=== PATIENT | male | born 1955 | race Caucasian/White ===

== ENCOUNTER 2016-09-11 16:37 | Inpatient (IN) | payer MEDICARE, OTHER ==
[2016-09-11] MEDS ORDERED: IPRATROPIUM-ALBUTEROL 3 ML NEB INHALATION STA ×2 (17:50→20:49)
[2016-09-11] MEDS ORDERED: RX INFO: IV CONTRAST WAS GIVEN 1 EACH MISC MISCELLANE PRN (17:51)
[2016-09-11] MEDS ORDERED: ASPIRIN 81 MG CHEW PO STA (17:52)
[2016-09-11] MEDS ORDERED: NITROGLYCERIN OINT 1 INCH/GM PACKET TOPICAL STA (17:53)
[2016-09-11 18:26] LABS: Basophils # (A) 0.1 k/uL (0-0.2); Basophils % (A) 1 %; CHCM 33.3; Eosinophils # (A) 0.2 k/uL (0-0.7); Eosinophils % (A) 2 %; HCT 45.1 % (39.0-53.0); HDW 2.23; HGB 15.2 gm/dL (13.0-17.5); Luc # (Auto) 0.27; Luc % (Auto) 3; Lymphocytes # (A) 2.9 k/uL (1.0-4.8); Lymphocytes % (A) 33 %; MCH 31.4 pg (25.0-35.0); MCHC 33.7 g/dL (31.0-37.0); MCV 93.3 fL (80.0-100.0); Mean Platelet Volume 7.6; Monocytes # (A) 0.6 k/uL (0-1.0); Monocytes % (A) 7 %; Neutrophils # (A) 4.7 k/uL (1.3-7.7); Neutrophils % (A) 54 %; RBC 4.84 m/uL (4.30-5.90); RDW 13.2 % (11.5-15.5); WBC 8.6 k/uL (3.8-10.6); WBC (Perox) 8.32
[2016-09-11 18:38] LABS: INR 1.1 (<1.1); Partial Thromboplastin Time 25.9 sec (22.0-30.0); Prothrombin Time 10.9 sec (9.0-12.0)
[2016-09-11 18:39] LABS: ALT 92 U/L (21-72); AST 79 U/L (17-59); Alkaline Phosphatase 113 U/L (38-126); Anion Gap 14 mmol/L; Blood Urea Nitrogen 13 mg/dL (9-20); Calcium 9.9 mg/dL (8.4-10.2); Carbon Dioxide 24 mmol/L (22-30); Chloride 101 mmol/L (98-107); Glucose 139 mg/dL (74-99); Non-African American GFR(MDRD) >60 (>60 ml/min/1.73 sqM); Potassium 4.3 mmol/L (3.5-5.1); Sodium 139 mmol/L (137-145); Total Bilirubin 0.5 mg/dL (0.2-1.3); Total Protein 8.3 g/dL (6.3-8.2)
[2016-09-11 18:48] LABS: Creatine Kinase 128 U/L (55-170)
[2016-09-11 18:59] LABS: Creatine Kinase MB 1.4 ng/mL (0.0-2.4); Troponin I <0.012 ng/mL (0.000-0.034)
--- NOTE | 2016-09-11 19:36 | CT ---
EXAMINATION TYPE: CT angio chest DATE OF EXAM: 09/11/2016 7:22 PM COMPARISON: NONE HISTORY: Diffuse chest pain x [address] DLP: 563.20 mGycm Automated exposure control for dose reduction was used. CONTRAST: CTA scan of the thorax is performed with IV Contrast, patient injected with 83 mL of Omnipaque 350, p ulmonary embolism protocol. . FINDINGS: There are 3-D post processed images. The lungs are clear of consolidation. There is subpleural mild interstitial density in the posterior lung pruitt. There is no sign of a pulmonary mass. There is no evidence of aortic aneurysm or dissection. There is coronary artery calcification. I see no filling defects in the pulmonary arteries. There is no mediastinal adenopathy. There are no hilar masses. There is no pericardial effusion. There is evidence for fatty infiltration of the liver. Bony thorax appears intact. IMPRESSION: NO EVIDENCE OF PULMONARY EMBOLISM. ATHEROSCLEROTIC VASCULAR DISEASE. PULMONARY FIBROTIC CHANGES.
--- NOTE | 2016-09-11 20:55 | ED ---
SOB HPI - General Chief Complaint: Shortness of Breath Stated Complaint: Poss Blood Clot in Lung Time Seen by Provider: 09/11/16 16:57 Source: patient Mode of arrival: ambulatory Limitations: no limitations - History of Present Illness Initial Comments: This 61-year-old white male presents with a complaint of some shortness of breath. He states that he's had this for approximately 10 days and it is progressively worsening. It is worse with any exertion. He has had a cough without production. He denies any actual fever. He also has had some chest pain which is described as a pressure type sensation like someone is sitting on his chest. [facility] and they noticed that he may have pneumonia and they were also worried about a blood clot. He denies any leg pain or swelling or history of DVT or PE. He does have a strong history of tobacco use but stopped in the . He does have a history of asthma and utilizes HFA's. He states that his last stress test was approximately 3 years ago. He has never had a heart catheterization. No other complaints or modifying factors. - Related Data Home Medications Medication Instructions Recorded Confirmed Aspirin EC [Ecotrin Low Dose] 81 mg PO HS 09/11/16 09/11/16 Ibuprofen [Motrin] 800 mg PO Q8H PRN 09/11/16 09/11/16 Insulin NPH Hum/Reg Insulin Hm 90 unit SQ QA 09/11/16 09/11/16 [NovoLIN 70-30 100 UNIT/ML VIAL] Insulin NPH Hum/Reg Insulin Hm 95 unit SQ HS 09/11/16 09/11/16 [NovoLIN 70-30 100 UNIT/ML VIAL] Lisinopril [Zestril] 10 mg PO DAILY 09/11/16 09/11/16 Niacin [Niacin ER] 1,000 mg PO HS 09/11/16 09/11/16 Omeprazole [PriLOSEC] 20 mg PO DAILY 09/11/16 09/11/16 Tamsulosin HCl [Flomax] 0.4 mg PO DAILY PRN 09/11/16 09/11/16 amLODIPine [Norvasc] 10 mg PO DAILY 09/11/16 09/11/16 metFORMIN HCL 1,000 mg PO BID 09/11/16 09/11/16 Allergies Allergy/AdvReac Type Severity Reaction Status Date / Time hydrocodone [From [place]] AdvReac Hallucinati Verified 09/11/16 18:14 ons/Nausea& vomiting Review of Systems ROS Statement: Those systems with pertinent positive or pertinent negative responses have been documented in the HPI. ROS Other: All systems not noted in ROS Statement are negative. Past Medical History Past Medical History: Asthma, Diabetes Mellitus, Hypertension, Myocardial Infarction ([place]) Additional Past Medical History / Comment(s): hypercholestremia, swine flu History of Any Multi-Drug Resistant Organisms: None Reported Past Surgical History: Tonsillectomy Additional Past Surgical History / Comment(s): knee, hernia repair. Past Psychological History: No Psychological Hx Reported Smoking Status: Former smoker Past Alcohol Use History: None Reported Past Drug Use History: None Reported General Exam - General Exam Comments Initial Comments: GENERAL: The patient is well nourished and well hydrated. VITAL SIGNS: Heart rate, blood pressure, respiratory rate reviewed as recorded in nurse's notes. EYES: Pupils are round and reactive. Extraocular movements are intact. No conjunctival / lid redness or swelling. ENT: No external evidence of injury, swelling, or ecchymosis. Airway is patent. Throat is clear. NECK: Nontender. No swelling or evidence of injury. No subcutaneous emphysema. Trachea is midline. No thyroid mass. HEART: Regular rate and rhythm. Good peripheral pulses. LUNGS/CHEST: There is some mild wheezing noted bilaterally. No ecchymosis, subcutaneous emphysema, or tenderness. ABDOMEN: Abdomen soft without tenderness. No palpable masses or organomegaly. No peritoneal signs. No abdominal wall swelling or ecchymosis. EXTREMITIES: No extremity tenderness. Normal muscle tone and function. No thoracolumbar tenderness. NEUROLOGIC: Sensation is grossly intact. Cranial nerve exam reveals face is symmetrical, tongue is midline, speech is clear. SKIN: No abrasions or ecchymosis is noted. No induration or masses noted. PSYCHIATRIC: Alert and oriented. Appropriate behavior and judgment. Limitations: no limitations Course Vital Signs 09/11/16 09/11/16 09/11/16 17:12 17:43 18:25 Temperature 97.0 F L 97.7 F Pulse Rate 109 H 102 H Respiratory 23 Rate Blood Pressure 145/90 O2 Sat by Pulse 97 Oximetry 09/11/16 09/11/16 18:43 19:23 Temperature Pulse Rate 110 H 106 H Respiratory 20 Rate Blood Pressure 122/69 O2 Sat by Pulse 94 L Oximetry Medical Decision Making - Medical Decision Making The patient was seen and examined. All diagnostics were reviewed. The EKG shows a sinus tachycardia at a rate of 103. There is no acute ST-T wave changes noted. The ND interval is 168, QRS duration is 90, and QTc interval is 42. The patient had a laboratory analysis done which is overall fairly unremarkable. The computed tomography scan of the thorax did not show any evidence of pulmonary embolism or infiltrates. It did show some pulmonary fibrosis as well as arterial sclerosis. The laboratory showed mild elevation of the LFTs and the patient states that he has had this before due to a fatty liver. Overall it is felt as though patient has an exacerbation of his COPD. He also potentially could have acute coronary syndrome/unstable angina. Is felt as though he benefit from admission and further treatment. He does receive aspirin as well as Nitropaste and multiple DuoNeb breathing treatments and steroids. He is agreeable to this plan. Case is discussed with Dr. Ayala who is agreeable to admission with pulmonology and cardiology to consult. - Lab Data Result diagrams: 09/11/16 17:38 09/11/16 17:38 Lab Results 09/11/16 09/11/16 09/11/16 Range/Units 17:38 17:38 17:38 WBC 8.6 (3.8-10.6) k/uL RBC 4.84 (4.30-5.90) m/uL Hgb 15.2 (13.0-17.5) gm/dL Hct 45.1 (39.0-53.0) % MCV 93.3 (80.0-100.0) fL MCH 31.4 (25.0-35.0) pg MCHC 33.7 (31.0-37.0) g/dL RDW 13.2 (11.5-15.5) % Plt Count 204 (150-450) k/uL Neutrophils % 54 % Lymphocytes % 33 % Monocytes % 7 % Eosinophils % 2 % Basophils % 1 % Neutrophils # 4.7 (1.3-7.7) k/uL Lymphocytes # 2.9 (1.0-4.8) k/uL Monocytes # 0.6 (0-1.0) k/uL Eosinophils # 0.2 (0-0.7) k/uL Basophils # 0.1 (0-0.2) k/uL PT (9.0-12.0) sec INR (<1.1) APTT (22.0-30.0) sec D-Dimer (<0.60) mg/L FEU Sodium 139 (137-145) mmol/L Potassium 4.3 (3.5-5.1) mmol/L Chloride 101 (98-107) mmol/L Carbon Dioxide 24 (22-30) mmol/L Anion Gap 14 mmol/L BUN 13 (9-20) mg/dL Creatinine 0.77 (0.66-1.25) mg/dL Est GFR (MDRD) Af Amer >60 (>60 ml/min/1.73 sqM) Est GFR (MDRD) Non-Af >60 (>60 ml/min/1.73 sqM) Glucose 139 H (74-99) mg/dL Calcium 9.9 (8.4-10.2) mg/dL Total Bilirubin 0.5 (0.2-1.3) mg/dL AST 79 H (17-59) U/L ALT 92 H (21-72) U/L Alkaline Phosphatase 113 (38-126) U/L Total Creatine Kinase 128 (55-170) U/L CK-MB (CK-2) 1.4 (0.0-2.4) ng/mL CK-MB (CK-2) Rel Index 1.1 Troponin I <0.012 (0.000-0.034) ng/mL NT-Pro-B Natriuret Pep pg/mL Total Protein 8.3 H (6.3-8.2) g/dL Albumin 4.4 (3.5-5.0) g/dL 09/11/16 09/11/16 Range/Units 17:38 17:38 WBC (3.8-10.6) k/uL RBC (4.30-5.90) m/uL Hgb (13.0-17.5) gm/dL Hct (39.0-53.0) % MCV (80.0-100.0) fL MCH (25.0-35.0) pg MCHC (31.0-37.0) g/dL RDW (11.5-15.5) % Plt Count (150-450) k/uL Neutrophils % % Lymphocytes % % Monocytes % % Eosinophils % % Basophils % % Neutrophils # (1.3-7.7) k/uL Lymphocytes # (1.0-4.8) k/uL Monocytes # (0-1.0) k/uL Eosinophils # (0-0.7) k/uL Basophils # (0-0.2) k/uL PT 10.9 (9.0-12.0) sec INR 1.1 (<1.1) APTT 25.9 (22.0-30.0) sec D-Dimer 0.23 (<0.60) mg/L FEU Sodium (137-145) mmol/L Potassium (3.5-5.1) mmol/L Chloride (98-107) mmol/L Carbon Dioxide (22-30) mmol/L Anion Gap mmol/L BUN (9-20) mg/dL Creatinine (0.66-1.25) mg/dL Est GFR (MDRD) Af Amer (>60 ml/min/1.73 sqM) Est GFR (MDRD) Non-Af (>60 ml/min/1.73 sqM) Glucose (74-99) mg/dL Calcium (8.4-10.2) mg/dL Total Bilirubin (0.2-1.3) mg/dL AST (17-59) U/L ALT (21-72) U/L Alkaline Phosphatase (38-126) U/L Total Creatine Kinase (55-170) U/L CK-MB (CK-2) (0.0-2.4) ng/mL CK-MB (CK-2) Rel Index Troponin I (0.000-0.034) ng/mL NT-Pro-B Natriuret Pep 18 pg/mL Total Protein (6.3-8.2) g/dL Albumin (3.5-5.0) g/dL Disposition Clinical Impression: Dyspnea, Chest pain, Unstable angina, Pulmonary fibrosis, COPD exacerbation, Transaminitis, Sinus tachycardia, Hypertension Disposition: HOME SELF-CARE Condition: Fair Time of Disposition: 20:55 Decision Date: 09/11/16 Decision Time: 20:55
[2016-09-11] MEDS ORDERED: methylPREDNISolone SOD SUCCI 125 MG/2 ML VIAL IV STA (20:56)
[2016-09-11] MEDS ORDERED: NITROGLYCERIN SL TABS 0.4 MG TAB SUBLINGUAL PRN (20:59)
[2016-09-11] MEDS ORDERED: HEPARIN SODIUM,PORCINE 5,000 UNIT/ML 1 ML VIAL IV ONE (20:59)
[2016-09-11] MEDS ORDERED: HEPARIN SODIUM,PORCINE 5,000 UNIT/ML 1 ML VIAL IV PRN (20:59)
[2016-09-11] MEDS ORDERED: HEPARIN SODIUM,PORCINE/D5W PMX 25,000 UNIT in DEXTROSE/WATER 1 500ML.BAG IV SCH (21:00)
[2016-09-11] MEDS ORDERED: IBUPROFEN 800 MG TAB PO PRN (21:01)
[2016-09-11] MEDS ORDERED: TAMSULOSIN 0.4 MG CAP.ER.24H PO PRN (21:01)
--- NOTE | 2016-09-11 22:29 | XR ---
EXAMINATION TYPE: XR chest 1V portable DATE OF EXAM: 09/11/2016 10:17 PM COMPARISON: NONE HISTORY: Chest pain TECHNIQUE: Single frontal view of the chest is obtained. FINDINGS: There is no heart failure nor confluent pneumonic infiltrate. There are chest leads. Costo phrenic angles are clear. IMPRESSION: No active cardiopulmonary disease.
[2016-09-11 22:32] LABS: Glucose,Whole Blood 186 mg/dL (75-99)
[2016-09-11 22:34] VITALS: BMI 41.6
[2016-09-11] MEDS ORDERED: ALPRAZolam 0.25 MG TAB PO PRN (23:14)
[2016-09-11] MEDS ORDERED: TEMAZEPAM 15 MG CAP PO PRN (23:14)
[2016-09-12] MEDS: NITROGLYCERIN OINT 1 INCH/GM PACKET TOPICAL SCH ×5 (00:07→22:59)
[2016-09-12 00:27] LABS: Hemoglobin A1C 7.8 % (4.2-6.1)
[2016-09-12 01:15] LABS: Creatine Kinase 113 U/L (55-170)
[2016-09-12 01:30] LABS: Creatine Kinase MB 0.9 ng/mL (0.0-2.4); Troponin I <0.012 ng/mL (0.000-0.034)
[2016-09-12 03:03] LABS: Appearance,Urine Clear (Clear); Bilirubin,Urine Negative (Negative); Glucose,Urine (UA) 4+ (Negative); Ketones,Urine 1+ (Negative); Leukocyte Esterase,Urine Negative (Negative); Nitrite,Urine Negative (Negative); PH, Urine 5.5 (5.0-8.0); Protein,Urine Trace (Negative); UA Billing (MACRO vs. MICRO) CHEM; Urobilinogen,Urine <2.0 mg/dL (<2.0)
[2016-09-12 03:47] LABS: Specific Gravity,Urine >1.050 (1.001-1.035)
[2016-09-12 06:30] LABS: Glucose,Whole Blood 347 mg/dL (75-99)
[2016-09-12] MEDS: INSULIN LISPRO (humaLOG) 300 UNIT/3 ML VIAL SQ SCH ×5 (06:36→21:15)
[2016-09-12 06:37] LABS: Basophils % (A) 0 %; CH 30.5; CHCM 31.9; Eosinophils % (A) 0 %; HCT 44.4 % (39.0-53.0); HDW 2.19; HGB 14.1 gm/dL (13.0-17.5); Luc # (Auto) 0.05; Luc % (Auto) 1; Lymphocytes # (A) 0.9 k/uL (1.0-4.8); Lymphocytes % (A) 16 %; MCH 30.3 pg (25.0-35.0); MCHC 31.7 g/dL (31.0-37.0); MCV 95.7 fL (80.0-100.0); Mean Platelet Volume 7.6; Monocytes # (A) 0.1 k/uL (0-1.0); Monocytes % (A) 1 %; Neutrophils # (A) 4.9 k/uL (1.3-7.7); Neutrophils % (A) 82 %; RBC 4.64 m/uL (4.30-5.90); RDW 13.2 % (11.5-15.5); WBC (Perox) 5.99
[2016-09-12] MEDS: PANTOPRAZOLE 40 MG TABLET PO SCH (06:37)
[2016-09-12 06:42] LABS: ALT 91 U/L (21-72); AST 78 U/L (17-59); Alkaline Phosphatase 95 U/L (38-126); Anion Gap 12 mmol/L; Blood Urea Nitrogen 17 mg/dL (9-20); Calcium 9.7 mg/dL (8.4-10.2); Carbon Dioxide 26 mmol/L (22-30); Chloride 99 mmol/L (98-107); Cholesterol 189 mg/dL (<200); Glucose 320 mg/dL (74-99); HDL Cholesterol 56 mg/dL (40-60); Non-African American GFR(MDRD) >60 (>60 ml/min/1.73 sqM); Potassium 4.6 mmol/L (3.5-5.1); Sodium 137 mmol/L (137-145); Total Bilirubin 0.6 mg/dL (0.2-1.3); Total Protein 7.6 g/dL (6.3-8.2); Triglycerides 80 mg/dL (<150)
[2016-09-12 06:50] LABS: Creatine Kinase 116 U/L (55-170)
[2016-09-12 07:03] LABS: Creatine Kinase MB 0.9 ng/mL (0.0-2.4); Troponin I <0.012 ng/mL (0.000-0.034)
[2016-09-12] MEDS ORDERED: metFORMIN 500 MG TAB PO SCH (07:30)
[2016-09-12] MEDS: methylPREDNISolone SOD SUCCI 125 MG/2 ML VIAL IV SCH ×2 (08:16→11:31)
[2016-09-12] MEDS: ASPIRIN 325 MG TAB PO SCH (08:16)
[2016-09-12] MEDS: LISINOPRIL 10 MG TAB PO SCH (08:17)
[2016-09-12] MEDS: amLODIPine 10 MG TAB PO SCH (08:17)
[2016-09-12] MEDS: BUDESONIDE 0.5 MG/2 ML NEBU INHALATION SCH ×2 (08:53→20:54)
[2016-09-12] MEDS: IPRATROPIUM-ALBUTEROL 3 ML NEB INHALATION PRN (08:53)
[2016-09-12] MEDS ORDERED: ATORVASTATIN 80 MG TAB PO STA (10:20)
[2016-09-12] MEDS ORDERED: NITROGLYCERIN SL TABS 0.4 MG TAB SUBLINGUAL PRN (10:20)
[2016-09-12] MEDS ORDERED: ALPRAZolam 0.25 MG TAB PO PRN (10:20)
[2016-09-12] MEDS ORDERED: SODIUM CHLORIDE 0.9% 1,000 ML in EMPTY BAG 1 BAG IV ONE (10:20)
[2016-09-12] MEDS ORDERED: ASPIRIN 325 MG TAB PO STA (10:20)
[2016-09-12] MEDS ORDERED: ALPRAZolam 0.5 MG TAB PO PRN (10:20)
--- NOTE | 2016-09-12 10:27 | ECHOF ---
Referral Reason:cp and sob MEASUREMENTS -------- HEIGHT: 152.4 cm WEIGHT: 130.6 kg BP: 140/60 RVIDd: 2.9 cm (< 3.3) IVSd: 1.3 cm (0.6 - 1.1) LVIDd: 5.0 cm (3.9 - 5.3) LVPWd: 1.5 cm (0.6 - 1.1) IVSs: 1.5 cm LVIDs: 4.4 cm LVPWs: 1.3 cm Ao Diam: 2.9 cm (2.0 - 3.7) AV Cusp: 1.7 cm (1.5 - 2.6) LA Diam: 4.2 cm (2.7 - 3.8) MV EXCURSION: 24.599 mm (> 18.000) MV EF SLOPE: 129 mm/s (70 - 150) EPSS: 0.5 cm MV E Conner: 0.56 m/s MV DecT: 283 ms MV A Conner: 0.91 m/s MV E/A Ratio: 0.61 RAP: 5.00 mmHg RVSP: 15.61 mmHg FINDINGS -------- Sinus rhythm. Morbid Obesity This was a techncally difficult study with suboptimal views, , Definity utilized for enhancement of images. The left ventricular size is normal. There is mild concentric left ventricular hypertrophy. Overall left ventricular systolic function is normal with, an EF between 55 - 60 %. The right ventricle is normal in size. The left atrial size is normal. The right atrial size is normal. 1.5MG OF DEFINITY UTLIZED: 2 OR MORE WALL SEGMENTS NOT VISUALIZED. There is mild aortic valve sclerosis. There is no evidence of aortic regurgitation. Mild mitral annular calcification present. Mild mitral regurgitation is present. Mild tricuspid regurgitation present. There is no evidence of pulmonary hypertension. The right ventricular systolic pressure, as measured by Doppler, is 15.61mmHg. The pulmonic valve was not well visualized. There is no pulmonic regurgitation present. The aortic root size is normal. There is no pericardial effusion. CONCLUSIONS -------- 1. Morbid Obesity 2. Mild tricuspid regurgitation present. 3. There is no evidence of pulmonary hypertension. 4. There is no pulmonic regurgitation present. 5. This was a techncally difficult study with suboptimal views, , Definity utilized for enhancement of images. 6. There is mild concentric left ventricular hypertrophy. 7. Overall left ventricular systolic function is normal with, an EF between 55 - 60 %. 8. The left atrial size is normal. 9. 1.5MG OF DEFINITY UTLIZED: 2 OR MORE WALL SEGMENTS NOT VISUALIZED. 10. There is mild aortic valve sclerosis. 11. Mild mitral annular calcification present. 12. Mild mitral regurgitation is present. HAND BASEBALL SEWER: Chary Stevenson RDCS
--- NOTE | 2016-09-12 10:47 | CONS ---
DATE OF CONSULTATION: CHIEF COMPLAINT: Chest pain. Jae is a 61-year-old gentleman with history of [id number]-[id number] diabetes, hypertension, dyslipidemia, and strong family history of premature coronary artery disease who presents to hospital complaining of chest discomfort. This has been going on over the last several weeks. He describes it as a precordial chest pressure, moderate intensity, usually comes on with exertion, no clear-cut radiation, relieved with rest. Patient also complains of exertional shortness of breath, mild to moderate intensity, progressively getting worse. He comes in, is admitted with a diagnosis of unstable angina and at the time of my evaluation this morning, he is pain free, hemodynamically stable and in no apparent distress. His cardiac enzymes have been negative. LDL cholesterol is 117. He had a CT scan of the chest on his initial presentation, that was negative for pulmonary embolism. Past medical history is significant for hypertension, diabetes, dyslipidemia. Current medications include metformin 1000 mg b.i.d., Norvasc 10 mg daily, Flomax, Prilosec, Niacin, Zestril, insulin, Motrin and aspirin. ALLERGIES: Allergic to HYDROCODONE. FAMILY HISTORY: Significant for premature coronary artery disease. SOCIAL HISTORY: Negative for current smoking, EtOH abuse or drug abuse. REVIEW OF SYSTEMS: HEENT is unremarkable. CARDIAC: As described above. RESPIRATORY: As described above. GI: Negative. GENITOURINARY: Negative. MUSCULOSKELETAL: Significant for arthritis. PSYCHOSOCIAL: Negative. HEMATOLOGICAL: Negative. DERMATOLOGY: Negative. CONSTITUTIONAL: Negative. The rest of the system review is not relevant. On exam, comfortable at rest. Vital signs are stable. There is no jugular venous distention. Carotid upstroke is normal. There is no bruit. Chest exam reveals good air entry bilaterally. Heart exam reveals first and second heart sounds. No gallop. No murmur, no rub. Abdomen is soft, nontender. Exam of extremities did not reveal edema. Peripheral pulses are felt. Labs show that the creatinine is normal at 0.89. Cardiac enzymes are negative. Hemoglobin is normal at 14, platelet count is 183. ASSESSMENT: 1. Unstable angina. 2. Hypertension. 3. Dyspareunia. 4. Non-insulin dependent diabetes. 5. Morbid obesity. PLAN: Patient's symptomatology is suggestive of unstable angina. Given his multiple coronary risk factors, I advised the patient to undergo cardiac catheterization. He had been explained of risks, benefits, and alternatives, understood and accepted. I reviewed his EKGs, cardiac enzymes, CT scan.
[2016-09-12] MEDS: INSULIN NPH/REG INSULIN 70/30 300 UNIT/3 ML VIAL SQ SCH (11:15)
[2016-09-12 11:45] LABS: Glucose,Whole Blood 282 mg/dL (75-99)
[2016-09-12] MEDS ORDERED: fentaNYL (PF) 50 MCG/ML 2 ML AMP ONE (13:12)
[2016-09-12] MEDS ORDERED: MIDAZOLAM 2 MG/2 ML VIAL ONE (13:12)
[2016-09-12] MEDS: fentaNYL (PF) 50 MCG/ML 2 ML AMP IV ONE ×2 (13:15→13:52)
[2016-09-12] MEDS: MIDAZOLAM 2 MG/2 ML VIAL IV ONE ×2 (13:15→13:53)
--- NOTE | 2016-09-12 13:20 | P.CNPUL ---
History of Present Illness Consult date: 09/12/16 Requesting physician: Anna Ayala Reason for consult: dyspnea, chest pain Chief complaint: Chest pain History of present illness: This is a 61-year-old white male with history of onv-kucgicj-ypbqhnnjl diabetes , hypertension, dyslipidemia, strong family history of premature coronary artery disease, patient has been complaining of chest discomfort and pressure over the left chest for the last several weeks. The pressure has been precordial in location, moderate in intensity, and seems to be at times to be related to exertion. Denies any radiation of the pain. Denies any diaphoresis. But he does describe some shortness of breath along with the chest discomfort. Upon admission CT of the chest was negative for pulmonary embolism. I was asked to see the patient on consultation. I felt that the symptoms are mostly cardiac in nature, and I will recommend full cardiac evaluation. Patient denies any headache no blurred vision no dizziness. No nausea no vomiting no abdominal pain no melena no hematemesis no dysuria and no frequency no urgency. Review of Systems 14 point review of systems were obtained, please refer to pertinent positives and negatives in HPI. Past Medical History Past Medical History: Asthma, Diabetes Mellitus, Hyperlipidemia, Hypertension Additional Past Medical History / Comment(s): hypercholestremia, swine flu History of Any Multi-Drug Resistant Organisms: None Reported Past Surgical History: Tonsillectomy Additional Past Surgical History / Comment(s): repaired cartilage in left knee, hernia repair. Past Anesthesia/Blood Transfusion Reactions: No Reported Reaction Past Psychological History: No Psychological Hx Reported Smoking Status: Former smoker Past Alcohol Use History: None Reported Past Drug Use History: None Reported - Past Family History Father Family Medical History: Myocardial Infarction ([place]) Additional Family Medical History / Comment(s): at age 52 from a heart attack Mother Family Medical History: Myocardial Infarction ([place]) Additional Family Medical History / Comment(s): at age 52 from a heart attack Sister(s) Family Medical History: Myocardial Infarction ([place]) Medications and Allergies Home Medications Medication Instructions Recorded Confirmed Type Aspirin EC [Ecotrin Low Dose] 81 mg PO HS 09/11/16 09/11/16 History Ibuprofen [Motrin] 800 mg PO Q8H PRN 09/11/16 09/11/16 History Insulin NPH Hum/Reg Insulin Hm 90 unit SQ QAM 09/11/16 09/11/16 History [NovoLIN 70-30 100 UNIT/ML VIAL] Insulin NPH Hum/Reg Insulin Hm 95 unit SQ HS 09/11/16 09/11/16 History [NovoLIN 70-30 100 UNIT/ML VIAL] Lisinopril [Zestril] 10 mg PO DAILY 09/11/16 09/11/16 History Niacin [Niacin ER] 1,000 mg PO HS 09/11/16 09/11/16 History Omeprazole [PriLOSEC] 20 mg PO DAILY 09/11/16 09/11/16 History Tamsulosin HCl [Flomax] 0.4 mg PO DAILY PRN 09/11/16 09/11/16 History amLODIPine [Norvasc] 10 mg PO DAILY 09/11/16 09/11/16 History metFORMIN HCL 1,000 mg PO BID 09/11/16 09/11/16 History Allergies Allergy/AdvReac Type Severity Reaction Status Date / Time hydrocodone [From [place]] AdvReac Hallucinati Verified 09/11/16 18:14 ons/Nausea& vomiting Physical Exam Vitals: Vital Signs Temp Pulse Pulse Resp BP BP Pulse Ox 09/12/16 11:58 97.2 F L 114 H 18 136/74 95 09/12/16 09:05 110 H 09/12/16 08:53 107 H 09/12/16 08:00 96.9 F L 97 16 122/68 95 09/12/16 04:00 98.2 F 79 16 107/62 95 09/12/16 00:00 98.6 F 90 16 97/51 93 L 09/11/16 22:15 98.7 F 102 H 16 121/75 94 L 09/11/16 21:48 110 H 20 105/66 98 Intake and Output 09/11/16 09/12/16 09/12/16 22:59 06:59 14:59 Intake Total 200 400.328 Balance 200 400.328 Intake: Intake, IV Titration 150.328 Amount Heparin Sodium,Porcine/ 150.328 D5w Pmx 25,000 unit In Dextrose/Water 1 500ml. bag @ 7.6 UNITS/KG/HR 19. 78 mls/hr IV .Q24H [facility] Rx #:[id number] Oral 200 250 Other: Voiding Method Toilet Toilet Toilet # Voids 1 Weight 131.6 kg 130.8 kg Physical Exam: Revealed a 61-year-old white male in no distress HEENT:[Neck is supple.] [No neck masses.] [No thyromegaly.] [No JVD.] Chest: [Clear throughout, no crackles, no rhonchi, no wheezes.] Cardiac Exam: [Normal S1 and S2, no S3 gallop, no murmur.] Abdomen: [Soft, nontender, no megaly, no rebound, no guarding, normal bowel sounds.] Extremities: [No clubbing, no edema, no cyanosis.] Neurological Exam: [No focal neurologic deficit.] Results - Laboratory Findings CBC and BMP: 09/12/16 05:27 09/12/16 05:27 PT/INR, D-dimer PT 10.9 sec (9.0-12.0) 09/11/16 17:38 INR 1.1 (<1.1) 09/11/16 17:38 D-Dimer 0.23 mg/L FEU (<0.60) 09/11/16 17:38 Abnormal lab findings: Abnormal Labs 09/11/16 09/12/16 09/12/16 22:30 02:35 03:14 Lymphocytes # APTT 31.3 H Glucose POC Glucose (mg/dL) 186 H AST ALT LDL Cholesterol, Calc Ur Specific [place] >1.050 H Urine Protein Trace H Urine Glucose (UA) 4+ H Urine Ketones 1+ H 09/12/16 09/12/16 09/12/16 05:27 05:27 06:29 Lymphocytes # 0.9 L APTT Glucose 320 H POC Glucose (mg/dL) 347 H AST 78 H ALT 91 H LDL Cholesterol, Calc 117 H Ur Specific [place] Urine Protein Urine Glucose (UA) Urine Ketones 09/12/16 09/12/16 10:58 11:43 Lymphocytes # APTT 41.4 H Glucose POC Glucose (mg/dL) 282 H AST ALT LDL Cholesterol, Calc Ur Specific [place] Urine Protein Urine Glucose (UA) Urine Ketones - Diagnostic Findings CT scan - chest: image reviewed (No evidence of pulmonary embolism, subpleural minimal interstitial changes noted in the posterior lung pruitt not felt to be clinically significant.) Assessment and Plan Plan: Impression: 1 unstable angina, patient will need full cardiac evaluation and possibly cardiac catheterization. 2 history of hypertension 3 strong family history of premature coronary artery disease 4 morbid obesity 5 known insulin-dependent diabetes 6 minimal subpleural fibrotic changes noted on CT of the chest not felt to be clinically significant at this point. However could be monitored on outpatient basis. Clearly not related to his symptoms of chest pain. Recommendation: Will defer further workup to the makeup editor on the case, and we'll see the patient on when necessary basis. Time with Patient: Greater than 30
[2016-09-12] MEDS ORDERED: LIDOCAINE 2% INJ 20 MG/ML SQ ONE (13:47)
--- NOTE | 2016-09-12 14:07 | HP ---
DATE OF ADMISSION: CHIEF COMPLAINT: shortness of breath and cough and chest pain. HISTORY OF PRESENT ILLNESS: This 61-year-old gentleman with a past medical history of multiple medical problems including asthma, history of diabetes, hypertension, hyperlipidemia, hypercholesterolemia, history of swine flu, [facility] [place] was previously in [place]. Currently the patient is having cough for several days. The patient also complaining of chest pain, which was felt in the anterior part of the chest. Patient also had shortness of breath which is increasing with activity and the patient [facility] and subsequently patient was referred to [facility] for further evaluation and treatment. The patient had multiple evaluations. The CBC was normal. AST, ALT was mildly elevated. The patient also had chest CTA, which showed no evidence of any pulmonary embolism, atherosclerotic cardiovascular disease suspected, pulmonary fibrotic changes also noted. Patient admitted for further evaluation and treatment. There is no history of fever, rigors, chills. No history of headache, loss of consciousness or seizures. PAST MEDICAL HISTORY: History of asthma, diabetes, hypertension, hyperlipidemia, hypercholesterolemia, swine flu. Medications prior to admission include: 1. Metformin 1000 mg p.o. b.i.d. 2. Norvasc 10 mg daily. 3. Flomax 0.01 daily p.r.n. 4. Prilosec 20 mg daily. 5. Niacin ER 1000 mg q.6. 6. Zestril 10 mg daily. 7. Novolin 70/30, 95 units subcu q.h.s. and 90 units subcu q.a.m. 8. Motrin 800 mg q.8 p.r.n. 9. Ecotrin 81 mg p.o. daily. ALLERGIES ARE HYDROCODONE. FAMILY HISTORY: History of myocardial infarction in the family at the age of 52. SOCIAL HISTORY: Previous history of smoking. No history of alcohol intake. REVIEW OF SYSTEMS: ENT: No diminished hearing. No diminished vision. CARDIOVASCULAR: No angina or palpitations. RESPIRATORY: As mentioned earlier. GI: No nausea. : No dysuria. NERVOUS SYSTEM: No numbness, weakness. ALLERGY/IMMUNOLOGY: As mentioned earlier. MUSCULOSKELETAL: As mentioned earlier. HEMATOLOGY: No history of anemia. ENDOCRINE: As mentioned earlier. CONSTITUTIONAL: As mentioned earlier. DERMATOLOGY: Negative. RHEUMATOLOGY: Negative. PSYCHIATRY: As mentioned earlier. PHYSICAL EXAMINATION: Alert and oriented x3. Pulse 102, blood pressure 121/75, respirations 16, temperature 98.2, pulse ox 94% on room air. HEENT: Conjunctivae normal. Oral mucosa moist. NECK: No jugular venous distention. No carotid bruit. No lymph node enlargement. CARDIOVASCULAR: S1 and S2, muffled. No S3, no S4. RESPIRATORY: Breath sounds diminished at the bases. A few scattered rhonchi, no crackles. ABDOMEN: Soft, nontender, obese. No mass palpable. LEGS: Minimal edema. NERVOUS SYSTEM: Higher function as mentioned. Moves all four limbs. No focal motor deficits. LYMPHATIC: No lymphadenopathy in the neck, axillae or groin. SKIN: No ulcer, rash or bleeding. Labs: NT-proBNP is only 18. CBC within normal limits. Sodium 139. AST, ALT 79, 92. ASSESSMENT: 1. Chest pain for further evaluation, possible unstable angina. 2. Shortness of breath, possibly acute asthma exacerbation. 3. Increased AST, ALT, possibly hepatitis. 4. Diabetes mellitus type 2. 5. History of asthma. 6. Hypertension. 7. Hyperlipidemia. 8. History of hypercholesterolemia. 9. History of swine flu. 10. Remote history of nicotine dependence. 11. Obesity with body mass index of 41.6. 12. FULL CODE. RECOMMENDATIONS AND DISCUSSION: In this 61-year-old gentleman who presented with multiple complex medical issues, will monitor the patient closely. Continue the current medications and symptomatic treatment. Resume the home medications. Monitor blood sugars closely. Rule out myocardial infarction. Cardiology consultation. Also recommend Dr. Che for evaluation of shortness of breath. Otherwise possible stress test and further evaluation. The prognosis is guarded because of multiple complex medical issues. I would also recommend influenza swab also. Otherwise, blood cultures also has been sought. A set of troponins also have been requested. Serum lipase will be recommended. Chest x-ray did not show any acute abnormality at this time. Further recommendations to follow. Copy of dictation forwarded to Dr. Villarreal who is the primary physician in the [facility]. Will serially monitor the LFTs as well and recommend close follow-up in the outpatient setting.
[2016-09-12] MEDS ORDERED: RX INFO: IV CONTRAST WAS GIVEN 1 EACH MISC MISCELLANE PRN (14:25)
--- NOTE | 2016-09-12 14:44 | CC ---
DATE OF SERVICE: INDICATION: Unstable angina. PROCEDURE NOTE: After obtaining informed consent, left heart catheterization and coronary angiogram are performed via the right femoral artery using standard Navin catheters. Patient tolerated the procedure well without any immediate complications. Femoral manual hemostasis was obtained as patient was complaining of groin discomfort initially but at the end of the procedure he was fine. FINDINGS: 1. HEMODYNAMICS: Left ventricular end-diastolic pressure is 16 to 18 mm. There is no significant gradient across the aortic valve. 2. LEFT VENTRICULOGRAM: Left ventriculogram is not performed. 3. ANGIOGRAPHIC DATA: LEFT MAIN CORONARY ARTERY: Left main coronary artery appears calcified but is free of significant stenosis. It divides into left anterior descending coronary artery and circumflex coronary artery. LAD shows mild to moderate atherosclerotic plaque in its midportion. Circumflex coronary artery shows mild atherosclerotic changes. RIGHT CORONARY ARTERY: Right coronary artery and its branches are free of significant stenosis. CONCLUSION: 1. Mild to moderate nonobstructive coronary artery disease involving the left anterior descending coronary artery. 2. In the very distal part, there is a moderate plaque within the circumflex coronary artery. PLAN: Patient will be treated with optimal medical therapy at this time, will consider an outpatient stress test down the road and if there is ischemia, consider angioplasty at that time.
[2016-09-12] MEDS: SODIUM CHLORIDE 0.9% 1,000 ML IV SCH (15:10)
--- NOTE | 2016-09-12 16:26 | P.PN ---
Subjective Date of service 09/12/2016. Progress note being dictated for Dr. Ayala. Interval history: This is 61-year-old gentleman admitted with chest pain, possible unstable angina, shortness of breath, and multiple other medical issues in a patient with strong family history of CAD. Breathing improving, states increased shortness of breath accompanied by chest pain. Currently no chest pain. Evaluated by pulmonary with recommendations noted. NPO. Echo suboptimal study, reporting EF 55-60%, 2 or more wall segments not visualized Evaluated by cardiology and patient is scheduled for a cardiac catheterization this afternoon. Hypoglycemic, on IV steroids, blood sugars currently in the 200s. Objective - Vital Signs Vital signs: Vital Signs Temp 97.2 F L 09/12/16 12:00 Pulse 114 H 09/12/16 11:58 Resp 18 09/12/16 12:00 BP 136/74 09/12/16 12:00 Pulse Ox 95 09/12/16 12:00 Intake & Output 09/11/16 09/12/16 09/12/16 18:59 06:59 18:59 Intake Total 600.328 Balance 600.328 Weight 130.8 kg Intake: Intake, IV Titration 150.328 Amount Heparin Sodium,Porcine/ 150.328 D5w Pmx 25,000 unit In Dextrose/Water 1 500ml. bag @ 7.6 UNITS/KG/HR 19. 78 mls/hr IV .Q24H [facility] Rx #:[id number] Oral 450 Other: Voiding Method Toilet Toilet # Voids 1 - Exam PHYSICAL EXAM: VITAL SIGNS: [As above] GENERAL: [Sitting up in bed, no acute distress] HEENT: [Pupils equal conjunctiva normal.] NECK: [Supple, no JVD] RESPIRATORY EFFORT:[Normal] LUNGS: [Lungs clear, no wheezes rhonchi or crackles] CARDIOVASCULAR[regular S1 and S2, no murmur rub or gallop, no edema] GI: [Abdomen soft, nontender, positive bowel sounds.] PSYCH: [Alert and oriented -3, mood and affect normal.] NEURO: No focal deficits, moves all 4 extremities, strength and sensation intact. - Labs CBC & Chem 7: 09/12/16 05:27 09/12/16 05:27 Labs: Abnormal Lab Results - Last 24 Hours (Table) 09/11/16 09/12/16 09/12/16 Range/Units 22:30 02:35 03:14 Lymphocytes # (1.0-4.8) k/uL APTT 31.3 H (22.0-30.0) sec Glucose (74-99) mg/dL POC Glucose (mg/dL) 186 H (75-99) mg/dL AST (17-59) U/L ALT (21-72) U/L LDL Cholesterol, Calc (0-99) mg/dL Ur Specific [place] >1.050 H (1.001-1.035) Urine Protein Trace H (Negative) Urine Glucose (UA) 4+ H (Negative) Urine Ketones 1+ H (Negative) 09/12/16 09/12/16 09/12/16 Range/Units 05:27 05:27 06:29 Lymphocytes # 0.9 L (1.0-4.8) k/uL APTT (22.0-30.0) sec Glucose 320 H (74-99) mg/dL POC Glucose (mg/dL) 347 H (75-99) mg/dL AST 78 H (17-59) U/L ALT 91 H (21-72) U/L LDL Cholesterol, Calc 117 H (0-99) mg/dL Ur Specific [place] (1.001-1.035) Urine Protein (Negative) Urine Glucose (UA) (Negative) Urine Ketones (Negative) 09/12/16 09/12/16 Range/Units 10:58 11:43 Lymphocytes # (1.0-4.8) k/uL APTT 41.4 H (22.0-30.0) sec Glucose (74-99) mg/dL POC Glucose (mg/dL) 282 H (75-99) mg/dL AST (17-59) U/L ALT (21-72) U/L LDL Cholesterol, Calc (0-99) mg/dL Ur Specific [place] (1.001-1.035) Urine Protein (Negative) Urine Glucose (UA) (Negative) Urine Ketones (Negative) Assessment and Plan Plan: 1. [Chest pain for further evaluation, suspect unstable angina, cardiac catheterization pending]. 2. [Shortness of breath, minimal subpleural fibrotic changes per CT, no acute asthma exacerbation per pulmonary in a patient with chronic intermittent asthma] . 3. [Hypertension]. 4. [Morbid obesity, BMI 41.4]. 5. [Mildly elevated AST, ALT, possibly hepatitis]. 6. [Diabetes mellitus type 2]. 7. [Hyperlipidemia]. 8. History of hypercholesterolemia 9. History of swine flu 10. Remote history of nicotine dependence. Plan: Continue on current medication regime ,monitoring and symptomatic treatment. IV steroids discontinued, converted to oral steroids. Sliding scale adjusted with pre-meal insulin added to med regime. Post-monitoring of Accu-Cheks. Awaiting cardiac catheterization. Follow closely with cardiology. Further recommendations to follow. The impression and plan of care has been dictated as directed. : I performed a H&P examination of this patient and discussed the same with the dictator. I agree with the dictator's note. Any additional findings/opinions/ etc. will be noted.
[2016-09-12] MEDS ORDERED: predniSONE 20 MG TAB PO SCH (16:30)
[2016-09-12 16:43] LABS: Glucose,Whole Blood 311 mg/dL (75-99)
[2016-09-12] MEDS ORDERED: INSULIN LISPRO (humaLOG) 300 UNIT/3 ML VIAL SQ SCH (17:30)
[2016-09-12 20:43] LABS: Glucose,Whole Blood 375 mg/dL (75-99)
[2016-09-12] MEDS ORDERED: INSULIN NPH/REG INSULIN 70/30 300 UNIT/3 ML VIAL SQ SCH (21:00)
[2016-09-12] MEDS ORDERED: NIACIN TR 500 MG CAPSULE.ER PO SCH (21:00)
[2016-09-13 02:24] LABS: Glucose,Whole Blood 228 mg/dL (75-99)
--- NOTE | 2016-09-13 06:06 | PN ---
DATE OF SERVICE: 09/12/2016 This 61-year-old gentleman who was admitted with chest pain and shortness of breath, had a cardiac cath . Seen and evaluated the patient along with the nurse practitioner. Please refer to nurse practitioner notes and impression documented for further information. Prognosis guarded. Further recommendations to follow. MTDD
[2016-09-13] MEDS: NITROGLYCERIN OINT 1 INCH/GM PACKET TOPICAL SCH (06:20)
[2016-09-13] MEDS: SODIUM CHLORIDE 0.9% 1,000 ML IV SCH (06:21)
[2016-09-13 06:22] LABS: Basophils % (A) 0 %; CH 30.7; CHCM 32.4; Eosinophils % (A) 0 %; HCT 43.2 % (39.0-53.0); HDW 2.09; HGB 13.9 gm/dL (13.0-17.5); Luc # (Auto) 0.21; Luc % (Auto) 2; Lymphocytes # (A) 1.1 k/uL (1.0-4.8); Lymphocytes % (A) 10 %; MCH 30.5 pg (25.0-35.0); MCHC 32.1 g/dL (31.0-37.0); Mean Platelet Volume 7.4; Monocytes # (A) 0.9 k/uL (0-1.0); Monocytes % (A) 7 %; Neutrophils # (A) 9.3 k/uL (1.3-7.7); Neutrophils % (A) 81 %; RBC 4.55 m/uL (4.30-5.90); RDW 13.3 % (11.5-15.5); WBC 11.5 k/uL (3.8-10.6); WBC (Perox) 11.83
[2016-09-13 06:28] LABS: Glucose,Whole Blood 205 mg/dL (75-99)
[2016-09-13 06:30] LABS: ALT 67 U/L (21-72); AST 47 U/L (17-59); Alkaline Phosphatase 64 U/L (38-126); Anion Gap 12 mmol/L; Blood Urea Nitrogen 20 mg/dL (9-20); Calcium 9.6 mg/dL (8.4-10.2); Carbon Dioxide 24 mmol/L (22-30); Chloride 104 mmol/L (98-107); Glucose 218 mg/dL (74-99); Non-African American GFR(MDRD) >60 (>60 ml/min/1.73 sqM); Potassium 4.9 mmol/L (3.5-5.1); Sodium 140 mmol/L (137-145); Total Bilirubin 0.7 mg/dL (0.2-1.3); Total Protein 7.5 g/dL (6.3-8.2)
[2016-09-13] MEDS: PANTOPRAZOLE 40 MG TABLET PO SCH (06:49)
[2016-09-13] MEDS: INSULIN LISPRO (humaLOG) 300 UNIT/3 ML VIAL SQ SCH ×4 (07:37→12:19)
--- NOTE | 2016-09-13 08:36 | PN ---
This is a 61-year-old gentleman who presented to hospital with unstable angina, ruled out for myocardial infarction and had cardiac catheterization that revealed mild to moderate nonobstructive CAD and had been advised medical therapy. Since yesterday, the patient had been doing well and is free of symptoms. He denies chest pain, difficulty in breathing, palpitations, dizziness, or syncope. On exam, comfortable at rest. Afebrile. Vital signs are stable. There is no jugular venous distention. Chest exam reveals good air entry bilaterally. Heart exam reveals first and second heart sounds. No gallop. Exam of the extremities did not reveal any edema. Groin is free of bleeding, bruit, hematoma. Foot pulses are intact. Labs show a potassium of 4.9. Hemoglobin is 13.9. Creatinine is normal. Patient will be discharged home on aspirin, sublingual nitroglycerin, Zestril, Norvasc that he is currently on. ASSESSMENT: Coronary artery disease for medical therapy. PLAN: Patient will be followed up in my office in 3 weeks' time and further adjustments of therapies will be made at that time. Patient is not on a statin at this time because of elevated liver enzymes.
[2016-09-13] MEDS: IPRATROPIUM-ALBUTEROL 3 ML NEB INHALATION PRN (08:57)
[2016-09-13] MEDS: BUDESONIDE 0.5 MG/2 ML NEBU INHALATION SCH (08:57)
[2016-09-13] MEDS ORDERED: predniSONE 20 MG TAB PO SCH (09:00)
[2016-09-13] MEDS ORDERED: ISOSORBIDE MONONITRATE ER 30 MG TAB.ER.24H PO SCH (09:00)
[2016-09-13] MEDS: LISINOPRIL 10 MG TAB PO SCH (09:16)
[2016-09-13] MEDS: ASPIRIN 325 MG TAB PO SCH (09:16)
[2016-09-13] MEDS: amLODIPine 10 MG TAB PO SCH (09:16)
[2016-09-13] MEDS: INSULIN NPH/REG INSULIN 70/30 300 UNIT/3 ML VIAL SQ SCH (09:17)
[2016-09-13 10:35] VITALS: RESP 18
[2016-09-13 11:41] LABS: Glucose,Whole Blood 224 mg/dL (75-99)
[2016-09-13 14:40] VITALS: BP 128/74; PULSE 103; TEMP 97.7
--- NOTE | 2016-09-14 18:57 | DS ---
DATE OF ADMISSION: 09/11/2016 DATE OF DISCHARGE: 09/13/2016 FINAL DIAGNOSES: 1. Chest pain, possibly unstable angina. Cardiac catheterization showing mild to moderate coronary artery disease, on medical treatment. 2. Shortness of breath for further evaluation. Minimal fibrotic changes on CT. History of chronic intermittent asthma. 3. Hypertension. 4. Morbid obesity, body mass index 41.4. 5. Mildly elevated AST, ALT, possibly acute hepatitis. 6. Diabetes mellitus type 2. 7. Hyperlipidemia. 8. History of hypercholesterolemia. 9. History of swine flu. 10. Remote history nicotine dependence. 11. FULL CODE. DISCHARGE DISPOSITION: The patient will be discharged in a stable condition with guarded prognosis. Discharge cleared by cardiology. HISTORY OF PRESENT ILLNESS: This 61-year-old gentleman with a past medical history of multiple medical problems, admitted with chest pain and shortness of present. The patient had a cardiac catheterization showing mild to moderate coronary artery disease. The shortness of breath was evaluated by Dr. Che. Recommend outpatient followup. The patient has symptomatically improved significantly. On exam, alert, oriented x3. Vitals are stable. Cardiovascular, S1 and S2 muffled. Abdomen soft. No distention. Sugars are mildly elevated. DISCHARGE DIET: Cardiac. FOLLOWUP: 1. Follow up with [place] [facility], Laci Villarreal in 2 to 3 days. 2. Followup with Dr. Krishnan as advised. 3. Followup with Dr. Che as advised. MEDICATIONS: 1. Ecotrin 81 mg p.o. at bedtime. 2. Symbicort 4.5 two puffs b.i.d. 3. Motrin 800 mg every 8 p.r.n. 4. Insulin NPH 90 units subcu a.m. and 95 units at bedtime. 5. Imdur ER 30 mg p.o. daily. 6. Zestril 10 mg p.o. daily. 7.niacin 1000 mg p.o. at bedtime. 8. Nitrostat 0.4 sublingual p.r.n. 9. Prilosec 20 mg p.o. daily. 10. Flomax 0.4 daily. 11. Norvasc 10 mg daily. 12. Metformin 1000 mg p.o. b.i.d. Once again, the patient will be discharged in stable condition with guarded prognosis. MTDD
== END 2016-09-13 16:08 | disposition home or self-care (01) | DRG 287 ==
LOC: EC 16:37 → 6SEL 20:55
PROVIDERS: ADMIT Hospitalist; ATTEND Hospitalist
PROC: B2111ZZ Fluoroscopy of Multiple Coronary Arteries using Low Osmolar Contrast (ICD-10-PCS; 2016-09-12)
PROC: B2151ZZ Fluoroscopy of Left Heart using Low Osmolar Contrast (ICD-10-PCS; 2016-09-12)
PROC: 4A023N7 Measurement of Cardiac Sampling and Pressure, Left Heart, Percutaneous Approach (ICD-10-PCS; principal; 2016-09-12 12:57)
DX: I25.110 Atherosclerotic heart disease of native coronary artery with unstable angina pectoris (principal); J44.1 Chronic obstructive pulmonary disease with (acute) exacerbation; B17.9 Acute viral hepatitis, unspecified; J84.10 Pulmonary fibrosis, unspecified; K76.0 Fatty (change of) liver, not elsewhere classified; I10 Essential (primary) hypertension; E66.01 Morbid (severe) obesity due to excess calories; E78.00 Pure hypercholesterolemia, unspecified; E78.5 Hyperlipidemia, unspecified; I25.2 Old myocardial infarction; J45.20 Mild intermittent asthma, uncomplicated; E11.9 Type 2 diabetes mellitus without complications; Z68.41 Body mass index [BMI] 40.0-44.9, adult; Z79.4 Long term (current) use of insulin; Z79.82 Long term (current) use of aspirin; Z79.899 Other long term (current) drug therapy; Z87.891 Personal history of nicotine dependence; Z88.5 Allergy status to narcotic agent; Z82.49 Family history of ischemic heart disease and other diseases of the circulatory system
CPT/HCPCS: 36415; 71010; 71275; 80053; 80061; 81003; 82550; 82553; 83036; 83690; 83880; 84484; 85025; 85379; 85610; 85730; 87040; 87502; 93005; 93306; 93458; 94640; 94760; 96374; 96375; 99285

== ENCOUNTER 2017-09-25 14:27 | Emergency (ER) | payer MEDICARE, OTHER ==
[2017-09-25] MEDS ORDERED: SODIUM CHLORIDE 0.9% 1,000 ML IV STA (14:52)
[2017-09-25 15:22] LABS: Basophils # (A) 0.1 k/uL (0-0.2); Basophils % (A) 1 %; Eosinophils # (A) 0.2 k/uL (0-0.7); Eosinophils % (A) 2 %; HCT 44.8 % (39.0-53.0); HGB 15.1 gm/dL (13.0-17.5); Lymphocytes # (A) 2.6 k/uL (1.0-4.8); Lymphocytes % (A) 35 %; MCH 30.3 pg (25.0-35.0); MCHC 33.7 g/dL (31.0-37.0); Mean Platelet Volume 7.5; Monocytes # (A) 0.5 k/uL (0-1.0); Monocytes % (A) 7 %; Neutrophils # (A) 4.1 k/uL (1.3-7.7); Neutrophils % (A) 54 %; Platelet Count 181 k/uL (150-450); RBC 4.99 m/uL (4.30-5.90); RDW 12.9 % (11.5-15.5); WBC 7.6 k/uL (3.8-10.6)
[2017-09-25 15:23] LABS: Appearance,Urine Clear (Clear); Bilirubin,Urine Negative (Negative); Blood,Urine Negative (Negative); Color,Urine Light Yellow; Glucose,Urine (UA) 3+ (Negative); Ketones,Urine Negative (Negative); Leukocyte Esterase,Urine Negative (Negative); MCV 89.8 fL (80.0-100.0); Nitrite,Urine Negative (Negative); Protein,Urine Negative (Negative); Specific Gravity,Urine 1.007 (1.001-1.035); Urobilinogen,Urine <2.0 mg/dL (<2.0)
[2017-09-25 15:27] LABS: ALT 82 U/L (21-72); AST 75 U/L (17-59); Albumin 4.3 g/dL (3.5-5.0); Alkaline Phosphatase 103 U/L (38-126); Anion Gap 17 mmol/L; Blood Urea Nitrogen 11 mg/dL (9-20); Calcium 10.2 mg/dL (8.4-10.2); Carbon Dioxide 24 mmol/L (22-30); Chloride 100 mmol/L (98-107); Glucose 200 mg/dL (74-99); Potassium 4.3 mmol/L (3.5-5.1); Sodium 141 mmol/L (137-145); Total Bilirubin 0.3 mg/dL (0.2-1.3); Total Protein 7.7 g/dL (6.3-8.2)
[2017-09-25 15:29] LABS: INR 1.1 (<1.2); Partial Thromboplastin Time 26.9 sec (22.0-30.0); Prothrombin Time 10.7 sec (9.0-12.0)
[2017-09-25 15:39] LABS: Creatine Kinase 139 U/L (55-170)
--- NOTE | 2017-09-25 15:41 | CT ---
EXAMINATION TYPE: CT brain wo con DATE OF EXAM: 09/25/2017 COMPARISON: 11/08/2012 INDICATION: Patient complains of vertigo. DLP: 855.6 mGycm, Automated exposure control for dose reduction was used. CONTRAST: None CT of the brain is performed utilizing 3 mm thick sections through the posterior fossa and 3 mm thick sections through the remaining calvarium. Study is performed within 24 hours of arrival to the hosp [facility]. No abnormal hyperdensity is present to suggest an acute intracranial hemorrhage. No mass lesion is evident. No acute infarcts are evident. Ventricles and sulci are mildly prominent for the patient age. Paranasal sinuses and mastoid air cells within the [id number] are clear. IMPRESSIONS: 1. Age-related atrophy.
--- NOTE | 2017-09-25 15:43 | XR ---
EXAMINATION TYPE: XR chest 2V DATE OF EXAM: 09/25/2017 COMPARISON: 09/11/2016 INDICATION: Weakness COPD TECHNIQUE: Frontal and lateral views of the chest are obtained. FINDINGS: The heart size is normal. The pulmonary vasculature is normal. The lungs are clear. There is mild hyperinflation. IMPRESSION: 1. No acute pulmonary process.
[2017-09-25 15:52] LABS: Creatine Kinase MB 1.4 ng/mL (0.0-2.4); Troponin I <0.012 ng/mL (0.000-0.034)
[2017-09-25 16:33] VITALS: RESP 18
--- NOTE | 2017-09-25 18:03 | ED ---
General Adult HPI - General Chief complaint: Weakness Stated complaint: DIZZINESS, SENT BY [facility] R/O CVA Time Seen by Provider: 09/25/17 14:49 Source: patient Mode of arrival: ambulatory Limitations: no limitations - History of Present Illness Initial comments: 62 years old gentleman complaining about dizziness for last couple days, he felt dizzy when he changed position and then he felt dizzy when he moved his head he went to see his primary care physician he said they noticed some confusion as well and now they're worried about Him having a stroke they sent him to [facility] to rule out stroke. He denies any headache no blurred vision no chest pain or shortness of breath no abdominal pain no frequency urgency dysuria no symptoms of TIA or CVA - Related Data Home Medications Medication Instructions Recorded Confirmed Ibuprofen [Motrin] 800 mg PO Q8H PRN 09/11/16 09/25/17 Lisinopril [Zestril] 10 mg PO DAILY 09/11/16 09/25/17 Omeprazole [PriLOSEC] 20 mg PO DAILY 09/11/16 09/25/17 Tamsulosin HCl [Flomax] 0.4 mg PO DAILY 09/11/16 09/25/17 amLODIPine [Norvasc] 10 mg PO DAILY 09/11/16 09/25/17 metFORMIN HCL 1,000 mg PO BID 09/11/16 09/25/17 Budesonide/Formoterol Fumarate 2 puff INHALATION RT-BID 07/17/17 09/25/17 [Symbicort 80-4.5 Mcg Inhaler] Cholecalciferol [Vitamin D3] 1,000 unit PO DAILY 07/17/17 09/25/17 Insulin Aspart [Novolog Flexpen] 20 unit SQ TID-W/MEALS 07/17/17 09/25/17 Insulin Glargine,Hum.rec.anlog 95 unit SQ DAILY 07/17/17 09/25/17 [Lantus Solostar] Metoprolol Tartrate [Lopressor] 12.5 mg PO BID 07/17/17 09/25/17 Montelukast [Singulair] 10 mg PO DAILY 07/17/17 09/25/17 Polyvinyl Alcohol 1.4%Soln Oph 1 drop BOTH EYES QID 07/17/17 09/25/17 Pravastatin Sodium [Pravachol] 40 mg PO HS 07/17/17 09/25/17 Sodium Chloride 0.65% Nasal [Deep 1 spray NASAL BID 09/25/17 09/25/17 Sea (Saline)] Previous Rx's Medication Instructions Recorded Amoxicillin 500 mg PO Q8H #30 capsule 09/25/17 Allergies Allergy/AdvReac Type Severity Reaction Status Date / Time hydrocodone [From [place]] AdvReac Hallucinati Verified 09/25/17 15:53 ons/Nausea& vomiting Review of Systems ROS Statement: Those systems with pertinent positive or pertinent negative responses have been documented in the HPI. ROS Other: All systems not noted in ROS Statement are negative. Past Medical History Past Medical History: Asthma, Coronary Artery Disease (CAD), COPD, Diabetes Mellitus, Hyperlipidemia, Hypertension Additional Past Medical History / Comment(s): hypercholestremia, "swine flu in past" , kidney stones, rheumatic fever as child. ,asbestos exposure in past, front upper bridge. History of Any Multi-Drug Resistant Organisms: None Reported Past Surgical History: Heart Catheterization, Tonsillectomy Additional Past Surgical History / Comment(s): repaired cartilage in left knee, hernia repair. kidney stones removed sefveral times Past Anesthesia/Blood Transfusion Reactions: No Reported Reaction Additional Past Anesthesia/Blood Transfusion Reaction / Comment(s): sea sick in past Past Psychological History: No Psychological Hx Reported Smoking Status: Former smoker Past Alcohol Use History: None Reported Past Drug Use History: None Reported - Past Family History Father Family Medical History: Myocardial Infarction ([place]) Additional Family Medical History / Comment(s): at age 52 from a heart attack Mother Family Medical History: Myocardial Infarction ([place]) Additional Family Medical History / Comment(s): at age 52 from a heart attack Sister(s) Family Medical History: Myocardial Infarction ([place]) General Exam - General Exam Comments Initial Comments: General: The patient is awake and alert, in no distress, and does not appear acutely ill. GCS is 15 Skin: Skin is warm and dry and no rashes or lesions are noted. Eye: Pupils are equal, round and reactive to light, extra-ocular movements are intact; there is normal conjunctiva bilaterally. Ears, nose, mouth and throat: There are moist mucous membranes and no oral lesions. Noticed a mild effusion on the right side behind the tympanic membrane Neck: The neck is supple, there is no tenderness or JVD. Cardiovascular: There is a regular rate and rhythm. No murmur, rub or gallop is appreciated. Respiratory: To auscultation bilateral, no wheezing no rhonchi no distress respiratory bragg noticed Gastrointestinal: Soft, non-distended, non-tender abdomen without masses or organomegaly noted. There is no rebound or guarding present. Bowel sounds are unremarkable. Back: There is no tenderness to palpation in the midline. There is no obvious deformity. Musculoskeletal: Normal ROM, no tenderness, There is no pedal edema. There is no calf tenderness or swelling. No cords were appreciated. Neurological: CN II-XII intact, Cranial nerves III through XII are intact. There are no obvious motor or sensory deficits. Coordination appears grossly intact. Speech is normal. Psychiatric: Cooperative, appropriate mood & affect, normal judgment. Limitations: no limitations Course Vital Signs 09/25/17 09/25/17 09/25/17 14:30 15:41 16:32 Temperature 98 F Pulse Rate 91 95 Pulse Rate [ 88 Sitting] Pulse Rate [ 100 Standing] Pulse Rate [ 89 Supine] Respiratory 20 18 Rate Blood Pressure 190/91 132/79 Blood Pressure 128/71 [Sitting] Blood Pressure 123/66 [Standing] Blood Pressure 128/70 [Supine] O2 Sat by Pulse 97 98 Oximetry On reassessment noticed head CT is normal urinalysis compress metabolic panel, troponin, EKG, INR, CBC are unremarkable the orthostatics orthostatics are unremarkable, noticed some effusion behind the tympanic membrane on one side he be gone home on now amoxicillin 500 mg 3 times a day for next 5 days and Claritin EKG Findings - EKG Comments: EKG Findings:: EKG is a normal sinus rhythm ventricular rate is 93 NC interval is 162 QRS duration is 80 QT/QTc is 352/437 review of this EKG does not reveal any reveal any ST elevation or ST depression noticed some T-wave flattening in lead 3 Medical Decision Making - Lab Data Result diagrams: 09/25/17 15:07 09/25/17 15: Lab Results 09/25/17 09/25/17 09/25/17 Range/Units 15:07 15:07 15:07 WBC 7.6 (3.8-10.6) k/uL RBC 4.99 (4.30-5.90) m/uL Hgb 15.1 (13.0-17.5) gm/dL Hct 44.8 (39.0-53.0) % MCV 89.8 D (80.0-100.0) fL MCH 30.3 (25.0-35.0) pg MCHC 33.7 (31.0-37.0) g/dL RDW 12.9 (11.5-15.5) % Plt Count 181 (150-450) k/uL Neutrophils % 54 % Lymphocytes % 35 % Monocytes % 7 % Eosinophils % 2 % Basophils % 1 % Neutrophils # 4.1 (1.3-7.7) k/uL Lymphocytes # 2.6 (1.0-4.8) k/uL Monocytes # 0.5 (0-1.0) k/uL Eosinophils # 0.2 (0-0.7) k/uL Basophils # 0.1 (0-0.2) k/uL PT (9.0-12.0) sec INR (<1.2) APTT (22.0-30.0) sec Sodium 141 (137-145) mmol/L Potassium 4.3 (3.5-5.1) mmol/L Chloride 100 (98-107) mmol/L Carbon Dioxide 24 (22-30) mmol/L Anion Gap 17 mmol/L BUN 11 (9-20) mg/dL Creatinine 0.70 (0.66-1.25) mg/dL Est GFR (CKD-EPI)AfAm >90 (>60 ml/min/1.73 sqM) Est GFR (CKD-EPI)NonAf >90 (>60 ml/min/1.73 sqM) Glucose 200 H (74-99) mg/dL Calcium 10.2 (8.4-10.2) mg/dL Total Bilirubin 0.3 (0.2-1.3) mg/dL AST 75 H (17-59) U/L ALT 82 H (21-72) U/L Alkaline Phosphatase 103 (38-126) U/L Total Creatine Kinase 139 (55-170) U/L CK-MB (CK-2) 1.4 (0.0-2.4) ng/mL CK-MB (CK-2) Rel Index 1.0 Troponin I <0.012 (0.000-0.034) ng/mL Total Protein 7.7 (6.3-8.2) g/dL Albumin 4.3 (3.5-5.0) g/dL Urine Color Urine Appearance (Clear) Urine pH (5.0-8.0) Ur Specific [place] (1.001-1.035) Urine Protein (Negative) Urine Glucose (UA) (Negative) Urine Ketones (Negative) Urine Blood (Negative) Urine Nitrite (Negative) Urine Bilirubin (Negative) Urine Urobilinogen (<2.0) mg/dL Ur Leukocyte Esterase (Negative) 09/25/17 09/25/17 Range/Units 15:07 15:07 WBC (3.8-10.6) k/uL RBC (4.30-5.90) m/uL Hgb (13.0-17.5) gm/dL Hct (39.0-53.0) % MCV (80.0-100.0) fL MCH (25.0-35.0) pg MCHC (31.0-37.0) g/dL RDW (11.5-15.5) % Plt Count (150-450) k/uL Neutrophils % % Lymphocytes % % Monocytes % % Eosinophils % % Basophils % % Neutrophils # (1.3-7.7) k/uL Lymphocytes # (1.0-4.8) k/uL Monocytes # (0-1.0) k/uL Eosinophils # (0-0.7) k/uL Basophils # (0-0.2) k/uL PT 10.7 (9.0-12.0) sec INR 1.1 (<1.2) APTT 26.9 (22.0-30.0) sec Sodium (137-145) mmol/L Potassium (3.5-5.1) mmol/L Chloride (98-107) mmol/L Carbon Dioxide (22-30) mmol/L Anion Gap mmol/L BUN (9-20) mg/dL Creatinine (0.66-1.25) mg/dL Est GFR (CKD-EPI)AfAm (>60 ml/min/1.73 sqM) Est GFR (CKD-EPI)NonAf (>60 ml/min/1.73 sqM) Glucose (74-99) mg/dL Calcium (8.4-10.2) mg/dL Total Bilirubin (0.2-1.3) mg/dL AST (17-59) U/L ALT (21-72) U/L Alkaline Phosphatase (38-126) U/L Total Creatine Kinase (55-170) U/L CK-MB (CK-2) (0.0-2.4) ng/mL CK-MB (CK-2) Rel Index Troponin I (0.000-0.034) ng/mL Total Protein (6.3-8.2) g/dL Albumin (3.5-5.0) g/dL Urine Color Light Yellow Urine Appearance Clear (Clear) Urine pH 7.0 (5.0-8.0) Ur Specific [place] 1.007 (1.001-1.035) Urine Protein Negative (Negative) Urine Glucose (UA) 3+ H (Negative) Urine Ketones Negative (Negative) Urine Blood Negative (Negative) Urine Nitrite Negative (Negative) Urine Bilirubin Negative (Negative) Urine Urobilinogen <2.0 (<2.0) mg/dL Ur Leukocyte Esterase Negative (Negative) Disposition Clinical Impression: Dizziness, Otitis media, Hypertension Disposition: ADMITTED IP TO THIS HOSP Condition: Good Instructions: Dizziness (ED) Prescriptions: Amoxicillin 500 mg PO Q8H #30 capsule Referrals: [facility],Clinic [Primary Care Provider] - 1-2 days
[2017-09-25 18:23] VITALS: BP 143/80; PULSE 90; TEMP 97.8
== END 2017-09-25 18:22 | disposition other institution (70) ==
LOC: EC 14:27
DX: H66.91 Otitis media, unspecified, right ear (principal); R42 Dizziness and giddiness; I10 Essential (primary) hypertension; J44.9 Chronic obstructive pulmonary disease, unspecified; I25.10 Atherosclerotic heart disease of native coronary artery without angina pectoris; E78.5 Hyperlipidemia, unspecified; Z87.891 Personal history of nicotine dependence; E78.00 Pure hypercholesterolemia, unspecified; Z79.4 Long term (current) use of insulin; Z79.51 Long term (current) use of inhaled steroids; Z79.899 Other long term (current) drug therapy; Z88.5 Allergy status to narcotic agent
CPT/HCPCS: 36415; 70450; 71046; 80053; 81003; 82550; 82553; 84484; 85025; 85610; 85730; 93005; 96360; 96361; 99285

== ENCOUNTER 2018-01-31 09:33 | Inpatient (IN) | payer OTHER, MEDICARE ==
[2018-01-31] MEDS ORDERED: MORPHINE SULFATE 2 MG/ML SYRINGE IVP STA (09:54)
[2018-01-31] MEDS ORDERED: ONDANSETRON 4 MG/2 ML VIAL IVP STA (09:54)
[2018-01-31] MEDS ORDERED: SODIUM CHLORIDE 0.9% 1,000 ML IV STA ×2 (09:54)
[2018-01-31] MEDS ORDERED: KETOROLAC 30 MG/ML 1 ML VIAL IVP STA (09:54)
--- NOTE | 2018-01-31 10:01 | ED ---
Abdominal Pain HPI - General Chief Complaint: Abdominal Pain Stated Complaint: PAIN ON RT SIDE - [facility] Time Seen by Provider: 01/31/18 09:43 Source: patient, RN notes reviewed, old records reviewed Mode of arrival: ambulatory Limitations: no limitations - History of Present Illness Initial Comments: This is a 62-year-old male with chief complaint of 4 weeks of right-sided abdominal pain. Patient reports that he had cholecystectomy earlier this year. Patient states that his pain is still similar to his gallbladder attacks. Patient reports he's been quite nauseated and has had multiple days with dry heaving. Patient has had no fevers or chills. He reports that his liver enzymes have been elevated for the past few weeks, they've been checked by the [place]. He reports his urine has been somewhat dark. Denies any recent chest pain, shortness of breath. Denies any other symptoms. - Related Data Home Medications Medication Instructions Recorded Confirmed Ibuprofen [Motrin] 800 mg PO Q8H PRN 09/11/16 01/31/18 Lisinopril [Zestril] 10 mg PO DAILY 09/11/16 01/31/18 Tamsulosin HCl [Flomax] 0.4 mg PO DAILY 09/11/16 01/31/18 amLODIPine [Norvasc] 10 mg PO DAILY 09/11/16 01/31/18 metFORMIN HCL 1,000 mg PO BID 09/11/16 01/31/18 Budesonide/Formoterol Fumarate 2 puff INHALATION RT-BID 07/17/17 01/31/18 [Symbicort 80-4.5 Mcg Inhaler] Cholecalciferol [Vitamin D3] 2,000 unit PO DAILY 07/17/17 01/31/18 Insulin Aspart [Novolog Flexpen] 20 unit SQ TID-W/MEALS 07/17/17 01/31/18 Insulin Glargine,Hum.rec.anlog 95 unit SQ DAILY 07/17/17 01/31/18 [Lantus Solostar] Metoprolol Tartrate [Lopressor] 12.5 mg PO BID 07/17/17 01/31/18 Montelukast [Singulair] 10 mg PO DAILY 07/17/17 01/31/18 Polyvinyl Alcohol 1.4%Soln Oph 1 drop BOTH EYES QID 07/17/17 01/31/18 Pravastatin Sodium [Pravachol] 40 mg PO HS 07/17/17 01/31/18 Sodium Chloride 0.65% Nasal [Deep 1 spray NASAL BID 09/25/17 01/31/18 Sea (Saline)] Meclizine [Antivert] 25 mg PO TID 01/31/18 01/31/18 Omeprazole [PriLOSEC] 40 mg PO DAILY 01/31/18 01/31/18 Allergies Allergy/AdvReac Type Severity Reaction Status Date / Time hydrocodone [From [place]] AdvReac Hallucinati Verified 01/31/18 09:39 ons/Nausea& vomiting Review of Systems ROS Statement: Those systems with pertinent positive or pertinent negative responses have been documented in the HPI. ROS Other: All systems not noted in ROS Statement are negative. Past Medical History Past Medical History: Asthma, Coronary Artery Disease (CAD), COPD, Diabetes Mellitus, Hyperlipidemia, Hypertension Additional Past Medical History / Comment(s): hypercholestremia, "swine flu in past" , kidney stones, rheumatic fever as child. ,asbestos exposure in past, front upper bridge. History of Any Multi-Drug Resistant Organisms: None Reported Past Surgical History: Heart Catheterization, Tonsillectomy Additional Past Surgical History / Comment(s): repaired cartilage in left knee, hernia repair. kidney stones removed sefveral times Past Anesthesia/Blood Transfusion Reactions: No Reported Reaction Additional Past Anesthesia/Blood Transfusion Reaction / Comment(s): sea sick in past Past Psychological History: No Psychological Hx Reported Smoking Status: Former smoker Past Alcohol Use History: None Reported Past Drug Use History: None Reported - Past Family History Father Family Medical History: Myocardial Infarction ([place]) Additional Family Medical History / Comment(s): at age 52 from a heart attack Mother Family Medical History: Myocardial Infarction ([place]) Additional Family Medical History / Comment(s): at age 52 from a heart attack Sister(s) Family Medical History: Myocardial Infarction ([place]) General Exam - General Exam Comments Initial Comments: Is a 62-year-old male. Alert and oriented. No significant distress. Limitations: no limitations General appearance: alert, in no apparent distress Head exam: Present: atraumatic, normocephalic, normal inspection Eye exam: Present: normal appearance, PERRL, EOMI. Absent: scleral icterus, conjunctival injection, periorbital swelling ENT exam: Present: normal exam, mucous membranes moist Neck exam: Present: normal inspection. Absent: tenderness, meningismus, lymphadenopathy Respiratory exam: Present: normal lung sounds bilaterally Cardiovascular Exam: Present: regular rate, normal rhythm, normal heart sounds. Absent: systolic murmur, diastolic murmur, rubs, gallop, clicks GI/Abdominal exam: Present: soft, tenderness (Right-sided abdominal tenderness.) , normal bowel sounds. Absent: distended, guarding, rebound, rigid Extremities exam: Present: normal inspection, full ROM, normal capillary refill. Absent: tenderness, pedal edema, joint swelling, calf tenderness Back exam: Present: normal inspection Neurological exam: Present: alert, oriented X3, CN II-XII intact Psychiatric exam: Present: normal affect, normal mood Skin exam: Present: warm, dry, intact, normal color. Absent: rash Course Vital Signs 01/31/18 09:34 Temperature 98.1 F Pulse Rate 83 Respiratory 18 Rate Blood Pressure 153/82 O2 Sat by Pulse 94 L Oximetry Medical Decision Making - Medical Decision Making 62-year-old male presents emergency department for weeks of right-sided abdominal pain. Elevated liver enzymes. Patient presents the pain was more severe in the draining is more severe today so sent in for further outpatient IV clinic. Lab work at this time shows elevated liver enzymes. Also elevated ligament 2.3. Traumatic increased from his last lab values here in the ER. Patient was blood cell count is within normal limits. CT abdomen and pelvis was completed. There is evidence of ductal dilation within the common bile duct. Recommended ERCP. Patient admitted at this time started on Rocephin and Flagyl. Started the Patient on IV fluids. Remaining nothing by mouth. Patient 's surgeon for cholecystectomy with Dr. Mckee. We will admit the Patient to Dr. Ayala with consult to Dr. Jimenez. - Lab Data Result diagrams: 01/31/18 10:28 01/31/18 10:28 Lab Results 01/31/18 01/31/18 01/31/18 Range/Units 10:28 10:28 10:28 WBC 6.4 (3.8-10.6) k/uL RBC 4.72 (4.30-5.90) m/uL Hgb 14.7 (13.0-17.5) gm/dL Hct 44.8 (39.0-53.0) % MCV 94.8 (80.0-100.0) fL MCH 31.2 (25.0-35.0) pg MCHC 32.9 (31.0-37.0) g/dL RDW 13.2 (11.5-15.5) % Plt Count 200 (150-450) k/uL Neutrophils % 62 % Lymphocytes % 28 % Monocytes % 6 % Eosinophils % 1 % Basophils % 1 % Neutrophils # 4.0 (1.3-7.7) k/uL Lymphocytes # 1.8 (1.0-4.8) k/uL Monocytes # 0.4 (0-1.0) k/uL Eosinophils # 0.1 (0-0.7) k/uL Basophils # 0.0 (0-0.2) k/uL PT 11.2 (9.0-12.0) sec INR 1.2 H (<1.2) APTT 25.9 (22.0-30.0) sec Sodium 139 (137-145) mmol/L Potassium 4.4 (3.5-5.1) mmol/L Chloride 103 (98-107) mmol/L Carbon Dioxide 23 (22-30) mmol/L Anion Gap 13 mmol/L BUN 10 (9-20) mg/dL Creatinine 0.69 (0.66-1.25) mg/dL Est GFR (CKD-EPI)AfAm >90 (>60 ml/min/1.73 sqM) Est GFR (CKD-EPI)NonAf >90 (>60 ml/min/1.73 sqM) Glucose 124 H (74-99) mg/dL Calcium 9.6 (8.4-10.2) mg/dL Total Bilirubin 2.3 H (0.2-1.3) mg/dL AST 167 H (17-59) U/L ALT 167 H (21-72) U/L Alkaline Phosphatase 247 H (38-126) U/L Total Protein 7.6 (6.3-8.2) g/dL Albumin 4.2 (3.5-5.0) g/dL Amylase 38 (30-110) U/L Lipase 112 (23-300) U/L Urine Color Urine Appearance (Clear) Urine pH (5.0-8.0) Ur Specific [place] (1.001-1.035) Urine Protein (Negative) Urine Glucose (UA) (Negative) Urine Ketones (Negative) Urine Blood (Negative) Urine Nitrite (Negative) Urine Bilirubin (Negative) Urine Urobilinogen (<2.0) mg/dL Ur Leukocyte Esterase (Negative) 01/31/18 Range/Units 10:28 WBC (3.8-10.6) k/uL RBC (4.30-5.90) m/uL Hgb (13.0-17.5) gm/dL Hct (39.0-53.0) % MCV (80.0-100.0) fL MCH (25.0-35.0) pg MCHC (31.0-37.0) g/dL RDW (11.5-15.5) % Plt Count (150-450) k/uL Neutrophils % % Lymphocytes % % Monocytes % % Eosinophils % % Basophils % % Neutrophils # (1.3-7.7) k/uL Lymphocytes # (1.0-4.8) k/uL Monocytes # (0-1.0) k/uL Eosinophils # (0-0.7) k/uL Basophils # (0-0.2) k/uL PT (9.0-12.0) sec INR (<1.2) APTT (22.0-30.0) sec Sodium (137-145) mmol/L Potassium (3.5-5.1) mmol/L Chloride (98-107) mmol/L Carbon Dioxide (22-30) mmol/L Anion Gap mmol/L BUN (9-20) mg/dL Creatinine (0.66-1.25) mg/dL Est GFR (CKD-EPI)AfAm (>60 ml/min/1.73 sqM) Est GFR (CKD-EPI)NonAf (>60 ml/min/1.73 sqM) Glucose (74-99) mg/dL Calcium (8.4-10.2) mg/dL Total Bilirubin (0.2-1.3) mg/dL AST (17-59) U/L ALT (21-72) U/L Alkaline Phosphatase (38-126) U/L Total Protein (6.3-8.2) g/dL Albumin (3.5-5.0) g/dL Amylase (30-110) U/L Lipase (23-300) U/L Urine Color Yellow Urine Appearance Clear (Clear) Urine pH 6.0 (5.0-8.0) Ur Specific [place] 1.014 (1.001-1.035) Urine Protein Trace H (Negative) Urine Glucose (UA) Negative (Negative) Urine Ketones Negative (Negative) Urine Blood Negative (Negative) Urine Nitrite Negative (Negative) Urine Bilirubin 1+ H (Negative) Urine Urobilinogen 6.0 (<2.0) mg/dL Ur Leukocyte Esterase Negative (Negative) - Radiology Data Radiology results: report reviewed Intrahepatic and extrahepatic biliary ductal dilation with filling defect abrupt cutoff of common bile duct near the ampulla of Vater raising suspicion for. Biliary neoplasm. This could be confirmed with MRCP for evaluation for intraductal mass versus obstructing ductal degrees. There is bilateral nonobstructing renal colliculi. Disposition Clinical Impression: Common bile duct obstruction Disposition: ADMITTED IP TO THIS [facility] Condition: Stable Is patient prescribed a controlled substance at d/c from ED?: No Referrals: [facility],Clinic [Primary Care Provider] - 1-2 days Time of Disposition: 12:59
[2018-01-31 10:54] LABS: Basophils % (A) 1 %; Eosinophils # (A) 0.1 k/uL (0-0.7); Eosinophils % (A) 1 %; HCT 44.8 % (39.0-53.0); HGB 14.7 gm/dL (13.0-17.5); Lymphocytes # (A) 1.8 k/uL (1.0-4.8); Lymphocytes % (A) 28 %; MCH 31.2 pg (25.0-35.0); MCHC 32.9 g/dL (31.0-37.0); MCV 94.8 fL (80.0-100.0); Mean Platelet Volume 8.4; Monocytes # (A) 0.4 k/uL (0-1.0); Monocytes % (A) 6 %; Neutrophils % (A) 62 %; Platelet Count 200 k/uL (150-450); RBC 4.72 m/uL (4.30-5.90); RDW 13.2 % (11.5-15.5); WBC 6.4 k/uL (3.8-10.6)
[2018-01-31 10:55] LABS: Appearance,Urine Clear (Clear); Bilirubin,Urine 1+ (Negative); Blood,Urine Negative (Negative); Color,Urine Yellow; Glucose,Urine (UA) Negative (Negative); Ketones,Urine Negative (Negative); Leukocyte Esterase,Urine Negative (Negative); Nitrite,Urine Negative (Negative); Protein,Urine Trace (Negative); Specific Gravity,Urine 1.014 (1.001-1.035)
[2018-01-31 10:56] LABS: ALT 167 U/L (21-72); AST 167 U/L (17-59); Albumin 4.2 g/dL (3.5-5.0); Alkaline Phosphatase 247 U/L (38-126); Amylase 38 U/L (30-110); Anion Gap 13 mmol/L; Blood Urea Nitrogen 10 mg/dL (9-20); Calcium 9.6 mg/dL (8.4-10.2); Carbon Dioxide 23 mmol/L (22-30); Chloride 103 mmol/L (98-107); Glucose 124 mg/dL (74-99); Lipase 112 U/L (23-300); Potassium 4.4 mmol/L (3.5-5.1); Sodium 139 mmol/L (137-145); Total Bilirubin 2.3 mg/dL (0.2-1.3); Total Protein 7.6 g/dL (6.3-8.2)
[2018-01-31 11:03] LABS: INR 1.2 (<1.2); Partial Thromboplastin Time 25.9 sec (22.0-30.0); Prothrombin Time 11.2 sec (9.0-12.0)
--- NOTE | 2018-01-31 12:12 | CT ---
EXAMINATION TYPE: CT abdomen pelvis w con DATE OF EXAM: 01/31/2018 COMPARISON: None HISTORY: Right sided pain, sent by [facility] CT DLP: 2212.90 mGycm Automated exposure control for dose reduction was used. TECHNIQUE: Helical acquisition of images was performed from the lung bases through the pelvis. CONTRAST: Performed without Oral Contrast and with IV Contrast, patient injected with 100 ml mL of Isovue 300. FINDINGS: LUNG BASES: Bibasilar subsegmental atelectasis and subpleural reticulation are seen. LIVER/GB: No significant abnormality is appreciated. BILIARY TREE: There is extrahepatic biliary ductal dilatation with ductal dilatation of the common bi le duct up to 1.4 cm. Additionally on coronal series 8 image 48 there is abrupt cut off of the common bile duct appreciated. This is also seen on coronal series 3 image 41 with high density in the regio n of the distal common bile duct near the ampulla of Vater. Debris or mass are seen more proximally o n axial images 38 and 39 within the common bile duct lumen. There is also dilation of the cystic duct remnant and mild intrahepatic biliary ductal dilatation throughout the liver. PANCREAS: No significant abnormality is seen. SPLEEN: No significant abnormality is seen. ADRENALS: No significant abnormality is seen. KIDNEYS: Too small to accurately characterize left renal lesion is seen on series 3 image 26 as well as nonobstructing 3 mm midpole calculus on the left and nonobstructing 5 mm right upper pole calculus . FREE AIR: No free air is visualized. ADENOPATHY: No greater than 1 cm short axis lymph node is seen within the abdomen or pelvis. REPRODUCTIVE ORGANS: No significant abnormality is seen URINARY BLADDER: No significant abnormality is seen. OSSEOUS STRUCTURES: Mild multilevel degenerative changes of the spine are noted. BOWEL: There are numerous sigmoid diverticula without pericolonic fat stranding as well as other sca ttered colonic diverticula. No large or small bowel dilatation. OTHER: Moderate calcific atheromatous changes are seen of the abdominal aorta and its branches. IMPRESSION: 1. INTRAHEPATIC AND EXTRA HEPATIC BILIARY DUCTAL DILATATION WITH FILLING DEFECT AND ABRUPT CUT OFF OF THE COMMON BILE DUCT NEAR THE AMPULLA OF VATER RAISING SUSPICION FOR A PERIAMPULLARY NEOPLASM. THIS COULD BE CONFIRMED WITH ENHANCED MRCP TO EVALUATE FOR ENHANCEMENT OF A AN INTRADUCTAL MASS VERSUS OBS TRUCTING DUCTAL DEBRIS. 2. BILATERAL NONOBSTRUCTING RENAL CALCULI.
[2018-01-31] MEDS ORDERED: cefTRIAXone IN SWFI 1,000 MG/10 ML SYRINGE IVP STA (12:42)
[2018-01-31] MEDS ORDERED: metroNIDAZOLE-NS PMX 500 MG in SALINE 1 100ML.BAG IVPB STA (12:42)
[2018-01-31] MEDS ORDERED: ONDANSETRON 4 MG/2 ML VIAL IVP PRN (13:00)
[2018-01-31] MEDS ORDERED: MORPHINE SULFATE 4 MG/ML SYRINGE IV PRN (13:00)
[2018-01-31] MEDS ORDERED: KETOROLAC 30 MG/ML 1 ML VIAL IVP PRN (13:00)
[2018-01-31] MEDS ORDERED: NALOXONE 0.4 MG/ML 1 ML VIAL IV PRN (13:00)
[2018-01-31] MEDS: MORPHINE SULFATE 4 MG/ML SYRINGE IVP PRN ×3 (13:28→21:11)
[2018-01-31] MEDS ORDERED: TEMAZEPAM 15 MG CAP PO PRN (14:15)
[2018-01-31] MEDS ORDERED: ALPRAZolam 0.25 MG TAB PO PRN (14:15)
--- NOTE | 2018-01-31 15:23 | HP ---
HISTORY AND PHYSICAL CHIEF COMPLAINT: Abdominal pain. HISTORY OF PRESENT ILLNESS: This is a 62-year-old gentleman with a past medical history of multiple medical problems of asthma, CAD, COPD, diabetes mellitus, hypertension, hyperlipidemia, hypercholesterolemia being followed by [facility] and Dr. Villarreal in the outpatient setting. The patient admitted in June to [facility] with cholecystitis and cholelithiasis. Patient underwent laparoscopic cholecystectomy by Dr. Jimenez. Subsequently, patient had some issues with one of the incisions near the periumbilical area which had some discharges and pain but improved significantly. Currently for the last several weeks, patient is not feeling well, patient lost some weight, diminished appetite. Patient also complaining of discomfort and pain around the right upper quadrant. Patient came to [facility]. Patient had x-ray and hepatic biliary dilatation and the patient admitted for further evaluation and treatment. The blood clot of the common bile duct near the ampulla was also noted which is suspicious for periampullary neoplasm per CAT scan report. Gastroenterology consultation has been sought for the patient for further evaluation and treatment. There is no history of fever, rigors. No history of headache, loss of consciousness, seizures. PAST MEDICAL HISTORY: History of asthma, CAD, COPD, diabetes, hypertension, hyperlipidemia, hypercholesteremia. MEDICATIONS: Prior to admission include home medications are: 1. Pravastatin 40 mg q.h.s. 2. Flomax 0.4 daily. 3. Polyvinyl alcohol 1 drop both eyes q.i.d. 4. Metformin 1000 mg b.i.d. 5. Prilosec 40 mg p.o. daily. 6. Singulair 10 mg p.o. daily. 7. Lopressor 12.5 mg b.i.d. 8. Antivert 25 mg p.o. t.i.d. 9. Zestril 10 mg p.o. daily. 10.NovoLog 10 units subcu t.i.d. with meals. 11.Lantus 95 units subcu daily. 12.Motrin 800 mg q.8 p.r.n. 13.Norvasc 10 mg p.o. daily. 14.Vitamin D3 two thousand daily. 15.Symbicort 80 - 4.5 two puffs b.i.d. ALLERGIES: HYDROCODONE. FAMILY HISTORY: History of myocardial infarction in the family. SOCIAL HISTORY: Previous history of smoking. No alcohol intake. REVIEW OF SYSTEMS: ENT: No diminished hearing or vision. CARDIOVASCULAR: No angina or palpitation. RESPIRATORY: As mentioned earlier. GI: As mentioned earlier. : No dysuria. NERVOUS SYSTEM: No numbness or weakness. ALLERGY/IMMUNOLOGY: No asthma or hayfever. MUSCULOSKELETAL: As mentioned earlier. HEMATOLOGY: No history of anemia. ENDOCRINE: As mentioned earlier. CONSTITUTIONAL: As mentioned earlier. DERMATOLOGY: Negative: RHEUMATOLOGY: Negative. PSYCHIATRY: As mentioned earlier. PHYSICAL EXAM: Patient is alert, oriented x3. The pulse is 74, blood pressure 114/59, respiration 18, temperature 97.7, pulse ox 94% on room air. HEENT: Conjunctivae normal, oral mucosa moist. Neck is no jugular venous distention. CARDIOVASCULAR: S1, S2, muffled. RESPIRATORY: Breath sounds diminished at the bases, a few scattered rhonchi. No crackles. ABDOMEN: Soft, diffuse distention. Diffuse tenderness in the right upper quadrant. No guarding. No mass palpable. LEGS: No edema, no swelling. NERVOUS SYSTEM: Higher functions as mentioned earlier. Moves all 4 limbs. No lymph node enlargement. SKIN: No ulcer, rash, bleeding. LABS: WBC of 6.7, hemoglobin 14.7, glucose 124. Bilirubin is 2.3, AST is 167, ALT 1 6 , alkaline phosphatase 247. ASSESSMENT: 1. Right upper quadrant abdominal pain with possible obstructive jaundice. 2. Intra and extrahepatic biliary obstruction, rule out gallstones or a periampullary neoplasm. 3. History of laparoscopic cholecystectomy. 4. History of coronary artery disease. 5. History of chronic obstructive pulmonary disease. 6. Diabetes mellitus type 2. 7. Hypertension. 8. Hyperlipidemia. 9. Hypercholesteremia. 10.History of cardiac catheterization. RECOMMENDATION AND DISCUSSION: In this 62-year-old gentleman who presented with multiple complex medical issues , will monitor the patient closely, continue with the current management and symptomatic treatment. Otherwise, at this time I recommend surgical consultation, Dr. Jimenez is already doctor of the ER physician. I would also recommend gastroenterology consultation for possible ERCP. I would also recommend symptomatic treatment and a prothrombin DVT prophylaxis. Guarded prognosis. Further recommendations to follow. A copy of this will be forwarded to Dr. Villarreal who is the primary care physician. MMODL / IJN: [id number] / [facility]
[2018-01-31] MEDS: MECLIZINE 25 MG TAB PO SCH ×2 (17:29→21:11)
[2018-01-31] MEDS: SODIUM CHLORIDE 0.9% 1,000 ML IV SCH (17:38)
[2018-01-31] MEDS: ARTIFICIAL TEARS-HYPROMELLOSE DROPS 15 ML BTL BOTH EYES SCH ×2 (17:38→21:11)
[2018-01-31] MEDS: SYMBICORT 80-4.5 MCG INHALER INHALATION SCH (19:40)
[2018-01-31] MEDS: PANTOPRAZOLE 40 MG/10 ML VIAL IV SCH (21:10)
[2018-01-31] MEDS: HEPARIN SODIUM,PORCINE 5,000 UNIT/ML 1 ML VIAL SQ SCH (21:10)
[2018-01-31] MEDS: SODIUM CHLORIDE 0.65% NASAL SPRAY 44 ML BTL NASAL SCH (21:11)
[2018-01-31 21:24] LABS: Glucose,Whole Blood 174 mg/dL (75-99)
[2018-02-01] MEDS: METOPROLOL TARTRATE 12.5 MG TAB PO SCH ×3 (01:04→20:19)
[2018-02-01] MEDS: MORPHINE SULFATE 4 MG/ML SYRINGE IVP PRN (01:08)
[2018-02-01] MEDS: SODIUM CHLORIDE 0.9% 1,000 ML IV SCH ×4 (01:09→23:01)
[2018-02-01] MEDS ORDERED: ACETAMINOPHEN TAB 325 MG TAB PO PRN (01:44)
[2018-02-01] MEDS: MEROPENEM 2 GM in SODIUM CHLORIDE 0.9% 100 ML IVPB SCH ×2 (02:36→17:42)
[2018-02-01 03:15] LABS: Basophils % (A) 0 %; Eosinophils # (A) 0.1 k/uL (0-0.7); Eosinophils % (A) 1 %; HGB 13.1 gm/dL (13.0-17.5); Lymphocytes % (A) 16 %; MCH 30.8 pg (25.0-35.0); MCV 96.1 fL (80.0-100.0); Mean Platelet Volume 7.7; Monocytes # (A) 0.5 k/uL (0-1.0); Monocytes % (A) 8 %; Neutrophils # (A) 4.5 k/uL (1.3-7.7); Neutrophils % (A) 73 %; Platelet Count 172 k/uL (150-450); RBC 4.27 m/uL (4.30-5.90); RDW 13.2 % (11.5-15.5); WBC 6.2 k/uL (3.8-10.6)
[2018-02-01 03:24] LABS: ALT 179 U/L (21-72); AST 185 U/L (17-59); Albumin 3.7 g/dL (3.5-5.0); Alkaline Phosphatase 237 U/L (38-126); Anion Gap 11 mmol/L; Blood Urea Nitrogen 8 mg/dL (9-20); Carbon Dioxide 22 mmol/L (22-30); Chloride 103 mmol/L (98-107); Glucose 171 mg/dL (74-99); Potassium 4.2 mmol/L (3.5-5.1); Sodium 136 mmol/L (137-145); Total Bilirubin 3.7 mg/dL (0.2-1.3); Total Protein 7.1 g/dL (6.3-8.2)
[2018-02-01 07:13] LABS: Glucose,Whole Blood 171 mg/dL (75-99)
[2018-02-01] MEDS: SYMBICORT 80-4.5 MCG INHALER INHALATION SCH ×2 (07:36→20:50)
[2018-02-01] MEDS ORDERED: PANTOPRAZOLE 40 MG/10 ML VIAL IV SCH (09:00)
[2018-02-01 10:05] VITALS: BMI 39.7
--- NOTE | 2018-02-01 11:08 | P.CONS ---
History of Present Illness - Reason for Consult Consult date: 02/01/18 Abdominal pain obstructive jaundice Requesting physician: Anna Ayala - History of Present Illness 62-year-old male admitted with severe right upper quadrant abdominal pain for the last 3-4 days with elevated liver enzymes new onset of jaundice and dark colored urine. Patient has not felt well over the last month some intermittent GI upset without emesis bleeding fever or chills. History of laparoscopic cholecystectomy June 2017 pathology report of cholelithiasis. Upon review of medical records patient's transaminases were mildly elevated in September on admission bilirubin 2.3. AST 167. ALT 167. AP 247. He spiked a temperature 102 last night. This morning LFTs have worsened total bilirubin 3.7. AST 185. ALT 179. AP to 37. Lipase 112. INR 1.2. White count 6.2. Hemoglobin 13.1. Platelet 172. CT abdomen and pelvis reported extra hepatic biliary duct dilation common bile duct up to 1.4 cm. High density seen in the region of the distal common bile duct near the ampulla debris or mass within the differential also dilation of the cystic duct remnant and mild intrahepatic biliary duct dilation throughout the liver. Pancreas no significant abnormality. No history of known liver disorders. No history of alcoholism. No history of hepatitis. Review of Systems Constitutional: Denies fever, chills, sweats, weight gain, or loss. HEENT: Negative for migraines, blurred vision or loss, earaches, drainage, tinnitus, oral mucosal lesions, dysphagia, or odynophagia. Cardiac: Negative for chest pain, arrhythmias, or palpitation. Respiratory: Negative for shortness of breath, hemoptysis, cough, or sputum production. Gastrointestinal: See HPI for pertinent findings. Genitourinary: Negative for hematuria, urgency, frequency, polyuria, dysuria, or penile discharge. Musculoskeletal: Negative for muscle aches, swelling, arthritis, and arthralgias. Neurologic: Negative for stroke or TIA. Endocrine: Negative for thyroid problems. Skin: Negative for rash or itching. Psychiatric: Negative history for depression and anxiety Past Medical History Past Medical History: Asthma, Coronary Artery Disease (CAD), Chest Pain / Angina , COPD, Diabetes Mellitus, Hyperlipidemia, Hypertension Additional Past Medical History / Comment(s): IDDM type II, hypercholesterolemia , kidney stones, rheumatic fever as a child, past asbestos exposure, vertigo. History of Any Multi-Drug Resistant Organisms: None Reported Past Surgical History: Cholecystectomy, Heart Catheterization, Orthopedic Surgery, Tonsillectomy Additional Past Surgical History / Comment(s): Cardiac cath treated medically, L knee arthroscopy, abdominal hernia repair, multiple kidney surgeries, colonoscopy. Past Anesthesia/Blood Transfusion Reactions: No Reported Reaction Additional Past Anesthesia/Blood Transfusion Reaction / Comm: sea sick in past Smoking Status: Former smoker - Past Family History Father Family Medical History: Myocardial Infarction ([place]) Additional Family Medical History / Comment(s): at age 52 from a heart attack Mother Family Medical History: Myocardial Infarction ([place]) Additional Family Medical History / Comment(s): at age 52 from a heart attack Sister(s) Family Medical History: Myocardial Infarction ([place]) Medications and Allergies Home Medications Medication Instructions Recorded Confirmed Type Ibuprofen [Motrin] 800 mg PO Q8H PRN 09/11/16 01/31/18 History Lisinopril [Zestril] 10 mg PO DAILY 09/11/16 01/31/18 History Tamsulosin HCl [Flomax] 0.4 mg PO DAILY 09/11/16 01/31/18 History amLODIPine [Norvasc] 10 mg PO DAILY 09/11/16 01/31/18 History metFORMIN HCL 1,000 mg PO BID 09/11/16 01/31/18 History Budesonide/Formoterol Fumarate 2 puff INHALATION RT-BID 07/17/17 01/31/18 History [Symbicort 80-4.5 Mcg Inhaler] Cholecalciferol [Vitamin D3] 2,000 unit PO DAILY 07/17/17 01/31/18 History Insulin Aspart [Novolog Flexpen] 20 unit SQ TID-W/MEALS 07/17/17 01/31/18 History Insulin Glargine,Hum.rec.anlog 95 unit SQ DAILY 07/17/17 01/31/18 History [Lantus Solostar] Metoprolol Tartrate [Lopressor] 12.5 mg PO BID 07/17/17 01/31/18 History Montelukast [Singulair] 10 mg PO DAILY 07/17/17 01/31/18 History Polyvinyl Alcohol 1.4%Soln Oph 1 drop BOTH EYES QID 07/17/17 01/31/18 History Pravastatin Sodium [Pravachol] 40 mg PO HS 07/17/17 01/31/18 History Sodium Chloride 0.65% Nasal [Deep 1 spray NASAL BID 09/25/17 01/31/18 History Sea (Saline)] Meclizine [Antivert] 25 mg PO TID 01/31/18 01/31/18 History Omeprazole [PriLOSEC] 40 mg PO DAILY 01/31/18 01/31/18 History Allergies Allergy/AdvReac Type Severity Reaction Status Date / Time hydrocodone [From Spray] AdvReac Hallucinati Verified 01/31/18 09:39 ons/Nausea& vomiting Physical Exam Vitals: Vital Signs Temp Pulse Pulse Resp BP BP Pulse Ox 02/01/18 09:17 97.7 F 68 16 167/78 99 02/01/18 09:13 107 H 18 02/01/18 04:47 99.6 F 107 H 18 103/67 94 L 02/01/18 03:00 100 F H 02/01/18 01:02 102.0 F H 103 H 17 108/67 94 L 01/31/18 19:48 97.4 F L 76 18 106/64 96 01/31/18 14:42 97.5 F L 61 16 125/78 97 01/31/18 14:05 97 F L 95 16 134/68 95 01/31/18 13:51 97.7 F 01/31/18 13:44 74 18 114/59 94 L 01/31/18 13:19 76 18 213/78 96 Intake and Output 01/31/18 02/01/18 02/01/18 22:59 06:59 14:59 Intake Total 480 1160 Balance 480 1160 Intake: Intake, IV Titration 480 1160 Amount Meropenem 2 gm In Sodium 200 Chloride 0.9% 100 ml @ 200 mls/hr IVPB Q12H [facility] Rx#:[id number] Sodium Chloride 0.9% 1, 480 960 000 ml @ 120 mls/hr IV . Q8H20M [facility] Rx#:[id number] Other: Voiding Method Toilet # Voids 1 2 Weight 125.645 kg General appearance: The patient is alert, oriented, in no acute distress. Jaundice. HET: Head is normocephalic and atraumatic. Pupils are equal and reactive. Sclerae icterus. Oropharynx is clear without lesions. Neck: Supple without lymphadenopathy. Trachea midline. Heart: S1 S2. Regular rate and rhythm. Lungs: No crackles or wheezes are heard. Abdomen: Soft, moderate right upper quadrant tenderness, nondistended with bowel sounds. No peritoneal signs. No palpable organomegaly or masses. Extremities: Normal skin color and turgor. No cyanosis, rash, ulceration, clubbing, or edema. Radial and pedal pulses are 2/4 bilaterally. Neurological: No focal deficits. Strength and sensation are grossly intact. Results CBC & Chem 7: 02/01/18 02:39 02/01/18 02:39 Labs: Abnormal Lab Results - Last 24 Hours (Table) 01/31/18 01/31/18 02/01/18 Range/Units 10:28 21:20 02:39 RBC 4.27 L (4.30-5.90) m/uL INR 1.2 H (<1.2) Sodium (137-145) mmol/L BUN (9-20) mg/dL Glucose (74-99) mg/dL POC Glucose (mg/dL) 174 H (75-99) mg/dL Total Bilirubin (0.2-1.3) mg/dL AST (17-59) U/L ALT (21-72) U/L Alkaline Phosphatase (38-126) U/L 02/01/18 02/01/18 Range/Units 02:39 07:10 RBC (4.30-5.90) m/uL INR (<1.2) Sodium 136 L (137-145) mmol/L BUN 8 L (9-20) mg/dL Glucose 171 H (74-99) mg/dL POC Glucose (mg/dL) 171 H (75-99) mg/dL Total Bilirubin 3.7 H (0.2-1.3) mg/dL AST 185 H (17-59) U/L ALT 179 H (21-72) U/L Alkaline Phosphatase 237 H (38-126) U/L Microbiology - Last 24 Hours (Table) 01/31/18 17:38 Urine Culture - Preliminary Urine,Voided CT scan - abdomen: report reviewed (Dr. Boo) Assessment and Plan (1) Obstructive jaundice Narrative/Plan: Suspect choledocholithiasis possible neoplasm. Underlying ascending cholangitis cannot be excluded. Current Visit: Yes Status: Acute Code(s): K83.8 - OTHER SPECIFIED DISEASES OF BILIARY TRACT SNOMED Code(s): 50456746 (2) Fever Current Visit: Yes Status: Acute Code(s): R50.9 - FEVER, UNSPECIFIED SNOMED Code(s): 472546217 (3) Morbid obesity with BMI of 40.0-44.9, adult Current Visit: Yes Status: Acute Code(s): E66.01 - MORBID (SEVERE) OBESITY DUE TO EXCESS CALORIES; Z68.41 - BODY MASS INDEX (BMI) 40.0-44.9, ADULT SNOMED Code(s): 339065200 (4) History of cholelithiasis Current Visit: Yes Status: Acute Code(s): Z87.19 - PERSONAL HISTORY OF OTHER DISEASES OF THE DIGESTIVE SYSTEM SNOMED Code(s): 149829723 (5) History of laparoscopic cholecystectomy Current Visit: Yes Status: Acute Code(s): Z90.49 - ACQUIRED ABSENCE OF OTHER SPECIFIED PARTS OF DIGESTIVE TRACT SNOMED Code(s): 610064383 Plan: 1. Continue with IV antibiotics. Nothing by mouth. ERCP. Hepatitis screen. CMP CBC in a.m. The concrete batcher has discussed the risks, benefits and alternative therapies for the above-mentioned procedure and for both sedation/analgesia as well as necessary blood product administration, if indicated, as they pertain to this patient. The patient has indicated understanding and acceptance of the risks and procedures discussed. Thank you for this kind referral and the opportunity to participate in the care of your patient. This consultation was discussed with Dr. Boo. The impression and plan of care have been directed as dictated.
[2018-02-01] MEDS: INSULIN DETEMIR 100 UNIT/ML 10 ML VIAL SQ SCH (11:20)
--- NOTE | 2018-02-01 12:30 | CONS ---
CONSULTATION DATE OF SERVICE: 02/01/2018. HISTORY: Mr. Doherty is a 62-year-old gentleman who was admitted with right upper quadrant pain. The patient has a possible biliary duct obstruction and cholangitis. Patient has a past history of atypical angina and had a cardiac cath which revealed mild coronary artery disease. The patient otherwise has been feeling well without any symptoms of angina. The patient has a history of diabetes. PAST MEDICAL HISTORY: Includes type 2 diabetes, hyperlipidemia, history of kidney stones, prior cardiac catheterization, cholecystectomy, orthopedic surgery and tonsillectomy. HOME MEDICATIONS: 1. Ibuprofen. 2. Lisinopril 10 mg daily. 3. Norvasc 10 mg daily. 4. Insulin. 5. Pravachol 40 mg daily. 6. Antivert. 7. Prilosec. PHYSICAL EXAMINATION: At present reveals a 62-year-old obesely gentleman. The patient had a temperature of 102.3 during the night. The patient is afebrile at present. Blood pressure is 128/84 mmHg. Head, ENT and neck examination is negative. Neck is supple. There is no increase in jugular venous pressure. Both the carotid pulses are felt. There is no bruit. Chest is symmetrical. Heart, the PMI is not felt. First and second heart sounds are normal. There is no evidence of any murmur. Lungs are clinically clear to auscultation and percussion. Abdomen is soft. Extremities, peripheral pulses 2+. EKG is not available in the chart. FINAL IMPRESSION: This patient is primarily admitted with right upper quadrant pain. The patient has symptoms suggestive of biliary duct obstruction and ascending cholangitis. The patient is supposed to undergo ERCP today. The patient has a history of mild coronary artery disease. Patient is stable cardiac-bragg. We will obtain echocardiogram and EKG. MMODL / IJN: [id number] /
[2018-02-01] MEDS ORDERED: INDOMETHACIN 50MG SUPPOSITORY RECTAL ONE (13:00)
[2018-02-01 13:39] LABS: Hemoglobin A1C 7.8 % (4.0-6.0)
[2018-02-01] MEDS ORDERED: IV FLUID CONTINUATION 1,000 ML IV ONE (14:31)
--- NOTE | 2018-02-01 14:42 | CONS ---
CONSULTATION ADDENDUM: This patient's EKG was in the chart which shows evidence of atrial fibrillation. The strips at present shows atrial fibrillation with a controlled rate. The patient has no prior history of atrial fibrillation. The patient did get the Lopressor 12.5 mg. If during the procedure the patient has any rapid rate he can be treated with IV Lopressor. We will resume the patient's beta january after the surgery and then we will discuss about the anticoagulation depending upon the findings on the ERCP. FACUNDO / KAYLAN: [id number] /
[2018-02-01] MEDS: ARTIFICIAL TEARS-HYPROMELLOSE DROPS 15 ML BTL BOTH EYES SCH ×4 (15:44→20:21)
[2018-02-01] MEDS: amLODIPine 10 MG TAB PO SCH (15:44)
[2018-02-01] MEDS: HEPARIN SODIUM,PORCINE 5,000 UNIT/ML 1 ML VIAL SQ SCH ×2 (15:45→20:17)
[2018-02-01] MEDS: PANTOPRAZOLE 40 MG/10 ML VIAL IV SCH ×2 (15:45→20:19)
[2018-02-01] MEDS: LISINOPRIL 10 MG TAB PO SCH (15:45)
[2018-02-01] MEDS: MECLIZINE 25 MG TAB PO SCH ×3 (15:45→20:22)
[2018-02-01] MEDS: TAMSULOSIN 0.4 MG CAP.ER.24H PO SCH (15:46)
[2018-02-01] MEDS: SODIUM CHLORIDE 0.65% NASAL SPRAY 44 ML BTL NASAL SCH ×2 (15:46→20:21)
--- NOTE | 2018-02-01 15:58 | P.GSCN ---
History of Present Illness Consult date: 02/01/18 Reason for Consult: Elevated liver function tests History of present illness: This is a 62-year-old male who's to myself. Patient underwent laparoscopic cholecystectomy in June 2017. Patient states that over the last month he is felt not well. He's had some complaints of mild epigastric pain. Patient was admitted through the emergency room history his evidence of choledocholithiasis. GI service has been consult for possible ERCP. His CAT scan shows evidence of dilated intra-and extrahepatic biliary ducts. Past Medical History Past Medical History: Asthma, Coronary Artery Disease (CAD), Chest Pain / Angina , COPD, Diabetes Mellitus, Hyperlipidemia, Hypertension Additional Past Medical History / Comment(s): IDDM type II, hypercholesterolemia , kidney stones, rheumatic fever as a child, past asbestos exposure, vertigo. History of Any Multi-Drug Resistant Organisms: None Reported Past Surgical History: Cholecystectomy, Heart Catheterization, Orthopedic Surgery, Tonsillectomy Additional Past Surgical History / Comment(s): Cardiac cath treated medically, L knee arthroscopy, abdominal hernia repair, multiple kidney surgeries, colonoscopy. Past Anesthesia/Blood Transfusion Reactions: No Reported Reaction Additional Past Anesthesia/Blood Transfusion Reaction / Comm: sea sick in past Smoking Status: Former smoker - Past Family History Father Family Medical History: Myocardial Infarction ([place]) Additional Family Medical History / Comment(s): at age 52 from a heart attack Mother Family Medical History: [place]ocardial Infarction ([place]) Additional Family Medical History / Comment(s): at age 52 from a heart attack Sister(s) Family Medical History: Myocardial Infarction ([place]) Medications and Allergies Home Medications Medication Instructions Recorded Confirmed Type Ibuprofen [Motrin] 800 mg PO Q8H PRN 09/11/16 01/31/18 History Lisinopril [Zestril] 10 mg PO DAILY 09/11/16 01/31/18 History Tamsulosin HCl [Flomax] 0.4 mg PO DAILY 09/11/16 01/31/18 History amLODIPine [Norvasc] 10 mg PO DAILY 09/11/16 01/31/18 History metFORMIN HCL 1,000 mg PO BID 09/11/16 01/31/18 History Budesonide/Formoterol Fumarate 2 puff INHALATION RT-BID 07/17/17 01/31/18 History [Symbicort 80-4.5 Mcg Inhaler] Cholecalciferol [Vitamin D3] 2,000 unit PO DAILY 07/17/17 01/31/18 History Insulin Aspart [Novolog Flexpen] 20 unit SQ TID-W/MEALS 07/17/17 01/31/18 History Insulin Glargine,Hum.rec.anlog 95 unit SQ DAILY 07/17/17 01/31/18 History [Lantus Solostar] Metoprolol Tartrate [Lopressor] 12.5 mg PO BID 07/17/17 01/31/18 History Montelukast [Singulair] 10 mg PO DAILY 07/17/17 01/31/18 History Polyvinyl Alcohol 1.4%Soln Oph 1 drop BOTH EYES QID 07/17/17 01/31/18 History Pravastatin Sodium [Pravachol] 40 mg PO HS 07/17/17 01/31/18 History Sodium Chloride 0.65% Nasal [Deep 1 spray NASAL BID 09/25/17 01/31/18 History Sea (Saline)] Meclizine [Antivert] 25 mg PO TID 01/31/18 01/31/18 History Omeprazole [PriLOSEC] 40 mg PO DAILY 01/31/18 01/31/18 History Allergies Allergy/AdvReac Type Severity Reaction Status Date / Time hydrocodone [From [place]] AdvReac Hallucinati Verified 01/31/18 09:39 ons/Nausea& vomiting Surgical - Exam Vital Signs Temp Pulse Resp BP Pulse Ox 98.1 F 83 18 153/82 94 L 01/31/18 09:34 01/31/18 09:34 01/31/18 09:34 01/31/18 09:34 01/31/18 09:34 - General well developed, no distress - Eyes icteric - ENT normal pinna - Neck no masses - Respiratory normal expansion - Cardiovascular Rhythm: regular - Abdomen Mild epigastric tenderness Abdomen: soft Results - Labs 02/01/18 02:39 02/01/18 02:39 Abnormal Lab Results - Last 24 Hours (Table) 01/31/18 02/01/18 02/01/18 Range/Units 21:20 02:39 02:39 RBC 4.27 L (4.30-5.90) m/uL Sodium 136 L (137-145) mmol/L BUN 8 L (9-20) mg/dL Glucose 171 H (74-99) mg/dL POC Glucose (mg/dL) 174 H (75-99) mg/dL Hemoglobin A1c (4.0-6.0) % Total Bilirubin 3.7 H (0.2-1.3) mg/dL AST 185 H (17-59) U/L ALT 179 H (21-72) U/L Alkaline Phosphatase 237 H (38-126) U/L 02/01/18 02/01/18 Range/Units 02:39 07:10 RBC (4.30-5.90) m/uL Sodium (137-145) mmol/L BUN (9-20) mg/dL Glucose (74-99) mg/dL POC Glucose (mg/dL) 171 H (75-99) mg/dL Hemoglobin A1c 7.8 H (4.0-6.0) % Total Bilirubin (0.2-1.3) mg/dL AST (17-59) U/L ALT (21-72) U/L Alkaline Phosphatase (38-126) U/L Microbiology - Last 24 Hours (Table) 01/31/18 13:37 Blood Culture - Preliminary Blood No Growth after 24 hours 01/31/18 17:38 Urine Culture - Preliminary Urine,Voided Diabetes panel 02/01/18 02/01/18 Range/Units 02:39 02:39 Sodium 136 L (137-145) mmol/L Potassium 4.2 (3.5-5.1) mmol/L Chloride 103 (98-107) mmol/L Carbon Dioxide 22 (22-30) mmol/L BUN 8 L (9-20) mg/dL Creatinine 0.70 (0.66-1.25) mg/dL Glucose 171 H (74-99) mg/dL Hemoglobin A1c 7.8 H (4.0-6.0) % Calcium 9.0 (8.4-10.2) mg/dL AST 185 H (17-59) U/L ALT 179 H (21-72) U/L Alkaline Phosphatase 237 H (38-126) U/L Total Protein 7.1 (6.3-8.2) g/dL Albumin 3.7 (3.5-5.0) g/dL Calcium panel 02/01/18 Range/Units 02:39 Calcium 9.0 (8.4-10.2) mg/dL Albumin 3.7 (3.5-5.0) g/dL Pituitary panel 02/01/18 Range/Units 02:39 Sodium 136 L (137-145) mmol/L Potassium 4.2 (3.5-5.1) mmol/L Chloride 103 (98-107) mmol/L Carbon Dioxide 22 (22-30) mmol/L BUN 8 L (9-20) mg/dL Creatinine 0.70 (0.66-1.25) mg/dL Glucose 171 H (74-99) mg/dL Calcium 9.0 (8.4-10.2) mg/dL Adrenal panel 02/01/18 Range/Units 02:39 Sodium 136 L (137-145) mmol/L Potassium 4.2 (3.5-5.1) mmol/L Chloride 103 (98-107) mmol/L Carbon Dioxide 22 (22-30) mmol/L BUN 8 L (9-20) mg/dL Creatinine 0.70 (0.66-1.25) mg/dL Glucose 171 H (74-99) mg/dL Calcium 9.0 (8.4-10.2) mg/dL Total Bilirubin 3.7 H (0.2-1.3) mg/dL AST 185 H (17-59) U/L ALT 179 H (21-72) U/L Alkaline Phosphatase 237 H (38-126) U/L Total Protein 7.1 (6.3-8.2) g/dL Albumin 3.7 (3.5-5.0) g/dL Assessment and Plan Assessment: Choledocholithiasis from retained bile duct stone. Patient will undergo ERCP by Dr. Koch.
[2018-02-01] MEDS ORDERED: PROPOFOL 10 MG/ML 20 ML VIAL IV ONE (16:31)
[2018-02-01] MEDS ORDERED: fentaNYL (PF) 50 MCG/ML 2 ML AMP ONE (16:31)
[2018-02-01] MEDS ORDERED: LIDOCAINE 1% INJ 10MG/ML (20 ML MDV) ONE (16:31)
[2018-02-01] MEDS ORDERED: KETAMINE 10 MG/ML 20 ML VIAL ONE (16:31)
[2018-02-01] MEDS ORDERED: IOPAMIDOL-300 50ML BTL INJ ONE ×2 (16:34→17:17)
--- NOTE | 2018-02-01 16:34 | P.PN ---
Subjective Progress Note Date: 02/01/18 Progress note being dictated for Dr. Ayala. Interval history: This a 62-year-old gentleman admitted with right upper quadrant abdominal pain, possible obstructive jaundice, intra-and extrahepatic biliary obstruction, ruling out retained common bile duct stones in a patient with history of laparoscopic cholecystectomy and multiple other medical issues.NPO. Mildly worsened LFTs, T bili up to 3.7. INR 1.2. T-max 102, normal WBC.maintained on IV antibiotics of Merrem. Evaluated by GI and patient is scheduled for ERCP today. Development atrial fibrillation with controlled ventricular rate during the evening, currently telemetry reporting sinus rhythm. Denies chest pain, palpitations or increased shortness of breath. Surgery consult in place with recommendations pending. Review of systems: CONSTITUTIONAL: Denies fever, chills. No weight loss, no weight gain. HEENT: No recent visual problems or hearing problems. Denied any sore throat. CARDIOVASCULAR: No chest pain, orthopnea, PND, no palpitations, no syncope. PULMONARY: No shortness of breath, no cough, no hemoptysis. GASTROINTESTINAL: No diarrhea, no nausea, positive vomiting, RUQ abdominal pain. Normoactive bowel sounds. NEUROLOGICAL: No headaches, no weakness, no numbness. HEMATOLOGICAL: Denies any bleeding or petechiae. GENITOURINARY: Denies any burning micturition, frequency, or urgency. MUSCULOSKELETAL/RHEUMATOLOGICAL: Denies any joint pain, swelling, or any muscle pain. ENDOCRINE: Denies any polyuria or polydipsia. PSYCHIATRIC: No anxiety, no depression The rest of the 14 point review of systems is negative Active Medications Acetaminophen (Tylenol Tab) 650 mg PO Q6HR PRN PRN Reason: Fever and/ or Pain Last Admin: 02/01/18 02:36 Dose: 650 mg Alprazolam (Xanax) 0.25 mg PO TID PRN PRN Reason: Anxiety Amlodipine Besylate (Norvasc) 10 mg PO DAILY [facility] Last Admin: 02/01/18 15:44 Dose: Not Given Artificial Tears (Artificial Tear Drops) 1 drops BOTH EYES QID [facility] Last Admin: 02/01/18 15:50 Dose: Not Given Budesonide/Formoterol Fumarate (Symbicort 80-4.5 Mcg Inhaler) 2 puff INHALATION RT-BID [facility] Last Admin: 02/01/18 07:36 Dose: 2 puff Heparin Sodium (Porcine) (Heparin) 5,000 unit SQ Q12HR [facility] Last Admin: 02/01/18 15:45 Dose: Not Given Sodium Chloride (Saline 0.9%) 1,000 mls @ 120 mls/hr IV .Q8H20M [facility] Last Admin: 02/01/18 15:49 Dose: Not Given Meropenem 2 gm/ Sodium (Chloride) 100 mls @ 200 mls/hr IVPB Q12H [facility]; Protocol Last Admin: 02/01/18 02:36 Dose: 200 mls/hr Insulin Detemir (Levemir) 95 unit SQ DAILY [facility] Last Admin: 02/01/18 11:20 Dose: 47 unit Lisinopril (Zestril) 10 mg PO DAILY [facility] Last Admin: 02/01/18 15:45 Dose: Not Given Meclizine HCl (Antivert) 25 mg PO TID [facility] Last Admin: 02/01/18 15:46 Dose: Not Given Metoprolol Tartrate (Lopressor) 12.5 mg PO BID [facility] Last Admin: 02/01/18 05:33 Dose: 12.5 mg Morphine Sulfate (Morphine Sulfate (Inj)) 4 mg IVP Q4HR PRN PRN Reason: Moderate Pain Last Admin: 02/01/18 01:08 Dose: 4 mg Naloxone HCl (Narcan) 0.2 mg IV Q2M PRN PRN Reason: Opioid Reversal Ondansetron HCl (Zofran) 4 mg IVP Q8HR PRN PRN Reason: Nausea And Vomiting Pantoprazole Sodium (Protonix) 40 mg IV BID [facility] Last Admin: 02/01/18 15:45 Dose: Not Given Sodium Chloride (Deep Sea) 1 spray NASAL BID [facility] Last Admin: 02/01/18 15:46 Dose: Not Given Tamsulosin HCl (Flomax) 0.4 mg PO DAILY [facility] Last Admin: 02/01/18 15:46 Dose: Not Given Temazepam (Restoril) 15 mg PO HS PRN PRN Reason: Insomnia Objective - Vital Signs Vital signs: Vital Signs Temp 97.7 F 02/01/18 09:17 Pulse 68 02/01/18 09:17 Resp 16 02/01/18 09:17 BP 167/78 02/01/18 09:17 Pulse Ox 99 02/01/18 09:17 Intake & Output 01/31/18 02/01/18 02/01/18 18:59 06:59 18:59 Intake Total 0.9 1640 Balance 0.9 1640 Weight 125.645 kg 125.645 kg Intake: Amount of Fluid Infused ( 0.9 ml) Intake, IV Titration 1640 Amount Meropenem 2 gm In Sodium 200 Chloride 0.9% 100 ml @ 200 mls/hr IVPB Q12H [facility] Rx#:[id number] Sodium Chloride 0.9% 1, 1440 000 ml @ 120 mls/hr IV . Q8H20M [facility] Rx#:[id number] Other: Voiding Method Toilet Toilet # Voids 1 2 - Exam PHYSICAL EXAM: VITAL SIGNS: As above GENERAL: Lying in bed, no acute distress, jaundiced HEENT: Pupils equal, sclerae icterus, head normocephalic, atraumatic. Oral mucosa dry. NECK: No JVD. No thyroid enlargement. No LNs CARDIOVASCULAR: S1, S2 muffled. No murmur RESPIRATION: Breath sounds diminished in the bases. Occasional scattered rhonchi ABDOMEN: Soft, nondistended with right upper quadrant tenderness, no guarding. no masses palpable. Bowel sounds heard. LEGS: No edema. no swelling PSYCHIATRY: Alert and oriented -3, mood and affect normal. NERVOUS SYSTEM: Cranial N 2-12 grossly normal. Moves all 4 limbs. Diffuse weakness No focal deficits. Skin: no ulcer no rash Lymphatic system. No LN neck axilla or groin. - Labs CBC & Chem 7: 02/01/18 02:39 02/01/18 02:39 Labs: Abnormal Lab Results - Last 24 Hours (Table) 01/31/18 02/01/18 02/01/18 Range/Units 21:20 02:39 02:39 RBC 4.27 L (4.30-5.90) m/uL Sodium 136 L (137-145) mmol/L BUN 8 L (9-20) mg/dL Glucose 171 H (74-99) mg/dL POC Glucose (mg/dL) 174 H (75-99) mg/dL Total Bilirubin 3.7 H (0.2-1.3) mg/dL AST 185 H (17-59) U/L ALT 179 H (21-72) U/L Alkaline Phosphatase 237 H (38-126) U/L 02/01/18 Range/Units 07:10 RBC (4.30-5.90) m/uL Sodium (137-145) mmol/L BUN (9-20) mg/dL Glucose (74-99) mg/dL POC Glucose (mg/dL) 171 H (75-99) mg/dL Total Bilirubin (0.2-1.3) mg/dL AST (17-59) U/L ALT (21-72) U/L Alkaline Phosphatase (38-126) U/L Microbiology - Last 24 Hours (Table) 01/31/18 17:38 Urine Culture - Preliminary Urine,Voided Assessment and Plan Assessment: 1. Right upper quadrant abdominal pain of possible obstructive jaundice 2. Intra-and extrahepatic biliary obstruction, rule out gallstones or a periampullary neoplasm 3. History of laparoscopic cholecystectomy 4. CAD 5. Diabetes mellitus type 2 6. Hypercholesterolemia 7. Morbid obesity, BMI 39.7 Plan: Continue current medication regime , IV antibiotics, PPI, monitoring and symptomatic treatment.NPO, awaiting ERCP. Surgical consult in place with recommendations pending. GI and DVT prophylaxis in place. Further recommendations to follow. Prognosis guarded given multiple complex medical issues. The impression and plan of care has been dictated as directed. : I performed a history and examination of this patient, discussed the same with the dictator. I agree with the dictator's note ,documented as a scribe. Any additional findings or plans will be noted.
[2018-02-01 17:17] LABS: Hepatitis A Antibody IgM Non-Reactive (Non-Reactive); Hepatitis B Core IgM Non-Reactive (Non-Reactive)
--- NOTE | 2018-02-01 17:43 | P.PCN ---
Date of Procedure: 02/01/18 Procedure(s) Performed: Procedure: Endoscopic retrograde cholangiography and sphincterotomy and extraction of distal common bile duct stone and debris using 8 and 11 mm balloon catheters. Preoperative diagnosis: Suspected common bile duct stone. Postoperative diagnosis: 1. Filling defect in the distal common bile duct consistent with impacted common bile duct stone, S/P sphincterotomy and extraction of stone/stone fragments and debris using the 11 and 8 mm balloon catheter. Preparation and sedation: Was provided by anesthesia. Clinical history: The patient is a 62-year-old male who was admitted with severe right upper quadrant abdominal pain for the last 3-4 days with elevated liver enzymes new onset of jaundice and dark colored urine. Patient has not felt well over the last month some intermittent GI upset without emesis, bleeding, fever or chills. Has history of laparoscopic cholecystectomy in June 2017 for cholelithiasis. On admission bilirubin 2.3. AST 167. ALT 167. AP 247. He spiked a temperature 102 last night. This morning LFTs have worsened total bilirubin 3.7. AST 185. ALT 179. AP to 37. Lipase 112. INR 1.2. White count 6.2. Hemoglobin 13.1. Platelet 172. CT abdomen and pelvis showed extra hepatic biliary duct dilation, common bile duct up to 1.4 cm. High density seen in the region of the distal common bile duct near the ampulla debris or mass within the differential also dilation of the cystic duct remnant and mild intrahepatic biliary duct dilation throughout the liver. Pancreas no significant abnormality. Other details are summarized in the history and physical and dictated consultations and progress notes. This evaluation is to assess for common bile duct stone. Procedure: With the patient in the prone position and after informed consent and adequate sedation, I passed the Olympus video duodenoscope down the esophagus into the stomach then passed it through the pylorus into the duodenum and brought the papilla into view. The papilla appeared expanded/protruded and prominent with debris and pus like material exiting through its orifice. Initial cannulation and injection with dye resulted in opacification of the biliary tree. There appeared to be a filling defect in the distal common bile duct with proximal dilation. The defect was consistent with a large impacted stone. I proceeded to exchange the catheter for a sphincterotome over a guidewire. Adequate sphincterotomy was then performed. Following that I used the 11 mm balloon catheter to extract the common bile duct stone. Stone fragments and debris was coming out the sphincterotomy area. During the process of extraction the 11 mm balloon burst and I exchanged it with an 8 mm balloon that was withdrawn fully inflated. I used the balloon to sweep the common bile duct multiple times and each time it was coming out fully inflated across the sphincterotomy site. I then used the balloon catheter to perform a cholangiogram and no other filling defects were noted. The patient tolerated the procedure well. Plan: The patient and the family where reassured. Will allow clear liquid diet and monitor his course closely. Further plans based on his course and lab results.
[2018-02-01 21:04] LABS: Glucose,Whole Blood 185 mg/dL (75-99)
[2018-02-02] MEDS: MEROPENEM 2 GM in SODIUM CHLORIDE 0.9% 100 ML IVPB SCH ×2 (02:03→15:53)
[2018-02-02 05:50] LABS: Basophils % (A) 0 %; Eosinophils # (A) 0.1 k/uL (0-0.7); Eosinophils % (A) 2 %; HCT 41.2 % (39.0-53.0); HGB 13.1 gm/dL (13.0-17.5); Lymphocytes # (A) 1.6 k/uL (1.0-4.8); Lymphocytes % (A) 28 %; MCH 30.6 pg (25.0-35.0); MCHC 31.9 g/dL (31.0-37.0); MCV 95.8 fL (80.0-100.0); Mean Platelet Volume 7.4; Monocytes # (A) 0.4 k/uL (0-1.0); Monocytes % (A) 7 %; Neutrophils # (A) 3.5 k/uL (1.3-7.7); Neutrophils % (A) 61 %; Platelet Count 184 k/uL (150-450); RDW 13.4 % (11.5-15.5); WBC 5.7 k/uL (3.8-10.6)
[2018-02-02] MEDS: SODIUM CHLORIDE 0.9% 1,000 ML IV SCH ×3 (05:54→23:05)
[2018-02-02 05:55] LABS: Glucose,Whole Blood 151 mg/dL (75-99)
[2018-02-02 05:56] LABS: ALT 181 U/L (21-72); AST 153 U/L (17-59); Albumin 3.4 g/dL (3.5-5.0); Alkaline Phosphatase 229 U/L (38-126); Anion Gap 8 mmol/L; Blood Urea Nitrogen 6 mg/dL (9-20); Calcium 8.8 mg/dL (8.4-10.2); Carbon Dioxide 23 mmol/L (22-30); Chloride 107 mmol/L (98-107); Glucose 167 mg/dL (74-99); Potassium 3.9 mmol/L (3.5-5.1); Sodium 138 mmol/L (137-145); Total Protein 6.6 g/dL (6.3-8.2)
[2018-02-02] MEDS: SYMBICORT 80-4.5 MCG INHALER INHALATION SCH ×2 (07:55→19:47)
[2018-02-02] MEDS: METOPROLOL TARTRATE 12.5 MG TAB PO SCH (07:56)
[2018-02-02] MEDS: MECLIZINE 25 MG TAB PO SCH ×3 (07:56→20:26)
[2018-02-02] MEDS: LISINOPRIL 10 MG TAB PO SCH (07:57)
[2018-02-02] MEDS: TAMSULOSIN 0.4 MG CAP.ER.24H PO SCH (07:57)
[2018-02-02] MEDS: HEPARIN SODIUM,PORCINE 5,000 UNIT/ML 1 ML VIAL SQ SCH ×2 (07:57→20:22)
[2018-02-02] MEDS: ARTIFICIAL TEARS-HYPROMELLOSE DROPS 15 ML BTL BOTH EYES SCH ×4 (07:57→20:25)
[2018-02-02] MEDS: PANTOPRAZOLE 40 MG/10 ML VIAL IV SCH ×2 (07:57→20:24)
[2018-02-02] MEDS: amLODIPine 10 MG TAB PO SCH (07:57)
[2018-02-02] MEDS: SODIUM CHLORIDE 0.65% NASAL SPRAY 44 ML BTL NASAL SCH ×2 (07:58→20:26)
--- NOTE | 2018-02-02 08:35 | ECHOF ---
Referral Reason:chest pain MEASUREMENTS -------- HEIGHT: 182.9 cm WEIGHT: 125.6 kg BP: RVIDd: 2.5 cm (< 3.3) IVSd: 1.0 cm (0.6 - 1.1) LVIDd: 4.4 cm (3.9 - 5.3) LVPWd: 1.3 cm (0.6 - 1.1) IVSs: 1.7 cm LVIDs: 2.8 cm LVPWs: 2.1 cm Ao Diam: 3.4 cm (2.0 - 3.7) AV Cusp: 1.5 cm (1.5 - 2.6) LA Diam: 3.8 cm (2.7 - 3.8) MV EXCURSION: 19.371 mm (> 18.000) MV EF SLOPE: 163 mm/s (70 - 150) EPSS: 0.5 cm MV E Conner: 0.72 m/s MV DecT: 298 ms MV A Conner: 0.32 m/s MV E/A Ratio: 2.23 RAP: 5.00 mmHg RVSP: 7.97 mmHg FINDINGS -------- Atrial fibrillation. This was a technically difficult study with suboptimal views. Overall left ventricular systolic function is low-normal with, an EF between 50 - 55 %. The right ventricle is normal in size. The left atrium is normal in size. The right atrium is normal in size. Lumason used The aortic valve was not well visualized. The mitral valve was not well visualized. The tricuspid valve was not well visualized. Trace tricuspid regurgitation present. The right red tricular systolic pressure, as measured by Doppler, is 7.97mmHg. The pulmonic valve was not well visualized. CONCLUSIONS -------- 1. Atrial fibrillation. 2. This was a technically difficult study with suboptimal views. 3. Overall left ventricular systolic function is low-normal with, an EF between 50 - 55 %. 4. The right ventricle is normal in size. 5. The left atrium is normal in size. 6. The right atrium is normal in size. 7. Lumason used 8. The aortic valve was not well visualized. 9. The mitral valve was not well visualized. 10. The tricuspid valve was not well visualized. 11. Trace tricuspid regurgitation present. 12. The right ventricular systolic pressure, as measured by Doppler, is 7.97mmHg. 13. The pulmonic valve was not well visualized. ORNAMENTAL PAINTER: Sarah Marie RDCS
--- NOTE | 2018-02-02 08:49 | P.PN ---
Progress Note - Text Progress Note Date: 02/02/18 The patient is resting comfortably in his bed. He underwent ERCP yesterday. He is found have an impacted stone in the distal common bile duct. Patient currently feels well. He denies any significant pain. On exam his vital signs stable. His evidence soft. Status post successful ERCP with stone extraction. Patient will be discharged home per medicine. We will sign off.
[2018-02-02] MEDS: INSULIN DETEMIR 100 UNIT/ML 10 ML VIAL SQ SCH (08:53)
[2018-02-02 12:01] LABS: Glucose,Whole Blood 165 mg/dL (75-99)
[2018-02-02 17:12] LABS: Glucose,Whole Blood 181 mg/dL (75-99)
--- NOTE | 2018-02-02 18:25 | PN ---
PROGRESS NOTE DATE OF SERVICE: 02/02/2018. INTERVAL HISTORY: This 62-year-old gentleman who was admitted with right upper quadrant abdominal pain also had an extrahepatic biliary obstruction. Dr. Boo performed ERCP as well as a sphincterotomy and extraction of the stone and stone fragment and debris. The patient is on broad-spectrum IV antibiotics. The patient also had atrial fibrillation. Also multiple consultants, including Surgery, are following the patient closely. PAST MEDICAL HISTORY: Reviewed. REVIEW OF SYSTEMS: CARDIOVASCULAR: As mentioned earlier. RESPIRATORY: As mentioned earlier. GI: No nausea. : No dysuria. CURRENT MEDICATIONS: Reviewed, include: 1. Tylenol 650 every 6 hours. 2. Xanax 0.5 t.i.d. 3. Norvasc 10 mg. 5. Symbicort 80/4.5 two puffs daily. 6. Heparin 5 subcu b.i.d. 7. Levemir 95 units daily. 8. Zestril 10 mg daily. 9. Antivert 25 mg t.i.d. 10.Rocephin 2 g IV b.i.d. 11.Narcan. 12.Zofran. 13.Protonix. 14.Restoril. 15.Flomax. PHYSICAL EXAM: Patient is alert, oriented x3. Pulse 87, pressure 130/78, respirations 16, temperature 97.8, pulse ox 97% on room air. HEENT: Conjunctivae normal. NECK: No jugular venous distention. No carotid bruits. No lymph node enlargement. CARDIOVASCULAR: S1, S2 muffled. RESPIRATORY: Breath sounds diminished in the bases. A few scattered rhonchi. No crackles. ABDOMEN: Soft. Might be minimal discomfort. No guarding. No rigidity. No mass palpable. LEGS: No edema. NERVOUS SYSTEM: No focal deficits. LABS: CBC within normal limits and glucose 167. Bilirubin is 12. Albumin is 4. AST is 153, ALT is 181, alkaline phosphatase 229. ASSESSMENT: 1. Right upper quadrant abdominal pain with possible obstructive jaundice, status post endoscopic retrograde cholangiopancreatography, sphincterotomy as well as extraction of the stone and stone fragments using a balloon catheter. 2. Extrahepatic biliary obstruction. Rule out periampullary neoplasm. 3. History of laparoscopic cholecystectomy. 4. Coronary artery disease. 5. Fever with possible cholangitis. 6. Diabetes mellitus. 7. Hypercholesterolemia. 8. Morbid obesity. 9. Atrial fibrillation with a fast ventricular rate. RECOMMENDATIONS AND DISCUSSION: I recommend to continue current medical management and symptomatic treatment. Continue with antibiotics. Continue the beta blockers: Follow closely with Gastroenterology and Cardiology. Surgery input appreciated. Prognosis guarded because of multiple complex medical issues. Further recommendations to follow. MMYULISSAL / IJN: [id number] / MTDD
--- NOTE | 2018-02-02 19:27 | FL ---
Fluoroscopy INDICATION: Pain FINDINGS: Fluoroscopy time: 4 minutes 29 seconds. Images obtained: 1. There is limited visualization of the duct. Irregularity or filling should be considered. This is unc ertain if this is lack of distention from contrast. IMPRESSIONS: 1. Documentation of fluoroscopy.
[2018-02-02 20:24] LABS: Glucose,Whole Blood 172 mg/dL (75-99)
[2018-02-02] MEDS: METOPROLOL TARTRATE 25 MG TAB PO SCH (20:27)
[2018-02-03] MEDS: MEROPENEM 2 GM in SODIUM CHLORIDE 0.9% 100 ML IVPB SCH ×2 (01:46→14:28)
--- NOTE | 2018-02-03 03:31 | PN ---
PROGRESS NOTE This patient was admitted with acute cholangitis. Patient underwent ERCP. The patient's EKG yesterday was found to be in atrial fibrillation. Patient converted to normal sinus rhythm. He is doing well. Blood pressure is 122/72 mmHg. Heart S1 and S2 normal. Lungs are clear to auscultation and percussion. We will increase the dose of Lopressor to 25 mg b.i.d. and if it is okay with Gastroenterology service, we will start the patient on anticoagulation. Exact duration of the patient's atrial fibrillation is unknown. The patient's liver enzymes still remains abnormal. MMODL / IJN: [id number] /
[2018-02-03] MEDS: SODIUM CHLORIDE 0.9% 1,000 ML IV SCH ×2 (06:03→17:23)
[2018-02-03 06:19] LABS: Glucose,Whole Blood 152 mg/dL (75-99)
[2018-02-03] MEDS: METOPROLOL TARTRATE 25 MG TAB PO SCH ×2 (06:41→21:23)
[2018-02-03 06:47] LABS: Basophils % (A) 1 %; Eosinophils # (A) 0.2 k/uL (0-0.7); Eosinophils % (A) 3 %; HCT 40.8 % (39.0-53.0); HGB 13.1 gm/dL (13.0-17.5); Lymphocytes # (A) 1.7 k/uL (1.0-4.8); Lymphocytes % (A) 32 %; MCH 30.9 pg (25.0-35.0); MCHC 32.2 g/dL (31.0-37.0); Mean Platelet Volume 7.4; Monocytes # (A) 0.4 k/uL (0-1.0); Monocytes % (A) 7 %; Neutrophils # (A) 3.1 k/uL (1.3-7.7); Neutrophils % (A) 56 %; Platelet Count 181 k/uL (150-450); RBC 4.25 m/uL (4.30-5.90); RDW 13.5 % (11.5-15.5); WBC 5.5 k/uL (3.8-10.6)
[2018-02-03 06:59] LABS: ALT 151 U/L (21-72); AST 106 U/L (17-59); Albumin 3.4 g/dL (3.5-5.0); Alkaline Phosphatase 245 U/L (38-126); Anion Gap 9 mmol/L; Blood Urea Nitrogen 7 mg/dL (9-20); Calcium 8.7 mg/dL (8.4-10.2); Carbon Dioxide 22 mmol/L (22-30); Chloride 105 mmol/L (98-107); Glucose 161 mg/dL (74-99); Sodium 136 mmol/L (137-145); Total Bilirubin 1.5 mg/dL (0.2-1.3); Total Protein 6.7 g/dL (6.3-8.2)
[2018-02-03] MEDS: LISINOPRIL 10 MG TAB PO SCH (08:17)
[2018-02-03] MEDS: TAMSULOSIN 0.4 MG CAP.ER.24H PO SCH (08:17)
[2018-02-03] MEDS: MECLIZINE 25 MG TAB PO SCH ×3 (08:17→21:21)
[2018-02-03] MEDS: SODIUM CHLORIDE 0.65% NASAL SPRAY 44 ML BTL NASAL SCH ×2 (08:18→21:24)
[2018-02-03] MEDS: PANTOPRAZOLE 40 MG/10 ML VIAL IV SCH ×2 (08:18→21:23)
[2018-02-03] MEDS: ARTIFICIAL TEARS-HYPROMELLOSE DROPS 15 ML BTL BOTH EYES SCH ×4 (08:18→21:24)
[2018-02-03] MEDS: amLODIPine 10 MG TAB PO SCH (08:18)
[2018-02-03] MEDS: HEPARIN SODIUM,PORCINE 5,000 UNIT/ML 1 ML VIAL SQ SCH ×2 (08:18→21:13)
[2018-02-03] MEDS: INSULIN DETEMIR 100 UNIT/ML 10 ML VIAL SQ SCH (08:22)
[2018-02-03] MEDS: SYMBICORT 80-4.5 MCG INHALER INHALATION SCH ×2 (08:43→19:55)
--- NOTE | 2018-02-03 10:11 | P.PN ---
Progress Note - Text Progress Note Date: 02/03/18 The patient is resting comfortably in his bed. His overall appearance has improved. On exam is lesser stable. His abdomen soft. Liver flush test improved. Patiently discharged home today per medicine. He'll follow-up when necessary.
[2018-02-03 12:03] LABS: Glucose,Whole Blood 154 mg/dL (75-99)
[2018-02-03] MEDS ORDERED: PROPAFENONE 150 MG TAB PO STA (12:24)
[2018-02-03] MEDS: APIXABAN 5 MG TAB PO SCH ×2 (12:44→21:23)
[2018-02-03 14:54] VITALS: RESP 16
[2018-02-03 17:11] LABS: Glucose,Whole Blood 129 mg/dL (75-99)
--- NOTE | 2018-02-03 18:05 | PN ---
PROGRESS NOTE DATE OF SERVICE: 02/03/2018 This 62-year-old gentleman admitted with obstructive jaundice, had ERCP and sphincterotomy and stone extraction by Dr. Boo. The patient also had atrial fibrillation. Anticoagulants are being started by Cardiology. Patient is on Eliquis 5 mg p.o. b.i.d. No chest pain. No palpitations. No fever. EXAM: Alert and oriented x3. Pulse 100, blood pressure 130/77, respirations 16, temperature 97.7, pulse ox 98% on room air. HEENT: Conjunctivae normal. NECK: No jugular venous distention. CARDIOVASCULAR: S1, S2 muffled. RESPIRATORY: Breath sounds diminished in the bases. No rhonchi, no crackles. ABDOMEN: Soft, nontender. LEGS: No edema. NERVOUS SYSTEM: No focal deficits. LABS: CBC within normal. Sodium 136, glucose 152, total bilirubin is 1.5, AST is 106, ALT is 151, alk phos 245. ASSESSMENT: 1. Right upper quadrant abdominal pain with possible obstructive jaundice, status post ERCP, sphincterotomy as well as extraction of the stone and stone fragment using the balloon catheter. 2. Hepatic biliary obstruction, rule out periumbilical neoplasm. 3. History of laparoscopic cholecystectomy. 4. Paroxysmal atrial fibrillation on Eliquis, newly started. 5. Coronary artery disease. 6. Fever with possible cholangitis. 7. Diabetes mellitus type 2. 8. Hypokalemia. 9. Morbid obesity. 10.Atrial fibrillation with fast ventricular rate. RECOMMENDATIONS AND DISCUSSION: I recommend to continue current management and symptomatic treatment. Continue with antibiotics and the rest of the medications. Continue with Eliquis. Increase ambulation. Closely follow with multiple consultants. Further recommendations to follow. MMODL / IJN: [id number] /
[2018-02-03 21:09] LABS: Glucose,Whole Blood 141 mg/dL (75-99)
[2018-02-04] MEDS: SODIUM CHLORIDE 0.9% 1,000 ML IV SCH (02:02)
[2018-02-04] MEDS: MEROPENEM 2 GM in SODIUM CHLORIDE 0.9% 100 ML IVPB SCH (02:09)
--- NOTE | 2018-02-04 04:11 | PN ---
PROGRESS NOTE This patient is admitted with acute cholangitis, underwent ERCP. He is feeling well. Patient is afebrile. The patient went back into atrial fibrillation earlier this morning. Patient remains asymptomatic. Blood pressure is 120/71 mmHg. First and second heart sounds are normal. Lungs are clear to auscultation and percussion. The patient will be given a dose of Rythmol to convert into a normal sinus rhythm, continue beta january, and we will start the patient on Eliquis 5 mg b.i.d. MMODL / IJN: [id number] /
[2018-02-04 06:09] LABS: Glucose,Whole Blood 177 mg/dL (75-99)
[2018-02-04 07:04] LABS: Basophils % (A) 0 %; Eosinophils # (A) 0.2 k/uL (0-0.7); Eosinophils % (A) 3 %; HCT 40.6 % (39.0-53.0); HGB 13.3 gm/dL (13.0-17.5); Lymphocytes % (A) 42 %; MCHC 32.8 g/dL (31.0-37.0); MCV 94.5 fL (80.0-100.0); Mean Platelet Volume 7.5; Monocytes # (A) 0.4 k/uL (0-1.0); Monocytes % (A) 8 %; Neutrophils # (A) 2.1 k/uL (1.3-7.7); Neutrophils % (A) 44 %; Platelet Count 212 k/uL (150-450); RDW 13.2 % (11.5-15.5); WBC 4.8 k/uL (3.8-10.6)
[2018-02-04 07:21] LABS: ALT 116 U/L (21-72); AST 67 U/L (17-59); Albumin 3.5 g/dL (3.5-5.0); Alkaline Phosphatase 205 U/L (38-126); Anion Gap 8 mmol/L; Blood Urea Nitrogen 12 mg/dL (9-20); Calcium 8.9 mg/dL (8.4-10.2); Carbon Dioxide 24 mmol/L (22-30); Chloride 104 mmol/L (98-107); Glucose 174 mg/dL (74-99); Potassium 4.3 mmol/L (3.5-5.1); Sodium 136 mmol/L (137-145); Total Protein 6.7 g/dL (6.3-8.2)
[2018-02-04] MEDS: APIXABAN 5 MG TAB PO SCH (07:44)
[2018-02-04] MEDS: amLODIPine 10 MG TAB PO SCH (07:44)
[2018-02-04] MEDS: PANTOPRAZOLE 40 MG/10 ML VIAL IV SCH (07:45)
[2018-02-04] MEDS: METOPROLOL TARTRATE 25 MG TAB PO SCH (07:45)
[2018-02-04] MEDS: PROPAFENONE 150 MG TAB PO SCH ×2 (07:45→12:23)
[2018-02-04] MEDS: HEPARIN SODIUM,PORCINE 5,000 UNIT/ML 1 ML VIAL SQ SCH (07:45)
[2018-02-04] MEDS: TAMSULOSIN 0.4 MG CAP.ER.24H PO SCH (07:46)
[2018-02-04] MEDS: SYMBICORT 80-4.5 MCG INHALER INHALATION SCH (08:21)
[2018-02-04] MEDS: ARTIFICIAL TEARS-HYPROMELLOSE DROPS 15 ML BTL BOTH EYES SCH (08:26)
[2018-02-04] MEDS: SODIUM CHLORIDE 0.65% NASAL SPRAY 44 ML BTL NASAL SCH (08:26)
[2018-02-04] MEDS: INSULIN DETEMIR 100 UNIT/ML 10 ML VIAL SQ SCH (08:26)
[2018-02-04 09:50] VITALS: TEMP 98.9
[2018-02-04 11:49] LABS: Glucose,Whole Blood 187 mg/dL (75-99)
[2018-02-04] MEDS: MECLIZINE 25 MG TAB PO SCH (12:22)
[2018-02-04] MEDS: LISINOPRIL 10 MG TAB PO SCH (12:23)
--- NOTE | 2018-02-04 13:06 | P.PN ---
Subjective Progress Note Date: 02/04/18 This is a 62-year-old gentleman who presented with acute cholangitis and underwent an ERCP. He went back into atrial fibrillation yesterday, we did give him a dose of Rythmol stat yesterday and started him on a 3 times a day dose. He converted to normal sinus rhythm, and remains in normal sinus rhythm this morning. Overall he feels well, hemodynamically he is stable. Objective - Vital Signs Vital signs: Vital Signs Temp 98.9 F 02/04/18 08:00 Pulse 86 02/04/18 08:00 Resp 16 02/04/18 08:00 BP 121/73 02/04/18 08:00 Pulse Ox 97 02/04/18 08:00 Intake & Output 02/03/18 02/04/18 02/04/18 18:59 06:59 18:59 Intake Total 236 Balance 236 Weight 123.1 kg Intake: Oral 236 Other: Voiding Method Toilet Toilet # Voids 4 2 # Bowel Movements 1 - Exam PHYSICAL EXAMINATION: GENERAL: 62-year-old gentleman in no acute distress at the time of my examination. HEENT: Head is atraumatic, normocephalic. Pupils equal, round. Sclera anicteric. Conjunctiva are clear. Mucous membranes of the mouth are moist. Neck is supple. There is no elevated jugular venous pressure.] bruit is heard. HEART EXAMINATION: Heart S1, S2 normal. No murmur or gallop heard. CHEST EXAMINATION: Lungs are clear to auscultation and precussion. No chest wall tenderness is noted on palpation or with deep breathing. ABDOMEN: Soft, nontender. Bowel sounds are heard. No organomegaly noted. EXTREMITIES: 2+ peripheral pulses with no evidence of peripheral edema and no calf tenderness noted. NEUROLOGIC patient is awake, alert and oriented ?-3. . - Labs CBC & Chem 7: 02/04/18 06:11 02/04/18 06:11 Labs: Abnormal Lab Results - Last 24 Hours (Table) 02/03/18 02/03/18 02/04/18 Range/Units 17:03 21:05 06:07 Sodium (137-145) mmol/L Glucose (74-99) mg/dL POC Glucose (mg/dL) 129 H 141 H 177 H (75-99) mg/dL AST (17-59) U/L ALT (21-72) U/L Alkaline Phosphatase (38-126) U/L 02/04/18 02/04/18 Range/Units 06:11 11:43 Sodium 136 L (137-145) mmol/L Glucose 174 H (74-99) mg/dL POC Glucose (mg/dL) 187 H (75-99) mg/dL AST 67 H (17-59) U/L ALT 116 H (21-72) U/L Alkaline Phosphatase 205 H (38-126) U/L Microbiology - Last 24 Hours (Table) 02/01/18 02:39 Blood Culture - Preliminary Blood No Growth after 72 hours 02/01/18 02:21 Blood Culture - Preliminary Blood No Growth after 72 hours 01/31/18 13:37 Blood Culture - Preliminary Blood No Growth after 72 hours Assessment and Plan Plan: Assessment and plan\ #1 acute cholangitis status post ERCP #2 paroxysmal atrial fibrillation Plan Patient may be able to be discharged home today from cardiology's perspective, we will continue Eliquis 5 mg one tablet by mouth twice a day, Rythmol 150 mg by mouth 3 times a day and beta january, metoprolol 25 mg twice a day, lisinopril 10 mg daily. Follow-up appointment will be made in the office post discharge. DNP note has been reviewed, I agree with a documented findings and plan of care. Patient was seen and examined.
[2018-02-04 14:25] VITALS: BP 122/75; PULSE 108
--- NOTE | 2018-02-04 19:33 | DS ---
DISCHARGE SUMMARY DATE OF SERVICE: 02/04/2018 FINAL DIAGNOSES: 1. Right upper quadrant abdominal pain with possible obstructive jaundice, status post ERCP, sphincterotomy as well as extraction of stone and stone fragment using the balloon catheter. 2. Extrahepatic biliary obstruction; rule out periumbilical neoplasm. 3. History of laparoscopic cholecystectomy. 4. Paroxysmal atrial fibrillation, started on Eliquis newly. 5. Coronary artery disease. 6. Fever with possible cholangitis, present on admission. 7. Diabetes mellitus, type 2. 8. Hypokalemia. 9. Morbid obesity. 10.Atrial fibrillation with fast ventricular rate. DISCHARGE DISPOSITION: The patient will be discharged in stable condition with guarded prognosis. Total time taken 35 minutes. HISTORY OF PRESENT ILLNESS: This 62-year-old gentleman with a past medical history of multiple medical problems was admitted with right upper quadrant abdominal pain with possible obstructive jaundice. The patient was treated symptomatically. Dr. Boo performed sphincterotomy as well as extraction of stone and stone fragment using a balloon catheter. The LFTs improved significantly. The patient was also running a fever. Patient was treated with antibiotics. Patient also had an episode of paroxysmal atrial fibrillation, treated with medication Eliquis. Cardiology saw the patient. On exam, vitals are stable. CARDIOVASCULAR SYSTEM: S1, S2 normal. ABDOMEN: Soft. NERVOUS SYSTEM: No focal deficit. DISCHARGE ADVICE AND MEDICATIONS: 1. Diet is cardiac. 2. Activity limited until followup. 3. Follow up with Dr. Villarreal in 2-3 days. 4. Follow up with Dr. Boo as recommended. 5. Follow up with Cardiology as recommended. 6. Norvasc 10 mg daily. 7. Symbicort 2 puffs b.i.d. 8. Vitamin D3 2000 daily. 9. NovoLog 20 units subcutaneously t.i.d. 10.Insulin Lantus 95 units subcutaneously daily. 11.Zestril 10 mg p.o. daily. 12.Antivert 25 mg t.i.d. 13.Metformin 1000 mg p.o. b.i.d. 14.Singular 10 mg p.o. daily. 15.Prilosec 40 mg p.o. daily. 16.Polyvinyl alcohol 1 drop both eyes. 17.Pravachol 40 mg at bedtime. 18.Nasal drops p.r.n. 19.Flomax 0.4 daily. 20.Augmentin 875 mg 1 p.o. b.i.d. for 5 days. 21.Eliquis 5 mg p.o. b.i.d. 22.Lopressor 25 mg p.o. b.i.d. 23.Rythmol 150 mg p.o. t.i.d. Once again, the patient will be discharged in stable condition with guarded prognosis. MMODL / IJN: [id number] /
== END 2018-02-04 14:09 | disposition home or self-care (01) | DRG 445 ==
LOC: EC 09:33 → 3SUR 12:55 → 6SEL 02-01 07:53
PROVIDERS: ADMIT Hospitalist; ATTEND Hospitalist
PROC: 0FC98ZZ Extirpation of Matter from Common Bile Duct, Via Natural or Artificial Opening Endoscopic (ICD-10-PCS; principal; 2018-02-01 08:25)
DX: K80.31 Calculus of bile duct with cholangitis, unspecified, with obstruction (principal); E11.9 Type 2 diabetes mellitus without complications; E66.01 Morbid (severe) obesity due to excess calories; E78.00 Pure hypercholesterolemia, unspecified; E78.5 Hyperlipidemia, unspecified; E87.6 Hypokalemia; I10 Essential (primary) hypertension; I25.10 Atherosclerotic heart disease of native coronary artery without angina pectoris; I48.0 Paroxysmal atrial fibrillation; J44.9 Chronic obstructive pulmonary disease, unspecified; Z68.39 Body mass index [BMI] 39.0-39.9, adult; Z77.090 Contact with and (suspected) exposure to asbestos; Z79.4 Long term (current) use of insulin; Z79.899 Other long term (current) drug therapy; Z79.51 Long term (current) use of inhaled steroids; Z88.5 Allergy status to narcotic agent; Z90.49 Acquired absence of other specified parts of digestive tract; Z87.891 Personal history of nicotine dependence; Z87.442 Personal history of urinary calculi; Z82.49 Family history of ischemic heart disease and other diseases of the circulatory system
CPT/HCPCS: 36415; 43262; 43277; 74177; 74330; 80053; 80074; 81003; 82150; 83036; 83690; 85025; 85610; 85730; 87040; 87086; 93005; 93306; 94640; 96361; 96374; 96375; 96376; 99285

== ENCOUNTER 2018-08-27 22:29 | Inpatient (IN) | payer OTHER, MEDICARE ==
[2018-08-27] MEDS ORDERED: HYDROmorphone 0.5 MG/0.5 ML SYRINGE IVP STA (22:50)
[2018-08-27] MEDS ORDERED: SODIUM CHLORIDE 0.9% 500 ML 500 ML IV STA (22:50)
[2018-08-27] MEDS ORDERED: KETOROLAC 30 MG/ML 1 ML VIAL IVP STA (22:51)
--- NOTE | 2018-08-27 22:52 | ED ---
General Adult HPI - General Source: patient, RN notes reviewed Mode of arrival: wheelchair Limitations: no limitations <Sundar Carrillo - Last Filed: 08/28/18 00:10> <Hanny Alicia - Last Filed: 08/28/18 01:59> <Femi Pierson - Last Filed: 08/29/18 07:59> - General Chief complaint: Abdominal Pain Stated complaint: upper abd pain Time Seen by Provider: 08/27/18 22:40 - History of Present Illness Initial comments: 63-year-old male with a past medical history of coronary artery disease, chest pain, COPD, hyperlipidemia, hypertension, kidney stones presents to the emergency department for chief complaint of right upper quadrant abdominal pain. Patient states this has been ongoing for 3 days but worsened today. He states he is somewhat nauseous as well but denies vomiting. Patient does have a histor y of cholecystectomy that was done about a year ago. Patient did have a stone in the common bile duct about 8 months ago that had to be removed. He states this pain is exactly similar to the pain he felt at that time. He states the sharp stabbing pain. He states it is constant. He states he also had erythema of the face less than this happened which is occurring again today. He denies any lower abdominal pain. Patient has no other complaints at this time including shortness of breath, chest pain, nausea or vomiting, headache, or visual changes. (Sundar Carrillo) - Related Data Home Medications Medication Instructions Recorded Confirmed Lisinopril [Zestril] 10 mg PO DAILY 09/11/16 08/27/18 amLODIPine [Norvasc] 10 mg PO DAILY 09/11/16 08/27/18 metFORMIN HCL 1,000 mg PO BID 09/11/16 08/27/18 Budesonide/Formoterol Fumarate 2 puff INHALATION RT-BID 07/17/17 08/27/18 [Symbicort 80-4.5 Mcg Inhaler] Cholecalciferol [Vitamin D3] 2,000 unit PO DAILY 07/17/17 08/27/18 Insulin Aspart [NovoLOG Flexpen] 20 unit SQ AC-TID 07/17/17 08/27/18 Insulin Glargine,Hum.rec.anlog 95 unit SQ DAILY 07/17/17 08/27/18 [Lantus Solostar] Montelukast [Singulair] 10 mg PO DAILY 07/17/17 08/27/18 Meclizine [Antivert] 25 mg PO TID 01/31/18 08/27/18 Omeprazole [PriLOSEC] 40 mg PO DAILY 01/31/18 08/27/18 Albuterol Inhaler [Ventolin Hfa 2 puff INHALATION RT-QID 08/27/18 08/27/18 Inhaler] Albuterol Nebulized [Ventolin 2.5 mg INHALATION RT-TID 08/27/18 08/27/18 Nebulized] Aspirin EC [Ecotrin Low Dose] 81 mg PO DAILY 08/27/18 08/27/18 Ipratropium/Albuterol Sulfate 1 puff INHALATION RT-TID 08/27/18 08/27/18 [Combivent Respimat Inhaler] Pravastatin Sodium [Pravachol] 40 mg PO HS 08/27/18 08/27/18 Previous Rx's Medication Instructions Recorded Apixaban [Eliquis] 5 mg PO BID #60 tab 02/04/18 Metoprolol Tartrate [Lopressor] 25 mg PO BID #60 tab 02/04/18 Propafenone [Rythmol] 150 mg PO TID #90 tab 02/04/18 Allergies Allergy/AdvReac Type Severity Reaction Status Date / Time hydrocodone [From [place]] AdvReac Hallucinati Verified 08/27/18 22:49 ons/Nausea& vomiting Review of Systems ROS Other: All systems not noted in ROS Statement are negative. <Sundar Carrillo P - Last Filed: 08/28/18 00:10> ROS Other: All systems not noted in ROS Statement are negative. <Hanny Alicia - Last Filed: 08/28/18 01:59> ROS Other: All systems not noted in ROS Statement are negative. <Femi Pierson - Last Filed: 08/29/18 07:59> ROS Statement: Those systems with pertinent positive or pertinent negative responses have been documented in the HPI. Past Medical History Past Medical History: Asthma, Coronary Artery Disease (CAD), Chest Pain / Angina, COPD, Diabetes Mellitus, Hyperlipidemia, Hypertension Additional Past Medical History / Comment(s): IDDM type II, kidney stones, rheumatic fever as a child, past asbestos exposure, vertigo. History of Any Multi-Drug Resistant Organisms: None Reported Past Surgical History: Cholecystectomy, Heart Catheterization, Orthopedic Surgery, Tonsillectomy Additional Past Surgical History / Comment(s): Cardiac cath treated medically, L knee arthroscopy, abdominal hernia repair, multiple kidney surgeries, colonoscopy. Past Anesthesia/Blood Transfusion Reactions: No Reported Reaction Additional Past Anesthesia/Blood Transfusion Reaction / Comment(s): sea sick in past Past Psychological History: No Psychological Hx Reported Smoking Status: Former smoker Past Alcohol Use History: None Reported Past Drug Use History: None Reported - Past Family History Father Family Medical History: Myocardial Infarction ([place]) Additional Family Medical History / Comment(s): at age 52 from a heart attack Mother Family Medical History: Myocardial Infarction ([place]) Additional Family Medical History / Comment(s): at age 52 from a heart attack Sister(s) Family Medical History: Myocardial Infarction ([place]) <Sundar Carrillo P - Last Filed: 08/28/18 00:10> General Exam Limitations: no limitations General appearance: alert, in no apparent distress Head exam: Present: atraumatic, normocephalic, normal inspection Eye exam: Present: normal appearance, PERRL, EOMI. Absent: scleral icterus, conjunctival injection, periorbital swelling ENT exam: Present: normal exam, mucous membranes moist Neck exam: Present: normal inspection, full ROM. Absent: tenderness, meningismus, lymphadenopathy Respiratory exam: Present: normal lung sounds bilaterally. Absent: respiratory distress, wheezes, rales, rhonchi, stridor Cardiovascular Exam: Present: regular rate, normal rhythm, normal heart sounds. Absent: systolic murmur, diastolic murmur, rubs, gallop, clicks GI/Abdominal exam: Present: soft, tenderness (Some minimal generalized tenderness however this is initially currently worse in the right upper quadrant where he patient does have guarding), normal bowel sounds. Absent: distended, guarding, rebound, rigid Neurological exam: Present: alert, oriented X3, CN II-XII intact Psychiatric exam: Present: normal affect, normal mood <Sundar Carrillo P - Last Filed: 08/28/18 00:10> Course Vital Signs 08/27/18 08/28/18 08/28/18 22:33 00:03 02:08 Temperature 97.6 F Pulse Rate 73 83 96 Respiratory 18 16 18 Rate Blood Pressure 151/66 112/67 126/73 O2 Sat by Pulse 96 96 97 Oximetry EKG Findings - EKG Comments: EKG Findings:: Normal sinus rhythm, ventricular rate 80, MD interval 190, QRS 90, QTc 472 <Sundar Carrillo - Last Filed: 08/28/18 00:10> Medical Decision Making - Lab Data Result diagrams: 08/27/18 23:00 08/27/18 23:00 <Sundar Carrillo - Last Filed: 08/28/18 00:10> - Lab Data Result diagrams: 08/27/18 23:00 08/27/18 23:00 - Radiology Data Radiology results: report reviewed, image reviewed <Hanny Alicia - Last Filed: 08/28/18 01:59> - Lab Data Result diagrams: 08/27/18 23:00 08/27/18 23:00 <Femi Pierson - Last Filed: 08/29/18 07:59> - Medical Decision Making 63-year-old male presents to the emergency department for a chief complaint of right upper quadrant abdominal pain. Patient states this has been ongoing for 3 days but has worsened today. Patient admits to nausea as well. Patient states this pain is exactly similar to when he had a stone in his common bile duct. On exam patient does appear to be in pain. He has some minimal generalized abdominal tenderness however this is much worse in the right upper quadrant whe re patient does exhibit voluntary guarding. CBC is unremarkable however CMP does show mild transaminitis with a bilirubin of 1.5. Patient was given Dilaudid which did help with his pain. US CURRENTLY PENDING, CARE WAS HANDED OUT TO [facility] AT 1215 (Sundar Carrillo) Took over care of patient from [facility]. Did review labs, ultrasound, and computed tomography scan. Computed tomography scan was concerning for a 3 mm stone in the common bile duct with some ductal dilation. Given this finding with increase in liver enzymes is concerned for common bile duct obstruction. Patient will be admitted to the hospital for gastroenterology consult and prob able ERCP. Upon reevaluation patient is reporting an increase in his pain we will repeat doses pain medication. I did discuss findings, results, plan with the patient, he is agreeable. He has seen Dr. Boo in the past. (Hanny Alicia) I saw this patient in conjunction with the physician bankruptcy legal assistant. I performed independent history and physical exam. Agree with case management. (Femi Pierson) - Lab Data Lab Results 08/27/18 08/27/18 08/28/18 Range/Units 23:00 23:00 00:20 WBC 9.3 (3.8-10.6) k/uL RBC 4.77 (4.30-5.90) m/uL Hgb 14.2 (13.0-17.5) gm/dL Hct 44.1 (39.0-53.0) % MCV 92.5 (80.0-100.0) fL MCH 29.8 (25.0-35.0) pg MCHC 32.3 (31.0-37.0) g/dL RDW 13.7 (11.5-15.5) % Plt Count 218 (150-450) k/uL Neutrophils % 73 % Lymphocytes % 18 % Monocytes % 6 % Eosinophils % 1 % Basophils % 0 % Neutrophils # 6.8 (1.3-7.7) k/uL Lymphocytes # 1.7 (1.0-4.8) k/uL Monocytes # 0.5 (0-1.0) k/uL Eosinophils # 0.1 (0-0.7) k/uL Basophils # 0.0 (0-0.2) k/uL Sodium 139 (137-145) mmol/L Potassium 4.2 (3.5-5.1) mmol/L Chloride 104 (98-107) mmol/L Carbon Dioxide 24 (22-30) mmol/L Anion Gap 11 mmol/L BUN 14 (9-20) mg/dL Creatinine 0.83 (0.66-1.25) mg/dL Est GFR (CKD-EPI)AfAm >90 (>60 ml/min/1.73 sqM) Est GFR (CKD-EPI)NonAf >90 (>60 ml/min/1.73 sqM) Glucose 209 H (74-99) mg/dL Calcium 9.2 (8.4-10.2) mg/dL Total Bilirubin 1.5 H (0.2-1.3) mg/dL AST 174 H (17-59) U/L ALT 135 H (21-72) U/L Alkaline Phosphatase 210 H (38-126) U/L Total Protein 8.0 (6.3-8.2) g/dL Albumin 4.3 (3.5-5.0) g/dL Amylase 35 (30-110) U/L Lipase 76 (23-300) U/L Urine Color Dark Yellow Urine Appearance Cloudy (Clear) Urine pH 5.5 (5.0-8.0) Ur Specific [place] 1.026 (1.001-1.035) Urine Protein 1+ H (Negative) Urine Glucose (UA) 2+ H (Negative) Urine Ketones Negative (Negative) Urine Blood Negative (Negative) Urine Nitrite Negative (Negative) Urine Bilirubin 1+ H (Negative) Urine Urobilinogen 6.0 (<2.0) mg/dL Ur Leukocyte Esterase Negative (Negative) Urine WBC <1 (0-5) /hpf Ur Squamous Epith Cells 2 (0-4) /hpf Calcium Oxalate Crystal Few H (None) /hpf Amorphous Sediment Rare H (None) /hpf Urine Bacteria Rare H (None) /hpf Urine Mucus Moderate H (None) /hpf - Radiology Data Ultrasound of the right upper quadrant abdomen is obtained. Report is reviewed in its entirety. Impression by Dr. Franco shows liver is enlarged with right hepatic lobe measuring up to 23 cm. Findings suggestive of hepatic steatosis or hepatocellular disease. The common bile duct measures up to 9 mm. This is not specific status post cholecystectomy. Abdomen although CT with contrast was obtained. Report was reviewed in its entirety. Impression by Dr. Franco shows mildly prominent common bile duct and a questionable 3 mm calculus versus artifact in the distant, bile duct. This could be further characterized by MRCP if clinically indicated. Diverticulosis without evidence of diverticulitis (Hanny Alicia) Disposition <Sundar Carrillo - Last Filed: 08/28/18 00:10> Decision to Admit Reason: Admit from EC Decision Date: 08/28/18 Decision Time: 02:00 <Hanny Alicia - Last Filed: 08/28/18 01:59> <Femi Pierson - Last Filed: 08/29/18 07:59> Clinical Impression: Common bile duct obstruction Disposition: ADMITTED IP TO THIS [facility] Condition: Serious
[2018-08-27 23:15] LABS: Basophils % (A) 0 %; Eosinophils # (A) 0.1 k/uL (0-0.7); Eosinophils % (A) 1 %; HCT 44.1 % (39.0-53.0); HGB 14.2 gm/dL (13.0-17.5); Lymphocytes # (A) 1.7 k/uL (1.0-4.8); Lymphocytes % (A) 18 %; MCH 29.8 pg (25.0-35.0); MCHC 32.3 g/dL (31.0-37.0); MCV 92.5 fL (80.0-100.0); Mean Platelet Volume 7.4; Monocytes # (A) 0.5 k/uL (0-1.0); Monocytes % (A) 6 %; Neutrophils # (A) 6.8 k/uL (1.3-7.7); Neutrophils % (A) 73 %; Platelet Count 218 k/uL (150-450); RBC 4.77 m/uL (4.30-5.90); RDW 13.7 % (11.5-15.5); WBC 9.3 k/uL (3.8-10.6)
[2018-08-27 23:20] LABS: ALT 135 U/L (21-72); AST 174 U/L (17-59); Albumin 4.3 g/dL (3.5-5.0); Alkaline Phosphatase 210 U/L (38-126); Amylase 35 U/L (30-110); Anion Gap 11 mmol/L; Blood Urea Nitrogen 14 mg/dL (9-20); Calcium 9.2 mg/dL (8.4-10.2); Carbon Dioxide 24 mmol/L (22-30); Chloride 104 mmol/L (98-107); Glucose 209 mg/dL (74-99); Lipase 76 U/L (23-300); Potassium 4.2 mmol/L (3.5-5.1); Sodium 139 mmol/L (137-145); Total Bilirubin 1.5 mg/dL (0.2-1.3)
[2018-08-27] MEDS ORDERED: ONDANSETRON 4 MG/2 ML VIAL IVP STA (23:56)
--- NOTE | 2018-08-28 00:30 | US ---
EXAM: US Abdomen Complete CLINICAL HISTORY: ITS.REASON US Reason: RUQ, possible CBD stone? TECHNIQUE: Real-time ultrasound of the abdomen (complete) with image documentation. COMPARISON: No relevant prior studies available. FINDINGS: Liver: The liver is enlarged with the right hepatic lobe measuring up to 23 cm. Findings suggestive of hepatic steatosis or hepatocellular disease. Gallbladder: Gallbladder surgically absent. Common bile duct: The common bile duct measures up to 9 mm. Pancreas: The pancreas is mainly obscured by bowel gas. Right Kidney: Unremarkable. No evidence of calculi. No solid mass. No hydronephrosis. IMPRESSION: 1. The liver is enlarged with the right hepatic lobe measuring up to 23 cm. 2. Findings suggestive of hepatic steatosis or hepatocellular disease. 3. The common bile duct measures up to 9 mm. This is not specific status post cholecystectomy.
[2018-08-28 00:42] LABS: Amorphous Sediment,Urine Rare /hpf; Appearance,Urine Cloudy (Clear); Bacteria,Urine Rare /hpf; Bilirubin,Urine 1+ (Negative); Blood,Urine Negative (Negative); Calcium Oxalate Crystals,Urine Few /hpf; Color,Urine Dark Yellow; Glucose,Urine (UA) 2+ (Negative); Ketones,Urine Negative (Negative); Leukocyte Esterase,Urine Negative (Negative); Mucus,Urine Moderate /hpf; Nitrite,Urine Negative (Negative); PH, Urine 5.5 (5.0-8.0); Protein,Urine 1+ (Negative); Specific Gravity,Urine 1.026 (1.001-1.035); Squamous Epithelial Cell,Urine 2 /hpf (0-4); WBC,Urine <1 /hpf (0-5)
--- NOTE | 2018-08-28 01:36 | CT ---
EXAM: CT Abdomen and Pelvis With Intravenous Contrast CLINICAL HISTORY: ITS.REASON CT Reason: Pain TECHNIQUE: Axial computed tomography images of the abdomen and pelvis with intravenous contrast. CTDI is 20.3+17.9 mGy and DLP is 2066.9 mGy-cm. This CT exam was performed using one or more of the following dose reduction techniques: automated exposure control, adjustment of the mA and/or kV according to patient size, and/or use of iterative reconstruction technique. COMPARISON: CT dated 01/31/2018. FINDINGS: Lung bases: Unremarkable. No mass. No consolidation. ABDOMEN: Liver: Unremarkable. No mass. Gallbladder and bile ducts: Mildly prominent common bile duct and a questionable 3 mm calculus versus artifact in the distal common bile duct. Status post cholecystectomy. Pancreas: Unremarkable. No evidence of mass. No ductal dilation. Spleen: Unremarkable. No splenomegaly. Adrenals: Unremarkable. No mass. Kidneys and ureters: 5 mm nonobstructing right renal calculus. 3 mm nonobstructing left renal calculus. Stomach and bowel: Diverticulosis without evidence of diverticulitis. No obstruction. PELVIS: Appendix: No findings to suggest acute appendicitis. Bladder: Unremarkable. No evidence of mass. Reproductive: Unremarkable as visualized. ABDOMEN and PELVIS: Intraperitoneal space: Unremarkable. No free air. No significant fluid collection. Bones/joints: No acute fracture. Soft tissues: Unremarkable. Vasculature: Unremarkable. No abdominal aortic aneurysm. Lymph nodes: Unremarkable. No enlarged lymph nodes. IMPRESSION: 1. Mildly prominent common bile duct and a questionable 3 mm calculus versus artifact in the distal common bile duct. This could be further characterized by MRCP if clinically indicated. 2. Diverticulosis without evidence of diverticulitis.
[2018-08-28] MEDS ORDERED: HYDROmorphone 2 MG/ML 1 ML SYRINGE IVP STA (01:52)
[2018-08-28] MEDS ORDERED: NALOXONE 0.4 MG/ML 1 ML VIAL IV PRN (02:06)
[2018-08-28] MEDS ORDERED: HYDROmorphone 1 MG/ML 1 ML SYRINGE IVP PRN (02:06)
[2018-08-28] MEDS: SODIUM CHLORIDE 0.9% 1,000 ML IV SCH ×3 (02:16→23:20)
[2018-08-28] MEDS: ONDANSETRON 4 MG/2 ML VIAL IVP PRN (02:34)
[2018-08-28 07:04] LABS: Glucose,Whole Blood 147 mg/dL (75-99)
[2018-08-28] MEDS: ALBUTEROL NEBULIZED 2.5 MG/3 ML INHALATION SCH ×7 (08:15→19:36)
[2018-08-28] MEDS ORDERED: INSULIN DETEMIR (LEVEMIR) 100 UNIT/ML SYR SQ STA (08:19)
[2018-08-28] MEDS: SYMBICORT 80-4.5 MCG INHALER INHALATION SCH ×2 (08:19→19:36)
[2018-08-28] MEDS: amLODIPine 10 MG TAB PO SCH (08:32)
[2018-08-28] MEDS: METOPROLOL TARTRATE 25 MG TAB PO SCH ×2 (08:32→20:16)
[2018-08-28] MEDS: LISINOPRIL 10 MG TAB PO SCH (08:32)
[2018-08-28] MEDS: PROPAFENONE 150 MG TAB PO SCH ×3 (08:32→20:16)
[2018-08-28] MEDS: INSULIN ASPART (NovoLOG) 100 UNIT/ML VIAL SQ SCH ×4 (08:35→20:48)
[2018-08-28] MEDS ORDERED: APIXABAN 5 MG TAB PO SCH (09:00)
[2018-08-28] MEDS ORDERED: INSULIN DETEMIR (LEVEMIR) 100 UNIT/ML SYR SQ SCH (09:00)
[2018-08-28 11:39] LABS: Glucose,Whole Blood 111 mg/dL (75-99)
[2018-08-28] MEDS: ASPIRIN 81 MG PO SCH (12:16)
[2018-08-28] MEDS: CHOLECALCIFEROL 1,000 UNIT TAB PO SCH (12:16)
[2018-08-28] MEDS: MECLIZINE 25 MG TAB PO SCH ×3 (12:17→20:16)
[2018-08-28] MEDS: PANTOPRAZOLE 40 MG TABLET PO SCH (12:17)
[2018-08-28] MEDS: MONTELUKAST 10 MG TAB PO SCH (12:21)
--- NOTE | 2018-08-28 12:27 | P.CONS ---
History of Present Illness - Reason for Consult Consult date: 08/28/18 Abdominal pain elevated liver enzymes Requesting physician: Anna Ayala - Chief Complaint Abdominal pain - History of Present Illness 63-year-old male [facility] patient past medical history of atrial fibrillation maintained on Eliquis (last dose yesterday morning), obesity, [place] docholithiasis, CAD, diabetes, hyperlipidemia, hypertension presents with acute midepigastric upper abdominal pain with chills sweats facial rash started 4 days ago. Patient has a history of cholelithiasis status post cholecystectomy July 22 followed by total cholelithiasis January 2018 status post ERCP sphincterotomy balloon stone extraction. Patient states he developed a facial rash when he had choledocholithiasis last year. Darker colored urine over the last few days as well as acholic stools. Heart rate greater than 100 averaging around 120. Denies chest pain or shortness of breath. Presently he is afebrile. Still reports midepigastric abdominal pain. LFTs increased total bilirubin 1.5. AST 174. ALT 135. AP 210. White count 9.3. Hemoglobin 14.2. Amylase lipase within normal limits. CT abdomen unremarkable liver no mass. Mildly prominent common bile duct and questionable 3 mm calculus versus artifact in the distal common bile duct. Colonic diverticulosis. Ultrasound abdomen enlarged liver 23 cm. Hepatic steatosis versus hepatocellular disease. CBD 9 mm. Review of Systems Constitutional: Denies fever, chills, sweats, weight gain, or loss. HEENT: Negative for migraines, blurred vision or loss, earaches, drainage, tinnitus, oral mucosal lesions, dysphagia, or odynophagia. Cardiac: Negative for chest pain, arrhythmias, or palpitation. Respiratory: Negative for shortness of breath, hemoptysis, cough, or sputum production. Gastrointestinal: See HPI for pertinent findings. Genitourinary: Negative for hematuria, urgency, frequency, polyuria, dysuria, or penile discharge. Musculoskeletal: Negative for muscle aches, swelling, arthritis, and arthralgias. Neurologic: Negative for stroke or TIA. Endocrine: Negative for thyroid problems. Skin: Negative for rash or itching. Psychiatric: Negative history for depression and anxiety Past Medical History Past Medical History: Atrial Fibrillation, Asthma, Coronary Artery Disease (CAD), Chest Pain / Angina, COPD, Diabetes Mellitus, Hyperlipidemia, Hypertension Additional Past Medical History / Comment(s): IDDM type II, kidney stones, rheumatic fever as a child, past asbestos exposure, vertigo. History of Any Multi-Drug Resistant Organisms: None Reported Past Surgical History: Cholecystectomy, Heart Catheterization, Orthopedic Surgery, Tonsillectomy Additional Past Surgical History / Comment(s): Cardiac cath treated medically, L knee arthroscopy, abdominal hernia repair, multiple kidney surgeries, colonoscopy. Past Anesthesia/Blood Transfusion Reactions: No Reported Reaction Additional Past Anesthesia/Blood Transfusion Reaction / Comm: sea sick in past Past Psychological History: No Psychological Hx Reported Additional Psychological History / Comment(s): pt is independant. lives at home with his . lives in a 2 story home [place] has [address] pt [address]. served in the [employer] 1973 and 1974. worked in [employer]. no home care services recieved. has glucomerer and bp machine. Smoking Status: Former smoker Past Alcohol Use History: None Reported Additional Past Alcohol Use History / Comment(s): started smoking at age [age](1971), quit 1995 was smoking 3 ppd. no alcohol currently but in past used occ/socially. Past Drug Use History: None Reported - Past Family History Father Family Medical History: Myocardial Infarction ([place]) Additional Family Medical History / Comment(s): at age 52 from a heart attack Mother Family Medical History: Myocardial Infarction ([place]) Additional Family Medical History / Comment(s): at age 52 from a heart attack Sister(s) Family Medical History: Myocardial Infarction ([place]) Medications and Allergies Home Medications Medication Instructions Recorded Confirmed Type Lisinopril [Zestril] 10 mg PO DAILY 09/11/16 08/27/18 History amLODIPine [Norvasc] 10 mg PO DAILY 09/11/16 08/27/18 History metFORMIN HCL 1,000 mg PO BID 09/11/16 08/27/18 History Budesonide/Formoterol Fumarate 2 puff INHALATION RT-BID 07/17/17 08/27/18 History [Symbicort 80-4.5 Mcg Inhaler] Cholecalciferol [Vitamin D3] 2,000 unit PO DAILY 07/17/17 08/27/18 History Insulin Aspart [NovoLOG Flexpen] 20 unit SQ AC-TID 07/17/17 08/27/18 History Insulin Glargine,Hum.rec.anlog 95 unit SQ DAILY 07/17/17 08/27/18 History [Lantus Solostar] Montelukast [Singulair] 10 mg PO DAILY 07/17/17 08/27/18 History Meclizine [Antivert] 25 mg PO TID 01/31/18 08/27/18 History Omeprazole [PriLOSEC] 40 mg PO DAILY 01/31/18 08/27/18 History Apixaban [Eliquis] 5 mg PO BID #60 tab 02/04/18 08/27/18 Rx Metoprolol Tartrate [Lopressor] 25 mg PO BID #60 tab 02/04/18 08/27/18 Rx Propafenone [Rythmol] 150 mg PO TID #90 tab 02/04/18 08/27/18 Rx Albuterol Inhaler [Ventolin Hfa 2 puff INHALATION RT-QID 08/27/18 08/27/18 History Inhaler] Albuterol Nebulized [Ventolin 2.5 mg INHALATION RT-TID 08/27/18 08/27/18 History Nebulized] Aspirin EC [Ecotrin Low Dose] 81 mg PO DAILY 08/27/18 08/27/18 History Ipratropium/Albuterol Sulfate 1 puff INHALATION RT-TID 08/27/18 08/27/18 History [Combivent Respimat Inhaler] Pravastatin Sodium [Pravachol] 40 mg PO HS 08/27/18 08/27/18 History Allergies Allergy/AdvReac Type Severity Reaction Status Date / Time hydrocodone [From [place]] AdvReac Hallucinati Verified 08/27/18 22:49 ons/Nausea& vomiting Physical Exam Vitals: Vital Signs Temp Pulse Pulse Resp BP BP Pulse Ox 08/28/18 08:30 108 H 08/28/18 08:19 108 H 08/28/18 07:27 120 H 20 08/28/18 06:45 97.7 F 120 H 20 111/71 94 L 08/28/18 02:38 22 08/28/18 02:35 98.3 F 116 H 16 158/77 94 L 08/28/18 02:08 96 18 126/73 97 08/28/18 00:03 83 16 112/67 96 08/27/18 22:33 97.6 F 73 18 151/66 96 Intake and Output 08/27/18 08/28/18 08/28/18 22:59 06:59 14:59 Other: Weight 128.82 kg General appearance: The patient is alert, oriented, in no acute distress. Facial rash. HET: Head is normocephalic and atraumatic. Pupils are equal and reactive. Oropharynx is clear without lesions. Neck: Supple without lymphadenopathy. Trachea midline. Heart: S1 S2. Lungs: No crackles or wheezes are heard. Abdomen: Soft, obese tenderness in midepigastrium with bowel sounds. No peritoneal signs. Palpable hepatomegaly Extremities: Normal skin color and turgor. No cyanosis, rash, ulceration, clubbing, or edema. Radial and pedal pulses are 2/4 bilaterally. Neurological: No focal deficits. Strength and sensation are grossly intact. Results CBC & Chem 7: 08/27/18 23:00 08/27/18 23:00 Labs: Abnormal Lab Results - Last 24 Hours (Table) 08/27/18 08/28/18 08/28/18 Range/Units 23:00 00:20 06:51 Glucose 209 H (74-99) mg/dL POC Glucose (mg/dL) 147 H (75-99) mg/dL Total Bilirubin 1.5 H (0.2-1.3) mg/dL AST 174 H (17-59) U/L ALT 135 H (21-72) U/L Alkaline Phosphatase 210 H (38-126) U/L Urine Protein 1+ H (Negative) Urine Glucose (UA) 2+ H (Negative) Urine Bilirubin 1+ H (Negative) Calcium Oxalate Crystal Few H (None) /hpf Amorphous Sediment Rare H (None) /hpf Urine Bacteria Rare H (None) /hpf Urine Mucus Moderate H (None) /hpf 08/28/18 Range/Units 11:28 Glucose (74-99) mg/dL POC Glucose (mg/dL) 111 H (75-99) mg/dL Total Bilirubin (0.2-1.3) mg/dL AST (17-59) U/L ALT (21-72) U/L Alkaline Phosphatase (38-126) U/L Urine Protein (Negative) Urine Glucose (UA) (Negative) Urine Bilirubin (Negative) Calcium Oxalate Crystal (None) /hpf Amorphous Sediment (None) /hpf Urine Bacteria (None) /hpf Urine Mucus (None) /hpf CT scan - abdomen: report reviewed (Dr. Isbell) US - abdomen: report reviewed (Dr. Isbell) Assessment and Plan (1) Choledocholithiasis Narrative/Plan: 63-year-old male asked medical history of cholelithiasis admitted with acute abdominal pain suspected fever chills sweats with elevated liver enzymes acholic stools darker colored urine CT imaging cannot exclude common bile duct calculus with a history of choledocholithiasis January 2018 status post ERCP sphincterotomy balloon stone extraction and previous cholecystectomy June 2017. Current Visit: No Status: Acute Code(s): K80.50 - CALCULUS OF BILE DUCT W/O CHOLANGITIS OR CHOLECYST W/O OBST SNOMED Code(s): 394696885 (2) Abdominal pain Current Visit: Yes Status: Acute Code(s): R10.9 - UNSPECIFIED ABDOMINAL PAIN SNOMED Code(s): 92200566 (3) Atrial fibrillation Current Visit: Yes Status: Acute Code(s): I48.91 - UNSPECIFIED ATRIAL FIBRILLATION SNOMED Code(s): 01094764 (4) History of cholelithiasis Current Visit: No Status: Acute Code(s): Z87.19 - PERSONAL HISTORY OF OTHER DISEASES OF THE DIGESTIVE SYSTEM SNOMED Code(s): 840534405 (5) Hepatomegaly Current Visit: Yes Status: Acute Code(s): R16.0 - HEPATOMEGALY, NOT ELSEWHERE CLASSIFIED SNOMED Code(s): 06495777 (6) Hepatic steatosis Current Visit: Yes Status: Acute Code(s): K76.0 - FATTY (CHANGE OF) LIVER, NOT ELSEWHERE CLASSIFIED SNOMED Code(s): 935355160 (7) Elevated liver enzymes Current Visit: Yes Status: Acute Code(s): R74.8 - ABNORMAL LEVELS OF OTHER SERUM ENZYMES SNOMED Code(s): 196515171 (8) Morbid obesity with BMI of 40.0-44.9, adult Current Visit: No Status: Acute Code(s): E66.01 - MORBID (SEVERE) OBESITY DUE TO EXCESS CALORIES; Z68.41 - BODY MASS INDEX (BMI) 40.0-44.9, ADULT SNOMED Code(s): 794218938 Plan: 1. Continue to hold anticoagulation for at least 48 hours before proceeding with ERCP last dose of anticoagulation yesterday morning. Tentative ERCP /Sunday based on clinical course. 2. Clear liquid diet. 3. Daily CBC CMP. Will check PT/INR. If CMP normalizes we'll proceed with MRCP prior to ERCP. 4. Heart rate presently greater than 100 with like better rate control before proceeding with endoscopic exam. Thank you for this kind referral and the opportunity to participate in the care of your patient. This consultation was discussed with Dr. Isbell. The impression and plan of care have been directed as dictated.
[2018-08-28] MEDS ORDERED: ACETAMINOPHEN TAB 325 MG TAB PO PRN (15:37)
[2018-08-28] MEDS: PIPERACILLIN-TAZOBACTAM 3.375 GM in SODIUM CHLORIDE 0.9% 100 ML IVPB SCH ×2 (15:41→23:20)
--- NOTE | 2018-08-28 16:11 | P.HPIM ---
History of Present Illness Chief Complaint: Abdominal pain This very pleasant 63-year-old gentleman past medical history significant for CAD, chest pain, COPD, hypertension, hyperlipidemia, previous episode of abdominal pain. He had common bile duct stone removed after cholecystectomy, comes in with similar episodes of abdominal pain. The patient says that he was apparently treated ago when he started having pain in his right upper quadrant and gradually progressed to sharp stabbing pain about 10 x 10 intensity, no radiation. He said it's constant. He said that he was nauseous and he vomited while in the hospital. He said that the episode is similar to the previous episode of abdominal pain when he had his common bile duct stone removed 8 months ago. He denied any fever or chills but he's having fever now while in the hospital. He otherwise denies any chest pain or racing heart, any cough or shortness of breath, he said that he's having diarrhea because he took laxatives thinking that it's constipation that causing the pain. He does not complain of any lightheadedness no dizziness, no tingling numbness on his extremities, no itch or rash. In the ER ER CT abdomen done which showed mildly prominent common bile duct and questionable 3 mm calculus versus artifact in the distal common bile duct. His LFTs are also increased. WBC was 9.3 hemoglobin 14.2 and is in a pleasant normal per patient was admitted to the hospitalist service for further evaluation and management with GI on board Review of Systems All systems: negative Past Medical History Past Medical History: Atrial Fibrillation, Asthma, Coronary Artery Disease (CAD) , Chest Pain / Angina, COPD, Diabetes Mellitus, Hyperlipidemia, Hypertension Additional Past Medical History / Comment(s): IDDM type II, kidney stones, rheumatic fever as a child, past asbestos exposure, vertigo. History of Any Multi-Drug Resistant Organisms: None Reported Past Surgical History: Cholecystectomy, Heart Catheterization, Orthopedic Surgery, Tonsillectomy Additional Past Surgical History / Comment(s): Cardiac cath treated medically, L knee arthroscopy, abdominal hernia repair, multiple kidney surgeries, colonoscopy. Past Anesthesia/Blood Transfusion Reactions: No Reported Reaction Additional Past Anesthesia/Blood Transfusion Reaction / Comment(s): sea sick in past Past Psychological History: No Psychological Hx Reported Additional Psychological History / Comment(s): pt is independant. lives at home with his . lives in a 2 story home [place] has [address]. served in the [employer] 1973 and 1974. worked in [employer]. no home care services recieved. has glucomerer and bp machine. Smoking Status: Former smoker Past Alcohol Use History: None Reported Additional Past Alcohol Use History / Comment(s): started smoking at age 16(1971 ), quit 1996 was smoking 3 ppd. no alcohol currently but in past used occ/ socially. Past Drug Use History: None Reported - Past Family History Father Family Medical History: Myocardial Infarction ([place]) Additional Family Medical History / Comment(s): at age 52 from a heart attack Mother Family Medical History: Myocardial Infarction ([place]) Additional Family Medical History / Comment(s): at age 52 from a heart attack Sister(s) Family Medical History: Myocardial Infarction ([place]) Medications and Allergies Home Medications Medication Instructions Recorded Confirmed Type Lisinopril [Zestril] 10 mg PO DAILY 09/11/16 08/27/18 History amLODIPine [Norvasc] 10 mg PO DAILY 09/11/16 08/27/18 History metFORMIN HCL 1,000 mg PO BID 09/11/16 08/27/18 History Budesonide/Formoterol Fumarate 2 puff INHALATION RT-BID 07/17/17 08/27/18 History [Symbicort 80-4.5 Mcg Inhaler] Cholecalciferol [Vitamin D3] 2,000 unit PO DAILY 07/17/17 08/27/18 History Insulin Aspart [NovoLOG Flexpen] 20 unit SQ AC-TID 07/17/17 08/27/18 History Insulin Glargine,Hum.rec.anlog 95 unit SQ DAILY 07/17/17 08/27/18 History [Lantus Solostar] Montelukast [Singulair] 10 mg PO DAILY 07/17/17 08/27/18 History Meclizine [Antivert] 25 mg PO TID 01/31/18 08/27/18 History Omeprazole [PriLOSEC] 40 mg PO DAILY 01/31/18 08/27/18 History Apixaban [Eliquis] 5 mg PO BID #60 tab 02/04/18 08/27/18 Rx Metoprolol Tartrate [Lopressor] 25 mg PO BID #60 tab 02/04/18 08/27/18 Rx Propafenone [Rythmol] 150 mg PO TID #90 tab 02/04/18 08/27/18 Rx Albuterol Inhaler [Ventolin Hfa 2 puff INHALATION RT-QID 08/27/18 08/27/18 History Inhaler] Albuterol Nebulized [Ventolin 2.5 mg INHALATION RT-TID 08/27/18 08/27/18 History Nebulized] Aspirin EC [Ecotrin Low Dose] 81 mg PO DAILY 08/27/18 08/27/18 History Ipratropium/Albuterol Sulfate 1 puff INHALATION RT-TID 08/27/18 08/27/18 History [Combivent Respimat Inhaler] Pravastatin Sodium [Pravachol] 40 mg PO HS 08/27/18 08/27/18 History Allergies Allergy/AdvReac Type Severity Reaction Status Date / Time hydrocodone [From [place]] AdvReac Hallucinati Verified 08/27/18 22:49 ons/Nausea& vomiting Physical Exam Vitals: Vital Signs Temp Pulse Pulse Resp BP BP Pulse Ox 08/28/18 16:00 99.2 F 08/28/18 14:07 100.9 F H 95 18 123/73 95 08/28/18 13:58 100 08/28/18 13:46 100 08/28/18 08:30 108 H 08/28/18 08:19 108 H 08/28/18 07:27 120 H 20 08/28/18 06:45 97.7 F 120 H 20 111/71 94 L 08/28/18 02:38 22 08/28/18 02:35 98.3 F 116 H 16 158/77 94 L 08/28/18 02:08 96 18 126/73 97 08/28/18 00:03 83 16 112/67 96 08/27/18 22:33 97.6 F 73 18 151/66 96 Intake and Output 08/28/18 08/28/18 08/28/18 06:59 14:59 22:59 Intake Total 1080 Balance 1080 Intake: Intake, IV Titration 600 Amount Sodium Chloride 0.9% 1, 600 000 ml @ 75 mls/hr IV . [id number] [facility] Rx#:[id number] Oral 480 Other: # Voids 2 On exam, alert and oriented x3. HEENT: Conjunctivae normal. eyes normal. NECK: No JVD. No thyroid enlargement. No LNs CVS : S1-S2 positive RESPIRATION: Breath sounds diminished in the bases. No rhonchi or crackles. No bronchial breathing. ABDOMEN: Soft, tenderness in the right upper quadrant area bowel sounds present LEGS: No edema. no swelling NERVOUS SYSTEM: Cranial N 2-12 grossly normal. Moves all 4 limbs. No focal deficits. No sensory deficit. No signs of cerebellar dysfucntion. Skin: no ulcer no rash Results CBC & Chem 7: 08/27/18 23:00 08/27/18 23:00 Labs: Abnormal Lab Results - Last 24 Hours (Table) 08/27/18 08/28/18 08/28/18 Range/Units 23:00 00:20 06:51 Glucose 209 H (74-99) mg/dL POC Glucose (mg/dL) 147 H (75-99) mg/dL Total Bilirubin 1.5 H (0.2-1.3) mg/dL AST 174 H (17-59) U/L ALT 135 H (21-72) U/L Alkaline Phosphatase 210 H (38-126) U/L Urine Protein 1+ H (Negative) Urine Glucose (UA) 2+ H (Negative) Urine Bilirubin 1+ H (Negative) Calcium Oxalate Crystal Few H (None) /hpf Amorphous Sediment Rare H (None) /hpf Urine Bacteria Rare H (None) /hpf Urine Mucus Moderate H (None) /hpf 08/28/18 Range/Units 11:28 Glucose (74-99) mg/dL POC Glucose (mg/dL) 111 H (75-99) mg/dL Total Bilirubin (0.2-1.3) mg/dL AST (17-59) U/L ALT (21-72) U/L Alkaline Phosphatase (38-126) U/L Urine Protein (Negative) Urine Glucose (UA) (Negative) Urine Bilirubin (Negative) Calcium Oxalate Crystal (None) /hpf Amorphous Sediment (None) /hpf Urine Bacteria (None) /hpf Urine Mucus (None) /hpf Thrombosis Risk Factor Assmnt - Choose All That Apply Any of the Below Risk Factors Present?: Yes Each Factor Represents 1 point: Abnormal pulmonary function (COPD), Obesity ( BMI >25) Each Risk Factor Represents 2 Points: Age 61-74 years Thrombosis Risk Factor Assessment Total Risk Factor Score: 4 Thrombosis Risk Factor Assessment Level: Moderate Risk Assessment and Plan Assessment: - Right upper quadrant abdominal pain - Rule out acute cholangitis as the patient is having fever, increased LFTs and possible common bile stone - History of COPD currently stable - History of A. fib on eLIQUIS - CAD - History of hyperlipidemia - History of hypertension Plan - We'll admit the patient [facility] with telemetry - Appreciated GI recommendations patient will probably end up having ERCP -Patient on clear liquids for now - We'll start the patient antibiotic for possible ascending cholangitis - Resume the patient'S home medications - DVT and GI prophylaxis - We'll order for lab work in the morning - Expected length of stay more than 2 midnights - Patient is full code
[2018-08-28 16:46] LABS: Glucose,Whole Blood 103 mg/dL (75-99)
[2018-08-28] MEDS: IPRATROPIUM-ALBUTEROL 3 ML NEB INHALATION SCH ×4 (19:00→20:48)
[2018-08-28 19:49] LABS: Glucose,Whole Blood 105 mg/dL (75-99)
[2018-08-28] MEDS: PRAVASTATIN SODIUM 40 MG TAB PO SCH (20:16)
[2018-08-29 07:20] LABS: Glucose,Whole Blood 116 mg/dL (75-99)
[2018-08-29] MEDS: INSULIN ASPART (NovoLOG) 100 UNIT/ML VIAL SQ SCH ×4 (07:55→21:09)
[2018-08-29 08:03] LABS: INR 1.3 (<1.2); Prothrombin Time 13.6 sec (9.0-12.0)
[2018-08-29] MEDS: LISINOPRIL 10 MG TAB PO SCH (08:04)
[2018-08-29] MEDS: METOPROLOL TARTRATE 25 MG TAB PO SCH ×2 (08:04→21:10)
[2018-08-29] MEDS: PANTOPRAZOLE 40 MG TABLET PO SCH (08:04)
[2018-08-29] MEDS: MECLIZINE 25 MG TAB PO SCH ×3 (08:04→21:10)
[2018-08-29] MEDS: PIPERACILLIN-TAZOBACTAM 3.375 GM in SODIUM CHLORIDE 0.9% 100 ML IVPB SCH ×3 (08:04→23:36)
[2018-08-29] MEDS: amLODIPine 10 MG TAB PO SCH (08:04)
[2018-08-29] MEDS: MONTELUKAST 10 MG TAB PO SCH (08:04)
[2018-08-29] MEDS: PROPAFENONE 150 MG TAB PO SCH ×3 (08:04→21:10)
[2018-08-29] MEDS: CHOLECALCIFEROL 1,000 UNIT TAB PO SCH (08:09)
[2018-08-29] MEDS: ASPIRIN 81 MG PO SCH (08:09)
[2018-08-29 08:16] LABS: ALT 198 U/L (21-72); AST 159 U/L (17-59); Albumin 3.7 g/dL (3.5-5.0); Alkaline Phosphatase 160 U/L (38-126); Anion Gap 10 mmol/L; Blood Urea Nitrogen 10 mg/dL (9-20); Calcium 8.8 mg/dL (8.4-10.2); Carbon Dioxide 23 mmol/L (22-30); Chloride 105 mmol/L (98-107); Glucose 115 mg/dL (74-99); Potassium 3.9 mmol/L (3.5-5.1); Sodium 138 mmol/L (137-145)
[2018-08-29] MEDS: SYMBICORT 80-4.5 MCG INHALER INHALATION SCH ×2 (08:53→20:19)
[2018-08-29] MEDS: ALBUTEROL NEBULIZED 2.5 MG/3 ML INHALATION SCH ×7 (08:53→20:19)
[2018-08-29] MEDS ORDERED: INSULIN DETEMIR (LEVEMIR) 100 UNIT/ML SYR SQ SCH (09:00)
--- NOTE | 2018-08-29 10:52 | P.PN ---
Subjective Progress Note Date: 08/29/18 Principal diagnosis: Obstructive jaundice choledocholithiasis Total bilirubin worsen increased to 3.0. Transaminases relatively stable slightly improved. AST 159. ALT 190. AP 160. Receiving IV antibiotics. Anticoagulation on hold. Heart rate improved. T-max 100.9. Objective - Vital Signs Vital signs: Vital Signs Temp 98.8 F 08/29/18 07:00 Pulse 96 08/29/18 09:08 Resp 17 08/29/18 07:00 BP 140/83 08/29/18 07:00 Pulse Ox 95 08/29/18 07:00 Intake & Output 08/28/18 08/29/18 08/29/18 18:59 06:59 18:59 Intake Total 1080 Balance 1080 Intake: Intake, IV Titration 600 Amount Sodium Chloride 0.9% 1, 600 000 ml @ 75 mls/hr IV . [id number] [facility] Rx#:[id number] Oral 480 Other: Voiding Method Toilet Toilet # Voids 2 - Exam General appearance: The patient is alert, oriented, in no acute distress. Mildly jaundiced. HET: Head is normocephalic and atraumatic. Pupils are equal and reactive. Mild scleral icterus. Oropharynx is clear without lesions. Neck: Supple without lymphadenopathy. Trachea midline. Heart: S1 S2. Regular rate and rhythm. Lungs: No crackles or wheezes are heard. Abdomen: Soft, mildly bloated tenderness to the upper abdomen bilaterally with bowel sounds. No peritoneal signs. No palpable organomegaly or masses. Extremities: Normal skin color and turgor. No cyanosis, rash, ulceration, clubbing, or edema. Radial and pedal pulses are 2/4 bilaterally. Neurological: No focal deficits. Strength and sensation are grossly intact. - Labs CBC & Chem 7: 08/27/18 23:00 08/29/18 06:38 Labs: Abnormal Lab Results - Last 24 Hours (Table) 08/28/18 08/28/18 08/28/18 Range/Units 11:28 16:43 19:31 PT (9.0-12.0) sec INR (<1.2) Glucose (74-99) mg/dL POC Glucose (mg/dL) 111 H 103 H 105 H (75-99) mg/dL Total Bilirubin (0.2-1.3) mg/dL AST (17-59) U/L ALT (21-72) U/L Alkaline Phosphatase (38-126) U/L 08/29/18 08/29/18 08/29/18 Range/Units 06:38 06:38 07:08 PT 13.6 H (9.0-12.0) sec INR 1.3 H (<1.2) Glucose 115 H (74-99) mg/dL POC Glucose (mg/dL) 116 H (75-99) mg/dL Total Bilirubin 3.0 H (0.2-1.3) mg/dL AST 159 H (17-59) U/L ALT 198 H (21-72) U/L Alkaline Phosphatase 160 H (38-126) U/L Assessment and Plan (1) Choledocholithiasis Narrative/Plan: 63-year-old male past medical history of cholelithiasis admitted with acute abdominal pain suspected fever chills sweats with elevated liver enzymes acholic stools darker colored urine CT imaging cannot exclude common bile duct calculus with a history of choledocholithiasis January 2018 status post ERCP sphincterotomy balloon stone extraction and previous cholecystectomy June 2017. Current Visit: No Status: Acute Code(s): K80.50 - CALCULUS OF BILE DUCT W/O CHOLANGITIS OR CHOLECYST W/O OBST SNOMED Code(s): 622633428 (2) Abdominal pain Current Visit: Yes Status: Acute Code(s): R10.9 - UNSPECIFIED ABDOMINAL PAIN SNOMED Code(s): 33505950 (3) Atrial fibrillation Current Visit: Yes Status: Acute Code(s): I48.91 - UNSPECIFIED ATRIAL FIBRILLATION SNOMED Code(s): 92648378 (4) History of cholelithiasis Current Visit: No Status: Acute Code(s): Z87.19 - PERSONAL HISTORY OF OTHER DISEASES OF THE DIGESTIVE SYSTEM SNOMED Code(s): 500356493 (5) Hepatomegaly Current Visit: Yes Status: Acute Code(s): R16.0 - HEPATOMEGALY, NOT ELSEWHERE CLASSIFIED SNOMED Code(s): 48419409 (6) Hepatic steatosis Current Visit: Yes Status: Acute Code(s): K76.0 - FATTY (CHANGE OF) LIVER, NOT ELSEWHERE CLASSIFIED SNOMED Code(s): 888566102 (7) Elevated liver enzymes Narrative/Plan: Secondary to obstructive jaundice suspected choledocholithiasis worsening total bilirubin increased 3.0. Current Visit: Yes Status: Acute Code(s): R74.8 - ABNORMAL LEVELS OF OTHER SERUM ENZYMES SNOMED Code(s): 985749893 (8) Morbid obesity with BMI of 40.0-44.9, adult Current Visit: No Status: Acute Code(s): E66.01 - MORBID (SEVERE) OBESITY DUE TO EXCESS CALORIES; Z68.41 - BODY MASS INDEX (BMI) 40.0-44.9, ADULT SNOMED Code(s): 483640043 Plan: 1. Continue to hold anticoagulation. ERCP in a.m. Nothing by mouth after midnight. 2. Clear liquid diet today. 3. Daily CBC CMP. The route sales specialist has discussed the risks, benefits and alternative therapies for the above-mentioned procedure and for both sedation/analgesia as well as necessary blood product administration, if indicated, as they pertain to this patient. The patient has indicated understanding and acceptance of the risks and procedures discussed. Assessment and plan a care discussed with Dr. Isbell
[2018-08-29 11:57] LABS: Glucose,Whole Blood 157 mg/dL (75-99)
--- NOTE | 2018-08-29 12:48 | P.PN ---
Subjective This is a pleasant 63 years old male who presents because of choledocholithiasis and dilated common bile duct with right upper quadrant abdominal pain nausea vomiting. Patient today still have RUQ pain and tenderness slightly better than on admission, down from 10/10 to 6/10 in severity. Patient remains nothing by mouth. He is passing no bowel movement or gases. Facial rash is improving. Patient is still possible going for ERCP tomorrow morning. Patient has fever of 100.9 on 08/28/2018, no more fevers last 24 hour period. Patient is already on Zosyn. No leukocytosis. Liver enzymes are elevated as well as bilirubin. GI team are following the case. Continue holding anticoagulation. Objective - Vital Signs Vital signs: Vital Signs Temp 98.8 F 08/29/18 07:00 Pulse 96 08/29/18 09:08 Resp 17 08/29/18 07:00 BP 140/83 08/29/18 07:00 Pulse Ox 95 08/29/18 07:00 Intake & Output 08/28/18 08/29/18 08/29/18 18:59 06:59 18:59 Intake Total 1080 Balance 1080 Intake: Intake, IV Titration 600 Amount Sodium Chloride 0.9% 1, 600 000 ml @ 75 mls/hr IV . [id number] [facility] Rx#:[id number] Oral 480 Other: Voiding Method Toilet Toilet # Voids 2 - Exam GENERAL: The patient is alert and oriented x3, not in any acute distress. Obese HEENT: Pupils are round and equally reacting to light. EOMI. No scleral icterus. No conjunctival pallor. Normocephalic, atraumatic. No pharyngeal erythema. No thyromegaly. CARDIOVASCULAR: S1 and S2 present. No murmurs, rubs, or gallops. PULMONARY: Chest is clear to auscultation, no wheezing or crackles. -ABDOMEN: Soft, nontender, RUQ pain and tenderness, no rebound tenderness normoactive bowel sounds. No palpable organomegaly. MUSCULOSKELETAL: No joint swelling or deformity. EXTREMITIES: No cyanosis, clubbing, or pedal edema. NEUROLOGICAL: Gross neurological examination did not reveal any focal deficits. SKIN: No rashes. - Labs CBC & Chem 7: 08/27/18 23:00 08/29/18 06:38 Labs: Abnormal Lab Results - Last 24 Hours (Table) 08/28/18 08/28/18 08/29/18 Range/Units 16:43 19:31 06:38 PT (9.0-12.0) sec INR (<1.2) Glucose 115 H (74-99) mg/dL POC Glucose (mg/dL) 103 H 105 H (75-99) mg/dL Total Bilirubin 3.0 H (0.2-1.3) mg/dL AST 159 H (17-59) U/L ALT 198 H (21-72) U/L Alkaline Phosphatase 160 H (38-126) U/L 08/29/18 08/29/18 08/29/18 Range/Units 06:38 07:08 11:46 PT 13.6 H (9.0-12.0) sec INR 1.3 H (<1.2) Glucose (74-99) mg/dL POC Glucose (mg/dL) 116 H 157 H (75-99) mg/dL Total Bilirubin (0.2-1.3) mg/dL AST (17-59) U/L ALT (21-72) U/L Alkaline Phosphatase (38-126) U/L Assessment and Plan Assessment: Dilated common bile duct, rule out CBD stone Elevated liver enzymes and bilirubin, mostly secondary to above History of atrial fibrillation, on anticoagulation History of coronary artery disease History of asthma History of COPD, not in acute exacerbation Diabetes mellitus Hypertension Hyperlipidemia Plan: This is a pleasant 63 years old male who presents with possible common bile duct obstruction with stone. Patient is going to do ERCP tomorrow, anticoagulations on hold. GI team are following the patient. Keep patient nothing by mouth up some meat diet. Continue with antibiotic. Labs and medication were reviewed.. Continue same treatment. Continue with symptomatic treatment. Resume home medication. Monitor lytes and vitals. DVT and GI prophylaxis. Further recommendations of the clinical course of the patient while Eliquis is on hold DVT prophylaxis: Subcutaneous heparin GI Prophylaxis: Ppi Prognosis is guarded
[2018-08-29] MEDS: IPRATROPIUM-ALBUTEROL 3 ML NEB INHALATION SCH ×4 (15:13→21:13)
[2018-08-29] MEDS: ONDANSETRON 4 MG/2 ML VIAL IVP PRN (15:21)
[2018-08-29 16:58] LABS: Glucose,Whole Blood 179 mg/dL (75-99)
[2018-08-29] MEDS: SODIUM CHLORIDE 0.9% 1,000 ML IV SCH (17:38)
[2018-08-29 20:26] LABS: Glucose,Whole Blood 224 mg/dL (75-99)
[2018-08-29] MEDS: HEPARIN SODIUM,PORCINE 5,000 UNIT/ML 1 ML VIAL SQ SCH (21:09)
[2018-08-29] MEDS: INSULIN DETEMIR (LEVEMIR) 100 UNIT/ML SYR SQ SCH (21:10)
[2018-08-29] MEDS: PRAVASTATIN SODIUM 40 MG TAB PO SCH (21:10)
[2018-08-30] MEDS ORDERED: INDOMETHACIN 50MG SUPPOSITORY RECTAL ONE ×2 (06:00→13:00)
[2018-08-30] MEDS: HEPARIN SODIUM,PORCINE 5,000 UNIT/ML 1 ML VIAL SQ SCH ×2 (06:44→22:00)
[2018-08-30 07:04] LABS: Glucose,Whole Blood 111 mg/dL (75-99)
[2018-08-30] MEDS: INSULIN ASPART (NovoLOG) 100 UNIT/ML VIAL SQ SCH ×4 (07:05→22:05)
[2018-08-30] MEDS: SODIUM CHLORIDE 0.9% 1,000 ML IV SCH ×2 (07:06→22:11)
[2018-08-30] MEDS: PIPERACILLIN-TAZOBACTAM 3.375 GM in SODIUM CHLORIDE 0.9% 100 ML IVPB SCH ×2 (07:10→17:12)
[2018-08-30] MEDS: MECLIZINE 25 MG TAB PO SCH ×3 (08:07→22:00)
[2018-08-30] MEDS: CHOLECALCIFEROL 1,000 UNIT TAB PO SCH (08:07)
[2018-08-30] MEDS: LISINOPRIL 10 MG TAB PO SCH (08:19)
[2018-08-30] MEDS: METOPROLOL TARTRATE 25 MG TAB PO SCH ×2 (08:19→22:00)
[2018-08-30] MEDS: MONTELUKAST 10 MG TAB PO SCH (08:19)
[2018-08-30] MEDS: amLODIPine 10 MG TAB PO SCH (08:19)
[2018-08-30] MEDS: PROPAFENONE 150 MG TAB PO SCH ×3 (08:20→22:00)
[2018-08-30] MEDS: PANTOPRAZOLE 40 MG TABLET PO SCH (08:20)
[2018-08-30] MEDS: ALBUTEROL NEBULIZED 2.5 MG/3 ML INHALATION SCH ×6 (08:44→20:09)
[2018-08-30] MEDS: SYMBICORT 80-4.5 MCG INHALER INHALATION SCH ×2 (08:44→20:09)
[2018-08-30 12:09] LABS: Glucose,Whole Blood 89 mg/dL (75-99)
[2018-08-30 13:26] LABS: ALT 159 U/L (21-72); AST 88 U/L (17-59); Albumin 4.2 g/dL (3.5-5.0); Alkaline Phosphatase 152 U/L (38-126); Anion Gap 10 mmol/L; Blood Urea Nitrogen 7 mg/dL (9-20); Calcium 9.4 mg/dL (8.4-10.2); Carbon Dioxide 26 mmol/L (22-30); Chloride 106 mmol/L (98-107); Glucose 88 mg/dL (74-99); Potassium 3.9 mmol/L (3.5-5.1); Sodium 142 mmol/L (137-145); Total Bilirubin 1.4 mg/dL (0.2-1.3); Total Protein 7.8 g/dL (6.3-8.2)
[2018-08-30] MEDS ORDERED: LIDOCAINE 1% INJ 10MG/ML (20 ML MDV) ONE (14:31)
[2018-08-30] MEDS ORDERED: NEOSTIGMINE 1 MG/ML 10 ML VIAL ONE (14:31)
[2018-08-30] MEDS ORDERED: PROPOFOL 10 MG/ML 20 ML VIAL IV ONE (14:31)
[2018-08-30] MEDS ORDERED: DEXAMETHASONE SOD PHOS (MDV) 100 MG/10 ML VIAL ONE (14:31)
[2018-08-30] MEDS ORDERED: ONDANSETRON 4 MG/2 ML VIAL ONE (14:31)
[2018-08-30] MEDS ORDERED: MIDAZOLAM 2 MG/2 ML VIAL ONE (14:31)
[2018-08-30] MEDS ORDERED: ROCURONIUM BROMIDE 10 MG/ML 10 ML VIAL IV ONE (14:31)
[2018-08-30] MEDS ORDERED: GLYCOPYRROLATE 0.2 MG/ML 2 ML VIAL ONE ×2 (14:31)
[2018-08-30] MEDS ORDERED: SUCCINYLCHOLINE CHLORIDE 100 MG/5 ML SYR IV ONE (14:31)
[2018-08-30] MEDS ORDERED: fentaNYL (PF) 50 MCG/ML 2 ML AMP ONE (14:31)
[2018-08-30] MEDS ORDERED: IV FLUID CONTINUATION 1,000 ML IV ONE (14:39)
--- NOTE | 2018-08-30 14:46 | P.PN ---
Subjective Patient is admitted for choledocholithiasis patient will undergo ERCP today patient is being treated for ascending cholangitis and [place] did have a fever couple days ago. Constitutional: Denied any fatigue denied any fever. Cardio vascular: denied any chest pain, palpitations Gastrointestinal denied any nausea vomiting Pulmonary: Denied any shortness of breath cough Neurologic denied any new focal deficits All inpatient medications were reviewed and appropriate changes in these medications as dictated in the interval history and assessment and plan. Objective - Vital Signs Vital signs: Vital Signs Temp 97.6 F 08/30/18 07:00 Pulse 85 08/30/18 08:57 Resp 14 08/30/18 07:00 BP 108/72 08/30/18 07:00 Pulse Ox 97 08/30/18 07:00 Intake & Output 08/29/18 08/30/18 08/30/18 18:59 06:59 18:59 Intake Total 700 962.5 Balance 700 962.5 Intake: Intake, IV Titration 700 962.5 Amount Piperacillin-Tazobactam 3 100 100 .375 gm In Sodium Chloride 0.9% 100 ml @ 25 mls/hr IVPB Q8HR [facility] Rx# :[id number] Sodium Chloride 0.9% 1, 600 862.5 000 ml @ 75 mls/hr IV . [id number] [facility] Rx#:[id number] Other: Voiding Method Toilet Toilet Toilet # Voids 2 1 - Exam PHYSICAL EXAMINATION: GENERAL: The patient is alert and oriented x3, not in any acute distress. Obese HEENT: Pupils are round and equally reacting to light. EOMI. No scleral icterus. No conjunctival pallor. Normocephalic, atraumatic. No pharyngeal erythema. No thyromegaly. CARDIOVASCULAR: S1 and S2 present. No murmurs, rubs, or gallops. PULMONARY: Chest is clear to auscultation, no wheezing or crackles. ABDOMEN: Soft, nontender, nondistended, normoactive bowel sounds. No palpable organomegaly. MUSCULOSKELETAL: No joint swelling or deformity. EXTREMITIES: No cyanosis, clubbing, or pedal edema. NEUROLOGICAL: Gross neurological examination did not reveal any focal deficits. SKIN: No rashes. - Labs CBC & Chem 7: 08/27/18 23:00 08/30/18 12:34 Labs: Abnormal Lab Results - Last 24 Hours (Table) 08/29/18 08/29/18 08/30/18 Range/Units 16:47 20:15 06:52 BUN (9-20) mg/dL POC Glucose (mg/dL) 179 H 224 H 111 H (75-99) mg/dL Total Bilirubin (0.2-1.3) mg/dL AST (17-59) U/L ALT (21-72) U/L Alkaline Phosphatase (38-126) U/L 08/30/18 Range/Units 12:34 BUN 7 L (9-20) mg/dL POC Glucose (mg/dL) (75-99) mg/dL Total Bilirubin 1.4 H (0.2-1.3) mg/dL AST 88 H (17-59) U/L ALT 159 H (21-72) U/L Alkaline Phosphatase 152 H (38-126) U/L Assessment and Plan Plan: -Possible ascending cholangitis for which patient is Zosyn which will be continued - common bile duct obstruction with a CBD stone ERCP today -Atrial fibrillation history presently sinus rhythm on anticoagulation which is being held for ERCP will be resumed after ERCP --COPD without any acute exacerbation -Obesity -Type 2 diabetes mellitus -Hypertension -Hyperlipidemia For above-mentioned chronic medical problems I'll continue with present medications anti-correlation will be resumed after ERCP as mentioned above. We'll repeat the compressive metabolic profile for tomorrow
[2018-08-30] MEDS ORDERED: LACTATED RINGERS 1,000 ML IV ONE (14:54)
[2018-08-30] MEDS ORDERED: IOPAMIDOL-300 50ML BTL MISCELLANE ONE (15:21)
--- NOTE | 2018-08-30 15:42 | P.PCN ---
Date of Procedure: 08/30/18 Description of Procedure: Brief history: 63-year-old male [facility] patient past medical history of atrial fibrillation maintained on Eliquis (last dose yesterday morning), obesity, choledocholithiasis, CAD, diabetes, hyperlipidemia, hypertension presents with acute midepigastric upper abdominal pain with chills sweats facial rash started 4 days ago. Patient has a history of cholelithiasis status post cholecystectomy July 22 followed by total cholelithiasis January 2018 status post ERCP sphincterotomy balloon stone extraction. Patient states he developed a facial rash when he had choledocholithiasis last year. Darker colored urine over the last few days as well as acholic stools.Presently he is afebrile. Still reports midepigastric abdominal pain. LFTs increased total bilirubin 1.5 which subsequently trended up to 3. AST 174. ALT 135. AP 210. White count 9.3. CT abdomen unremarkable liver no mass, mildly prominent common bile duct and questionable 3 mm calculus versus artifact in the distal common bile duct, and colonic diverticulosis. Procedure performed: ERCP with cholangiogram, sphincterotomy and balloon sweep Preoperative diagnoses: Choledocholithiasis, elevated bilirubin, abdominal pain, abnormal CT imaging IV sedation per anesthesia: Estimated blood loss: Minimal. Procedure: After informed consent was obtained from the patient and after the risks benefits and complications including bleeding perforation and pancreatitis explained in detail the patient was brought into the endoscopy unit. The patient was placed in prone position and IV conscious sedation was administered by anesthesia under continuous monitoring. The Olympus side-viewing duodenoscope was then inserted into the mouth and esophagus intubated without any difficulty. The scope was gradually advanced into the stomach and duodenum. The major papilla was identified without any difficulty. The ampulla had a diverticular relationship and previously performed sphincterotomy was noted. Cannulation was performed with a sphincterotome and wire was passed into the bile duct. The sphincterotomy was then extended. Sphincterotome was then exchanged over the wire for a balloon cannula. This was passed over the wire into the bile duct, through the common hepatic duct to the hilum where the balloon was inflated to 12.5 and then 15 mm with multiple passes through the duct. A large stone and debris were noted. Cholangiogram then performed and significant for a dilated duct without any evidence of stones. The duct was then swept further with multiple passes of the balloon with no further debris or stones noted. The patient tolerated the procedure well. Impression: 1. Choledocholithiasis. 2. ERCP with sphincterotomy, cholangiogram and balloon sweep productive of a large stone and debris. Recommendations: The findings of this examination were discussed with the patient as well as a family. Okay for full liquids, advance to low-fat diet as tolerated. Monitor liver enzymes. Monitor for signs and symptoms of pancreatitis. Okay for discharge if otherwise stable tomorrow.
--- NOTE | 2018-08-30 16:12 | FL ---
EXAMINATION TYPE: FL ERCP DATE OF EXAM: 08/30/2018 CLINICAL HISTORY: Cholelithiasis. Fluoroscopic documentation of an ERCP. TECHNIQUE: Fluoroscopy. COMPARISON: None. FINDINGS: Fluoroscopic guidance was provided during procedure performed by Dr. Isbell. A total of 39 seconds of fluoroscopic time was utilized during the procedure and 5 spot images was acquired demo nstrating retrograde cannulation of the biliary tree with balloon dilatation and retrograde sweep. Op acification of the biliary tree status post sweep demonstrates no filling defects. IMPRESSION: As Above.
[2018-08-30 16:56] LABS: Glucose,Whole Blood 94 mg/dL (75-99)
[2018-08-30] MEDS: ASPIRIN 81 MG PO SCH (17:12)
[2018-08-30 19:29] LABS: Glucose,Whole Blood 258 mg/dL (75-99)
[2018-08-30] MEDS: PRAVASTATIN SODIUM 40 MG TAB PO SCH (22:00)
[2018-08-30] MEDS: INSULIN DETEMIR (LEVEMIR) 100 UNIT/ML SYR SQ SCH (22:30)
[2018-08-31] MEDS: IPRATROPIUM-ALBUTEROL 3 ML NEB INHALATION SCH (00:30)
[2018-08-31] MEDS: PIPERACILLIN-TAZOBACTAM 3.375 GM in SODIUM CHLORIDE 0.9% 100 ML IVPB SCH ×2 (00:32→08:07)
[2018-08-31 01:01] VITALS: RESP 16
[2018-08-31 06:55] LABS: Glucose,Whole Blood 246 mg/dL (75-99)
[2018-08-31] MEDS: HEPARIN SODIUM,PORCINE 5,000 UNIT/ML 1 ML VIAL SQ SCH (07:25)
[2018-08-31] MEDS: METOPROLOL TARTRATE 25 MG TAB PO SCH (07:27)
[2018-08-31] MEDS: CHOLECALCIFEROL 1,000 UNIT TAB PO SCH (07:27)
[2018-08-31] MEDS: MONTELUKAST 10 MG TAB PO SCH (07:27)
[2018-08-31] MEDS: ASPIRIN 81 MG PO SCH (07:27)
[2018-08-31] MEDS: LISINOPRIL 10 MG TAB PO SCH (07:27)
[2018-08-31] MEDS: PANTOPRAZOLE 40 MG TABLET PO SCH (07:28)
[2018-08-31] MEDS: PROPAFENONE 150 MG TAB PO SCH (07:28)
[2018-08-31] MEDS: INSULIN ASPART (NovoLOG) 100 UNIT/ML VIAL SQ SCH ×2 (07:28→12:14)
[2018-08-31] MEDS: MECLIZINE 25 MG TAB PO SCH (07:29)
[2018-08-31 08:40] VITALS: BP 142/84; PULSE 77; TEMP 97.5
[2018-08-31] MEDS: SODIUM CHLORIDE 0.9% 1,000 ML IV SCH (08:55)
[2018-08-31] MEDS ORDERED: amLODIPine 5 MG TAB PO SCH (09:00)
[2018-08-31] MEDS: SYMBICORT 80-4.5 MCG INHALER INHALATION SCH (09:15)
[2018-08-31] MEDS ORDERED: IPRATROPIUM-ALBUTEROL 3 ML NEB INHALATION SCH (09:15)
[2018-08-31 10:06] LABS: ALT 127 U/L (21-72); AST 52 U/L (17-59); Alkaline Phosphatase 148 U/L (38-126); Anion Gap 13 mmol/L; Blood Urea Nitrogen 11 mg/dL (9-20); Calcium 9.5 mg/dL (8.4-10.2); Carbon Dioxide 21 mmol/L (22-30); Chloride 104 mmol/L (98-107); Glucose 329 mg/dL (74-99); Potassium 4.7 mmol/L (3.5-5.1); Sodium 138 mmol/L (137-145); Total Bilirubin 0.9 mg/dL (0.2-1.3); Total Protein 7.5 g/dL (6.3-8.2)
[2018-08-31 11:22] LABS: Glucose,Whole Blood 342 mg/dL (75-99)
[2018-08-31] MEDS: ALBUTEROL NEBULIZED 2.5 MG/3 ML INHALATION SCH (11:58)
--- NOTE | 2018-08-31 15:33 | P.DS ---
Providers Date of admission: 08/29/18 10:43 Attending physician: Anna Ayala Consults: 08/28/18 02:07 Consult Physician Routine Consulting Provider: Melvin Boo Consult Reason/Comments: Common bile duct obstruction Do you want consulting provider notified?: Yes Primary care physician: [facility] Hospital Course: 63-year-old admitted for choledocholithiasis possible ascending cholangitis patient underwent ERCP with extraction of stone patient was on IV antibiotics and discussed with the gastroenterology the not recommending any antibiotics upon discharge patient is otherwise clinically doing well improved liver enzymes patient did not receive his diabetic medications his blood sugars went up expected to come down. Patient will be discharged today in stable medical condition to home PHYSICAL EXAMINATION: GENERAL: The patient is alert and oriented x3, not in any acute distress. Well developed, well nourished. HEENT: Pupils are round and equally reacting to light. EOMI. No scleral icterus. No conjunctival pallor. Normocephalic, atraumatic. No pharyngeal erythema. No thyromegaly. CARDIOVASCULAR: S1 and S2 present. No murmurs, rubs, or gallops. PULMONARY: Chest is clear to auscultation, no wheezing or crackles. ABDOMEN: Soft, nontender, nondistended, normoactive bowel sounds. No palpable organomegaly. MUSCULOSKELETAL: No joint swelling or deformity. EXTREMITIES: No cyanosis, clubbing, or pedal edema. NEUROLOGICAL: Gross neurological examination did not reveal any focal deficits. SKIN: No rashes. Assessment and Plan Plan: -Possible ascending cholangitis and choledocholithiasis - common bile duct obstruction with a CBD stone -Atrial fibrillation history presently sinus rhythm on anticoagulation which will be resumed upon discharge --COPD without any acute exacerbation -Obesity -Type 2 diabetes mellitus -Hypertension -Hyperlipidemia Patient Condition at Discharge: Serious Plan - Discharge Summary Discharge Rx Participant: Yes New Discharge Prescriptions: Continue amLODIPine [Norvasc] 10 mg PO DAILY Lisinopril [Zestril] 10 mg PO DAILY metFORMIN HCL 1,000 mg PO BID Cholecalciferol [Vitamin D3] 2,000 unit PO DAILY Montelukast [Singulair] 10 mg PO DAILY Budesonide/Formoterol Fumarate [Symbicort 80-4.5 Mcg Inhaler] 2 puff INHALATION RT-BID Insulin Glargine,Hum.rec.anlog [Lantus Solostar] 95 unit SQ DAILY Insulin Aspart [NovoLOG Flexpen] 20 unit SQ AC-TID Meclizine [Antivert] 25 mg PO TID Omeprazole [PriLOSEC] 40 mg PO DAILY Apixaban [Eliquis] 5 mg PO BID #60 tab Metoprolol Tartrate [Lopressor] 25 mg PO BID #60 tab Propafenone [Rythmol] 150 mg PO TID #90 tab Albuterol Inhaler [Ventolin Hfa Inhaler] 2 puff INHALATION RT-QID Aspirin EC [Ecotrin Low Dose] 81 mg PO DAILY Albuterol Nebulized [Ventolin Nebulized] 2.5 mg INHALATION RT-TID Pravastatin Sodium [Pravachol] 40 mg PO HS Ipratropium/Albuterol Sulfate [Combivent Respimat Inhaler] 1 puff INHALATION RT-TID Discharge Medication List Lisinopril [Zestril] 10 mg PO DAILY 09/11/16 [History] amLODIPine [Norvasc] 10 mg PO DAILY 09/11/16 [History] metFORMIN HCL 1,000 mg PO BID 09/11/16 [History] Budesonide/Formoterol Fumarate [Symbicort 80-4.5 Mcg Inhaler] 2 puff INHALATION RT-BID 07/17/17 [History] Cholecalciferol [Vitamin D3] 2,000 unit PO DAILY 07/17/17 [History] Insulin Aspart [NovoLOG Flexpen] 20 unit SQ AC-TID 07/17/17 [History] Insulin Glargine,Hum.rec.anlog [Lantus Solostar] 95 unit SQ DAILY 07/17/17 [History] Montelukast [Singulair] 10 mg PO DAILY 07/17/17 [History] Meclizine [Antivert] 25 mg PO TID 01/31/18 [History] Omeprazole [PriLOSEC] 40 mg PO DAILY 01/31/18 [History] Apixaban [Eliquis] 5 mg PO BID #60 tab 02/04/18 [Rx] Metoprolol Tartrate [Lopressor] 25 mg PO BID #60 tab 02/04/18 [Rx] Propafenone [Rythmol] 150 mg PO TID #90 tab 02/04/18 [Rx] Albuterol Inhaler [Ventolin Hfa Inhaler] 2 puff INHALATION RT-QID 08/27/18 [History] Albuterol Nebulized [Ventolin Nebulized] 2.5 mg INHALATION RT-TID 08/27/18 [History] Aspirin EC [Ecotrin Low Dose] 81 mg PO DAILY 08/27/18 [History] Ipratropium/Albuterol Sulfate [Combivent Respimat Inhaler] 1 puff INHALATION RT- TID 08/27/18 [History] Pravastatin Sodium [Pravachol] 40 mg PO HS 08/27/18 [History] Follow up Appointment(s)/Referral(s): Israel Isbell MD [STAFF PHYSICIAN] - 1 Week [facility] [Primary Care Provider] - 3 Days Patient Instructions/Handouts: ERCP (Endoscopic Retrograde Cholangiopancreatography) (DC) Activity/Diet/Wound Care/Special Instructions: Please fax new prescriptions to [facility] ([phone].) Discharge Disposition: HOME SELF-CARE
[2018-08-31 17:56] LABS: Hemoglobin A1C 8.2 % (4.0-6.0)
--- NOTE | 2018-09-02 15:45 | CDI ---
Documentation Clarification Form Date: 09/02/18 From: Cynthia Tyrone Leticia Peters, [employer] Hours-8:30 am & 5 pm M-F Admit Date: 08/29/2018 10:43:00 AM Patient Name: Jae Doherty Visit Number: [id number] Discharge Date: 08/31/2018 1:12:00 PM ATTENTION: The Clinical Documentation Specialists (CDI) and [facility] Coding Staff appreciate your assistance in clarifying documentation. Please respond to the clarification below the line at the bottom and electronically sign. The CDI & [facility] Coding staff will review the response and follow-up if needed. Please note: Queries are made part of the Legal Health Record. If you have any questions, please contact the author of this message via ITS. Dr. Lulu Pelayo Atrial Fibrillation is documented in the H&P, DS and multiple PNs. History/Risk Factors: CAD, choledocholithiasis, morbid obesity EKG/telemetry: normal sinus rhythm Treatment: Eliquis 5 mg po bid, Rythmol 150 mg po tid Consults: no cardiology In your professional opinion, can you please clarify the type of Atrial Fibrillation, if known? Chronic/Permanent Paroxysmal Persistent Other, please specify Unable to determine Paroxysmal MTDD
== END 2018-08-31 13:12 | disposition home or self-care (01) | DRG 445 ==
LOC: EC 22:29 → 4SSUR 08-28 02:00 → OBSVTOIN 08-29 10:43
PROVIDERS: ADMIT Hospitalist; ATTEND Hospitalist
PROC: 0F778ZZ Dilation of Common Hepatic Duct, Via Natural or Artificial Opening Endoscopic (ICD-10-PCS; principal; 2018-08-29)
DX: K80.31 Calculus of bile duct with cholangitis, unspecified, with obstruction (principal); Z68.41 Body mass index [BMI] 40.0-44.9, adult; I25.10 Atherosclerotic heart disease of native coronary artery without angina pectoris; E66.01 Morbid (severe) obesity due to excess calories; K76.0 Fatty (change of) liver, not elsewhere classified; I48.0 Paroxysmal atrial fibrillation; K57.30 Diverticulosis of large intestine without perforation or abscess without bleeding; J44.9 Chronic obstructive pulmonary disease, unspecified; E11.9 Type 2 diabetes mellitus without complications; I10 Essential (primary) hypertension; E78.5 Hyperlipidemia, unspecified; Z90.49 Acquired absence of other specified parts of digestive tract; Z79.01 Long term (current) use of anticoagulants; Z79.82 Long term (current) use of aspirin; Z79.51 Long term (current) use of inhaled steroids; Z79.4 Long term (current) use of insulin; Z79.899 Other long term (current) drug therapy; Z87.442 Personal history of urinary calculi; Z87.891 Personal history of nicotine dependence; Z86.19 Personal history of other infectious and parasitic diseases; Z77.090 Contact with and (suspected) exposure to asbestos; Z88.5 Allergy status to narcotic agent; Z82.49 Family history of ischemic heart disease and other diseases of the circulatory system
CPT/HCPCS: 36415; 43262; 43264; 74177; 74330; 76705; 80053; 81001; 82150; 83036; 83690; 85025; 85610; 93005; 94640; 96361; 96374; 96375; 96376; 99285

== ENCOUNTER → 2018-09-17 | Outpatient (CLI) | payer OTHER, MEDICARE ==
[2018-09-17 13:57] LABS: HCT 39.5 % (39.0-53.0); HGB 12.6 gm/dL (13.0-17.5); MCH 29.7 pg (25.0-35.0); MCHC 31.9 g/dL (31.0-37.0); MCV 93.2 fL (80.0-100.0); Mean Platelet Volume 7.7; Platelet Count 249 k/uL (150-450); RBC 4.24 m/uL (4.30-5.90); RDW 14.3 % (11.5-15.5)
== END ==
LOC: LABWHC1 13:28
PROVIDERS: ATTEND Internal Medicine
DX: K92.1 Melena (principal)
CPT/HCPCS: 36415; 85027

== ENCOUNTER 2018-09-19 11:51 | Day surgery (SDC) | payer MEDICARE, OTHER ==
[2018-09-18 08:31] VITALS: BMI 40.4
[2018-09-19 12:15] VITALS: RESP 18; TEMP 97.5
[2018-09-19] MEDS ORDERED: LIDOCAINE 1% 20 ML VIAL (10MG/ML) FOR IV START INTRADERMA ONE (12:32)
[2018-09-19] MEDS: LACTATED RINGERS 1,000 ML IV SCH ×2 (12:32→12:46)
[2018-09-19 12:33] LABS: Glucose,Whole Blood 121 mg/dL (75-99)
[2018-09-19] MEDS ORDERED: LIDOCAINE 1% INJ 10MG/ML (20 ML MDV) ONE (12:48)
[2018-09-19] MEDS ORDERED: PROPOFOL 10 MG/ML 20 ML VIAL IV ONE (12:48)
--- NOTE | 2018-09-19 13:19 | P.PCN ---
Date of Procedure: 09/19/18 Description of Procedure: BRIEF HISTORY: 63-year-old male with a medical history significant for atrial fibrillation on Eliquis, obesity, choledocholithiasis, coronary artery disease, diabetes, hyperlipidemia and hypertension who presents for outpatient upper endoscopy. The patient was seen in follow-up after recent hospitalization for choledocholithiasis treated with ERCP, sphincterotomy and balloon stone extraction. Upon being seen in the outpatient setting the patient had complained of melanotic stool. As stated above the patient does have a history of atrial fibrillation on Eliquis. Outpatient laboratory draw was significant for hemoglobin of 12.6, slightly down from baseline. EGD was ordered for further evaluation. PROCEDURE PERFORMED: Esophagogastroduodenoscopy with biopsy. PREOPERATIVE DIAGNOSIS: Melena, anemia acute blood loss. ESTIMATED BLOOD LOSS: Minimal. IV sedation per anesthesia. PROCEDURE: After informed consent was obtained, the patient was brought into the endoscopy unit. IV sedation was administered by Anesthesia under continuous monitoring. Initially the Olympus GIF-190 video endoscope was inserted into the mouth. Esophagus intubated without any difficulty. It was gradually advanced into the stomach and duodenum and carefully examined. The bulb and the second part of the duodenum appeared normal. The scope at this time was withdrawn to the stomach, adequately insufflated with air, and upon careful examination, mucosa of the antrum, body, cardia and the fundus appeared normal, except for some mild scattered erythema in the antrum and body suggestive of mild gastritis which was biopsied. A diminutive polyp was also noted and removed with cold forcep polypectomy. The scope was then withdrawn into the esophagus. Small hiatal hernia noted. The GE junction was located at 41 cm from the incisors. The esophagus appeared normal. There were no erosions or ulcerations seen and the patient tolerated the procedure well. IMPRESSION: 1. No active bleeding or old blood seen. 2. Mild gastritis antrum and body, biopsied. Duodenum biopsied. 3. Small hiatal hernia. 4. Diminutive gastric polyp, removed with cold forceps. RECOMMENDATIONS: The findings of this examination were discussed with the patient. Okay to resume diet. Would hold Eliquis for 2 additional days. Continue to monitor for signs or symptoms of GI bleeding. If further bleeding occurs would recommend further endoscopic evaluation, with consideration for colonoscopy and/or video capsule endoscopy.
[2018-09-19 13:24] VITALS: PULSE 71
[2018-09-19 13:38] VITALS: BP 122/85
== END 2018-09-19 13:56 | disposition home or self-care (01) ==
LOC: ORWHC2ENDO 11:51
PROVIDERS: ATTEND Internal Medicine
DX: K29.50 Unspecified chronic gastritis without bleeding (principal); D62 Acute posthemorrhagic anemia; K31.7 Polyp of stomach and duodenum; K44.9 Diaphragmatic hernia without obstruction or gangrene; I48.91 Unspecified atrial fibrillation; K92.1 Melena; E66.9 Obesity, unspecified; I25.10 Atherosclerotic heart disease of native coronary artery without angina pectoris; E11.9 Type 2 diabetes mellitus without complications; E78.5 Hyperlipidemia, unspecified; J44.9 Chronic obstructive pulmonary disease, unspecified; R42 Dizziness and giddiness; R17 Unspecified jaundice; I10 Essential (primary) hypertension; Z88.5 Allergy status to narcotic agent; Z77.090 Contact with and (suspected) exposure to asbestos; Z79.82 Long term (current) use of aspirin; Z79.4 Long term (current) use of insulin; Z79.899 Other long term (current) drug therapy; Z79.01 Long term (current) use of anticoagulants; Z68.41 Body mass index [BMI] 40.0-44.9, adult; Z87.891 Personal history of nicotine dependence
CPT/HCPCS: 88305; 43239; J2001; J2704

== ENCOUNTER → 2022-09-21 | Outpatient (CLI) | payer OTHER ==
[2022-09-21 14:11] LABS: INR 1.1 (<1.2); Partial Thromboplastin Time 30.9 sec (22.0-30.0); Prothrombin Time 11.6 sec (9.0-12.0)
[2022-09-22 00:07] LABS: African American GFR (CKD) 104.2 (60.0-200.0); Anion Gap 10.7 mmol/L (10.00-18.00); Blood Urea Nitrogen 9.1 mg/dL (9.0-27.0); Carbon Dioxide 25.1 mmol/L (20.0-27.5); Non-African American GFR(CKD) 89.9 (60.0-200.0); Potassium 4.4 mmol/L (3.5-5.5)
[2022-09-22 01:31] LABS: Basophils # (A) 0.05 X 10*3/uL (0.00-0.10); Basophils % (A) 0.6 %; Eosinophils # (A) 0.28 X 10*3/uL (0.04-0.35); Eosinophils % (A) 3.5 %; HCT 45.6 % (39.6-50.0); HGB 14.9 g/dL (13.0-17.0); Immature Grans, Automated 0.6 %; Lymphocytes # (A) 2.31 X 10*3/uL (0.90-5.00); Lymphocytes % (A) 28.9 %; MCHC 32.7 g/dL (32.0-37.0); MCV 91.9 fL (80.0-97.0); Mean Platelet Volume 10.8 fL (9.5-12.2); Monocytes # (A) 0.69 X 10*3/uL (0.20-1.00); Monocytes % (A) 8.6 %; NRBC Per 100 WBC 0 /100 WBCS (0.0-0.0); Neutrophils # (A) 4.61 X 10*3/uL (1.80-7.70); Neutrophils % (A) 57.8 %; Platelet Count 200 X 10*3/uL (140-440); RBC 4.96 X 10*6/uL (4.40-5.60); RDW 13.7 % (11.5-14.5); WBC 7.99 X 10*3/uL (4.50-10.00)
== END | disposition home or self-care (01) ==
LOC: LABPAT 12:18
PROVIDERS: ATTEND Thoracic Surgery (Cardiothoracic Vascular Surgery)
DX: Z01.818 Encounter for other preprocedural examination (principal); E87.8 Other disorders of electrolyte and fluid balance, not elsewhere classified; R58 Hemorrhage, not elsewhere classified; R91.1 Solitary pulmonary nodule; Z79.899 Other long term (current) drug therapy
CPT/HCPCS: 80051; 82565; 82947; 84520; 85025; 85610; 85730; 86850; 86900; 86901; 93005

== ENCOUNTER 2022-09-28 06:29 | Inpatient (IN) | payer OTHER ==
[~2022-09-28 06:29] MED LIST: ceFAZolin 3 GM in SODIUM CHLORIDE 0.9% 100 ML IVPB PRN
[2022-09-28] MEDS: LACTATED RINGERS 1,000 ML IV SCH ×2 (07:42→14:57)
[2022-09-28] MEDS ORDERED: LIDOCAINE 1% (10MG/ML) FOR IV START INTRADERMA ONE (07:42)
[2022-09-28 07:43] LABS: Glucose,Whole Blood 102 mg/dL (70-110)
[2022-09-28] MEDS ORDERED: ONDANSETRON 4 MG/2 ML VIAL ONE (08:06)
[2022-09-28] MEDS ORDERED: LIDOCAINE 4% LTA KIT (4 ML) TOPICAL ONE (09:18)
[2022-09-28] MEDS ORDERED: NEOSTIGMINE 1 MG/ML 10 ML VIAL ONE (09:18)
[2022-09-28] MEDS ORDERED: fentaNYL (PF) 50 MCG/ML 2 ML AMP ONE (09:18)
[2022-09-28] MEDS ORDERED: GLYCOPYRROLATE 0.2 MG/ML 2 ML VIAL ONE (09:18)
[2022-09-28] MEDS ORDERED: MIDAZOLAM 2 MG/2 ML VIAL ONE (09:18)
[2022-09-28] MEDS ORDERED: PHENYLEPHRINE-0.9% NACL SYG 1,000 MCG/10 ML SYRINGE ONE (09:18)
[2022-09-28] MEDS ORDERED: ROCURONIUM 10 MG/ML (5 ML VIAL) IV ONE (09:18)
[2022-09-28] MEDS ORDERED: PROPOFOL 10 MG/ML 20 ML VIAL IV ONE (09:18)
[2022-09-28] MEDS ORDERED: BUPIVACAINE (PF) 0.5% 30 ML VIAL SQ ONE ×3 (09:40→10:19)
--- NOTE | 2022-09-28 10:45 | P.OP ---
Date of Procedure: 09/28/22 Preoperative Diagnosis: Bilateral pulmonary infiltrates Postoperative Diagnosis: Same Procedure(s) Performed: Right thoracoscopic lung biopsy Anesthesia: GETA Surgeon: Tyrell Rivers Estimated Blood Loss (ml): 25 IV fluids (ml): 300 Pathology: other (Biopsies of right upper, middle, lower lobe each for pathology and culture including aerobic, anaerobic, acid-fast, fungal) Condition: stable Disposition: PACU Indications for Procedure: 67-year-old male with progressive dyspnea on exertion and positioned progressive bilateral pulmonary infiltrates over the last several years. Patient was referred for lung biopsy by Dr. Ewing. Operative Findings: There were no intrapulmonary adhesions. Lung compliance was reasonable. The lung tissue itself was fairly gritty in consistency. The biopsies were obtained and sent for permanent section and culture. Description of Procedure: Patient was brought to the operating room and placed supine on the operating table. Awake intubation was performed by Dr. Hoover with a 7-1/2 mm endotracheal tube. This was then changed to a double-lumen tube using a tube changer under visualization with video laryngoscope. Tube was appropriately positioned with fiberoptic bronchoscopy and secured. Patient was turned in the left lateral decubitus position and appropriately positioned. The right chest was sterilely prepped and draped. Single lung ventilation was initiated and 3 incisions were made in the right chest carried into the pleural space. Video thoracoscope was placed and lung biopsies obtained from each lobe with multiple firings of an Endo JAMIE stapler. The specimen was placed on the back table and a small portion of each was sent for culture. The remainder was sent for permanent section. On completion of the lung biopsies, 28-Congolese chest tube was placed posterior apically through separate stab incision. It was secured at its exit site with an Ethibond suture. Incisions were closed with layers of Vicryl suture. Rib blocks were performed posteriorly at the level of the incisions. In glue and dry sterile dressings were applied. Chest tube was connected to a Pleur-evac. Patient was turned supine and extubated in the operating room and transferred to recovery area in stable condition.
[2022-09-28] MEDS: HYDROmorphone 0.5 MG/0.5 ML SYRINGE IVP PRN ×3 (11:00→13:10)
--- NOTE | 2022-09-28 11:56 | XR ---
EXAMINATION TYPE: XR chest 1V portable DATE OF EXAM: 09/28/2022 COMPARISON: 09/25/2017 INDICATION: Post lung biopsy TECHNIQUE: Single frontal view of the chest is obtained. FINDINGS: The heart size is enlarged. The pulmonary vasculature is normal. Diffuse increased lung markings through the left lower lung field. Right-sided chest tube is present. No pneumothorax is evident. Subcutaneous emphysema extends up the right lateral chest IMPRESSION: 1. Cardiomegaly. 2. Left lower lobe infiltrate. Correlate for atelectasis or pneumonia. Follow-up is recommended
[2022-09-28 12:24] LABS: Glucose,Whole Blood 116 mg/dL (70-110)
[2022-09-28] MEDS ORDERED: KETOROLAC 15 MG/ML 1 ML VIAL IVP ONE (13:19)
[2022-09-28] MEDS ORDERED: SODIUM CHLORIDE 0.9% 1,000 ML IV ONE ×2 (13:22)
[2022-09-28] MEDS ORDERED: traMADol 50 MG TAB ONE (13:25)
[2022-09-28] MEDS ORDERED: traMADol 50 MG TAB PO ONE (13:28)
[2022-09-28] MEDS ORDERED: methocarbamoL 750 MG TAB PO PRN (14:35)
[2022-09-28] MEDS ORDERED: diphenhydrAMINE 25 MG CAP PO PRN (14:35)
[2022-09-28] MEDS ORDERED: ONDANSETRON 4 MG/2 ML VIAL IVP PRN (14:35)
[2022-09-28] MEDS ORDERED: MECLIZINE 25 MG TAB PO PRN (14:35)
[2022-09-28] MEDS ORDERED: SODIUM CHLORIDE 0.9% 1,000 ML IV SCH (14:35)
[2022-09-28] MEDS ORDERED: IPRATROPIUM-ALBUTEROL 3 ML NEB IH PRN (14:35)
[2022-09-28] MEDS ORDERED: traMADol 50 MG TAB PO PRN (14:35)
[2022-09-28] MEDS ORDERED: DEXTROSE 50% SYRINGE 50 ML IVP PRN ×2 (14:35)
[2022-09-28] MEDS: ACETAMINOPHEN TAB 325 MG TAB PO PRN (15:11)
[2022-09-28] MEDS: PROPAFENONE 150 MG TAB PO SCH ×2 (15:11→23:35)
[2022-09-28] MEDS: ceFAZolin 3 GM in SODIUM CHLORIDE 0.9% 100 ML IVPB SCH ×2 (15:14→23:35)
[2022-09-28] MEDS: HEPARIN SODIUM,PORCINE/PF 5,000 UNIT/0.5 ML SYRINGE SQ SCH ×2 (15:14→23:35)
[2022-09-28 16:09] LABS: Glucose,Whole Blood 115 mg/dL (70-110)
[2022-09-28] MEDS: INSULIN ASPART (NovoLOG) 100 UNIT/ML VIAL SQ SCH ×3 (16:12→21:59)
[2022-09-28] MEDS: IPRATROPIUM-ALBUTEROL 3 ML NEB IH SCH ×3 (16:18→22:23)
[2022-09-28] MEDS: traMADol 50 MG TAB PO PRN ×3 (17:12→20:29)
[2022-09-28] MEDS: KETOROLAC 15 MG/ML 1 ML VIAL IVP SCH ×2 (17:20→23:35)
[2022-09-28 20:15] LABS: Glucose,Whole Blood 172 mg/dL (70-110)
[2022-09-28] MEDS ORDERED: PRAVASTATIN SODIUM 40 MG TAB PO SCH (21:00)
[2022-09-28] MEDS ORDERED: traZODone HCL 50 MG TAB PO SCH (21:00)
[2022-09-28] MEDS: METOPROLOL TARTRATE 25 MG TAB PO SCH (21:57)
[2022-09-28] MEDS: metFORMIN 500 MG TAB PO SCH (21:58)
[2022-09-28] MEDS: BUDESONIDE 1 MG/2 ML NEBU INHALATION SCH (22:23)
[2022-09-29] MEDS: traMADol 50 MG TAB PO PRN ×2 (03:13→08:39)
[2022-09-29 06:17] LABS: Glucose,Whole Blood 182 mg/dL (70-110)
[2022-09-29 06:17] LABS: Basophils % (A) 0 %; Eosinophils # (A) 0.1 k/uL (0-0.7); Eosinophils % (A) 1 %; HCT 40.6 % (39.0-53.0); HGB 13.2 gm/dL (13.0-17.5); Lymphocytes # (A) 1.4 k/uL (1.0-4.8); Lymphocytes % (A) 18 %; MCHC 32.7 g/dL (31.0-37.0); MCV 91.9 fL (80.0-100.0); Monocytes # (A) 0.6 k/uL (0-1.0); Monocytes % (A) 7 %; Neutrophils # (A) 5.6 k/uL (1.3-7.7); Neutrophils % (A) 72 %; Platelet Count 149 k/uL (150-450); RBC 4.41 m/uL (4.30-5.90); RDW 13.3 % (11.5-15.5); WBC 7.7 k/uL (3.8-10.6)
[2022-09-29 06:19] LABS: African American GFR (CKD) >90 (>60 ml/min/1.73 sqM); Anion Gap 7 mmol/L; Blood Urea Nitrogen 11 mg/dL (9-20); Calcium 8.4 mg/dL (8.4-10.2); Carbon Dioxide 26 mmol/L (22-30); Chloride 102 mmol/L (98-107); Glucose 177 mg/dL (74-99); Non-African American GFR(CKD) >90 (>60 ml/min/1.73 sqM); Potassium 4.2 mmol/L (3.5-5.1); Sodium 135 mmol/L (137-145)
[2022-09-29] MEDS: INSULIN ASPART (NovoLOG) 100 UNIT/ML VIAL SQ SCH ×4 (06:54→12:26)
[2022-09-29] MEDS: KETOROLAC 15 MG/ML 1 ML VIAL IVP SCH (06:54)
[2022-09-29] MEDS ORDERED: INSULIN DETEMIR (LEVEMIR) 100 UNIT/ML SYR SQ SCH (07:00)
[2022-09-29] MEDS ORDERED: PANTOPRAZOLE 40 MG TABLET PO SCH (07:30)
--- NOTE | 2022-09-29 07:38 | XR ---
EXAMINATION TYPE: XR chest 2V DATE OF EXAM: 09/29/2022 COMPARISON: Chest x-ray one day earlier. HISTORY: Post lung biopsy. TECHNIQUE: Frontal and lateral views of the chest are obtained. FINDINGS: Persistent right-sided chest tube. Background chronic interstitial fibrosis. No pneumothor ax seen bilaterally. Cardiomegaly remains present. Osseous structures are intact. Adjacent subcutaneo us emphysema again seen. IMPRESSION: Right-sided chest tube without pneumothorax. Cardiomegaly and chronic changes with right greater than left bibasilar atelectasis and/or infiltrate redemonstrated. No significant change from one day earlier.
[2022-09-29] MEDS: IPRATROPIUM-ALBUTEROL 3 ML NEB IH SCH ×2 (08:19→11:49)
[2022-09-29] MEDS: BUDESONIDE 1 MG/2 ML NEBU INHALATION SCH (08:19)
--- NOTE | 2022-09-29 08:22 | P.PN ---
Subjective Progress Note Date: 09/29/22 Principal diagnosis: Bilateral pulmonary infiltrates. Previous medical history of coronary artery disease, hypertension, hyperlipidemia, chronic atrial fibrillation on Eliquis for anticoagulation, previous tobacco dependence, COPD, interstitial lung disease, home oxygen as needed, obstructive sleep apnea with home CPAP use, type 2 diabetes with neuropathy, nonalcoholic fatty liver disease, GERD and mood disorder. POD #1 right thoracoscopic lung biopsy The patient was seen and examined this morning sitting up in a recliner on the stepdown unit in no acute distress. Does complain of pain at his chest tube site and with deep inspiration, denies shortness of breath. Currently in sinus rhythm and hemodynamically stable. Remains on room air with oxygen saturation in the high 90s, only able to achieve 500 mL on his incentive spirometry with poor effort. Right pleural chest tube was placed to waterseal yesterday afternoon, no air leak present this morning. Chest x-ray and labs reviewed. No other new concerns. Objective - Vital Signs Vital signs: Vital Signs Temp 97.6 F 09/29/22 04:00 Pulse 87 09/29/22 04:00 Resp 18 09/29/22 04:00 BP 123/71 09/29/22 04:00 Pulse Ox 97 09/29/22 04:00 FiO2 Intake & Output 09/28/22 09/29/22 09/29/22 18:59 06:59 18:59 Intake Total 1438 Output Total 130 550 Balance 1308 -550 Weight 127.5 kg Intake: IV 1200 Oral 238 Output: Chest Tube Drainage 45 Right Anterior Chest 45 Urine 0 550 Estimated Blood Loss 85 - Exam CONSTITUTIONAL: Appears comfortable, cooperative, no acute distress RESPIRATORY: Lungs sounds diminished bilaterally. Respirations even, nonlabored. Currently on room air with oxygen saturation 98%. Able to achieve 500 mL on incentive spirometry. Strong cough. CARDIOVASCULAR: S1, S2 present. Regular rate and rhythm, sinus rhythm on telemetry. Palpable peripheral pulses bilaterally. No edema present. No calf pain or tenderness noted. SCDs present. GASTROINTESTINAL: Abdomen soft, nontender, nondistended, obese. Active bowel sounds present 4 quadrants. Tolerating diet. Positive flatus GENITOURINARY: Continues to void clear, yellow urine INTEGUMENTARY: Skin is warm and dry NEUROLOGIC: Cranial nerves II through XII intact MUSKULOSKELETAL: Able to move all extremities, strength equal bilaterally, gait normal PSYCHIATRIC: Alert and oriented to person place and time, appropriate affect, intact judgment and insight INVASIVE LINES AND TUBES: Right pleural chest tube present waterseal, no air leaks present, 300 mL serosanguineous drainage since surgery - Allied health notes Allied health notes reviewed: nursing - Labs CBC & Chem 7: 09/29/22 05:37 09/29/22 05:37 Labs: Abnormal Lab Results - Last 24 Hours (Table) 09/28/22 09/28/22 09/28/22 Range/Units 12:23 16:08 20:13 Plt Count (150-450) k/uL Sodium (137-145) mmol/L Glucose (74-99) mg/dL POC Glucose (mg/dL) 116 H 115 H 172 H (70-110) mg/dL 09/29/22 09/29/22 09/29/22 Range/Units 05:37 05:37 06:16 Plt Count 149 L (150-450) k/uL Sodium 135 L (137-145) mmol/L Glucose 177 H (74-99) mg/dL POC Glucose (mg/dL) 182 H (70-110) mg/dL Microbiology - Last 24 Hours (Table) 09/28/22 10:20 Anaerobic Culture - Preliminary Lung - Right 09/28/22 10:20 Tissue Culture - Preliminary Lung - Right 09/28/22 10:20 Tissue Culture - Preliminary Lung - Right 09/28/22 10:20 Tissue Culture - Preliminary Lung - Right 09/28/22 10:20 Acid Fast Bacilli Culture - Preliminary Lung - Right 09/28/22 10:20 Acid Fast Bacilli Culture - Preliminary Lung - Right 09/28/22 10:20 Anaerobic Culture - Preliminary Lung - Right 09/28/22 10:20 Anaerobic Culture - Preliminary Lung - Right 09/28/22 10:20 Fungal Culture - Preliminary Lung - Right 09/28/22 10:20 Fungal Culture - Preliminary Lung - Right 09/28/22 10:20 Acid Fast Bacilli Culture - Preliminary Lung - Right 09/28/22 10:20 Fungal Culture - Preliminary Lung - Right - Imaging and Cardiology Chest x-ray: report reviewed, image reviewed Assessment and Plan Assessment: Bilateral pulmonary infiltrates, status post right thoracoscopic lung biopsy, results pending History of coronary artery disease Hypertension Hyperlipidemia, treated Chronic atrial fibrillation on Eliquis for anticoagulation Previous tobacco dependence COPD Interstitial lung disease Home oxygen as needed Obstructive sleep apnea with home CPAP use Type 2 diabetes with neuropathy Nonalcoholic fatty liver disease GERD Mood disorder. Plan: Right pleural chest tube discontinued this morning without incident Will repeat chest x-ray at 11 AM. If stable will discharge to home Encourage incentive spirometry use Increase activity as tolerated Pain control with current medication regimen Resume home medications Discharge instructions and follow-up appointments placed on discharge plan
[2022-09-29] MEDS: metFORMIN 500 MG TAB PO SCH (08:38)
[2022-09-29] MEDS: PROPAFENONE 150 MG TAB PO SCH (08:39)
[2022-09-29] MEDS: METOPROLOL TARTRATE 25 MG TAB PO SCH (08:39)
[2022-09-29] MEDS: SERTRALINE 100 MG TAB PO SCH ×2 (08:40→08:44)
[2022-09-29 08:55] VITALS: RESP 20
[2022-09-29] MEDS ORDERED: ASPIRIN 81 MG PO SCH (09:00)
[2022-09-29] MEDS ORDERED: lisinopriL 10 MG TAB PO SCH (09:00)
[2022-09-29] MEDS ORDERED: APIXABAN 5 MG TAB PO SCH (09:00)
[2022-09-29] MEDS ORDERED: MONTELUKAST 10 MG TAB PO SCH (09:00)
[2022-09-29] MEDS ORDERED: CHOLECALCIFEROL 25 MCG (1000 IU) TABLET PO SCH (09:00)
[2022-09-29] MEDS ORDERED: amLODIPine 10 MG TAB PO SCH (09:00)
[2022-09-29] MEDS ORDERED: traMADol 50 MG TAB PO STA ×2 (10:25→10:36)
--- NOTE | 2022-09-29 11:09 | XR ---
EXAMINATION TYPE: XR chest 2V DATE OF EXAM: 09/29/2022 COMPARISON: Chest x-ray earlier today HISTORY: Chest tube removal. TECHNIQUE: Frontal and lateral views of the chest are obtained. FINDINGS: Background chronic interstitial fibrosis. No pneumothorax seen bilaterally after right-alina ed chest tube removal. Cardiomegaly remains present. Osseous structures are intact. Adjacent subcutan eous emphysema again seen. IMPRESSION: No pneumothorax after chest tube removal. Cardiomegaly and chronic changes with right gr eater than left bibasilar atelectasis and/or infiltrate redemonstrated. No significant change from on e day earlier.
[2022-09-29 12:17] VITALS: BP 141/78; PULSE 94; TEMP 97.9
[2022-09-29] MEDS: ACETAMINOPHEN TAB 325 MG TAB PO PRN (12:20)
--- NOTE | 2022-09-29 13:33 | P.DS ---
Providers Date of admission: 09/28/22 06:29 Expected date of discharge: 09/29/22 Attending physician: Tyrell Rivers Consults: 09/28/22 14:35 Consult Physician Routine Consulting Provider: Isabell Che Consult Reason/Comments: post surgical lung biopsy Do you want consulting provider notified?: Yes Primary care physician: [facility] Course: FINAL DIAGNOSIS: 1. Bilateral pulmonary infiltrates 2. History of coronary artery disease 3. Hypertension 4. Hyperlipidemia, treated 5. Chronic atrial fibrillation on Eliquis for anticoagulation 6. Previous tobacco dependence 7. COPD 8. Interstitial lung disease 9. Home oxygen as needed 10. Obstructive sleep apnea with home CPAP use 11. Type 2 diabetes with neuropathy 12. Nonalcoholic fatty liver disease 13. GERD 14. Mood disorder PRINCIPAL PROCEDURE: 1. Right thoracoscopic lung biopsy HISTORY OF PRESENT ILLNESS: This is a 67-year-old gentleman who follows outpatient with the [facility] for primary care as well as Dr. Ewing for pulmonology. He has been following with Dr. Ewing for several years for progressive pulmonary disease, he is on several inhalers as well as home oxygen as needed. He is also on CPAP at night for sleep apnea. Pulmonary function tests performed a few years ago demonstrated FEV1 61% of predicted. Recently he had a high resolution CT scan which demonstrated honeycombing and intralobar septal thickening involving both lungs in the lower lobes more than the upper lobes. It was more prominent on the right than the left and there was evidence of moderate bronchiectasis. In addition there was cardiomegaly and volume loss in the right lung. The patient was referred to Dr. Rivers from cardiothoracic surgery for lung biopsy. He was recommended to undergo right-sided thoracoscopic lung biopsy. The usual perioperative course was discussed in detail with the patient, all risks and benefits were explained, all questions were answered, and consent was obtained to proceed with surgery. The patient was scheduled at the earliest possible date after allowing for Eliquis metabolism. HOSPITAL COURSE: The patient was brought to the hospital on 09/28/22, taken to the preoperative area, prepared in the usual fashion, and subsequently taken to the operating room where performed a right thoracoscopic lung biopsy. Upon completion of surgery the patient was extubated and taken to the recovery room for further hemodynamic monitoring. He was eventually admitted to 3 S. cardiac stepdown unit. There was no air leak in his chest tube and it was placed to waterseal the night of surgery. Follow-up chest x-ray the next morning was stable and his right pleural chest tube was removed without incident. Repeat chest x-ray remained stable. His oxygen was titrated down, he was tolerating oral diet, his pain was controlled, and he was ready to be discharged to home on postoperative day #1. He received written and verbal instruction regarding his medications, activity restrictions, signs and symptoms requiring physician notification, and follow-up appointments. Patient Condition at Discharge: Stable Plan - Discharge Summary Discharge Rx Participant: No New Discharge Prescriptions: New Acetaminophen Tab [Tylenol] 650 mg PO Q4HR PRN tab PRN Reason: Mild To Moderate Pain (1 - 6) traMADol HCl [Ultram] 50 mg PO Q6HR PRN #28 tab PRN Reason: Pain Scale 4 To 6 Continue amLODIPine [Norvasc] 10 mg PO DAILY lisinopriL [Zestril] 10 mg PO DAILY metFORMIN HCL [Glucophage] 1,000 mg PO BID Cholecalciferol [Vitamin D3 (25 Mcg = 1000 Iu)] 2,000 unit PO DAILY Montelukast [Singulair] 10 mg PO DAILY Insulin Glargine,Hum.rec.anlog [Lantus Solostar Pen] 110 unit SQ QAM Insulin Aspart [NovoLOG Flexpen] 20 unit SQ AC-TID Meclizine [Antivert] 25 mg PO TID PRN PRN Reason: Vertigo Omeprazole [PriLOSEC] 40 mg PO DAILY Apixaban [Eliquis] 5 mg PO BID #60 tab Metoprolol Tartrate [Lopressor] 25 mg PO BID #60 tab Propafenone [Rythmol] 150 mg PO TID #90 tab Albuterol Inhaler [Ventolin Hfa Inhaler] 2 puff INHALATION RT-QID PRN PRN Reason: Shortness Of Breath Aspirin EC [Ecotrin Low Dose] 81 mg PO DAILY Pravastatin Sodium [Pravachol] 40 mg PO HS diphenhydrAMINE [Benadryl] 50 mg PO HS PRN PRN Reason: Insomnia Sertraline [Zoloft] 100 mg PO DAILY Budesonide [Pulmicort] 1 mg INHALATION BID traZODone HCL [Desyrel] 50 mg PO HS Furosemide [Lasix] 20 mg PO DAILY PRN PRN Reason: Edema Diclofenac Sodium Gel [Voltaren Gel] 2 gm TOPICAL QID PRN PRN Reason: Pain methocarbamoL [Methocarbamol] 750 mg PO DIRECTED PRN PRN Reason: Muscle Spasm Potassium Chloride [Klor-Con M10] 10 meq PO DAILY PRN PRN Reason: only if takes lasix Discharge Medication List amLODIPine [Norvasc] 10 mg PO DAILY 09/11/16 [History] lisinopriL [Zestril] 10 mg PO DAILY 09/11/16 [History] metFORMIN HCL [Glucophage] 1,000 mg PO BID 09/11/16 [History] Cholecalciferol [Vitamin D3 (25 Mcg = 1000 Iu)] 2,000 unit PO DAILY 07/17/17 [History] Insulin Aspart [NovoLOG Flexpen] 20 unit SQ AC-TID 07/17/17 [History] Insulin Glargine,Hum.rec.anlog [Lantus Solostar Pen] 110 unit SQ QAM 07/17/17 [History] Montelukast [Singulair] 10 mg PO DAILY 07/17/17 [History] Meclizine [Antivert] 25 mg PO TID PRN 01/31/18 [History] Omeprazole [PriLOSEC] 40 mg PO DAILY 01/31/18 [History] Apixaban [Eliquis] 5 mg PO BID #60 tab 02/04/18 [Rx] Metoprolol Tartrate [Lopressor] 25 mg PO BID #60 tab 02/04/18 [Rx] Propafenone [Rythmol] 150 mg PO TID #90 tab 02/04/18 [Rx] Albuterol Inhaler [Ventolin Hfa Inhaler] 2 puff INHALATION RT-QID PRN 08/27/18 [History] Aspirin EC [Ecotrin Low Dose] 81 mg PO DAILY 08/27/18 [History] Pravastatin Sodium [Pravachol] 40 mg PO HS 08/27/18 [History] Budesonide [Pulmicort] 1 mg INHALATION BID 09/26/22 [History] Diclofenac Sodium Gel [Voltaren Gel] 2 gm TOPICAL QID PRN 09/26/22 [History] Furosemide [Lasix] 20 mg PO DAILY PRN 09/26/22 [History] Potassium Chloride [Klor-Con M10] 10 meq PO DAILY PRN 09/26/22 [History] Sertraline [Zoloft] 100 mg PO DAILY 09/26/22 [History] diphenhydrAMINE [Benadryl] 50 mg PO HS PRN 09/26/22 [History] methocarbamoL [Methocarbamol] 750 mg PO DIRECTED PRN 09/26/22 [History] traZODone HCL [Desyrel] 50 mg PO HS 09/26/22 [History] Acetaminophen Tab [Tylenol] 650 mg PO Q4HR PRN tab 09/29/22 [Rx] traMADol HCl [Ultram] 50 mg PO Q6HR PRN #28 tab 09/29/22 [Rx] Follow up Appointment(s)/Referral(s): Tyrell Rivers MD [STAFF PHYSICIAN] - 10/12/22 1:30 pm [facility],Clinic [Primary Care Provider] - As Needed Nehemias Ewing DO [Doctor of Osteopathic Medicine] - 10/17/22 10:30 am Activity/Diet/Wound Care/Special Instructions: DISCHARGE INSTRUCTIONS: 1. No driving for 2 weeks, or until physician gives their ok. 2. No lifting, pushing, or pulling more than 10 pounds for 2 weeks. The physician will advise of any restriction changes. 3. Continue pain control per as needed orders. Alternate acetaminophen (Tylenol) and ibuprofen (Motrin/Advil) for pain. 4. Continue with incentive spirometry and splinting until otherwise directed by the physician. 5. Leave chest tube dressing for 48 hours. After that, remove all dressings and shower daily. 6. Routine incision care. No powders, lotions, ointments on incisions. 7. Please call surgeon/NECKTIE MAKER for temp greater than 101 F or purulent drainage from incisions. 8. Smoking cessation counseling and program information provided. Quitting smoking is the most important step you can take to improve your health. For additional information and assistance to quit smoking, please call the [place] tobacco quit line (3-741-KBYK-NOW/ ) or online: https://www.[place].gov/[email or web address] -[email or web address] Discharge Disposition: HOME SELF-CARE
--- NOTE | 2022-09-29 14:17 | P.CNPUL ---
History of Present Illness Consult date: 09/29/22 Requesting physician: Tyrell Rivers Reason for consult: other (Interstitial lung disease) Chief complaint: Chronic shortness of breath on exertion and chronic cough History of present illness: This is a 67-year-old white male with history of interstitial lung disease, progressing over the last couple of years, patient normally follows up with Dr. Ewign considering the worsening picture of his interstitial lung disease and symptoms patient was referred to Dr. Rievrs for VATS lung biopsy. This was performed yesterday, patient underwent right sided thoracoscopic lung biopsy, his postoperative course has been uneventful. We were asked to see him on consultation post surgery. Today the patient is doing well, his chest tube has been removed, his chest x-ray is reassuring this morning, patient is being considered for discharge today. I explained to the patient that he needs to resume the same medications that were given to him by Dr. Ewing and 2 make sure that he follows up in our office within the next 1-2 weeks. His biopsies will likely be read at the [facility] by Dr. Chance Mcintosh before a final diagnosis could be made Review of Systems Constitutional: Negative HEENT: Negative Pulmonary: Cough and shortness of breath on exertion Cardiac: Negative GI: Negative Genitourinary: Negative Musculoskeletal: Negative Psychiatric: Negative Endocrine: History of diabetes Neurologic: Negative Skin: Negative Past Medical History Past Medical History: Atrial Fibrillation, Asthma, Coronary Artery Disease (CAD), Chest Pain / Angina, COPD, Diabetes Mellitus, GERD/Reflux, Hyperlipidemia, Hypertension, Liver Disease, Osteoarthritis (OA) Additional Past Medical History / Comment(s): IDDM type II, hx. frequent kidney stones, scarlet fever as a child, past asbestos exposure, vertigo, fatty liver, frequent edema lower legs-wears compression stockings, uses oxygen 2.5l prn, SOB w/exertion History of Any Multi-Drug Resistant Organisms: None Reported Past Surgical History: Cholecystectomy, Heart Catheterization, Hernia Repair, Orthopedic Surgery, Tonsillectomy Additional Past Surgical History / Comment(s): Cardiac cath treated medically, L knee arthroscopy, abdominal hernia repair, multiple kidney surgeries, colonoscopy, cataracts removed w/lens implants Past Anesthesia/Blood Transfusion Reactions: Previous Problems w/ Anesthesia Additional Past Anesthesia/Blood Transfusion Reaction / Comment(s): hx. of difficult intubation w/gallbladder surg. 2018, he's not sure what occured, doesn't know of any problems prior Past Psychological History: No Psychological Hx Reported Additional Psychological History / Comment(s): pt is independant. lives at home with his . lives in a 2 story home [place] has [address]. served in the [employer] 1973 and 1974. 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 Smoking Status: Former smoker Past Alcohol Use History: None Reported Additional Past Alcohol Use History / Comment(s): started smoking at age 16(1971), quit 1995 was smoking 3 ppd. no alcohol currently but in past used occ/socially. Past Drug Use History: None Reported - Past Family History Father Family Medical History: Myocardial Infarction ([place]) Additional Family Medical History / Comment(s): at age 52 from a heart att ack Mother Family Medical History: Myocardial Infarction ([place]) Additional Family Medical History / Comment(s): at age 52 from a heart attack Sister(s) Family Medical History: Myocardial Infarction ([place]) Medications and Allergies Home Medications Medication Instructions Recorded Confirmed Type amLODIPine [Norvasc] 10 mg PO DAILY 09/11/16 09/28/22 History lisinopriL [Zestril] 10 mg PO DAILY 09/11/16 09/28/22 History metFORMIN HCL [Glucophage] 1,000 mg PO BID 09/11/16 09/28/22 History Cholecalciferol [Vitamin D3 (25 2,000 unit PO DAILY 07/17/17 09/28/22 History Mcg = 1000 Iu)] Insulin Aspart [NovoLOG Flexpen] 20 unit SQ AC-TID 07/17/17 09/28/22 History Insulin Glargine,Hum.rec.anlog 110 unit SQ QAM 07/17/17 09/28/22 History [Lantus Solostar Pen] Montelukast [Singulair] 10 mg PO DAILY 07/17/17 09/28/22 History Meclizine [Antivert] 25 mg PO TID PRN 01/31/18 09/28/22 History Omeprazole [PriLOSEC] 40 mg PO DAILY 01/31/18 09/28/22 History Apixaban [Eliquis] 5 mg PO BID #60 tab 02/04/18 09/28/22 Rx Metoprolol Tartrate [Lopressor] 25 mg PO BID #60 tab 02/04/18 09/28/22 Rx Propafenone [Rythmol] 150 mg PO TID #90 tab 02/04/18 09/28/22 Rx Albuterol Inhaler [Ventolin Hfa 2 puff INHALATION RT-QID PRN 08/27/18 09/28/22 History Inhaler] Aspirin EC [Ecotrin Low Dose] 81 mg PO DAILY 08/27/18 09/28/22 History Pravastatin Sodium [Pravachol] 40 mg PO HS 08/27/18 09/28/22 History Budesonide [Pulmicort] 1 mg INHALATION BID 09/26/22 09/28/22 History Diclofenac Sodium Gel [Voltaren 2 gm TOPICAL QID PRN 09/26/22 09/28/22 History Gel] Furosemide [Lasix] 20 mg PO DAILY PRN 09/26/22 09/28/22 History Potassium Chloride [Klor-Con M10] 10 meq PO DAILY PRN 09/26/22 09/28/22 History Sertraline [Zoloft] 100 mg PO DAILY 09/26/22 09/28/22 History diphenhydrAMINE [Benadryl] 50 mg PO HS PRN 09/26/22 09/28/22 History methocarbamoL [Methocarbamol] 750 mg PO DIRECTED PRN 09/26/22 09/28/22 History traZODone HCL [Desyrel] 50 mg PO HS 09/26/22 09/28/22 History Acetaminophen Tab [Tylenol] 650 mg PO Q4HR PRN tab 09/29/22 Rx traMADol HCl [Ultram] 50 mg PO Q6HR PRN #28 tab 09/29/22 Rx Allergies Allergy/AdvReac Type Severity Reaction Status Date / Time hydrocodone [From [place]] AdvReac Hallucinati Verified 09/28/22 07:23 ons/Nausea& vomiting Physical Exam Vitals: Vital Signs Temp Pulse Pulse Resp BP Pulse Ox 09/29/22 12:16 97.9 F 94 20 141/78 91 L 09/29/22 08:54 20 93 L 09/29/22 08:42 90 09/29/22 08:31 99.5 F 82 18 118/68 98 09/29/22 08:19 92 99 09/29/22 04:00 97.6 F 87 18 123/71 97 04/06/23 23:41 98.0 F 102 H 19 132/74 98 09/28/22 22:34 96 09/28/22 22:23 88 09/28/22 20:00 98.3 F 92 19 128/68 96 09/28/22 16:32 85 09/28/22 16:24 96 09/28/22 16:22 80 09/28/22 16:00 97.5 F L 82 20 123/67 97 Intake and Output 09/28/22 09/29/22 09/29/22 22:59 06:59 14:59 Intake Total 118 118 Output Total 245 350 Balance -127 -350 118 Intake: Oral 118 118 Output: Chest Tube Drainage 45 Right Anterior Chest 45 Urine 200 350 Other: Voiding Method Urinal Weight 127.5 kg Physical Exam: Revealed a 67-year-old white male in no distress, O2 sat is 91% on room air. Head: Atraumatic, normocephalic HEENT:[Neck is supple.] [No neck masses.] [No thyromegaly.] [No JVD.] Chest: Fine Velcro crackles noted at the bases no rhonchi no wheezes Cardiac Exam: [Normal S1 and S2, no S3 gallop, no murmur.] Abdomen: [Soft, nontender, no megaly, no rebound, no guarding, normal bowel sounds.] Extremities: [No clubbing, no edema, no cyanosis.] Neurological Exam: [No focal neurologic deficit.] Psychiatric: Normal mood affect and normal mental status examination. Skin: No rashes Results - Laboratory Findings CBC and BMP: 09/29/22 05:37 09/29/22 05:37 Abnormal lab findings: Abnormal Labs 09/28/22 09/28/22 09/28/22 12:23 16:08 20:13 Plt Count Sodium Glucose POC Glucose (mg/dL) 116 H 115 H 172 H 09/29/22 09/29/22 09/29/22 05:37 05:37 06:16 Plt Count 149 L Sodium 135 L Glucose 177 H POC Glucose (mg/dL) 182 H - Diagnostic Findings Chest x-ray: image reviewed (As noted in HPI) Assessment and Plan Assessment: Impression: Chronic Interstitial lung disease, status post right thoracoscopic lung biopsy Type 2 diabetes Dyslipidemia Benign essential hypertension Chronic atrial fibrillation Coronary artery disease History of asbestos exposure History of nephrolithiasis Recommendation: Continue present supportive care measures Agree with discharge planning today after follow-up chest x-rays done post chest tube removal Patient was made aware that he needs to follow-up with Dr. Ewing in 2 weeks Patient will have the final report on his lung biopsy during his next visit to Dr. ewing. Resume home meds post discharge today Time with Patient: Greater than 30
== END 2022-09-29 14:36 | disposition home or self-care (01) | DRG 167 ==
LOC: 2ORMAIN 06:29 → 3SCARD 14:21
PROVIDERS: ADMIT Thoracic Surgery (Cardiothoracic Vascular Surgery); ATTEND Thoracic Surgery (Cardiothoracic Vascular Surgery)
PROC: 0BBC8ZX Excision of Right Upper Lung Lobe, Via Natural or Artificial Opening Endoscopic, Diagnostic (ICD-10-PCS; 2022-09-28)
PROC: 0BBD8ZX Excision of Right Middle Lung Lobe, Via Natural or Artificial Opening Endoscopic, Diagnostic (ICD-10-PCS; 2022-09-28)
PROC: 0BBF8ZX Excision of Right Lower Lung Lobe, Via Natural or Artificial Opening Endoscopic, Diagnostic (ICD-10-PCS; principal; 2022-09-28 08:30)
DX: J84.9 Interstitial pulmonary disease, unspecified (principal); I48.20 Chronic atrial fibrillation, unspecified; I10 Essential (primary) hypertension; J47.9 Bronchiectasis, uncomplicated; I25.10 Atherosclerotic heart disease of native coronary artery without angina pectoris; E11.9 Type 2 diabetes mellitus without complications; E78.5 Hyperlipidemia, unspecified; Z87.442 Personal history of urinary calculi; Z88.5 Allergy status to narcotic agent; K21.9 Gastro-esophageal reflux disease without esophagitis; Z77.090 Contact with and (suspected) exposure to asbestos; G47.33 Obstructive sleep apnea (adult) (pediatric); E11.40 Type 2 diabetes mellitus with diabetic neuropathy, unspecified; F39 Unspecified mood [affective] disorder; K76.0 Fatty (change of) liver, not elsewhere classified; Z79.01 Long term (current) use of anticoagulants; Z79.4 Long term (current) use of insulin; Z79.82 Long term (current) use of aspirin; Z79.84 Long term (current) use of oral hypoglycemic drugs; Z79.899 Other long term (current) drug therapy; Z87.891 Personal history of nicotine dependence; Z98.42 Cataract extraction status, left eye; Z98.41 Cataract extraction status, right eye; Z87.19 Personal history of other diseases of the digestive system; Z90.49 Acquired absence of other specified parts of digestive tract; Z96.1 Presence of intraocular lens
CPT/HCPCS: 71045; 71046; 80048; 85025; 86850; 86900; 86901; 87070; 87075; 87102; 87116; 87205; 87206; 88307; 94640; 94760

== ENCOUNTER 2023-05-29 13:45 | Inpatient (IN) | payer OTHER, MEDICARE ==
[2023-05-29 14:20] LABS: Anisocytosis Moderate; Basophils % (A) 0 %; Eosinophils # (A) 0.1 k/uL (0-0.7); Eosinophils % (A) 1 %; HCT 34.5 % (39.0-53.0); HGB 10.8 gm/dL (13.0-17.5); Hypochromasia Marked; Lymphocytes # (A) 1.1 k/uL (1.0-4.8); Lymphocytes % (A) 18 %; MCH 24.2 pg (25.0-35.0); MCHC 31.3 g/dL (31.0-37.0); Mean Platelet Volume 8.1; Microcytosis Moderate; Monocytes # (A) 0.6 k/uL (0-1.0); Monocytes % (A) 10 %; Neutrophils # (A) 4.3 k/uL (1.3-7.7); Neutrophils % (A) 69 %; Platelet Count 198 k/uL (150-450); Poikilocytosis Slight; RBC 4.48 m/uL (4.30-5.90); RDW 20.5 % (11.5-15.5); WBC 6.3 k/uL (3.8-10.6)
[2023-05-29 14:30] LABS: ALT 15 U/L (4-49); African American GFR (CKD) >90 (>60 ml/min/1.73 sqM); Anion Gap 15 mmol/L; Blood Urea Nitrogen 7 mg/dL (9-20); Calcium 8.6 mg/dL (8.4-10.2); Carbon Dioxide 19 mmol/L (22-30); Chloride 98 mmol/L (98-107); Glucose 126 mg/dL (74-99); Non-African American GFR(CKD) >90 (>60 ml/min/1.73 sqM); Sodium 132 mmol/L (137-145); Total Bilirubin 0.9 mg/dL (0.2-1.3); Total Protein 7.9 g/dL (6.3-8.2)
[2023-05-29 14:32] LABS: AST 39 U/L (17-59); Alkaline Phosphatase 72 U/L (38-126); Potassium 3.6 mmol/L (3.5-5.1)
[2023-05-29] MEDS ORDERED: ONDANSETRON 4 MG/2 ML VIAL IVP STA (15:40)
[2023-05-29] MEDS ORDERED: SODIUM CHLORIDE 0.9% 1,000 ML IV STA (15:40)
[2023-05-29] MEDS ORDERED: IPRATROPIUM-ALBUTEROL 3 ML NEB INHALATION STA (15:40)
[2023-05-29] MEDS ORDERED: SODIUM CHLORIDE 0.9% 500 ML IV STA (15:40)
--- NOTE | 2023-05-29 16:17 | ED ---
GI Bleed HPI - General Chief complaint: GI Bleed Stated complaint: rectal bleeding Time Seen by Provider: 05/29/23 15:23 Source: patient, family Mode of arrival: ambulatory Limitations: no limitations - History of Present Illness Initial comments: This 67-year-old male presents with complaint of gastrointestinal bleeding. He states that he's had multiple episodes of bloody stool for the last 3 days. He states that the toilet turns red and there is bright red blood. He states that there is associated dark stools. He is had nausea and vomiting. He denies any abdominal pain. He states that he has not had anything to eat for the last 2 days. He denies any fevers or chills. He states that he had similar approximately 2 months ago and was worked up at a [facility] while traveling. He had a colonoscopy and EGD at that time with unknown cause of symptomatology. He is currently on Eloquis as well as aspirin 81 mg daily. He states that he feels very weak. He is having some shortness of breath and occasional chest pressure. He denies any other complaints or modifying factors. - Related Data Home Medications Medication Instructions Recorded Confirmed amLODIPine [Norvasc] 10 mg PO DAILY 09/11/16 09/28/22 lisinopriL [Zestril] 10 mg PO DAILY 09/11/16 09/28/22 metFORMIN HCL [Glucophage] 1,000 mg PO BID 09/11/16 09/28/22 Cholecalciferol [Vitamin D3 (25 2,000 unit PO DAILY 07/17/17 09/28/22 Mcg = 1000 Iu)] Insulin Aspart [NovoLOG Flexpen] 20 unit SQ AC-TID 07/17/17 09/28/22 Insulin Glargine,Hum.rec.anlog 110 unit SQ QAM 07/17/17 09/28/22 [Lantus Solostar Pen] Montelukast [Singulair] 10 mg PO DAILY 07/17/17 09/28/22 Meclizine [Antivert] 25 mg PO TID PRN 01/31/18 09/28/22 Omeprazole [PriLOSEC] 40 mg PO DAILY 01/31/18 09/28/22 Albuterol Inhaler [Ventolin Hfa 2 puff INHALATION RT-QID PRN 08/27/18 09/28/22 Inhaler] Aspirin EC [Ecotrin Low Dose] 81 mg PO DAILY 08/27/18 09/28/22 Pravastatin Sodium [Pravachol] 40 mg PO HS 08/27/18 09/28/22 Budesonide [Pulmicort] 1 mg INHALATION BID 09/26/22 09/28/22 Diclofenac Sodium Gel [Voltaren 1% 2 gm TOPICAL QID PRN 09/26/22 09/28/22 Gel] Furosemide [Lasix] 20 mg PO DAILY PRN 09/26/22 09/28/22 Potassium Chloride [Klor-Con M10] 10 meq PO DAILY PRN 09/26/22 09/28/22 Sertraline [Zoloft] 100 mg PO DAILY 09/26/22 09/28/22 diphenhydrAMINE [Benadryl] 50 mg PO HS PRN 09/26/22 09/28/22 methocarbamoL 750 mg PO DIRECTED PRN 09/26/22 09/28/22 traZODone HCL [Desyrel] 50 mg PO HS 09/26/22 09/28/22 Previous Rx's Medication Instructions Recorded Apixaban [Eliquis] 5 mg PO BID #60 tab 02/04/18 Metoprolol Tartrate [Lopressor] 25 mg PO BID #60 tab 02/04/18 Propafenone [Rythmol] 150 mg PO TID #90 tab 02/04/18 Acetaminophen Tab [Tylenol] 650 mg PO Q4HR PRN tab 09/29/22 traMADol HCl [Ultram] 50 mg PO Q6HR PRN #28 tab 09/29/22 Allergies Allergy/AdvReac Type Severity Reaction Status Date / Time hydrocodone [From [place]] AdvReac Hallucinati Verified 05/29/23 13:59 ons/Nausea& vomiting Review of Systems ROS Statement: Those systems with pertinent positive or pertinent negative responses have been documented in the HPI. ROS Other: All systems not noted in ROS Statement are negative. Past Medical History Past Medical History: Atrial Fibrillation, Asthma, Coronary Artery Disease (CAD) , Chest Pain / Angina, COPD, Diabetes Mellitus, GERD/Reflux, Hyperlipidemia, Hypertension, Liver Disease, Osteoarthritis (OA) Additional Past Medical History / Comment(s): IDDM type II, hx. frequent kidney stones, scarlet fever as a child, past asbestos exposure, vertigo, fatty liver, frequent edema lower legs-wears compression stockings, uses oxygen 2.5l prn, SOB w/exertion History of Any Multi-Drug Resistant Organisms: None Reported Past Surgical History: Cholecystectomy, Heart Catheterization, Hernia Repair, Orthopedic Surgery, Tonsillectomy Additional Past Surgical History / Comment(s): Cardiac cath treated medically, L knee arthroscopy, abdominal hernia repair, multiple kidney surgeries, colonoscopy, cataracts removed w/lens implants Past Anesthesia/Blood Transfusion Reactions: Previous Problems w/ Anesthesia Additional Past Anesthesia/Blood Transfusion Reaction / Comment(s): hx. of difficult intubation w/gallbladder surg. 2018, he's not sure what occured, doesn't know of any problems prior Past Psychological History: No Psychological Hx Reported Smoking Status: Former smoker Past Alcohol Use History: None Reported Past Drug Use History: None Reported - Past Family History Father Family Medical History: Myocardial Infarction ([place]) Additional Family Medical History / Comment(s): at age 52 from a heart attack Mother Family Medical History: Myocardial Infarction ([place]) Additional Family Medical History / Comment(s): at age 52 from a heart attack Sister(s) Family Medical History: Myocardial Infarction ([place]) General Exam - General Exam Comments Initial Comments: GENERAL: The patient is well nourished and well hydrated. VITAL SIGNS: Heart rate, blood pressure, respiratory rate reviewed as recorded in nurse's notes. EYES: Pupils are round and reactive. Extraocular movements are intact. No conjunctival / lid redness or swelling. ENT: No external evidence of injury, swelling, or ecchymosis. Airway is patent. Throat is clear. NECK: Nontender. No swelling or evidence of injury. No subcutaneous emphysema. Trachea is midline. No thyroid mass. HEART: Tachycardic rate and rhythm. Good peripheral pulses. LUNGS/CHEST: Breath sounds clear and equal bilaterally. No rales, rhonchi, or wheezes. No ecchymosis, subcutaneous emphysema, or tenderness. ABDOMEN: Abdomen soft without tenderness. No palpable masses or organomegaly. No peritoneal signs. No abdominal wall swelling or ecchymosis. EXTREMITIES: No extremity tenderness. Normal muscle tone and function. No thoracolumbar tenderness. NEUROLOGIC: Sensation is grossly intact. Cranial nerve exam reveals face is symmetrical, tongue is midline, speech is clear. SKIN: No abrasions or ecchymosis is noted. No induration or masses noted. PSYCHIATRIC: Alert and oriented. Appropriate behavior and judgment. Limitations: no limitations Course Vital Signs 05/29/23 05/29/23 05/29/23 13:55 15:53 16:09 Temperature 97.5 F L Pulse Rate 131 H 108 H 112 H Respiratory 18 Rate Blood Pressure 127/78 O2 Sat by Pulse 94 L Oximetry Medical Decision Making - Medical Decision Making The patient was seen and examined. All diagnostics were reviewed. The patient was placed on color television console monitor and it does show that he has sinus tachycardia with a heart rate of between 120 and 1 30 bpm. IV is established and he is hydrated. He also received Zofran intravenously for nausea. The EKG shows a sinus tachycardia at a rate of 123. There is no acute ST or T wave changes noted per my interpretation. Intervals are normal. The laboratory does show hemoglobin at 10 with previous several months ago at 13. His symptomatology certainly could be related to this drop in hemoglobin and current GI bleed. It is felt as though he would require admission to the hospital for further treatment. 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 This was diagnosed by lung biopsy and he is currently being treated for his condition by Dr. Salas. They request for him to be consulted during hospitalization as he is also having increased dyspnea. The patient is agreeable with admission. Case is discussed with internal medicine and they're agreeable with admission as well. It is not felt as though he would require blood transfusion at this time but hemoglobin will be checked for the a.m. Gastroenterology will be consulted. Was pt. sent in by a medical professional or institution (, PA, SPORTS MEDICINE COORDINATOR, urgent care, hospital, or senior living...) When possible be specific @ -No Did you speak to anyone other than the patient for history (EMS, parent, family, police, friend...)? What history was obtained from this source @ -Family is present and also gives additional history. Did you review nursing and triage notes (agree or disagree)? Why? @ -I reviewed and agree with nursing and triage notes Were old charts reviewed (outside hosp., previous admission, EMS record, old EKG, old radiological studies, urgent care reports/EKG's, senior living records)? Report findings @ -Old charts were reviewed and additional history is obtained. Differential Diagnosis (chest pain, altered mental status, abdominal pain women, abdominal pain men, vaginal bleeding, weakness, fever, dyspnea, syncope, headache, dizziness, GI bleed, back pain, seizure, CVA, palpatations, mental health, musculoskeletal)? @ -Gastrointestinal bleed, diverticulosis, nausea and vomiting, diarrhea, dyspnea, anemia, chest pain EKG interpreted by me (3pts min.). @ -As above X-rays interpreted by me (1pt min.). @ -Chest x-ray is ordered and is currently pending. CT interpreted by me (1pt min.). @ -None done U/S interpreted by me (1pt. min.). @ -None done What testing was considered but not performed or refused? (CT, X-rays, U/S, labs)? Why? @ -None What meds were considered but not given or refused? Why? @ -None Did you discuss the management of the patient with other professionals (professionals i.e. , PA, SPORTS MEDICINE COORDINATOR, lab, RT, psych nurse, aids social worker, administration physician, teacher, risk officer, manager rn case)? Give summary @ -Case is discussed with internal medicine and they're agreeable with admission. Was smoking cessation discussed for >3mins.? @ -No Was critical care preformed (if so, how long)? @ -No Were there social determinants of health that impacted care today? How? (Homelessness, low income, unemployed, alcoholism, drug addiction, transportation, low edu. Level, literacy, decrease access to med. care, [facility], rehab)? @ -No Was there de-escalation of care discussed even if they declined (Discuss DNR or withdrawal of care, Hospice)? DNR status @ -No What co-morbidities impacted this encounter? (DM, HTN, Smoking, COPD, CAD, Cancer, CVA, ARF, Chemo, Hep., AIDS, mental health diagnosis, sleep apnea, morbid obesity)? @ -Atrial fibrillation, diabetes mellitus, morbid obesity, anticoagulated, history of GI bleed. Was patient admitted / discharged? Hospital course, mention meds given and route, prescriptions, significant lab abnormalities, going to OR and other pertinent info. @ -Was admitted to the hospital, please see above. Undiagnosed new problem with uncertain prognosis? @ -No Drug Therapy requiring intensive monitoring for toxicity (Heparin, Nitro, Insuli n, Cardizem)? @ -No Were any procedures done? @ -No Diagnosis/symptom? @ -GI bleed, dyspnea, anemia, chest pain, morbid obesity, weakness Acute, or Chronic, or Acute on Chronic? @ -Acute Uncomplicated (without systemic symptoms) or Complicated (systemic symptoms)? @ -Uncomplicated Side effects of treatment? @ -No Exacerbation, Progression, or Severe Exacerbation? @ -Exacerbation Poses a threat to life or bodily function? How? (Chest pain, [place], [place], pneumonia, PE, COPD, DKA, ARF, appy, cholecystitis, CVA, Diverticulitis, Homicidal, Suicidal, threat to staff... and all critical care pts) @ -He has, if the anemia and GI bleed progressed since then this would be a threat to life. - Lab Data Result diagrams: 05/29/23 14:11 05/29/23 14:11 Lab Results 05/29/23 05/29/23 05/29/23 Range/Units 14:11 14:11 14:11 WBC 6.3 (3.8-10.6) k/uL RBC 4.48 (4.30-5.90) m/uL Hgb 10.8 L (13.0-17.5) gm/dL Hct 34.5 L (39.0-53.0) % MCV 77.0 L (80.0-100.0) fL MCH 24.2 L (25.0-35.0) pg MCHC 31.3 (31.0-37.0) g/dL RDW 20.5 H (11.5-15.5) % Plt Count 198 (150-450) k/uL MPV 8.1 Neutrophils % 69 % Lymphocytes % 18 % Monocytes % 10 % Eosinophils % 1 % Basophils % 0 % Neutrophils # 4.3 (1.3-7.7) k/uL Lymphocytes # 1.1 (1.0-4.8) k/uL Monocytes # 0.6 (0-1.0) k/uL Eosinophils # 0.1 (0-0.7) k/uL Basophils # 0.0 (0-0.2) k/uL Hypochromasia Marked Poikilocytosis Slight Anisocytosis Moderate Microcytosis Moderate APTT 31.5 H (22.0-30.0) sec Sodium 132 L (137-145) mmol/L Potassium 3.6 (3.5-5.1) mmol/L Chloride 98 (98-107) mmol/L Carbon Dioxide 19 L (22-30) mmol/L Anion Gap 15 mmol/L BUN 7 L (9-20) mg/dL Creatinine 0.58 L (0.66-1.25) mg/dL Est GFR (CKD-EPI)AfAm >90 (>60 ml/min/1.73 sqM) Est GFR (CKD-EPI)NonAf >90 (>60 ml/min/1.73 sqM) Glucose 126 H (74-99) mg/dL Calcium 8.6 (8.4-10.2) mg/dL Total Bilirubin 0.9 (0.2-1.3) mg/dL AST 39 (17-59) U/L ALT 15 (4-49) U/L Alkaline Phosphatase 72 (38-126) U/L Troponin I (0.000-0.034) ng/mL Total Protein 7.9 (6.3-8.2) g/dL Albumin 4.0 (3.5-5.0) g/dL Blood Type Blood Type Recheck Bld Type Recheck Status Antibody Screen Spec Expiration Date 05/29/23 05/29/23 Range/Units 14:11 14:11 WBC (3.8-10.6) k/uL RBC (4.30-5.90) m/uL Hgb (13.0-17.5) gm/dL Hct (39.0-53.0) % MCV (80.0-100.0) fL MCH (25.0-35.0) pg MCHC (31.0-37.0) g/dL RDW (11.5-15.5) % Plt Count (150-450) k/uL MPV Neutrophils % % Lymphocytes % % Monocytes % % Eosinophils % % Basophils % % Neutrophils # (1.3-7.7) k/uL Lymphocytes # (1.0-4.8) k/uL Monocytes # (0-1.0) k/uL Eosinophils # (0-0.7) k/uL Basophils # (0-0.2) k/uL Hypochromasia Poikilocytosis Anisocytosis Microcytosis APTT (22.0-30.0) sec Sodium (137-145) mmol/L Potassium (3.5-5.1) mmol/L Chloride (98-107) mmol/L Carbon Dioxide (22-30) mmol/L Anion Gap mmol/L BUN (9-20) mg/dL Creatinine (0.66-1.25) mg/dL Est GFR (CKD-EPI)AfAm (>60 ml/min/1.73 sqM) Est GFR (CKD-EPI)NonAf (>60 ml/min/1.73 sqM) Glucose (74-99) mg/dL Calcium (8.4-10.2) mg/dL Total Bilirubin (0.2-1.3) mg/dL AST (17-59) U/L ALT (4-49) U/L Alkaline Phosphatase (38-126) U/L Troponin I 0.012 (0.000-0.034) ng/mL Total Protein (6.3-8.2) g/dL Albumin (3.5-5.0) g/dL Blood Type O Positive Blood Type Recheck O Pos Bld Type Recheck Status No Antibody Screen NEGATIVE Spec Expiration Date 06/01/2023 - 2310 Disposition Clinical Impression: Gastrointestinal hemorrhage, Dyspnea, Chest pain, Sinus tachycardia, Anemia, Hyponatremia, Weakness, Nausea and vomiting Disposition: ADMITTED IP TO THIS [facility] Condition: Fair Is patient prescribed a controlled substance at d/c from ED?: No Time of Disposition: 16:22 Decision Date: 05/29/23 Decision Time: 16:22
[2023-05-29] MEDS ORDERED: ONDANSETRON 4 MG/2 ML VIAL IVP PRN (16:23)
[2023-05-29] MEDS ORDERED: ACETAMINOPHEN TAB 325 MG TAB PO PRN (16:23)
[2023-05-29] MEDS ORDERED: PANTOPRAZOLE 40 MG/10 ML VIAL IVP ONE (16:23)
--- NOTE | 2023-05-29 16:34 | XR ---
EXAMINATION TYPE: XR chest 2V DATE OF EXAM: 05/29/2023 COMPARISON: 09/29/2022 HISTORY: Shortness of breath TECHNIQUE: Frontal and lateral views of the chest are obtained. FINDINGS: Scattered senescent parenchymal changes noted. Hyperinflation compatible with COPD. Noted are changes of underlying pulmonary fibrosis. No significant change from prior examination. Heart size is stable. Mediastinal structures are stable and grossly unremarkable. No evidence for hilar prominence. Degenerative changes dorsal spine. IMPRESSION: 1. Noted are changes of underlying pulmonary fibrosis. No significant change from prior examination.
[2023-05-29] MEDS ORDERED: ALBUTEROL NEBULIZED 2.5 MG/3 ML INHALATION PRN (16:57)
[2023-05-29] MEDS ORDERED: DEXTROSE 50% SYRINGE 50 ML IVP PRN ×2 (17:03)
--- NOTE | 2023-05-29 17:05 | P.HPIM ---
History of Present Illness H&P Date: 05/29/23 Patient is a 67-year-old male with history of chronic atrial fibrillation on anticoagulation, CAD, hypertension, dyslipidemia, COPD, interstitial lung disease, MARISA on CPAP, type 2 diabetes with neuropathy, nonalcoholic fatty liver disease, GERD, mood disorder presenting with bright red blood per rectum. He claims that he had something similar happened to him in February. He presented on also Hospital. He had an upper endoscopy and colonoscopy that showed diverticulosis. It self resolved. However, 2 days ago he started noticing bright red blood per rectum and worsening dyspnea. He denies any chest pain, palpitations, nausea, vomiting, diarrhea, constipation, or urinary complaints. He normally ambulates with a cane and has been having more difficulty walking these days. He denies any alcohol use, illicit drug use or current smoking. In the ED, temperature was 97.5, pulse 131, blood pressure 127/78, saturating at 94% on room air. Hemoglobin 10.8, down from baseline. MCV 77, platelet 198, APTT 31.5, sodium 132, potassium 3.6, bicarb 19, creatinine 0.58, glucose 126, troponin negative. Patient being admitted for atrial fibrillation with RVR as well as acute lower GI bleed. GI consulted. Pertinent positives and negatives as discussed in HPI, a complete review of systems was performed and all other systems are negative. Patient seen and examined at bedside. Vital signs reviewed General: nontoxic, no distress, appears at stated age Derm: warm, dry Head: atraumatic, normocephalic, symmetric Eyes: EOMI, no lid lag, anicteric sclera, pupils equal round reactive to light ENT: Nose and ears atraumatic Neck: No thyromegaly, supple Mouth: no lip lesion, mucus membranes moist Cardiovascular: S1S2 reg, no murmur, no edema Lungs: Bilateral rales, no wheeze, no accessory muscle use, supplemental oxygen Abdominal: soft, nontender to palpation, no guarding, no appreciable organomegaly Ext: no gross muscle atrophy, muscle strength muscle strength 5 out of 5 in all 4 extremities, no contractures Neuro: CN II-XII grossly intact Psych: Alert, oriented, appropriate affect Assessment/Plan: Active: Acute blood loss anemia Acute lower GI bleed -CBC every 12 hours -GI consulted -Hemodynamically stable -Continue IV fluids normal saline at 80 mL an hour -Keep patient nothing by mouth -Pantoprazole 40 mg IV daily Atrial fibrillation with RVR -Likely secondary to dehydration -Heart rate improved with IV fluids -Continue propafenone 150 3 times a day -Metoprolol 25 twice a day -Hold anticoagulation Anion gap metabolic acidosis Mild hyponatremia -Continue IV fluids -We'll obtain lactate -Repeat BMP tomorrow Acute on chronic hypoxic respiratory failure Acute on chronic dyspnea History of ILD -Wean oxygen -Pulmonology consulted -Likely related to anemia Type 2 diabetes with neuropathy -Sliding scale insulin, monitor for hypoglycemia -We'll cut home Lantus to 40 units as patient is nothing by mouth Chronic: CAD, hold aspirin Hypertension, hold diuretics Dyslipidemia COPD MARISA on CPAP GERD Mood disorder Restarted home medications when reconciled by pharmacy The patient is admitted with an anticipated less than 2 midnight stay as observation status for evaluation of acute blood loss anemia. Surrogate decision-maker: CODE STATUS: Full code DVT prophylaxis: SCDs Anticipated discharge date: Pending clinical course Anticipated discharge place: Pending clinical course A total of 55 minutes was spent on the care of this complex patient more than 50% of the time was spent in counseling and care coordination. Past Medical History Past Medical History: Atrial Fibrillation, Asthma, Coronary Artery Disease (CAD), Chest Pain / Angina, COPD, Diabetes Mellitus, GERD/Reflux, Hyperlipidemia, Hypertension, Liver Disease, Osteoarthritis (OA) Additional Past Medical History / Comment(s): IDDM type II, hx. frequent kidney stones, scarlet fever as a child, past asbestos exposure, vertigo, fatty liver, frequent edema lower legs-wears compression stockings, uses oxygen 2.5l prn, SOB w/exertion History of Any Multi-Drug Resistant Organisms: None Reported Past Surgical History: Cholecystectomy, Heart Catheterization, Hernia Repair, Orthopedic Surgery, Tonsillectomy Additional Past Surgical History / Comment(s): Cardiac cath treated medically, L knee arthroscopy, abdominal hernia repair, multiple kidney surgeries, colonoscopy, cataracts removed w/lens implants Past Anesthesia/Blood Transfusion Reactions: Previous Problems w/ Anesthesia Additional Past Anesthesia/Blood Transfusion Reaction / Comment(s): hx. of difficult intubation w/gallbladder surg. 2018, he's not sure what occured, do esn't know of any problems prior Past Psychological History: No Psychological Hx Reported Smoking Status: Former smoker Past Alcohol Use History: None Reported Past Drug Use History: None Reported - Past Family History Father Family Medical History: Myocardial Infarction ([place]) Additional Family Medical History / Comment(s): at age 52 from a heart attack Mother Family Medical History: Myocardial Infarction ([place]) Additional Family Medical History / Comment(s): at age 52 from a heart attack Sister(s) Family Medical History: Myocardial Infarction ([place]) Medications and Allergies Home Medications Medication Instructions Recorded Confirmed Type amLODIPine [Norvasc] 10 mg PO DAILY 09/11/16 09/28/22 History lisinopriL [Zestril] 10 mg PO DAILY 09/11/16 09/28/22 History metFORMIN HCL [Glucophage] 1,000 mg PO BID 09/11/16 09/28/22 History Cholecalciferol [Vitamin D3 (25 2,000 unit PO DAILY 07/17/17 09/28/22 History Mcg = 1000 Iu)] Insulin Aspart [NovoLOG Flexpen] 20 unit SQ AC-TID 07/17/17 09/28/22 History Insulin Glargine,Hum.rec.anlog 110 unit SQ QAM 07/17/17 09/28/22 History [Lantus Solostar Pen] Montelukast [Singulair] 10 mg PO DAILY 07/17/17 09/28/22 History Meclizine [Antivert] 25 mg PO TID PRN 01/31/18 09/28/22 History Omeprazole [PriLOSEC] 40 mg PO DAILY 01/31/18 09/28/22 History Apixaban [Eliquis] 5 mg PO BID #60 tab 02/04/18 09/28/22 Rx Metoprolol Tartrate [Lopressor] 25 mg PO BID #60 tab 02/04/18 09/28/22 Rx Propafenone [Rythmol] 150 mg PO TID #90 tab 02/04/18 09/28/22 Rx Albuterol Inhaler [Ventolin Hfa 2 puff INHALATION RT-QID PRN 08/27/18 09/28/22 History Inhaler] Aspirin EC [Ecotrin Low Dose] 81 mg PO DAILY 08/27/18 09/28/22 History Pravastatin Sodium [Pravachol] 40 mg PO HS 08/27/18 09/28/22 History Budesonide [Pulmicort] 1 mg INHALATION BID 09/26/22 09/28/22 History Diclofenac Sodium Gel [Voltaren 1% 2 gm TOPICAL QID PRN 09/26/22 09/28/22 History Gel] Furosemide [Lasix] 20 mg PO DAILY PRN 09/26/22 09/28/22 History Potassium Chloride [Klor-Con M10] 10 meq PO DAILY PRN 09/26/22 09/28/22 History Sertraline [Zoloft] 100 mg PO DAILY 09/26/22 09/28/22 History diphenhydrAMINE [Benadryl] 50 mg PO HS PRN 09/26/22 09/28/22 History methocarbamoL 750 mg PO DIRECTED PRN 09/26/22 09/28/22 History traZODone HCL [Desyrel] 50 mg PO HS 09/26/22 09/28/22 History Acetaminophen Tab [Tylenol] 650 mg PO Q4HR PRN tab 09/29/22 Rx traMADol HCl [Ultram] 50 mg PO Q6HR PRN #28 tab 09/29/22 Rx Allergies Allergy/AdvReac Type Severity Reaction Status Date / Time hydrocodone [From [place]] AdvReac Hallucinati Verified 05/29/23 13:59 ons/Nausea& vomiting Physical Exam Vitals: Vital Signs Temp Pulse Resp BP Pulse Ox 05/29/23 16:39 121 H 18 149/93 100 05/29/23 16:09 112 H 05/29/23 15:53 108 H 05/29/23 13:55 97.5 F L 131 H 18 127/78 94 L Intake and Output 05/29/23 05/29/23 05/29/23 06:59 14:59 22:59 Other: Weight 112.037 kg Results CBC & Chem 7: 05/29/23 14:11 05/29/23 14:11 Labs: Abnormal Lab Results - Last 24 Hours (Table) 05/29/23 05/29/23 05/29/23 Range/Units 14:11 14:11 14:11 Hgb 10.8 L (13.0-17.5) gm/dL Hct 34.5 L (39.0-53.0) % MCV 77.0 L (80.0-100.0) fL MCH 24.2 L (25.0-35.0) pg RDW 20.5 H (11.5-15.5) % APTT 31.5 H (22.0-30.0) sec Sodium 132 L (137-145) mmol/L Carbon Dioxide 19 L (22-30) mmol/L BUN 7 L (9-20) mg/dL Creatinine 0.58 L (0.66-1.25) mg/dL Glucose 126 H (74-99) mg/dL
[2023-05-29 17:15] LABS: Glucose,Whole Blood 114 mg/dL (70-110)
[2023-05-29] MEDS: INSULIN ASPART (NovoLOG) 100 UNIT/ML VIAL SQ SCH ×2 (17:21→21:02)
[2023-05-29] MEDS ORDERED: MECLIZINE 25 MG TAB PO PRN (19:44)
[2023-05-29 20:31] LABS: Glucose,Whole Blood 168 mg/dL (70-110)
[2023-05-29] MEDS ORDERED: BUDESONIDE 1 MG/2 ML NEBU INHALATION SCH (21:00)
[2023-05-29] MEDS: PRAVASTATIN SODIUM 40 MG TAB PO SCH (21:03)
[2023-05-29] MEDS: METOPROLOL TARTRATE 25 MG TAB PO SCH (21:03)
[2023-05-29] MEDS: PROPAFENONE 150 MG TAB PO SCH (21:03)
[2023-05-29] MEDS: traZODone HCL 50 MG TAB PO SCH (21:03)
[2023-05-29 22:30] LABS: Anisocytosis Moderate; Basophils % (A) 0 %; Eosinophils % (A) 0 %; HCT 31.7 % (39.0-53.0); HGB 9.7 gm/dL (13.0-17.5); Hypochromasia Marked; Lymphocytes # (A) 1.3 k/uL (1.0-4.8); Lymphocytes % (A) 28 %; MCH 23.7 pg (25.0-35.0); MCHC 30.5 g/dL (31.0-37.0); MCV 77.8 fL (80.0-100.0); Mean Platelet Volume 7.4; Microcytosis Moderate; Monocytes # (A) 0.5 k/uL (0-1.0); Monocytes % (A) 11 %; Neutrophils # (A) 2.6 k/uL (1.3-7.7); Neutrophils % (A) 58 %; Platelet Count 169 k/uL (150-450); Poikilocytosis Slight; RBC 4.07 m/uL (4.30-5.90); RDW 20.5 % (11.5-15.5); WBC 4.5 k/uL (3.8-10.6)
--- NOTE | 2023-05-30 03:01 | P.CNPUL ---
History of Present Illness Consult date: 05/30/23 Requesting physician: Nehemias Aranda Reason for consult: dyspnea Chief complaint: GI bleeding History of present illness: I am seeing this patient in consultation today 05/30/2023 in the emergency room after presenting with acute GI bleed. Patient is a 67-year-old white male with past medical history significant for previous GI bleed back in February,, atrial fibrillation anticoagulated on Eliquis, interstitial lung disease UIP type on Ofev, opiate, former tobacco smoker, hyperlipidemia, hypertension, coronary artery disease, diabetes, among other things. Patient presented to the emergency room yesterday late afternoon complaining of multiple episodes of bloody bowel movements over the last 3 days. Bowel movements described as diarrhea with dark stool that turn the toilet water red. He does admit some nausea and vomiting and retching mostly associated after taking his Ofev. Denies any hematemesis. Denies any significant abdominal pain. He did recently undergo a colonoscopy and EGD at outside facility back in February, for similar symptoms. Per the patient, they were not able to locate any bleeding. He is on Eliquis outpatient. Hemoglobin is down to 9.7, baseline is 13-14 g/dL. He has had some associated shortness of breath and fatigue. He is anemic. He does have history of biopsy-proven interstitial lung disease, UIP type. He is chronically short of breath, however does state that it is worse than normal. Normally maintained on 2.5 L/m nasal cannula. He is currently on 3 L/m nasal cannula, in no acute distress while at rest. He does admit some vague URI like symptoms such as a more persistent dry nonproductive cough than usual and sore throat. Denies any fevers, chest pain, hemoptysis. Chest x-ray on arrival demonstrated his underlying pulmonary fibrosis, no significant superimposed infiltrates or pneumonia evident. Most recent CBC on arrival showed a WBC count of 4.5, hemoglobin 9.7, hematocrit 31.7, platelets 169. Most recent CMP shows sodium 132, potassium 3.6, chloride 98, serum bicarb 19, BUN 7, creatinine 0.58, glucose 126. LFTs not elevated. Lactic acid level not elevated. Troponin is not elevated 3. Blood pressure is normotensive. He is tachycardic averaging 120-130 bpm. Appears to be sinus mechanism on bedside monitor. Eliquis is obviously on hold. Normal saline is infusing at 80 ML's per hour. We do have GI coverage this week. Patient is being admitted to the cardiac stepdown unit. We will continue to follow. Review of Systems REVIEW OF SYSTEMS: CONSTITUTIONAL: Denies any recent significant weight loss or weight gain. EYES: Denies change in vision. EARS, NOSE, MOUTH, THROAT: Denies headaches, denies sore throat. CARDIOVASCULAR: Denies chest pain, palpitations or syncopal episodes. RESPIRATORY: See HPI GASTROINTESTINAL: See HPI GENITOURINARY: Denies hematuria, denies infections. MUSKULOSKELETAL: Denies pain, denies swelling. INTEGUMENTARY: Denies rash, denies eczema. NEUROLOGICAL: Denies recent memory loss, no recent seizure activity. PSYCHIATRIC: Denies anxiety, denies depression. HEMATOLOGIC/LYMPHATIC: Denies anemia, denies enlarged lymph node Past Medical History Past Medical History: Atrial Fibrillation, Asthma, Coronary Artery Disease (CAD), Chest Pain / Angina, COPD, Diabetes Mellitus, GERD/Reflux, Hyperlipidemia, Hypertension, Liver Disease, Osteoarthritis (OA) Additional Past Medical History / Comment(s): IDDM type II, hx. frequent kidney stones, scarlet fever as a child, past asbestos exposure, vertigo, fatty liver, frequent edema lower legs-wears compression stockings, uses oxygen 2.5l prn, SOB w/exertion History of Any Multi-Drug Resistant Organisms: None Reported Past Surgical History: Cholecystectomy, Heart Catheterization, Hernia Repair, Orthopedic Surgery, Tonsillectomy Additional Past Surgical History / Comment(s): Cardiac cath treated medically, L knee arthroscopy, abdominal hernia repair, multiple kidney surgeries, colonoscopy, cataracts removed w/lens implants Past Anesthesia/Blood Transfusion Reactions: Previous Problems w/ Anesthesia Additional Past Anesthesia/Blood Transfusion Reaction / Comment(s): hx. of difficult intubation w/gallbladder surg. 2018, he's not sure what occured, doesn't know of any problems prior Past Psychological History: No Psychological Hx Reported Smoking Status: Former smoker Past Alcohol Use History: None Reported Past Drug Use History: None Reported - Past Family History Father Family Medical History: Myocardial Infarction ([place]) Additional Family Medical History / Comment(s): at age 52 from a heart attack Mother Family Medical History: Myocardial Infarction ([place]) Additional Family Medical History / Comment(s): at age 52 from a heart attack Sister(s) Family Medical History: Myocardial Infarction ([place]) Medications and Allergies Home Medications Medication Instructions Recorded Confirmed Type amLODIPine [Norvasc] 10 mg PO DAILY 09/11/16 05/29/23 History metFORMIN HCL [Glucophage] 1,000 mg PO BID 09/11/16 05/29/23 History Insulin Aspart [NovoLOG Flexpen] See Protocol SQ AC-TID 07/17/17 05/29/23 History Insulin Glargine,Hum.rec.anlog 80 - 90 unit SQ DAILY 07/17/17 05/29/23 History [Lantus Solostar Pen] Montelukast [Singulair] 10 mg PO DAILY 07/17/17 05/29/23 History Meclizine [Antivert] 25 mg PO TID PRN 01/31/18 05/29/23 History Omeprazole [PriLOSEC] 40 mg PO DAILY 01/31/18 05/29/23 History Apixaban [Eliquis] 5 mg PO BID #60 tab 02/04/18 05/29/23 Rx Metoprolol Tartrate [Lopressor] 25 mg PO BID #60 tab 02/04/18 05/29/23 Rx Propafenone [Rythmol] 150 mg PO TID #90 tab 02/04/18 05/29/23 Rx Albuterol Inhaler [Ventolin Hfa 2 puff INHALATION RT-QID PRN 08/27/18 05/29/23 History Inhaler] Aspirin EC [Ecotrin Low Dose] 81 mg PO DAILY 08/27/18 05/29/23 History Pravastatin Sodium [Pravachol] 40 mg PO HS 08/27/18 05/29/23 History Furosemide [Lasix] 20 mg PO DAILY 09/26/22 05/29/23 History Potassium Chloride [Klor-Con M10] 10 meq PO DAILY 09/26/22 05/29/23 History traZODone HCL [Desyrel] 50 mg PO HS 09/26/22 05/29/23 History Cholecalciferol [Vitamin D3 (25 50 mcg PO DAILY 05/29/23 05/29/23 History Mcg = 1000 Iu)] Nintedanib Esylate [Ofev] 150 mg PO BID 05/29/23 05/29/23 History Sertraline [Zoloft] 100 mg PO DAILY 05/29/23 05/29/23 History lisinopriL [Zestril] 5 mg PO DAILY 05/29/23 05/29/23 History Allergies Allergy/AdvReac Type Severity Reaction Status Date / Time hydrocodone [From [place]] AdvReac Hallucinati Verified 05/29/23 13:59 ons/Nausea& vomiting Physical Exam Vitals: Vital Signs Temp Pulse Pulse Resp BP BP Pulse Ox 05/29/23 23:37 96.2 F L 82 22 127/77 98 05/29/23 20:17 137 H 05/29/23 19:57 124 H 97 05/29/23 18:43 123 H 24 161/99 98 05/29/23 16:39 121 H 18 149/93 100 05/29/23 16:09 112 H 05/29/23 15:53 108 H 05/29/23 13:55 97.5 F L 131 H 18 127/78 94 L Intake and Output 05/29/23 05/29/23 05/30/23 14:59 22:59 06:59 Other: Weight 112.037 kg GENERAL EXAM: Alert, 67-year-old white male, fairly comfortable in no apparent distress. HEAD: Normocephalic and atraumatic EYES: Normal reaction of pupils, equal size. NOSE: Clear with pink turbinates. THROAT: No erythema or exudates. NECK: No masses, no JVD. CHEST: No chest wall deformity. LUNGS: Equal air entry with bibasilar inspiratory rales/crackles. No wheezes, rhonchi, focal consolidation. On 3 L/m nasal cannula. No conversational dyspnea or accessory muscle use.. CVS: S1 and S2 normal with grade 3 systolic murmur, regular rhythm. No extra heart sounds. Tachycardic. ABDOMEN: No hepatosplenomegaly, active bowel sounds, no guarding or rigidity. SPINE: No scoliosis or deformity SKIN: No rashes CENTRAL NERVOUS SYSTEM: No focal deficits, tone is normal in all 4 extremities. EXTREMITIES: There is no peripheral edema, clubbing, or cyanosis. Peripheral pulses are intact. Results - Laboratory Findings CBC and BMP: 05/30/23 12:03 05/30/23 12:03 Abnormal lab findings: Abnormal Labs 05/29/23 05/29/2305/29/23 14:11 14:11 14:11 RBC Hgb 10.8 L Hct 34.5 L MCV 77.0 L MCH 24.2 L MCHC RDW 20.5 H APTT 31.5 H Sodium 132 L Carbon Dioxide 19 L BUN 7 L Creatinine 0.58 L Glucose 126 H POC Glucose (mg/dL) 05/29/23 05/29/23 05/29/23 17:14 20:30 21:50 RBC 4.07 L Hgb 9.7 L Hct 31.7 L MCV 77.8 L MCH 23.7 L MCHC 30.5 L RDW 20.5 H APTT Sodium Carbon Dioxide BUN Creatinine Glucose POC Glucose (mg/dL) 114 H 168 H - Diagnostic Findings Chest x-ray: image reviewed Assessment and Plan Assessment: Acute Covid 19 infection, tested positive on 05/30/2023, chest x-ray is consistent with chronic ILD consistent with pulmonary fibrosis. Superinfection with Covid 19 pneumonia is hard to exclude and this is felt to be less likely at this point in time. Acute GI bleeding , previous EGD and colonoscopy revealed no upper GI source of bleeding and the patient had a colonic diverticulosis. Suspected to have a small bowel source of bleeding. Capsule endoscopy has not been done. Acute blood loss anemia, secondary to above, hemoglobin is stable for now Acute on chronic hypoxemic respiratory failure, likely exacerbated by above, currently on 2 L of oxygen by nasal cannula Systolic heart murmur, likely high output, related to anemia History of paroxysmal atrial fibrillation, usually anticoagulated on Eliquis, currently on hold, the patient has been maintained on propafenone and metoprolol on an outpatient basis Biopsy-proven interstitial lung disease, UIP type, the patient has been maintained on Ofev on outpatient basis Chronic hypoxemic respiratory failure, secondary to above Chronic obstructive pulmonary disease, stable Diabetes mellitus 2, insulin-dependent and the patient has been maintained on Lantus insulin 90 units in addition NovoLog scale and metformin Hyperlipidemia Hypertension Obesity with a BMI of 35.4 kg/m Leukopenia, could be related to Covid 19 infection. Plan: Patient continues to have intermittent bloody bowel movements. There is GI coverage this week. Hold Eliquis. Hemoglobin is currently 9.7 gm/dl. Transfuse PRBC for hemoglobin less than 7 g/dL and/or hemodynamic instability. Protonix was added. Dyspnea is worse than baseline, presumably related to anemia. No obvious infectious process is noted on chest x-ray. Patient does have vague URI like symptoms. Rule out COVID-19, influenza, RSV. Patient will be monitored on the cardiac stepdown unit, further recommendations are forthcoming This is a joint evaluation that was done along with the nurse practitioner. This evaluation was on a more than 30 minutes. The patient's is presenting with an acute hypoxic respiratory failure and the patient has an underlying IPF that was biopsy-proven. The patient also has an acute GI bleed, acute blood loss anemia as the patient presented to the hospital with complaints of maroon color stool and generalized weakness and not feeling well along with shortness of breath. He is on anticoagulation regarding A. fib and he has had previous history of GI bleed in addition to several comorbidities. Patient is also Covid positive. In terms of previous GI workup regarding GI bleed, the patient has undergone previous EGDs and colonoscopy indicating moderate degree of diverticulosis in the sigmoid colon without any chronic masses and he was also suspected to have a small bowel source of GI bleed and previous EGD that showed no evidence of any acute bleeding. In terms of his Covid 19 infection, the patient was placed on steroids. We'll titrate FiO2 to maintain saturation above 90%. We'll consult GI regarding the GI bleed. Hemoglobin stable for now. Anticoagulation will be placed on hold for now. The patient is going to undergo a capsule endoscopy. We'll keep anticoagulation on hold. Will monitor the hemoglobin. GI services is on the case. We'll continue Decadron. Will monitor the blood sugars. Time with Patient: Greater than 30
[2023-05-30] MEDS ORDERED: ALBUTEROL HFA INHALER INHALATION PRN (03:03)
[2023-05-30] MEDS: DEXAMETHASONE SOD PHOSPHATE 10 MG/ML 1 ML VIAL IVP SCH ×2 (03:39→08:05)
[2023-05-30] MEDS ORDERED: metFORMIN 500 MG TAB PO SCH (07:30)
[2023-05-30] MEDS: ALBUTEROL HFA INHALER INHALATION SCH ×4 (07:37→21:14)
[2023-05-30] MEDS: SYMBICORT 160-4.5 MCG INHALER INHALATION SCH ×2 (07:37→21:14)
[2023-05-30] MEDS: METOPROLOL TARTRATE 25 MG TAB PO SCH ×2 (08:04→20:28)
[2023-05-30] MEDS: MONTELUKAST 10 MG TAB PO SCH (08:04)
[2023-05-30] MEDS: POTASSIUM CHLORIDE ER 10 MEQ TAB.ER.PRT PO SCH (08:04)
[2023-05-30] MEDS: lisinopriL 5 MG TAB PO SCH (08:04)
[2023-05-30] MEDS: SERTRALINE 100 MG TAB PO SCH (08:04)
[2023-05-30] MEDS: FUROSEMIDE 20 MG TAB PO SCH (08:04)
[2023-05-30] MEDS: amLODIPine 10 MG TAB PO SCH (08:08)
[2023-05-30] MEDS: PANTOPRAZOLE 40 MG/10 ML VIAL IV SCH (08:08)
[2023-05-30] MEDS: CHOLECALCIFEROL 25 MCG (1000 IU) TABLET PO SCH (08:08)
[2023-05-30 08:23] LABS: Glucose,Whole Blood 210 mg/dL (70-110)
[2023-05-30] MEDS: INSULIN DETEMIR (LEVEMIR) 100 UNIT/ML SYR SQ SCH (08:23)
[2023-05-30] MEDS: INSULIN ASPART (NovoLOG) 100 UNIT/ML VIAL SQ SCH ×4 (08:23→22:04)
[2023-05-30] MEDS: PROPAFENONE 150 MG TAB PO SCH ×3 (08:24→20:28)
[2023-05-30 12:15] LABS: Anisocytosis Slight; Basophils % (A) 0 %; Eosinophils % (A) 0 %; HCT 35.7 % (39.0-53.0); HGB 10.4 gm/dL (13.0-17.5); Hypochromasia Marked; Lymphocytes # (A) 0.5 k/uL (1.0-4.8); Lymphocytes % (A) 18 %; MCH 23.6 pg (25.0-35.0); MCHC 29.1 g/dL (31.0-37.0); MCV 81.1 fL (80.0-100.0); Mean Platelet Volume 7.4; Microcytosis Slight; Monocytes # (A) 0.1 k/uL (0-1.0); Monocytes % (A) 4 %; Neutrophils % (A) 76 %; Platelet Count 190 k/uL (150-450); Poikilocytosis Slight; RBC 4.41 m/uL (4.30-5.90); RDW 19.9 % (11.5-15.5); WBC 2.6 k/uL (3.8-10.6)
--- NOTE | 2023-05-30 12:21 | P.CONS ---
History of Present Illness - Reason for Consult Consult date: 05/30/23 GI bleed Requesting physician: Nehemias Aranda - Chief Complaint Shortness of breath, melena - History of Present Illness Visit pleasant 67-year-old male who presented to the emergency department yesterday evening with complaints of shortness of breath, not feeling well, weakness, chest pressure and complaints of maroon colored stool. Patient is on Eliquis for atrial fibrillation also has a history of recent GI bleed, asthma, coronary artery disease, COPD, diabetes mellitus, hyperlipidemia, hypertension history of fatty liver, choledocholithiasis status post ERCP in 2018. Patient is COVID POSITIVE this admission. He was recently hospitalized for about 1 week in February for a GI bleed at that time. Patient states he was feeling very weak and started having bloody bowel movements. He was hospitalized at [facility] and [employer] and underwent an EGD and colonoscopy. Reports were requested and colonoscopy done on 02/12/2023 reported moderate dive rticulosis noted in the sigmoid colon. No polyps or masses seen. Suspect bleeding is coming from a small bowel source. EGD report done on 02/12/2023 reported normal EGD without any ulcers or source of bleeding found. The patient also had a prior EGD done [place] [address] Isbell for melena that reported findings of a small hiatal hernia, diminutive gastric polyp status post polypectomy and mild gastritis. No evidence for active GI bleed at that time. Patient denies any abdominal pain or cramping with his bleeding. States it has been occurring for the last 2-3 day duration. Last dose of Eliquis and aspirin was 4 days ago. He denies any other NSAID use. Patient does state that he has diarrhea and has had for last 6 months duration with nausea and occasional vomiting from his medication Ofev which is a side effect Labs: WBC 4.5 hemoglobin 9.7 hematocrit 31.7 platelet count 169,000 sodium 132 potassium 3.6 BUN 7 creatinine 0.5 total bilirubin 0.9 AST 39 ALT 15 alkaline phosphatase 72 SARS-COV-2 PCR positive Review of Systems REVIEW OF SYSTEMS: CARDIOPULMONARY: Patient reports chest pressure and shortness of breath. Gastrointestinal: No abdominal pain. No nausea or vomiting. No hematemesis, coffee-ground emesis. Melena bright red blood and dark stool multiple bloody bowel movements over the last 2-3 days. GENITOURINARY: No dysuria or hematuria. MUSCULOSKELETAL: Reports normal range of motion. SKIN: No rashes. No jaundice. ENDOCRINE: No chills, fevers. No excessive weight gain or loss. No polydipsia or polyuria. PSYCHIATRIC: Unremarkable. NEUROLOGY: No change in mental status. Denies dizziness, headache. ENT: Vision unremarkable. CONSTITUTIONAL: Reports weakness, body aches, malaise. Past Medical History Past Medical History: Atrial Fibrillation, Asthma, Coronary Artery Disease (CAD) , Chest Pain / Angina, COPD, Diabetes Mellitus, GERD/Reflux, Hyperlipidemia, Hypertension, Liver Disease, Osteoarthritis (OA) Additional Past Medical History / Comment(s): IDDM type II, hx. frequent kidney stones, scarlet fever as a child, past asbestos exposure, vertigo, fatty liver, frequent edema lower legs-wears compression stockings, uses oxygen 2.5l prn, SOB w/exertion History of Any Multi-Drug Resistant Organisms: None Reported Past Surgical History: Cholecystectomy, Heart Catheterization, Hernia Repair, Orthopedic Surgery, Tonsillectomy Additional Past Surgical History / Comment(s): Cardiac cath treated medically, L knee arthroscopy, abdominal hernia repair, multiple kidney surgeries, colonoscopy, cataracts removed w/lens implants Past Anesthesia/Blood Transfusion Reactions: Previous Problems w/ Anesthesia Additional Past Anesthesia/Blood Transfusion Reaction / Comm: hx. of difficult intubation w/gallbladder surg. 2018, he's not sure what occured, doesn't know of any problems prior Past Psychological History: No Psychological Hx Reported Smoking Status: Former smoker Past Alcohol Use History: None Reported Past Drug Use History: None Reported - Past Family History Father Family Medical History: Myocardial Infarction ([place]) Additional Family Medical History / Comment(s): at age 52 from a heart attack Mother Family Medical History: Myocardial Infarction ([place]) Additional Family Medical History / Comment(s): at age 52 from a heart attack Sister(s) Family Medical History: Myocardial Infarction ([place]) Medications and Allergies Home Medications Medication Instructions Recorded Confirmed Type amLODIPine [Norvasc] 10 mg PO DAILY 09/11/16 05/29/23 History metFORMIN HCL [Glucophage] 1,000 mg PO BID 09/11/16 05/29/23 History Insulin Aspart [NovoLOG Flexpen] See Protocol SQ AC-TID 07/17/17 05/29/23 History Insulin Glargine,Hum.rec.anlog 80 - 90 unit SQ DAILY 07/17/17 05/29/23 History [Lantus Solostar Pen] Montelukast [Singulair] 10 mg PO DAILY 07/17/17 05/29/23 History Meclizine [Antivert] 25 mg PO TID PRN 01/31/18 05/29/23 History Omeprazole [PriLOSEC] 40 mg PO DAILY 01/31/18 05/29/23 History Apixaban [Eliquis] 5 mg PO BID #60 tab 02/04/18 05/29/23 Rx Metoprolol Tartrate [Lopressor] 25 mg PO BID #60 tab 02/04/18 05/29/23 Rx Propafenone [Rythmol] 150 mg PO TID #90 tab 02/04/18 05/29/23 Rx Albuterol Inhaler [Ventolin Hfa 2 puff INHALATION RT-QID PRN 08/27/18 05/29/23 History Inhaler] Aspirin EC [Ecotrin Low Dose] 81 mg PO DAILY 08/27/18 05/29/23 History Pravastatin Sodium [Pravachol] 40 mg PO HS 08/27/18 05/29/23 History Furosemide [Lasix] 20 mg PO DAILY 09/26/22 05/29/23 History Potassium Chloride [Klor-Con M10] 10 meq PO DAILY 09/26/22 05/29/23 History traZODone HCL [Desyrel] 50 mg PO HS 09/26/22 05/29/23 History Cholecalciferol [Vitamin D3 (25 50 mcg PO DAILY 05/29/23 05/29/23 History Mcg = 1000 Iu)] Nintedanib Esylate [Ofev] 150 mg PO BID 05/29/23 05/29/23 History Sertraline [Zoloft] 100 mg PO DAILY 05/29/23 05/29/23 History lisinopriL [Zestril] 5 mg PO DAILY 05/29/23 05/29/23 History Allergies Allergy/AdvReac Type Severity Reaction Status Date / Time hydrocodone [From [place]] AdvReac Hallucinati Verified 05/29/23 13:59 ons/Nausea& vomiting Physical Exam Vitals: Vital Signs Temp Pulse Pulse Resp BP BP Pulse Ox 05/30/23 08:26 97.6 F 96 18 119/94 95 05/30/23 03:54 97.5 F L 87 18 123/59 96 05/29/23 23:37 96.2 F L 82 22 127/77 98 05/29/23 20:17 137 H 05/29/23 19:57 124 H 97 05/29/23 18:43 123 H 24 161/99 98 05/29/23 16:39 121 H 18 149/93 100 05/29/23 16:09 112 H 05/29/23 15:53 108 H 05/29/23 13:55 97.5 F L 131 H 18 127/78 94 L Intake and Output 05/29/23 05/30/23 05/30/23 22:59 06:59 14:59 Intake Total 480 Output Total 300 1000 Balance 180 -1000 Intake: IV 480 Sodium Chloride 0.9% 1, 480 000 ml @ 80 mls/hr IV . [id number] STA Rx#:[id number] Output: Urine 300 1000 Other: Voiding Method Toilet Urinal General appearance: The patient is alert, oriented, appears in no acute distress. HET: Head is normocephalic and atraumatic. Conjunctiva pink. Sclera anicteric. Neck: Supple without lymphadenopathy. Trachea midline. Heart: Regular. Lungs: Equal expansion, normal respiratory effort. Abdomen: Soft, nontender, nondistended with bowel sounds. No guarding or rigidity. Skin: No rashes. No jaundice. Extremities: Normal skin color and turgor. No pedal edema. Neurological: No focal deficits. Alert and oriented x3. Results CBC & Chem 7: 05/29/23 21:50 05/29/23 14:11 Labs: Abnormal Lab Results - Last 24 Hours (Table) 05/29/23 05/29/23 05/29/23 Range/Units 14:11 14:11 14:11 RBC (4.30-5.90) m/uL Hgb 10.8 L (13.0-17.5) gm/dL Hct 34.5 L (39.0-53.0) % MCV 77.0 L (80.0-100.0) fL MCH 24.2 L (25.0-35.0) pg MCHC (31.0-37.0) g/dL RDW 20.5 H (11.5-15.5) % APTT 31.5 H (22.0-30.0) sec Sodium 132 L (137-145) mmol/L Carbon Dioxide 19 L (22-30) mmol/L BUN 7 L (9-20) mg/dL Creatinine 0.58 L (0.66-1.25) mg/dL Glucose 126 H (74-99) mg/dL POC Glucose (mg/dL) (70-110) mg/dL SARS-CoV-2 (PCR) (Not Detectd) 05/29/23 05/29/23 05/29/23 Range/Units 17:14 20:30 21:50 RBC 4.07 L (4.30-5.90) m/uL Hgb 9.7 L (13.0-17.5) gm/dL Hct 31.7 L (39.0-53.0) % MCV 77.8 L (80.0-100.0) fL MCH 23.7 L (25.0-35.0) pg MCHC 30.5 L (31.0-37.0) g/dL RDW 20.5 H (11.5-15.5) % APTT (22.0-30.0) sec Sodium (137-145) mmol/L Carbon Dioxide (22-30) mmol/L BUN (9-20) mg/dL Creatinine (0.66-1.25) mg/dL Glucose (74-99) mg/dL POC Glucose (mg/dL) 114 H 168 H (70-110) mg/dL SARS-CoV-2 (PCR) (Not Detectd) 05/30/23 05/30/23 Range/Units 01:58 08:22 RBC (4.30-5.90) m/uL Hgb (13.0-17.5) gm/dL Hct (39.0-53.0) % MCV (80.0-100.0) fL MCH (25.0-35.0) pg MCHC (31.0-37.0) g/dL RDW (11.5-15.5) % APTT (22.0-30.0) sec Sodium (137-145) mmol/L Carbon Dioxide (22-30) mmol/L BUN (9-20) mg/dL Creatinine (0.66-1.25) mg/dL Glucose (74-99) mg/dL POC Glucose (mg/dL) 210 H (70-110) mg/dL SARS-CoV-2 (PCR) Detected A (Not Detectd) Assessment and Plan (1) GI bleed Narrative/Plan: This 67-year-old male presenting for shortness of breath, weakness, malaise and GI bleed was diagnosed with COVID-19 having has had at least 2 prior GI bleeds on Xarelto for atrial fibrillation. Patient's most recent GI bleed was in February of this year where he was admitted to [facility] and underwent EGD and colonoscopy without any findings of active GI bleed. EGD normal colonoscopy reported diverticulosis with suspected small bowel bleed. Patient states he was recommended to undergo outpatient small bowel capsule endoscopy however since he wasn't having any bleeding [facility]. Xarelto has been on hold since Sunday, bleeding is improving now more of a maroon color. Plan for small bowel capsule endoscopy tomorrow morning. Current Visit: Yes Status: Acute Code(s): K92.2 - GASTROINTESTINAL HEMORRHAGE, UNSPECIFIED SNOMED Code(s): 04109070 (2) Anemia Current Visit: Yes Status: Acute Code(s): D64.9 - ANEMIA, UNSPECIFIED SNOMED Code(s): 968637375 (3) Dyspnea Current Visit: Yes Status: Acute Code(s): R06.00 - DYSPNEA, UNSPECIFIED SNOMED Code(s): 629588840 (4) Weakness Current Visit: Yes Status: Acute Code(s): R53.1 - WEAKNESS SNOMED Code(s): 20763420 (5) SARS-CoV-2 positive Current Visit: Yes Status: Acute Code(s): U07.1 - COVID-19 SNOMED Code(s): 7330408473657142 (6) Atrial fibrillation Current Visit: No Status: Acute Code(s): I48.91 - UNSPECIFIED ATRIAL FIBRIL LATION SNOMED Code(s): 15448510 Plan: 1. Continue symptomatic and supportive care 2. Patient may have consistent carbohydrate diet 3. Nothing by mouth after midnight 4. Magnesium sulfate this evening 5. Protonix 40 mg twice a day 6. Hold anticoagulation 7. Recent EGD and colonoscopy from [facility] on his skin that to chart and reviewed. 8. Patient is scheduled for small bowel capsule endoscopy tomorrow 9. Further recommendations forthcoming pending clinical course For this consultation, and we will continue to follow. Dr. Shelli Krishnan I agree with the dictator's note, documented as a scribe by Michelle Leal.
[2023-05-30 12:33] LABS: African American GFR (CKD) >90 (>60 ml/min/1.73 sqM); Anion Gap 13 mmol/L; Blood Urea Nitrogen 11 mg/dL (9-20); Calcium 8.2 mg/dL (8.4-10.2); Carbon Dioxide 22 mmol/L (22-30); Chloride 101 mmol/L (98-107); Glucose 244 mg/dL (74-99); Non-African American GFR(CKD) >90 (>60 ml/min/1.73 sqM); Sodium 136 mmol/L (137-145)
--- NOTE | 2023-05-30 12:50 | P.PN ---
Subjective Progress Note Date: 05/30/23 Hospital Course: 67-year-old male with history of chronic atrial fibrillation on anticoagulation, CAD, hypertension, dyslipidemia, COPD, interstitial lung disease, MARISA on CPAP, type 2 diabetes with neuropathy, nonalcoholic fatty liver disease, GERD, mood disorder presenting with bright red blood per rectum. In the ED, temperature was 97.5, pulse 131, blood pressure 127/78, saturating at 94% on room air. Hemoglobin 10.8, down from baseline. MCV 77, platelet 198, APTT 31.5, sodium 1 32, potassium 3.6, bicarb 19, creatinine 0.58, glucose 126, troponin negative. Patient being admitted for atrial fibrillation with RVR as well as acute lower GI bleed. GI consulted. Pending capsule endoscopy tomorrow. Patient also found to be COVID-19 positive. Subjective: Patient seen and examined at bedside. No acute events overnight. Breathing better. Pertinent positives and negatives as discussed above, a complete review of systems was performed and all other systems are negative. Vitals Signs Reviewed. General: nontoxic, no distress, appears at stated age Derm: warm, dry Head: atraumatic, normocephalic, symmetric Eyes: EOMI, no lid lag, anicteric sclera, pupils equal round reactive to light ENT: Nose and ears atraumatic Neck: No thyromegaly, supple Mouth: no lip lesion, mucus membranes moist Cardiovascular: S1S2 reg, no murmur, no edema Lungs: Bilateral rales, no wheeze, no accessory muscle use, supplemental oxygen Abdominal: soft, nontender to palpation, no guarding, no appreciable organomegaly Ext: no gross muscle atrophy, muscle strength muscle strength 5 out of 5 in all 4 extremities, no contractures Neuro: CN II-XII grossly intact Psych: Alert, oriented, appropriate affect Data Reviewed Today: Pertinent Labs: WBC 2.6, hemoglobin 10.4, sodium 136, creatinine 0.65, blood sugars range between 168-244, COVID-19 positive Imaging: No new imaging Assessment and Plan: Patient is critically ill, observation status change when patient. Active: Acute blood loss anemia, hemoglobin stable Acute lower GI bleed History of Moderate diverticulosis -CBC every 12 hours -Personally discussed management with GI, capsule endoscopy tomorrow -Reviewed prior EGD and colonoscopy report, has moderate diverticulosis -Hemodynamically stable -Pantoprazole 40 mg IV daily Acute COVID-19 syndrome Acute on chronic hypoxic respiratory failure Acute on chronic dyspnea History of ILD -Wean oxygen -Pulmonology note reviewed, continue current management -Dyspnea Likely related to anemia and acute COVID-19 syndrome -Started on Decadron 6 mg IV daily, monitor blood sugars Atrial fibrillation with RVR, now in sinus rhythm -Continue propafenone 150 3 times a day -Metoprolol 25 twice a day -Hold anticoagulation -Patient will likely need outpatient follow-up to either restart anti- coagulation or consider watchman device Anion gap metabolic acidosis, resolved Mild hyponatremia, resolving -Repeat BMP tomorrow Type 2 diabetes with neuropathy -Sliding scale insulin, monitor for hypoglycemia -Continue Lantus 40 units as patient is nothing by mouth tomorrow morning -Increase back to home dose when patient able to tolerate full diet -Hold metformin Chronic: CAD, hold aspirin Hypertension Dyslipidemia COPD MARISA on CPAP GERD Mood disorder DVT ppx: SCDs Code status: Full code Anticipated discharge place: Pending clinical course Anticipated discharge time: Pending clinical course Objective - Vital Signs Vital signs: Vital Signs Temp 97.6 F 05/30/23 08:26 Pulse 80 05/30/23 12:04 Resp 18 05/30/23 12:04 BP 117/75 05/30/23 12:04 Pulse Ox 95 05/30/23 12:04 FiO2 Intake & Output 05/29/23 05/30/23 05/30/23 18:59 06:59 18:59 Intake Total 480 Output Total 300 1000 Balance 180 -1000 Weight 112.037 kg Intake: IV 480 Sodium Chloride 0.9% 1, 480 000 ml @ 80 mls/hr IV . [id number] STA Rx#:[id number] Output: Urine 300 1000 Other: Voiding Method Toilet Urinal - Labs CBC & Chem 7: 05/30/23 12:03 05/30/23 12:03 Labs: Abnormal Lab Results - Last 24 Hours (Table) 05/29/23 05/29/23 05/29/23 Range/Units 14:11 14:11 14:11 WBC (3.8-10.6) k/uL RBC (4.30-5.90) m/uL Hgb 10.8 L (13.0-17.5) gm/dL Hct 34.5 L (39.0-53.0) % MCV 77.0 L (80.0-100.0) fL MCH 24.2 L (25.0-35.0) pg MCHC (31.0-37.0) g/dL RDW 20.5 H (11.5-15.5) % Lymphocytes # (1.0-4.8) k/uL APTT 31.5 H (22.0-30.0) sec Sodium 132 L (137-145) mmol/L Carbon Dioxide 19 L (22-30) mmol/L BUN 7 L (9-20) mg/dL Creatinine 0.58 L (0.66-1.25) mg/dL Glucose 126 H (74-99) mg/dL POC Glucose (mg/dL) (70-110) mg/dL Calcium (8.4-10.2) mg/dL SARS-CoV-2 (PCR) (Not Detectd) 05/29/23 05/29/23 05/29/23 Range/Units 17:14 20:30 21:50 WBC (3.8-10.6) k/uL RBC 4.07 L (4.30-5.90) m/uL Hgb 9.7 L (13.0-17.5) gm/dL Hct 31.7 L (39.0-53.0) % MCV 77.8 L (80.0-100.0) fL MCH 23.7 L (25.0-35.0) pg MCHC 30.5 L (31.0-37.0) g/dL RDW 20.5 H (11.5-15.5) % Lymphocytes # (1.0-4.8) k/uL APTT (22.0-30.0) sec Sodium (137-145) mmol/L Carbon Dioxide (22-30) mmol/L BUN (9-20) mg/dL Creatinine (0.66-1.25) mg/dL Glucose (74-99) mg/dL POC Glucose (mg/dL) 114 H 168 H (70-110) mg/dL Calcium (8.4-10.2) mg/dL SARS-CoV-2 (PCR) (Not Detectd) 05/30/23 05/30/23 05/30/23 Range/Units 01:58 08:22 12:03 WBC (3.8-10.6) k/uL RBC (4.30-5.90) m/uL Hgb (13.0-17.5) gm/dL Hct (39.0-53.0) % MCV (80.0-100.0) fL MCH (25.0-35.0) pg MCHC (31.0-37.0) g/dL RDW (11.5-15.5) % Lymphocytes # (1.0-4.8) k/uL APTT (22.0-30.0) sec Sodium 136 L (137-145) mmol/L Carbon Dioxide (22-30) mmol/L BUN (9-20) mg/dL Creatinine 0.65 L (0.66-1.25) mg/dL Glucose 244 H (74-99) mg/dL POC Glucose (mg/dL) 210 H (70-110) mg/dL Calcium 8.2 L (8.4-10.2) mg/dL SARS-CoV-2 (PCR) Detected A (Not Detectd) 05/30/23 Range/Units 12:03 WBC 2.6 L (3.8-10.6) k/uL RBC (4.30-5.90) m/uL Hgb 10.4 L (13.0-17.5) gm/dL Hct 35.7 L (39.0-53.0) % MCV (80.0-100.0) fL MCH 23.6 L (25.0-35.0) pg MCHC 29.1 L (31.0-37.0) g/dL RDW 19.9 H (11.5-15.5) % Lymphocytes # 0.5 L (1.0-4.8) k/uL APTT (22.0-30.0) sec Sodium (137-145) mmol/L Carbon Dioxide (22-30) mmol/L BUN (9-20) mg/dL Creatinine (0.66-1.25) mg/dL Glucose (74-99) mg/dL POC Glucose (mg/dL) (70-110) mg/dL Calcium (8.4-10.2) mg/dL SARS-CoV-2 (PCR) (Not Detectd)
[2023-05-30 14:23] LABS: Glucose,Whole Blood 322 mg/dL (70-110)
[2023-05-30 16:55] LABS: Glucose,Whole Blood 240 mg/dL (70-110)
[2023-05-30] MEDS ORDERED: MAGNESIUM CITRATE 296 ML BOTTLE PO ONE (20:00)
[2023-05-30] MEDS: PRAVASTATIN SODIUM 40 MG TAB PO SCH (20:28)
[2023-05-30] MEDS: traZODone HCL 50 MG TAB PO SCH (20:28)
[2023-05-30 20:43] LABS: Glucose,Whole Blood 268 mg/dL (70-110)
[2023-05-31 00:21] LABS: Anisocytosis Moderate; Basophils % (A) 0 %; Eosinophils % (A) 0 %; HCT 33.6 % (39.0-53.0); HGB 10.4 gm/dL (13.0-17.5); Hypochromasia Marked; Lymphocytes # (A) 0.9 k/uL (1.0-4.8); Lymphocytes % (A) 15 %; MCH 24.5 pg (25.0-35.0); MCHC 30.9 g/dL (31.0-37.0); MCV 79.4 fL (80.0-100.0); Mean Platelet Volume 8.4; Microcytosis Slight; Monocytes # (A) 0.4 k/uL (0-1.0); Monocytes % (A) 7 %; Neutrophils # (A) 4.7 k/uL (1.3-7.7); Neutrophils % (A) 77 %; Platelet Count 230 k/uL (150-450); Poikilocytosis Slight; RBC 4.23 m/uL (4.30-5.90); RDW 20.3 % (11.5-15.5); WBC 6.1 k/uL (3.8-10.6)
[2023-05-31 05:58] LABS: Glucose,Whole Blood 241 mg/dL (70-110)
[2023-05-31] MEDS: INSULIN ASPART (NovoLOG) 100 UNIT/ML VIAL SQ SCH ×4 (06:19→21:22)
[2023-05-31] MEDS ORDERED: SIMETHICONE 40 MG/0.6 ML DROPS 2,000 MG/30 ML BOTTLE PO ONE (07:20)
[2023-05-31] MEDS: ALBUTEROL HFA INHALER INHALATION SCH ×4 (08:05→22:12)
[2023-05-31] MEDS: SYMBICORT 160-4.5 MCG INHALER INHALATION SCH ×2 (08:05→22:12)
[2023-05-31 08:49] LABS: Anisocytosis Moderate; Basophils % (A) 0 %; Eosinophils % (A) 0 %; HCT 33.1 % (39.0-53.0); Hypochromasia Marked; Lymphocytes % (A) 15 %; MCH 24.4 pg (25.0-35.0); MCHC 30.4 g/dL (31.0-37.0); MCV 80.2 fL (80.0-100.0); Mean Platelet Volume 8.1; Microcytosis Slight; Monocytes # (A) 0.5 k/uL (0-1.0); Monocytes % (A) 7 %; Neutrophils # (A) 4.8 k/uL (1.3-7.7); Neutrophils % (A) 76 %; Platelet Count 203 k/uL (150-450); Poikilocytosis Slight; RBC 4.12 m/uL (4.30-5.90); RDW 20.3 % (11.5-15.5); WBC 6.3 k/uL (3.8-10.6)
[2023-05-31] MEDS: INSULIN DETEMIR (LEVEMIR) 100 UNIT/ML SYR SQ SCH (08:49)
[2023-05-31 09:01] LABS: African American GFR (CKD) >90 (>60 ml/min/1.73 sqM); Anion Gap 12 mmol/L; Blood Urea Nitrogen 13 mg/dL (9-20); Calcium 8.4 mg/dL (8.4-10.2); Carbon Dioxide 25 mmol/L (22-30); Chloride 100 mmol/L (98-107); Glucose 229 mg/dL (74-99); Non-African American GFR(CKD) >90 (>60 ml/min/1.73 sqM); Sodium 137 mmol/L (137-145)
[2023-05-31 12:00] LABS: Glucose,Whole Blood 220 mg/dL (70-110)
[2023-05-31] MEDS: DEXAMETHASONE SOD PHOSPHATE 10 MG/ML 1 ML VIAL IVP SCH (12:02)
[2023-05-31] MEDS: PANTOPRAZOLE 40 MG/10 ML VIAL IV SCH (12:02)
[2023-05-31] MEDS: lisinopriL 5 MG TAB PO SCH (12:03)
[2023-05-31] MEDS: FUROSEMIDE 20 MG TAB PO SCH (12:03)
[2023-05-31] MEDS: POTASSIUM CHLORIDE ER 10 MEQ TAB.ER.PRT PO SCH (12:03)
[2023-05-31] MEDS: amLODIPine 10 MG TAB PO SCH (12:03)
[2023-05-31] MEDS: MONTELUKAST 10 MG TAB PO SCH (12:03)
[2023-05-31] MEDS: SERTRALINE 100 MG TAB PO SCH (12:04)
[2023-05-31] MEDS: CHOLECALCIFEROL 25 MCG (1000 IU) TABLET PO SCH (12:04)
[2023-05-31] MEDS: METOPROLOL TARTRATE 25 MG TAB PO SCH ×2 (12:05→21:23)
[2023-05-31] MEDS: PROPAFENONE 150 MG TAB PO SCH ×3 (12:05→21:23)
--- NOTE | 2023-05-31 12:06 | P.PN ---
Subjective Progress Note Date: 05/31/23 This is a pleasant 67-year-old male who presented to the emergency department yesterday evening with complaints of shortness of breath, not feeling well, weakness, chest pressure and complaints of maroon colored stool. Patient is on Eliquis for atrial fibrillation also has a history of recent GI bleed, asthma, coronary artery disease, COPD, diabetes mellitus, hyperlipidemia, hypertension history of fatty liver, choledocholithiasis status post ERCP in 2018. Patient is COVID POSITIVE this admission. He was recently hospitalized for about 1 week in February for a GI bleed at that time. Patient states he was feeling very weak and started having bloody bowel movements. He was hospitalized at [facility] and [facility] and underwent an EGD and colonoscopy. Reports were requested and colonoscopy done on 02/12/2023 reported moderate diverticulosis noted in the sigmoid colon. No polyps or masses seen. Suspect bleeding is coming from a small bowel source. EGD report done on 02/12/2023 reported normal EGD without any ulcers or source of bleeding found. The patient also had a prior EGD done in [address] Isbell for melena that reported findings of a small hiatal hernia, diminutive gastric polyp status post polypectomy and mild gastritis. No evidence for active GI bleed at that time. Patient denies any abdominal pain or cramping with his bleeding. States it has been occurring for the last 2-3 day duration. Last dose of Eliquis and aspirin was 4 days ago. He denies any other NSAID use. Patient does state that he has diarrhea and has had for last 6 months duration with nausea and occasional vomiting from his medication Ofev which is a side effect Labs: WBC 4.5 hemoglobin 9.7 hematocrit 31.7 platelet count 169,000 sodium 132 potassium 3.6 BUN 7 creatinine 0.5 total bilirubin 0.9 AST 39 ALT 15 alkaline phosphatase 72 SARS-COV-2 PCR positive 05/31/2023 Patient seen and examined today as a follow-up. Today he is undergoing a small capsule endoscopy. Patient denies any further bowel movement and no black stools, or rectal bleeding. Denies any abdominal pain, nausea or vomiting. Hemoglobin is stable at 10.0 from 10.4 yesterday. Objective - Vital Signs Vital signs: Vital Signs Temp 97.5 F L 05/31/23 08:05 Pulse 60 05/31/23 08:05 Resp 20 05/31/23 08:05 BP 131/68 05/31/23 08:05 Pulse Ox 100 05/31/23 08:05 FiO2 Intake & Output 05/30/23 05/31/23 05/31/23 18:59 06:59 18:59 Output Total 1000 Balance -1000 Weight 69.5 kg Output: Urine 1000 Other: Voiding Method Toilet Urinal # Voids 1 1 # Bowel Movements 1 - Exam General appearance: The patient is alert, oriented, appears in no acute distress. HET: Head is normocephalic and atraumatic. Conjunctiva pink. Sclera anicteric. Neck: Supple without lymphadenopathy. Abdomen: Soft, nontender, nondistended. No guarding or rigidity. Camera around waist. Extremities: Normal skin color and turgor. No pedal edema Skin: No rashes, no jaundice Neurological: No focal deficits. Alert and oriented. - Labs CBC & Chem 7: 05/31/23 07:58 05/31/23 07:58 Labs: Abnormal Lab Results - Last 24 Hours (Table) 05/30/23 05/30/23 05/30/23 Range/Units 12:03 12:03 12:03 WBC 2.6 L (3.8-10.6) k/uL RBC (4.30-5.90) m/uL Hgb 10.4 L (13.0-17.5) gm/dL Hct 35.7 L (39.0-53.0) % MCV (80.0-100.0) fL MCH 23.6 L (25.0-35.0) pg MCHC 29.1 L (31.0-37.0) g/dL RDW 19.9 H (11.5-15.5) % Lymphocytes # 0.5 L (1.0-4.8) k/uL Sodium 136 L (137-145) mmol/L Creatinine 0.65 L (0.66-1.25) mg/dL Glucose 244 H (74-99) mg/dL POC Glucose (mg/dL) (70-110) mg/dL Hemoglobin A1c 6.6 H (<=6.0) % Calcium 8.2 L (8.4-10.2) mg/dL 05/30/23 05/30/23 05/30/23 Range/Units 14:21 16:53 20:42 WBC (3.8-10.6) k/uL RBC (4.30-5.90) m/uL Hgb (13.0-17.5) gm/dL Hct (39.0-53.0) % MCV (80.0-100.0) fL MCH (25.0-35.0) pg MCHC (31.0-37.0) g/dL RDW (11.5-15.5) % Lymphocytes # (1.0-4.8) k/uL Sodium (137-145) mmol/L Creatinine (0.66-1.25) mg/dL Glucose (74-99) mg/dL POC Glucose (mg/dL) 322 H 240 H 268 H (70-110) mg/dL Hemoglobin A1c (<=6.0) % Calcium (8.4-10.2) mg/dL 05/30/23 05/31/23 05/31/23 Range/Units 23:50 05:57 07:58 WBC (3.8-10.6) k/uL RBC 4.23 L (4.30-5.90) m/uL Hgb 10.4 L (13.0-17.5) gm/dL Hct 33.6 L (39.0-53.0) % MCV 79.4 L (80.0-100.0) fL MCH 24.5 L (25.0-35.0) pg MCHC 30.9 L (31.0-37.0) g/dL RDW 20.3 H (11.5-15.5) % Lymphocytes # 0.9 L (1.0-4.8) k/uL Sodium (137-145) mmol/L Creatinine 0.58 L (0.66-1.25) mg/dL Glucose 229 H (74-99) mg/dL POC Glucose (mg/dL) 241 H (70-110) mg/dL Hemoglobin A1c (<=6.0) % Calcium (8.4-10.2) mg/dL 05/31/23 Range/Units 07:58 WBC (3.8-10.6) k/uL RBC 4.12 L (4.30-5.90) m/uL Hgb 10.0 L (13.0-17.5) gm/dL Hct 33.1 L (39.0-53.0) % MCV (80.0-100.0) fL MCH 24.4 L (25.0-35.0) pg MCHC 30.4 L (31.0-37.0) g/dL RDW 20.3 H (11.5-15.5) % Lymphocytes # (1.0-4.8) k/uL Sodium (137-145) mmol/L Creatinine (0.66-1.25) mg/dL Glucose (74-99) mg/dL POC Glucose (mg/dL) (70-110) mg/dL Hemoglobin A1c (<=6.0) % Calcium (8.4-10.2) mg/dL Assessment and Plan (1) GI bleed Narrative/Plan: This 67-year-old male presenting for shortness of breath, weakness, malaise and GI bleed was diagnosed with COVID-19 having has had at least 2 prior GI bleeds on Xarelto for atrial fibrillation. Patient's most recent GI bleed was in February of this year where he was admitted to [facility] and underwent EGD and colonoscopy without any findings of active GI bleed. EGD normal colonoscopy reported diverticulosis with suspected small bowel bleed. Patient states he was recommended to undergo outpatient small bowel capsule endoscopy however since he wasn't having any bleeding [facility]. Xarelto has been on hold since Sunday, bleeding is improving now more of a maroon color. Plan for small bowel capsule endoscopy tomorrow morning. 05/31/2023 Capsule endoscopy underway. Patient reports no further bleeding. Current Visit: Yes Status: Acute Code(s): K92.2 - GASTROINTESTINAL HEMORRHAGE, UNSPECIFIED SNOMED Code(s): 59060531 (2) Anemia Current Visit: Yes Status: Acute Code(s): D64.9 - ANEMIA, UNSPECIFIED SNOMED Code(s): 158751231 (3) Dyspnea Current Visit: Yes Status: Acute Code(s): R06.00 - DYSPNEA, UNSPECIFIED SNOMED Code(s): 937625656 (4) Weakness Current Visit: Yes Status: Acute Code(s): R53.1 - WEAKNESS SNOMED Code(s): 51256199 (5) SARS-CoV-2 positive Current Visit: Yes Status: Acute Code(s): U07.1 - COVID-19 SNOMED Code(s): 7307043729468815 (6) Atrial fibrillation Current Visit: No Status: Acute Code(s): I48.91 - UNSPECIFIED ATRIAL FIBRIL LATION SNOMED Code(s): 73313179 Plan: 1. Continue symptomatic and supportive care 2. Patient may have consistent carbohydrate diet for lunch 3. Protonix 40 mg twice a day 4. Hold anticoagulation 5. Recent EGD and colonoscopy from [facility] on his skin that to chart and reviewed. 6. Patient currently undergoing small bowel video capsule endoscopy 7. Further recommendations forthcoming pending clinical course Thank you For this consultation, we will continue to follow. Dr. Shelli Krishnan I agree with the dictator's note, documented as a scribe by Michelle Leal.
[2023-05-31 12:39] VITALS: BMI 21.9
--- NOTE | 2023-05-31 12:45 | P.PN ---
Subjective Progress Note Date: 05/31/23 Hospital Course: 67-year-old male with history of chronic atrial fibrillation on anticoagulation, CAD, hypertension, dyslipidemia, COPD, interstitial lung disease, MARISA on CPAP, type 2 diabetes with neuropathy, nonalcoholic fatty liver disease, GERD, mood disorder presenting with bright red blood per rectum. In the ED, temperature was 97.5, pulse 131, blood pressure 127/78, saturating at 94% on room air. Hemoglobin 10.8, down from baseline. MCV 77, platelet 198, APTT 31.5, sodium 132, potassium 3.6, bicarb 19, creatinine 0.58, glucose 126, troponin negative. Patient being admitted for atrial fibrillation with RVR as well as acute lower GI bleed. GI consulted. Patient also found to be COVID-19 positive. Capsule endoscopy pending today. Subjective: Patient seen and examined at bedside. No acute events overnight. Breathing better. Pertinent positives and negatives as discussed above, a complete review of systems was performed and all other systems are negative. Vitals Signs Reviewed. General: nontoxic, no distress, appears at stated age Derm: warm, dry Head: atraumatic, normocephalic, symmetric Eyes: EOMI, no lid lag, anicteric sclera, pupils equal round reactive to light ENT: Nose and ears atraumatic Neck: No thyromegaly, supple Mouth: no lip lesion, mucus membranes moist Cardiovascular: S1S2 reg, no murmur, no edema Lungs: Bilateral rales, no wheeze, no accessory muscle use, supplemental oxygen Abdominal: soft, nontender to palpation, no guarding, no appreciable organomegaly Ext: no gross muscle atrophy, muscle strength muscle strength 5 out of 5 in all 4 extremities, no contractures Neuro: CN II-XII grossly intact Psych: Alert, oriented, appropriate affect Data Reviewed Today: Pertinent Labs: WBC 6.3, hemoglobin 10, creatinine 0.58, blood sugars range between 220-241 Imaging: No new imaging Assessment and Plan: Active: Acute blood loss anemia, hemoglobin stable Acute lower GI bleed History of Moderate diverticulosis -CBC every 12 hours -Personally discussed management with GI, capsule endoscopy today -Hemodynamically stable -Pantoprazole 40 mg IV daily Acute COVID-19 syndrome Acute on chronic hypoxic respiratory failure Acute on chronic dyspnea History of ILD -Wean oxygen -Pulmonology following, continue current management -Dyspnea Likely related to anemia and acute COVID-19 syndrome -On Decadron 6 mg IV daily, monitor blood sugars Atrial fibrillation with RVR, now in sinus rhythm -Continue propafenone 150 3 times a day -Metoprolol 25 twice a day -Hold anticoagulation -Patient will likely need outpatient follow-up to either restart anti- coagulation or consider watchman device Anion gap metabolic acidosis, resolved Mild hyponatremia, resolved Type 2 diabetes with neuropathy -Sliding scale insulin, monitor for hypoglycemia -Lantus increased back to 80 units daily -Hold metformin Chronic: CAD, hold aspirin Hypertension Dyslipidemia COPD MARISA on CPAP GERD Mood disorder DVT ppx: SCDs Code status: Full code Anticipated discharge place: Pending clinical course Anticipated discharge time: Pending clinical course Objective - Vital Signs Vital signs: Vital Signs Temp 97.5 F L 05/31/23 08:05 Pulse 60 05/31/23 08:05 Resp 20 05/31/23 08:05 BP 131/68 05/31/23 08:05 Pulse Ox 100 05/31/23 08:05 FiO2 Intake & Output 05/30/23 05/31/23 05/31/23 18:59 06:59 18:59 Output Total 1000 Balance -1000 Weight 69.5 kg 69.5 kg Output: Urine 1000 Other: Voiding Method Toilet Urinal # Voids 1 1 # Bowel Movements 1 - Labs CBC & Chem 7: 05/31/23 07:58 05/31/23 07:58 Labs: Abnormal Lab Results - Last 24 Hours (Table) 05/30/23 05/30/23 05/30/23 Range/Units 12:03 14:21 16:53 RBC (4.30-5.90) m/uL Hgb (13.0-17.5) gm/dL Hct (39.0-53.0) % MCV (80.0-100.0) fL MCH (25.0-35.0) pg MCHC (31.0-37.0) g/dL RDW (11.5-15.5) % Lymphocytes # (1.0-4.8) k/uL Creatinine (0.66-1.25) mg/dL Glucose (74-99) mg/dL POC Glucose (mg/dL) 322 H 240 H (70-110) mg/dL Hemoglobin A1c 6.6 H (<=6.0) % 05/30/23 05/30/23 05/31/23 Range/Units 20:42 23:50 05:57 RBC 4.23 L (4.30-5.90) m/uL Hgb 10.4 L (13.0-17.5) gm/dL Hct 33.6 L (39.0-53.0) % MCV 79.4 L (80.0-100.0) fL MCH 24.5 L (25.0-35.0) pg MCHC 30.9 L (31.0-37.0) g/dL RDW 20.3 H (11.5-15.5) % Lymphocytes # 0.9 L (1.0-4.8) k/uL Creatinine (0.66-1.25) mg/dL Glucose (74-99) mg/dL POC Glucose (mg/dL) 268 H 241 H (70-110) mg/dL Hemoglobin A1c (<=6.0) % 05/31/23 05/31/23 05/31/23 Range/Units 07:58 07:58 11:59 RBC 4.12 L (4.30-5.90) m/uL Hgb 10.0 L (13.0-17.5) gm/dL Hct 33.1 L (39.0-53.0) % MCV (80.0-100.0) fL MCH 24.4 L (25.0-35.0) pg MCHC 30.4 L (31.0-37.0) g/dL RDW 20.3 H (11.5-15.5) % Lymphocytes # (1.0-4.8) k/uL Creatinine 0.58 L (0.66-1.25) mg/dL Glucose 229 H (74-99) mg/dL POC Glucose (mg/dL) 220 H (70-110) mg/dL Hemoglobin A1c (<=6.0) %
--- NOTE | 2023-05-31 16:09 | P.PN ---
Subjective Progress Note Date: 05/31/23 I am seeing this patient in consultation today 05/30/2023 in the emergency room after presenting with acute GI bleed. Patient is a 67-year-old white male with past medical history significant for previous GI bleed back in February,, atrial fibrillation anticoagulated on Eliquis, interstitial lung disease UIP type on Ofev, opiate, former tobacco smoker, hyperlipidemia, hypertension, coronary artery disease, diabetes, among other things. Patient presented to the emergency room yesterday late afternoon complaining of multiple episodes of bloody bowel movements over the last 3 days. Bowel movements described as diarrhea with dark stool that turn the toilet water red. He does admit some nausea and vomiting and retching mostly associated after taking his Ofev. Denies any hematemesis. Denies any significant abdominal pain. He did recently undergo a colonoscopy and EGD at outside facility back in February, for similar symptoms. Per the patient, they were not able to locate any bleeding. He is on Eliquis outpatient. Hemoglobin is down to 9.7, baseline is 13-14 g/dL. He has had some associated shortness of breath and fatigue. He is anemic. He does have history of biopsy-proven interstitial lung disease, UIP type. He is chronically short of breath, however does state that it is worse than normal. Normally maintained on 2.5 L/m nasal cannula. He is currently on 3 L/m nasal cannula, in no acute distress while at rest. He does admit some vague URI like symptoms such as a more persistent dry nonproductive cough than usual and sore throat. Denies any fevers, chest pain, hemoptysis. Chest x-ray on arrival demonstrated his underlying pulmonary fibrosis, no significant superimposed infiltrates or pneumonia evident. Most recent CBC on arrival showed a WBC count of 4.5, hemoglobin 9.7, hematocrit 31.7, platelets 169. Most recent CMP shows sodium 132, potassium 3.6, chloride 98, serum bicarb 19, BUN 7, creatinine 0.58, glucose 126. LFTs not elevated. Lactic acid level not elevated. Troponin is not elevated 3. Blood pressure is normotensive. He is tachycardic averaging 120-130 bpm. Appears to be sinus mechanism on bedside monitor. Eliquis is obviously on hold. Normal saline is infusing at 80 ML's per hour. We do have GI coverage this week. Patient is being admitted to the cardiac stepdown unit. We will continue to follow. On today's evaluation of 05/31/2023, the patient is being seen for a follow-up. The patient is doing well compared to yesterday. No chest pain. No shortness of breath compared to yesterday. In same time, he has not demonstrated any signs of GI bleeding. The patient is currently off anticoagulation and the patient is going to undergo a capsule endoscopy today. No other new complaints for now. The lites from today shows a WBC count of 6.3, hemoglobin stable at 8.0, BUN is at 30 with a creatinine of 0.5 and sodium level is at 137. The patient remains on Decadron to complete a ten-day course. Home medications have been resumed. He is on Levemir insulin 8 units and is taking also NovoLog size Coverage . The patient is currently on 2 L of oxygen by nasal cannula. Objective - Vital Signs Vital signs: Vital Signs Temp 97.5 F L 05/31/23 08:05 Pulse 60 05/31/23 08:05 Resp 20 05/31/23 08:05 BP 131/68 05/31/23 08:05 Pulse Ox 100 05/31/23 08:05 FiO2 Intake & Output 05/30/23 05/31/23 05/31/23 18:59 06:59 18:59 Output Total 1000 Balance -1000 Weight 69.5 kg 69.5 kg Output: Urine 1000 Other: Voiding Method Toilet Urinal # Voids 1 1 # Bowel Movements 1 - Exam GENERAL EXAM: Alert, 67-year-old white male, fairly comfortable in no apparent distress. HEAD: Normocephalic and atraumatic EYES: Normal reaction of pupils, equal size. NOSE: Clear with pink turbinates. THROAT: No erythema or exudates. NECK: No masses, no JVD. CHEST: No chest wall deformity. LUNGS: Equal air entry with bibasilar inspiratory rales/crackles. No wheezes, rhonchi, focal consolidation. On 3 L/m nasal cannula. No conversational dyspnea or accessory muscle use.. CVS: S1 and S2 normal with grade 3 systolic murmur, regular rhythm. No extra heart sounds. Tachycardic. ABDOMEN: No hepatosplenomegaly, active bowel sounds, no guarding or rigidity. SPINE: No scoliosis or deformity SKIN: No rashes CENTRAL NERVOUS SYSTEM: No focal deficits, tone is normal in all 4 extremities. EXTREMITIES: There is no peripheral edema, clubbing, or cyanosis. Peripheral pulses are intact. - Labs CBC & Chem 7: 05/31/23 07:58 05/31/23 07:58 Labs: Abnormal Lab Results - Last 24 Hours (Table) 05/30/23 05/30/23 05/30/23 Range/Units 12:03 14:21 16:53 RBC (4.30-5.90) m/uL Hgb (13.0-17.5) gm/dL Hct (39.0-53.0) % MCV (80.0-100.0) fL MCH (25.0-35.0) pg MCHC (31.0-37.0) g/dL RDW (11.5-15.5) % Lymphocytes # (1.0-4.8) k/uL Creatinine (0.66-1.25) mg/dL Glucose (74-99) mg/dL POC Glucose (mg/dL) 322 H 240 H (70-110) mg/dL Hemoglobin A1c 6.6 H (<=6.0) % 05/30/23 05/30/23 05/31/23 Range/Units 20:42 23:50 05:57 RBC 4.23 L (4.30-5.90) m/uL Hgb 10.4 L (13.0-17.5) gm/dL Hct 33.6 L (39.0-53.0) % MCV 79.4 L (80.0-100.0) fL MCH 24.5 L (25.0-35.0) pg MCHC 30.9 L (31.0-37.0) g/dL RDW 20.3 H (11.5-15.5) % Lymphocytes # 0.9 L (1.0-4.8) k/uL Creatinine (0.66-1.25) mg/dL Glucose (74-99) mg/dL POC Glucose (mg/dL) 268 H 241 H (70-110) mg/dL Hemoglobin A1c (<=6.0) % 05/31/23 05/31/23 05/31/23 Range/Units 07:58 07:58 11:59 RBC 4.12 L (4.30-5.90) m/uL Hgb 10.0 L (13.0-17.5) gm/dL Hct 33.1 L (39.0-53.0) % MCV (80.0-100.0) fL MCH 24.4 L (25.0-35.0) pg MCHC 30.4 L (31.0-37.0) g/dL RDW 20.3 H (11.5-15.5) % Lymphocytes # (1.0-4.8) k/uL Creatinine 0.58 L (0.66-1.25) mg/dL Glucose 229 H (74-99) mg/dL POC Glucose (mg/dL) 220 H (70-110) mg/dL Hemoglobin A1c (<=6.0) % Assessment and Plan Assessment: Acute Covid 19 infection, tested positive on 05/30/2023, chest x-ray is con sistent with chronic ILD consistent with pulmonary fibrosis. Superinfection with Covid 19 pneumonia is hard to exclude and this is felt to be less likely at this point in time. Acute GI bleeding , previous EGD and colonoscopy revealed no upper GI source of bleeding and the patient had a colonic diverticulosis. Suspected to have a small bowel source of bleeding. Capsule endoscopy has not been done. Acute blood loss anemia, secondary to above, hemoglobin is stable for now Acute on chronic hypoxemic respiratory failure, likely exacerbated by above, currently on 2 L of oxygen by nasal cannula Systolic heart murmur, likely high output, related to anemia History of paroxysmal atrial fibrillation, usually anticoagulated on Eliquis, currently on hold, the patient has been maintained on propafenone and metoprolol on an outpatient basis Biopsy-proven interstitial lung disease, UIP type, the patient has been maintained on Ofev on outpatient basis Chronic hypoxemic respiratory failure, secondary to above Chronic obstructive pulmonary disease, stable Diabetes mellitus 2, insulin-dependent and the patient has been maintained on Lantus insulin 90 units in addition NovoLog scale and metformin Hyperlipidemia Hypertension Obesity with a BMI of 35.4 kg/m Leukopenia, could be related to Covid 19 infection. Plan: Completing a total of 10 day course of Decadron Oxygenation is stable and the patient is currently on room air oxygen The patient has IPF and no clear indication for a superinfection with Covid 19 pneumonia The patient is currently off anticoagulants Complete the capsule endoscopy In terms of previous GI workup regarding GI bleed, the patient has undergone previous EGDs and colonoscopy indicating moderate degree of diverticulosis in the sigmoid colon without any chronic masses and he was also suspected to have a small bowel source of GI bleed and previous EGD that showed no evidence of any acute bleeding. In terms of his Covid 19 infection, the patient was placed on steroids. We'll titrate FiO2 to maintain saturation above 90%. Hemoglobin stable for now. Anticoagulation will be placed on hold for now.
[2023-05-31 17:01] LABS: Glucose,Whole Blood 267 mg/dL (70-110)
[2023-05-31 21:05] LABS: Glucose,Whole Blood 305 mg/dL (70-110)
[2023-05-31] MEDS: PRAVASTATIN SODIUM 40 MG TAB PO SCH (21:23)
[2023-05-31] MEDS: traZODone HCL 50 MG TAB PO SCH (21:23)
[2023-06-01 02:36] VITALS: TEMP 97.6
[2023-06-01 05:46] LABS: Glucose,Whole Blood 246 mg/dL (70-110)
[2023-06-01] MEDS: INSULIN ASPART (NovoLOG) 100 UNIT/ML VIAL SQ SCH (06:34)
[2023-06-01] MEDS ORDERED: INSULIN DETEMIR (LEVEMIR) 100 UNIT/ML SYR SQ SCH (07:00)
[2023-06-01 08:04] VITALS: BP 135/67; PULSE 56; RESP 20
--- NOTE | 2023-06-01 08:34 | P.PN ---
Subjective Progress Note Date: 06/01/23 Principal diagnosis: Melena This is a pleasant 67-year-old male who presented to the emergency department yesterday evening with complaints of shortness of breath, not feeling well, weakness, chest pressure and complaints of maroon colored stool. Patient is on Eliquis for atrial fibrillation also has a history of recent GI bleed, asthma, coronary artery disease, COPD, diabetes mellitus, hyperlipidemia, hypertension history of fatty liver, choledocholithiasis status post ERCP in 2018. Patient is COVID POSITIVE this admission. He was recently hospitalized for about 1 wee k in February for a GI bleed at that time. Patient states he was feeling very weak and started having bloody bowel movements. He was hospitalized at [facility] and [place] and underwent an EGD and colonoscopy. Reports were requested and colonoscopy done on 02/12/2023 reported moderate d iverticulosis noted in the sigmoid colon. No polyps or masses seen. Suspect bleeding is coming from a small bowel source. EGD report done on 02/12/2023 reported normal EGD without any ulcers or source of bleeding found. The patient also had a prior E[place] [address] Isbell for melena that reported findings of a small hiatal hernia, diminutive gastric polyp status post polypectomy and mild gastritis. No evidence for active GI bleed at that time. Patient denies any abdominal pain or cramping with his bleeding. States it has been occurring for the last 2-3 day duration. Last dose of Eliquis and aspirin was 4 days ago. He denies any other NSAID use. Patient does state that he has diarrhea and has had for last 6 months duration with nausea and occasional vomiting from his medication Ofev which is a side effect Labs: WBC 4.5 hemoglobin 9.7 hematocrit 31.7 platelet count 169,000 sodium 132 potassium 3.6 BUN 7 creatinine 0.5 total bilirubin 0.9 AST 39 ALT 15 alkaline phosphatase 72 SARS-COV-2 PCR positive 05/31/2023 Patient seen and examined today as a follow-up. Today he is undergoing a small capsule endoscopy. Patient denies any further bowel movement and no black s tools, or rectal bleeding. Denies any abdominal pain, nausea or vomiting. Hemoglobin is stable at 10.0 from 10.4 yesterday. 06/01/2023 patient seen and examined as a follow-up. He underwent small bowel capsule endoscopy yesterday. Small bowel video capsule reviewed. There is no active bleeding or old blood noted. There are no findings to explain patient's report of melena. Hemoglobin has been stable at 10.0 for the reported melena. No abdominal pain, nausea, or vomiting. Objective - Vital Signs Vital signs: Vital Signs Temp 97.6 F 06/01/23 07:48 Pulse 56 L 06/01/23 07:48 Resp 20 06/01/23 07:48 BP 135/67 06/01/23 07:48 Pulse Ox 99 06/01/23 07:48 FiO2 Intake & Output 05/31/23 06/01/23 06/01/23 18:59 06:59 18:59 Weight 69.5 kg 80.5 kg Other: # Voids 1 3 # Bowel Movements 1 - Exam General appearance: The patient is alert, oriented, appears in no acute distress. HET: Head is normocephalic and atraumatic. Conjunctiva pink. Sclera anicteric. Neck: Supple without lymphadenopathy. Abdomen: Soft, nontender, nondistended. No guarding or rigidity. Camera around waist. Extremities: Normal skin color and turgor. No pedal edema Skin: No rashes, no jaundice Neurological: No focal deficits. Alert and oriented. - Labs CBC & Chem 7: 05/31/23 07:58 05/31/23 07:58 Labs: Abnormal Lab Results - Last 24 Hours (Table) 05/31/23 05/31/23 05/31/23 Range/Units 07:58 07:58 11:59 RBC 4.12 L (4.30-5.90) m/uL Hgb 10.0 L (13.0-17.5) gm/dL Hct 33.1 L (39.0-53.0) % MCH 24.4 L (25.0-35.0) pg MCHC 30.4 L (31.0-37.0) g/dL RDW 20.3 H (11.5-15.5) % Creatinine 0.58 L (0.66-1.25) mg/dL Glucose 229 H (74-99) mg/dL POC Glucose (mg/dL) 220 H (70-110) mg/dL 12/07/23 12/07/23 12/08/23 Range/Units 17:00 21:03 05:43 RBC (4.30-5.90) m/uL Hgb (13.0-17.5) gm/dL Hct (39.0-53.0) % MCH (25.0-35.0) pg MCHC (31.0-37.0) g/dL RDW (11.5-15.5) % Creatinine (0.66-1.25) mg/dL Glucose (74-99) mg/dL POC Glucose (mg/dL) 267 H 305 H 246 H (70-110) mg/dL Assessment and Plan (1) GI bleed Narrative/Plan: This 67-year-old male presenting for shortness of breath, weakness, malaise and GI bleed was diagnosed with COVID-19 having has had at least 2 prior GI bleeds on Xarelto for atrial fibrillation. Patient's most recent GI bleed was in February of this year where he was admitted to [facility] and underwent EGD and colonoscopy without any findings of active GI bleed. EGD normal colonoscopy reported diverticulosis with suspected small bowel bleed. Patient states he was recommended to undergo outpatient small bowel capsule endoscopy however since he wasn't having any bleeding [facility]. Xarelto has been on hold since Sunday, bleeding is improving now more of a maroon color. Plan for small bowel capsule endoscopy tomorrow morning. 05/31/2023 Capsule endoscopy underway. Patient reports no further bleeding. Of 823 patient without any evidence of GI bleed. No old blood or active bleeding noted in the small bowel video endoscopy. There are no findings to explain patient's melena. Possible previous bleed related to diverticular bleed as patient was noted to have diverticulosis on recent colonoscopy. Current Visit: Yes Status: Acute Code(s): K92.2 - GASTROINTESTINAL HEMORRHAGE, UNSPECIFIED SNOMED Code(s): 46150356 (2) Anemia Current Visit: Yes Status: Acute Code(s): D64.9 - ANEMIA, UNSPECIFIED SNO MED Code(s): 968874298 (3) Dyspnea Current Visit: Yes Status: Acute Code(s): R06.00 - DYSPNEA, UNSPECIFIED SNOMED Code(s): 938374844 (4) Weakness Current Visit: Yes Status: Acute Code(s): R53.1 - WEAKNESS SNOMED Code(s): 03947785 (5) SARS-CoV-2 positive Current Visit: Yes Status: Acute Code(s): U07.1 - COVID-19 SNOMED Code(s): 2840540539477640 (6) Atrial fibrillation Current Visit: No Status: Acute Code(s): I48.91 - UNSPECIFIED ATRIAL FIBRILLATION SNOMED Code(s): 82224349 Plan: 1. Continue symptomatic and supportive care 2. Patient may have consistent carbohydrate diet for lunch 3. Protonix 40 mg twice a day 4. May resume anticoagulation 5. Recent EGD and colonoscopy from [facility] on his skin that to chart and reviewed. 6. Bowel video capsule endoscopy completed, no evidence of small bowel bleed. Thank you For this consultation, patient is cleared from gastroenterology for discharge. We will sign off at this time. Dr. Shelli Krishnan I agree with the dictator's note, documented as a scribe by Michelle Leal.
[2023-06-01] MEDS: METOPROLOL TARTRATE 25 MG TAB PO SCH (09:12)
[2023-06-01] MEDS: PANTOPRAZOLE 40 MG/10 ML VIAL IV SCH (09:12)
[2023-06-01] MEDS: CHOLECALCIFEROL 25 MCG (1000 IU) TABLET PO SCH (09:12)
[2023-06-01] MEDS: amLODIPine 10 MG TAB PO SCH (09:12)
[2023-06-01] MEDS: DEXAMETHASONE SOD PHOSPHATE 10 MG/ML 1 ML VIAL IVP SCH (09:12)
[2023-06-01] MEDS: PROPAFENONE 150 MG TAB PO SCH (09:13)
[2023-06-01] MEDS: SERTRALINE 100 MG TAB PO SCH (09:13)
[2023-06-01] MEDS: lisinopriL 5 MG TAB PO SCH (09:13)
[2023-06-01] MEDS: MONTELUKAST 10 MG TAB PO SCH (09:13)
[2023-06-01] MEDS: POTASSIUM CHLORIDE ER 10 MEQ TAB.ER.PRT PO SCH (09:13)
[2023-06-01] MEDS: FUROSEMIDE 20 MG TAB PO SCH (09:13)
[2023-06-01] MEDS: SYMBICORT 160-4.5 MCG INHALER INHALATION SCH (09:37)
[2023-06-01] MEDS: ALBUTEROL HFA INHALER INHALATION SCH (09:40)
[2023-06-01 11:26] LABS: Basophils # (A) 0 X 10*3/uL (0.00-0.10); Basophils % (A) 0 %; Eosinophils # (A) 0 X 10*3/uL (0.04-0.35); Eosinophils % (A) 0 %; HCT 33.8 % (39.6-50.0); HGB 9.5 g/dL (13.0-17.0); Lymphocytes # (A) 1.48 X 10*3/uL (0.90-5.00); Lymphocytes % (A) 20.1 %; MCH 23.2 pg (27.0-32.0); MCHC 28.1 g/dL (32.0-37.0); MCV 82.6 FL (80.0-97.0); Mean Platelet Volume 10.5 FL (9.5-12.2); Monocytes # (A) 0.56 X 10*3/uL (0.20-1.00); Monocytes % (A) 7.6 %; NRBC Per 100 WBC 0 X 10*3/uL (0.00-0.01); Neutrophils % (A) 71.9 %; Platelet Count 245 X 10*3/uL (140-440); RBC 4.09 X 10*6/uL (4.40-5.60); RDW 21.4 % (11.5-14.5); WBC 7.37 X 10*3/uL (4.50-10.00)
--- NOTE | 2023-06-01 11:36 | P.DS ---
Providers Date of admission: 05/29/23 16:25 Expected date of discharge: 06/01/23 Attending physician: Elsy Briggs DO Consults: 05/29/23 16:23 Consult Physician Routine Consulting Provider: Nehemias Ewing Consult Reason/Comments: dyspnea Do you want consulting provider notified?: Yes Consult Physician Routine Consulting Provider: Deena Krishnan Consult Reason/Comments: gi bleed Do you want consulting provider notified?: Yes Primary care physician: [facility] Hospital Course: Discharge Diagnosis: Acute blood loss anemia Acute lower GI bleed History of Moderate diverticulosis Acute COVID-19 syndrome Acute on chronic hypoxic respiratory failure Acute on chronic dyspnea History of ILD Atrial fibrillation with RVR, now in sinus rhythm Anion gap metabolic acidosis Mild hyponatremia Type 2 diabetes with neuropathy Hospital Course: 67-year-old male with history of chronic atrial fibrillation on anticoagulation, CAD, hypertension, dyslipidemia, COPD, interstitial lung disease, MARISA on CPAP, type 2 diabetes with neuropathy, nonalcoholic fatty liver disease, GERD, mood disorder presenting with bright red blood per rectum. In the ED, temperature was 97.5, pulse 131, blood pressure 127/78, saturating at 94% on room air. Hemoglobin 10.8, down from baseline. MCV 77, platelet 198, APTT 31.5, sodium 132, potassium 3.6, bicarb 19, creatinine 0.58, glucose 126, troponin negative. Patient being admitted for atrial fibrillation with RVR as well as acute lower GI bleed. Atrial fibrillation likely in the setting of not able to take his medications. Now in sinus rhythm. GI consulted. Patient also found to be COVID-19 positive. Capsule endoscopy did not show any small bowel bleeding. Patient restarted on anticoagulation. He will follow-up with his sales communications manager with regards to possibly discontinuing anticoagulation and getting watchman device. Pulmonology was also consulted. He will also complete a total 10 day course of oral steroids. Patient seen and examined at bedside. Vital signs reviewed and stable. General: nontoxic, no distress, appears at stated age Derm: warm, dry Head: atraumatic, normocephalic, symmetric Eyes: EOMI, no lid lag, anicteric sclera, pupils equal round reactive to light ENT: Nose and ears atraumatic Neck: No thyromegaly, supple Mouth: no lip lesion, mucus membranes moist Cardiovascular: S1S2 reg, no murmur, no edema Lungs: Bilateral rales, no wheeze, no accessory muscle use, supplemental oxygen Abdominal: soft, nontender to palpation, no guarding, no appreciable organomegaly Ext: no gross muscle atrophy, muscle strength muscle strength 5 out of 5 in all 4 extremities, no contractures Neuro: CN II-XII grossly intact Psych: Alert, oriented, appropriate affect A total of 33 minutes of time were spent preparing this complex discharge summary. Patient was discharged on 06/01/23 at 951. Patient Condition at Discharge: Stable Plan - Discharge Summary Discharge Rx Participant: Yes New Discharge Prescriptions: New dexAMETHasone [Decadron] 6 mg PO DAILY #6 tablet Continue amLODIPine [Norvasc] 10 mg PO DAILY metFORMIN HCL [Glucophage] 1,000 mg PO BID Montelukast [Singulair] 10 mg PO DAILY Insulin Glargine,Hum.rec.anlog [Lantus Solostar Pen] 80 - 90 unit SQ DAILY Insulin Aspart [NovoLOG Flexpen] See Protocol SQ AC-TID Meclizine [Antivert] 25 mg PO TID PRN PRN Reason: Vertigo Omeprazole [PriLOSEC] 40 mg PO DAILY Apixaban [Eliquis] 5 mg PO BID #60 tab Metoprolol Tartrate [Lopressor] 25 mg PO BID #60 tab Propafenone [Rythmol] 150 mg PO TID #90 tab Albuterol Inhaler [Ventolin Hfa Inhaler] 2 puff INHALATION RT-QID PRN PRN Reason: Shortness Of Breath Aspirin EC [Ecotrin Low Dose] 81 mg PO DAILY Pravastatin Sodium [Pravachol] 40 mg PO HS Nintedanib Esylate [Ofev] 150 mg PO BID Sertraline [Zoloft] 100 mg PO DAILY traZODone HCL [Desyrel] 50 mg PO HS Furosemide [Lasix] 20 mg PO DAILY Potassium Chloride [Klor-Con M10] 10 meq PO DAILY Cholecalciferol [Vitamin D3 (25 Mcg = 1000 Iu)] 50 mcg PO DAILY lisinopriL [Zestril] 5 mg PO DAILY Discharge Medication List amLODIPine [Norvasc] 10 mg PO DAILY 09/11/16 [History] metFORMIN HCL [Glucophage] 1,000 mg PO BID 09/11/16 [History] Insulin Aspart [NovoLOG Flexpen] See Protocol SQ AC-TID 07/17/17 [History] Insulin Glargine,Hum.rec.anlog [Lantus Solostar Pen] 80 - 90 unit SQ DAILY 07/17/17 [History] Montelukast [Singulair] 10 mg PO DAILY 07/17/17 [History] Meclizine [Antivert] 25 mg PO TID PRN 01/31/18 [History] Omeprazole [PriLOSEC] 40 mg PO DAILY 01/31/18 [History] Apixaban [Eliquis] 5 mg PO BID #60 tab 02/04/18 [Rx] Metoprolol Tartrate [Lopressor] 25 mg PO BID #60 tab 02/04/18 [Rx] Propafenone [Rythmol] 150 mg PO TID #90 tab 02/04/18 [Rx] Albuterol Inhaler [Ventolin Hfa Inhaler] 2 puff INHALATION RT-QID PRN 08/27/18 [History] Aspirin EC [Ecotrin Low Dose] 81 mg PO DAILY 08/27/18 [History] Pravastatin Sodium [Pravachol] 40 mg PO HS 08/27/18 [History] Furosemide [Lasix] 20 mg PO DAILY 09/26/22 [History] Potassium Chloride [Klor-Con M10] 10 meq PO DAILY 09/26/22 [History] traZODone HCL [Desyrel] 50 mg PO HS 09/26/22 [History] Cholecalciferol [Vitamin D3 (25 Mcg = 1000 Iu)] 50 mcg PO DAILY 05/29/23 [History] Nintedanib Esylate [Ofev] 150 mg PO BID 05/29/23 [History] Sertraline [Zoloft] 100 mg PO DAILY 05/29/23 [History] lisinopriL [Zestril] 5 mg PO DAILY 05/29/23 [History] dexAMETHasone [Decadron] 6 mg PO DAILY #6 tablet 06/01/23 [Rx] Patient Instructions/Handouts: Gastrointestinal Bleeding (DC), Rectal Bleeding (DC), COVID-19 (Coronavirus Disease 2019) (DC) Activity/Diet/Wound Care/Special Instructions: Please stop taking eliquis and aspirin if you see blood or black stool. Please follow up with your sales communications manager with regards to possible watchman device placement. Discharge Disposition: HOME SELF-CARE
--- NOTE | 2023-06-01 11:59 | P.PN ---
Subjective Progress Note Date: 06/01/23 I am seeing this patient in consultation today 05/30/2023 in the emergency room after presenting with acute GI bleed. Patient is a 67-year-old white male with past medical history significant for previous GI bleed back in February,, atrial fibrillation anticoagulated on Eliquis, interstitial lung disease UIP type on Ofev, opiate, former tobacco smoker, hyperlipidemia, hypertension, coronary artery disease, diabetes, among other things. Patient presented to the emergency room yesterday late afternoon complaining of multiple episodes of bloody bowel movements over the last 3 days. Bowel movements described as diarrhea with dark stool that turn the toilet water red. He does admit some nausea and vomiting and retching mostly associated after taking his Ofev. Denies any hematemesis. Denies any significant abdominal pain. He did recently undergo a colonoscopy and EGD at outside facility back in February, for similar symptoms. Per the patient, they were not able to locate any bleeding. He is on Eliquis outpatient. Hemoglobin is down to 9.7, baseline is 13-14 g/dL. He has had some associated shortness of breath and fatigue. He is anemic. He does have history of biopsy-proven interstitial lung disease, UIP type. He is chronically short of breath, however does state that it is worse than normal. Normally maintained on 2.5 L/m nasal cannula. He is currently on 3 L/m nasal cannula, in no acute distress while at rest. He does admit some vague URI like symptoms such as a more persistent dry nonproductive cough than usual and sore throat. Denies any fevers, chest pain, hemoptysis. Chest x-ray on arrival demonstrated his underlying pulmonary fibrosis, no significant superimposed infiltrates or pneumonia evident. Most recent CBC on arrival showed a WBC count of 4.5, hemoglobin 9.7, hematocrit 31.7, platelets 169. Most recent CMP shows sodium 132, potassium 3.6, chloride 98, serum bicarb 19, BUN 7, creatinine 0.58, glucose 126. LFTs not elevated. Lactic acid level not elevated. Troponin is not elevated 3. Blood pressure is normotensive. He is tachycardic averaging 120-130 bpm. Appears to be sinus mechanism on bedside monitor. Eliquis is obviously on hold. Normal saline is infusing at 80 ML's per hour. We do have GI coverage this week. Patient is being admitted to the cardiac stepdown unit. We will continue to follow. On today's evaluation of 05/31/2023, the patient is being seen for a follow-up. The patient is doing well compared to yesterday. No chest pain. No shortness of breath compared to yesterday. In same time, he has not demonstrated any signs of GI bleeding. The patient is currently off anticoagulation and the patient is going to undergo a capsule endoscopy today. No other new complaints for now. The lites from today shows a WBC count of 6.3, hemoglobin stable at 8.0, BUN is at 30 with a creatinine of 0.5 and sodium level is at 137. The patient remains on Decadron to complete a ten-day course. Home medications have been resumed. He is on Levemir insulin 8 units and is taking also NovoLog size Coverage . The patient is currently on 2 L of oxygen by nasal cannula. On 06/01/2023, the patient is doing well. Endoscopy Was Done. No Active Source of Bleeding. The Patient Is to Be Discharged Home Today. He'll Be Also Completed a Course of Decadron. Objective - Vital Signs Vital signs: Vital Signs Temp 97.6 F 06/01/23 07:48 Pulse 56 L 06/01/23 07:48 Resp 20 06/01/23 07:48 BP 135/67 06/01/23 07:48 Pulse Ox 99 06/01/23 07:48 FiO2 Intake & Output 05/31/23 06/01/23 06/01/23 18:59 06:59 18:59 Weight 69.5 kg 80.5 kg Other: # Voids 1 3 1 # Bowel Movements 1 1 - Exam GENERAL EXAM: Alert, 67-year-old white male, fairly comfortable in no apparent distress. HEAD: Normocephalic and atraumatic EYES: Normal reaction of pupils, equal size. NOSE: Clear with pink turbinates. THROAT: No erythema or exudates. NECK: No masses, no JVD. CHEST: No chest wall deformity. LUNGS: Equal air entry with bibasilar inspiratory rales/crackles. No wheezes, rhonchi, focal consolidation. On 3 L/m nasal cannula. No conversational dyspnea or accessory muscle use.. CVS: S1 and S2 normal with grade 3 systolic murmur, regular rhythm. No extra heart sounds. Tachycardic. ABDOMEN: No hepatosplenomegaly, active bowel sounds, no guarding or rigidity. SPINE: No scoliosis or deformity SKIN: No rashes CENTRAL NERVOUS SYSTEM: No focal deficits, tone is normal in all 4 extremities. EXTREMITIES: There is no peripheral edema, clubbing, or cyanosis. Peripheral pulses are intact. - Labs CBC & Chem 7: 06/01/23 06:08 05/31/23 07:58 Labs: Abnormal Lab Results - Last 24 Hours (Table) 05/31/23 05/31/23 05/31/23 Range/Units 11:59 17:00 21:03 RBC (4.40-5.60) X 10*6/uL Hgb (13.0-17.0) g/dL Hct (39.6-50.0) % MCH (27.0-32.0) pg MCHC (32.0-37.0) g/dL RDW (11.5-14.5) % Eosinophils # (0.04-0.35) X 10*3/uL POC Glucose (mg/dL) 220 H 267 H 305 H (70-110) mg/dL 06/01/23 06/01/23 Range/Units 05:43 06:08 RBC 4.09 L (4.40-5.60) X 10*6/uL Hgb 9.5 L (13.0-17.0) g/dL Hct 33.8 L (39.6-50.0) % MCH 23.2 L (27.0-32.0) pg MCHC 28.1 L (32.0-37.0) g/dL RDW 21.4 H (11.5-14.5) % Eosinophils # 0 L (0.04-0.35) X 10*3/uL POC Glucose (mg/dL) 246 H (70-110) mg/dL Assessment and Plan Assessment: Acute Covid 19 infection, tested positive on 05/30/2023, chest x-ray is consistent with chronic ILD consistent with pulmonary fibrosis. Superinfection with Covid 19 pneumonia is hard to exclude and this is felt to be less likely at this point in time. The patient is stable Acute GI bleeding , previous EGD and colonoscopy revealed no upper GI source of bleeding and the patient had a colonic diverticulosis. Suspected to have a small bowel source of bleeding. Capsule endoscopy has not been done. No evidence of any bleeding at this point in time. Acute blood loss anemia, secondary to above, hemoglobin is stable for now Acute on chronic hypoxemic respiratory failure, likely exacerbated by above, currently on 2 L of oxygen by nasal cannula Systolic heart murmur, likely high output, related to anemia History of paroxysmal atrial fibrillation, usually anticoagulated on Eliquis, currently on hold, the patient has been maintained on propafenone and metoprolol on an outpatient basis Biopsy-proven interstitial lung disease, UIP type, the patient has been maintained on Ofev on outpatient basis Chronic hypoxemic respiratory failure, secondary to above Chronic obstructive pulmonary disease, stable Diabetes mellitus 2, insulin-dependent and the patient has been maintained on Lantus insulin 90 units in addition NovoLog scale and metformin Hyperlipidemia Hypertension Obesity with a BMI of 35.4 kg/m Leukopenia, could be related to Covid 19 infection. Plan: No active bleeding Endoscopy Was Negative To be follow-up with cardiology regarding his anticoagulation Completing a total of 10 day course of Decadron Oxygenation is stable and the patient is currently on room air oxygen The patient has IPF and no clear indication for a superinfection with Covid 19 pneumonia Completed the capsule endoscopy In terms of previous GI workup regarding GI bleed, the patient has undergone previous EGDs and colonoscopy indicating moderate degree of diverticulosis in the sigmoid colon without any chronic masses and he was also suspected to have a small bowel source of GI bleed and previous EGD that showed no evidence of any acute bleeding. In terms of his Covid 19 infection, the patient was placed on steroids. We'll titrate FiO2 to maintain saturation above 90%. Hemoglobin stable for now. Discharge today
== END 2023-06-01 11:27 | disposition home or self-care (01) | DRG 177 ==
LOC: EC 13:45 → 1SOBS 16:24 → OBSVTOIN 16:25 → 3SCARD 17:36 → 4SSUR 05-30 15:03
PROVIDERS: ADMIT Internal Medicine; ATTEND Internal Medicine
PROC: 0DJ07ZZ Inspection of Upper Intestinal Tract, Via Natural or Artificial Opening (ICD-10-PCS; principal; 2023-05-31 07:00)
DX: U07.1 COVID-19 (principal); J12.82 Pneumonia due to coronavirus disease 2019; J96.21 Acute and chronic respiratory failure with hypoxia; K57.31 Diverticulosis of large intestine without perforation or abscess with bleeding; K92.1 Melena; D62 Acute posthemorrhagic anemia; K57.32 Diverticulitis of large intestine without perforation or abscess without bleeding; E87.1 Hypo-osmolality and hyponatremia; I48.20 Chronic atrial fibrillation, unspecified; J44.0 Chronic obstructive pulmonary disease with (acute) lower respiratory infection; E87.20 Acidosis, unspecified; Z20.822 Contact with and (suspected) exposure to COVID-19; J84.112 Idiopathic pulmonary fibrosis; E11.40 Type 2 diabetes mellitus with diabetic neuropathy, unspecified; Z79.4 Long term (current) use of insulin; I10 Essential (primary) hypertension; Z68.35 Body mass index [BMI] 35.0-35.9, adult; E66.01 Morbid (severe) obesity due to excess calories; E78.5 Hyperlipidemia, unspecified; I25.10 Atherosclerotic heart disease of native coronary artery without angina pectoris; F39 Unspecified mood [affective] disorder; K21.9 Gastro-esophageal reflux disease without esophagitis; G47.33 Obstructive sleep apnea (adult) (pediatric); D72.819 Decreased white blood cell count, unspecified; E86.0 Dehydration; F17.200 Nicotine dependence, unspecified, uncomplicated; I48.0 Paroxysmal atrial fibrillation; K76.0 Fatty (change of) liver, not elsewhere classified; Z79.01 Long term (current) use of anticoagulants; Z79.82 Long term (current) use of aspirin; Z79.84 Long term (current) use of oral hypoglycemic drugs; Z79.899 Other long term (current) drug therapy; Z82.49 Family history of ischemic heart disease and other diseases of the circulatory system; Z87.442 Personal history of urinary calculi; Z96.1 Presence of intraocular lens; Z98.42 Cataract extraction status, left eye; Z98.41 Cataract extraction status, right eye; Z87.19 Personal history of other diseases of the digestive system; Z88.5 Allergy status to narcotic agent
CPT/HCPCS: 36415; 71046; 80048; 80053; 83036; 83605; 84484; 85025; 85730; 86850; 86900; 86901; 87636; 91110; 93005; 94640; 96361; 96374; 96375; 96376; 99285